=== PATIENT | male | born 1945 | race Caucasian/White ===

== ENCOUNTER 2018-09-04 13:11 | Inpatient (IN) | payer BC, OTHER ==
--- NOTE | 2018-09-04 14:08 | PDOC ---
History of Present Illness - General Chief Complaint: Weakness Stated Complaint: WEAKNESS Time Seen by Provider: 09/04/18 13:17 - History of Present Illness Initial Comments: 09/04/18 14:09 73 year old man with a history of HTN, HLD, possible PAD, who was brought in by family for concern of weakness, soiling his bed and inability to care for self. The patient ate baseline walks with a shuffling gait, requires a cane and has shaking of the hands. The patient complains of shortness of breath with exertion and urinary retention due to his BPH. The family reports that the patient drinks nightly but has not had a drink in the past 1 month. The family has been dropping off food for the patient regularly and the patient has been walking to the door to olive picker the food. The daughter provides a portion of the history and notes that she last saw him 1 month ago when she dropped off food for him. Daughter feels that patient has lost approx 60 lbs over 3months. Today the family had returned from a for the patient's sister and they visited him and found his apartment in disarray, found the patient in bed soiled himself. The patient denies any other complaints at bedside. Past History - Past Medical History Allergies/Adverse Reactions: Allergies Allergy/AdvReac Type Severity Reaction Status Date / Time No Known Allergies Allergy Verified 09/04/18 13:43 Home Medications: Ambulatory Orders Atenolol [Tenormin -] 10 mg PO DAILY 09/04/18 COPD: No HTN: Yes - Suicide/Smoking/Psychosocial Hx Smoking History: Former smoker Have you smoked in the past 12 months: No If you are a former smoker, when did you quit?: 45 YEARS AGO Information on smoking cessation initiated: No Hx Alcohol Use: Yes (OVER 1 MONTH AGO) Drug/Substance Use Hx: No Review of Systems - Review of Systems Able to Perform ROS?: Yes Is the patient limited Wolof proficient: No Constitutional: No: Chills, Diaphoresis HEENTM: No: Blurred Vision, Tinnitus Respiratory: Yes: SOB with Exertion. No: Cough, Orthopnea, Shortness of Breath Cardiac (ROS): No: Chest Pain, Lightheadedness, Palpitations ABD/GI: No: Constipated, Diarrhea, Nausea, Vomiting : No: Burning, Dysuria Musculoskeletal: No: Back Pain, Muscle Pain Neurological: No: Headache, Numbness, Tingling *Physical Exam - Vital Signs Last Vital Signs Temp Pulse Resp BP Pulse Ox 98.3 F 85 20 126/72 95 09/04/18 13:39 09/04/18 13:39 09/04/18 13:39 09/04/18 13:39 09/04/18 13:39 - Physical Exam Comments: 09/04/18 14:42 GENERAL: Awake, alert, and fully oriented, in no acute distress HEAD: No signs of trauma, normocephalic, atraumatic EYES: EOMI, sclera anicteric, conjunctiva clear ENT: poor dentition, hallituosos, bad odor NECK: Normal ROM, supple LUNGS: No distress, speaks full sentences, clear to auscultation bilaterally HEART: Regular rate and rhythm, normal S1 and S2, no murmurs, rubs or gallops, peripheral pulses normal and equal bilaterally. ABDOMEN: Soft, nontender, normoactive bowel sounds. No guarding, no rebound. No masses EXTREMITIES : Normal inspection, Normal range of motion, no edema. No clubbing or cyanosis. no ulcers, some excoriations on the legs bilaterally, cool ankles but palpatble pupils NEUROLOGICAL: Cranial nerves II through XII grossly intact. Normal speech, normal gait, no focal sensorimotor deficits SKIN: no ulcers, some excoriations on the legs bilaterally, cool ankles but palpatble pupils Moderate Sedation - Procedure Monitoring Vital Signs: Procedure Monitoring Vital Signs Temperature 98.3 F 09/04/18 13:39 Pulse Rate 85 09/04/18 13:39 Respiratory Rate 20 09/04/18 13:39 Blood Pressure 126/72 09/04/18 13:39 O2 Sat by Pulse Oximetry (%) 95 09/04/18 13:39 ED Treatment Course - LABORATORY CBC & Chemistry Diagram: 09/05/18 06:35 09/05/18 06:35 Medical Decision Making - Medical Decision Making 73 year old man with a history of HTN, HLD, possible PAD, who was brought in by family for concern of weakness, soiling his bed and inability to care for self. The patient ate baseline walks with a shuffling gait, requires a cane and has shaking of the hands. The patient complains of shortness of breath with exertion and urinary retention due to his BPH. Daughter feels that patient has lost approx 60 lbs over 3months. Today the family had returned from a for the patient's sister and they visited him and found his apartment in disarray, found the patient in bed soiled himself. The patient denies any other complaints at bedside. ED Course: Assess patient for acs vs uti vs pna vs eletrolyte abnormality cbc, cmp, bnp, ekg, cxr, trop, ua, ucx 09/04/18 14:38 Case discussed with social work will assess patient but at this time feels patient will benefit from [facility] referral for home health aid. 09/04/18 15:23 Patient with bilateral pleural effusions and lactic of 2.7 malignancy vs pneumonia vs chf ct chest ordered 09/04/18 16:47 Attending discussed with patient about medical decisions, unclear if patient had capacity. Dr. Vigil contacted will come see patient in the ED, assess whether patient has capacity or whether health proxy is warranted. CT Chest w/ opacities concerning for neoplasm vs mesothelioma Per psychiatry patient does not have mental capacity. Discussed with son who agrees to be health proxy. Will admit patient for further workup and evaluation. Health Proxy paperwork pending. Patient admitted for further workup. *DC/Admit/Observation/Transfer Diagnosis at time of Disposition: Lactic acidosis, Pleural effusion - Discharge Dispostion Condition at time of disposition: Fair Decision to Admit order: Yes - Referrals - Patient Instructions - Post Discharge Activity
[2018-09-04 14:40] LABS: BASO % 0.5 % (0-2.0); EOS % 0.4 % (0-4.5); HEMATOCRIT 38.9 % (35.4-49); HEMOGLOBIN 13.7 GM/dL (11.7-16.9); LYMPH % 9.1 % (8-40); MCH 36.3 pg (25.7-33.7); MCHC 35.3 g/dl (32.0-35.9); MEAN CELL VOLUME 102.6 fl (80-96); MONO % 8.3 % (3.8-10.2); NEUT % 81.7 % (42.8-82.8); PLATELET COUNT 212 K/MM3 (134-434); RBC 3.79 M/mm3 (4.00-5.60); RDW 12.6 % (11.9-15.9); WHITE BLOOD COUNT 7.8 K/mm3 (4.0-10.0)
[2018-09-04] MEDS ORDERED: ALBUTEROL SO4 2.5/IPRATROPIUM 0.5 INH SOL 3 ML VIAL.NEB. NEB ONE (14:47)
[2018-09-04] MEDS ORDERED: SODIUM CHLORIDE 1,000 ML IV SCH (15:00)
[2018-09-04 15:20] LABS: ALBUMIN 2.5 g/dl (3.4-5.0); ALK PHOS 110 U/L (45-117); ANION GAP 7 MMOL/L (8-16); BILIRUBIN,TOTAL 1.1 mg/dL (0.2-1); BLOOD UREA NITROGEN 14 mg/dL (7-18); CALCIUM 8.8 mg/dL (8.5-10.1); CHLORIDE 96 mmol/L (98-107); CO2 33 mmol/L (21-32); CREATININE 0.8 mg/dL (0.55-1.3); GLUCOSE,RANDOM 93 mg/dL (74-106); MAGNESIUM 1.8 mg/dL (1.8-2.4); PHOSPHOROUS 3.1 mg/dL (2.5-4.9); POTASSIUM 3.6 mmol/L (3.5-5.1); SGOT/AST 30 U/L (15-37); SGPT/ALT 30 U/L (13-61); SODIUM 136 mmol/L (136-145); TOT PROT 6.5 g/dl (6.4-8.2)
--- NOTE | 2018-09-04 15:35 | PDOC ---
Attending Attestation - Resident Resident Name: MihaiAna shoemakerie - ED Attending Attestation I have performed the following: I have examined & evaluated the patient, The case was reviewed & discussed with the resident, I agree w/resident's findings & plan, Exceptions are as noted - HPI HPI: 09/04/18 15:30 The patient is a 73 year old male with a significant medical history of HTN, HLD , possible PAD, who was brought in by family for failure to thrive and SOB. The family reports that the patient drinks ETOH nightly, though pt denies drinking for the past month. Per son, pt was found in his home completely disheveled today with urine and stool on himself. They also report a significant weight loss recently. Pt endorses SOB with exertion. Denies CP. Denies SOB at rest. The patient denies headache and dizziness. The patient denies fever, chills, nausea, vomit, diarrhea and constipation. The patient denies dysuria, frequency , urgency and hematuria. Allergies: NKDA - Physicial Exam PE: 09/04/18 15:35 GENERAL: Awake, alert, and fully oriented, in no acute distress. HEAD: No signs of trauma EYES: PERRLA, EOMI, sclera anicteric, conjunctiva clear ENT: Auricles normal inspection, hearing grossly normal, nares patent, oropharynx clear without exudates. Moist mucosa NECK: Nontender, no stepoffs, Normal ROM, supple, no lymphadenopathy, JVD, or masses LUNGS: + diminished breath sounds R base HEART: Regular rate and rhythm, normal S1 and S2, no murmurs, rubs or gallops ABDOMEN: Soft, nontender, normoactive bowel sounds. No guarding, no rebound. No masses EXTREMITIES: Normal range of motion, no edema. No clubbing or cyanosis. No cords, erythema, or tenderness NEUROLOGICAL: Cranial nerves II through XII intact. 5/5 strength and sensation in all extremities, Normal speech, normal gait, normal cerebellar function SKIN: Warm, Dry, normal turgor, no rashes or lesions noted. - Medical Decision Making 09/04/18 15:37 73 M with failure to thrive and SOB. Pt with stable vitals in ED. Exam notable for diminished lung sounds in R base. - Labs, cultures, trop - CXR - EKG 09/04/18 16:20 CXR shows large R pleural effusion Will obtain CT to r/o malignancy vs PNA Pt also has UTI Will cover both with levaquin 09/04/18 16:58 I discussed results with patient and recommended admission for IV abx, at which point pt became agitated. Pt states that he does not want to be admitted. However, I do not believe pt has capacity. I explained to pt that without appropriate treatment, he could from his infections, to which pt replied "well I have to from something." When asked to repeat what my concerns are, pt is unable to recall, stating that we want to "treat the blood or something". I discussed with pt's son, who states he will fill out HCP forms for his father in the event that he is deemed to not have capacity. He expressed concern about pt's home situation, stating that pt has soiled his bed and furniture and has no food. Pt lives alone and will not be able to care for himself. Dr. Vigil consulted to evaluate pt for capacity.
[2018-09-04 16:04] LABS: URINE APPEARANCE CLOUDY; URINE BILIRUBIN NEGATIVE (<2.0 mg/dL); URINE COLOR AMBER; URINE GLUCOSE (UA) NEGATIVE (NEGATIVE); URINE KETONE TRACE (NEGATIVE); URINE LEUK ESTERASE 2+ (NEGATIVE); URINE NITRITE NEGATIVE (NEGATIVE); URINE PROTEIN 2+ (NEGATIVE); URINE UROBILINOGEN 4.0 E.U/dl mg/dL (0.2-1.0)
[2018-09-04 16:11] LABS: EPI CELLS RARE /HPF (FEW); URINE BACTERIA FEW /hpf (NONE SEEN); URINE MUCUS MODERATE
--- NOTE | 2018-09-04 17:48 | CON.PSY ---
Psychiatry Consult Chief Complaint: 73 year old Male brought Er by Son. [patient has Bilateral pleural effusion and nodules that need immediate attention., [patient refusingt tratmrmt and wants to go hpome, Veru angrym irrtable and apprars confused. Claimd he saw me in thec [address], When told about fluid in his Lundsm he saig I will get a tissuec and wipe it out. Poor insight and is in mediacl emergency. Symptoms: reports: Memory Impairment, Irritability, Disorganized/Disruptive Thoughts - Previous Psychiatric Treatment Outpatient: None Inpatient: None - Previous Substance Abuse Treatment Inpatient: None - Current Medications Current Medications: Active Medications Sodium Chloride (Normal Saline -) 1,000 mls @ 0 mls/hr IV ASDIR [facility] Last Admin: 09/04/18 15:03 Dose: 1,000 mls/hr - Allergies Allergies: Allergies Allergy/AdvReac Type Severity Reaction Status Date / Time No Known Allergies Allergy Verified 09/04/18 13:43 - Current Living Status Usual Living Arrangement: Alone - Current Mental Status Evaluation Appearance: Bizarre Attitude: Uncooperative - Affect Affect: Constrictive Appropriateness: Not Appropriate - Mood Mood: Angry - Speech/Language Expressive: Delayed Receptive: Delayed Receptive Comprehension - Thought Process Thought Process: Circumstantial - Thought Content Delusions: Absent - Self Perception Self Perception: No Impairment - Cognition Attention: Diminished Orientation: Time Memory, Short Term: 2/3 Memory, Remote: Impaired Memory, Remote with Promptin/3 - Concentration Serial Sevens Intact: No Simple Calculations Intact: Yes - Abstraction Proverb Interpretation: Robins Judgement: Moderately Impaired - Insight Insight: Impaired - Impulse Control Impulse Control: Minimally Impaired - Suicidal Ideation Suicidal Ideation: No - Homicidal Ideation Homicidal Ideation: No Assessment/Plan 1) Patient lacks functional capacity to make informed decisions at this time.
[2018-09-04] MEDS ORDERED: ALBUTEROL SO4 0.083% IH SOL 2.5 MG/3 ML VIAL.NEB. NEB PRN (18:31)
--- NOTE | 2018-09-04 18:36 | HP ---
CHIEF COMPLAINT:SOB, FTT PCP:Dr. Garrett HISTORY OF PRESENT ILLNESS: The patient is a 73 year old male with a significant medical history of HTN, HLD , possible PAD, who was brought in by family for failure to thrive and SOB. The family reports that the patient drinks ETOH nightly, though pt denies drinking for the past month. Per son, pt was found in his home completely disheveled today with urine and stool on himself. They also report a significant weight loss recently. pt seen at bedside in ED, pt at first was not in agreement to stay, went to see patient and states " I changed my mind, I will stay" pt denies fever, chest pain, abd pain, diarrhea, headache, dizziness, urinary frequency, C/o SOB on exertion. pt able to name PCP, and when he last saw , in January, spoke to Son, today was pt's sister's , son thinks pt has gone into depression since he found out about sister's cancer 4 months ago, who and today, pt seen by Psyche, determined pt has no capacity to make decision, Son to sign HCP papers. ER course was notable for: (1)Lactic 2.7 (2)+UA (3)CT chest Bilateral pleural effusion R>L, small calcified plaques Recent Travel: PAST MEDICAL HISTORY:HTN, HLD, PAD? PAST SURGICAL HISTORY: Social History: Smoking:denies Alcohol: Drugs: Family History: Allergies No Known Allergies Allergy (Verified 09/04/18 13:43) HOME MEDICATIONS: Home Medications Medication Instructions Recorded Atenolol [Tenormin -] 10 mg PO DAILY 09/04/18 REVIEW OF SYSTEMS CONSTITUTIONAL: Absent: fever, chills, diaphoresis, generalized weakness, malaise, loss of appetite, weight change HEENT: Absent: rhinorrhea, nasal congestion, throat pain, throat swelling, difficulty swallowing, mouth swelling, ear pain, eye pain, visual changes CARDIOVASCULAR: Absent: chest pain, syncope, palpitations, irregular heart rate, lightheadedness , peripheral edema RESPIRATORY: +SOB on exertion Absent: cough, orthopnea, wheezing, stridor, hemoptysis GASTROINTESTINAL: Absent: abdominal pain, abdominal distension, nausea, vomiting, diarrhea, constipation, melena, hematochezia GENITOURINARY: Absent: dysuria, frequency, urgency, hesitancy, hematuria, flank pain, genital pain MUSCULOSKELETAL: Absent: myalgia, arthralgia, joint swelling, back pain, neck pain SKIN: Absent: rash, itching, pallor HEMATOLOGIC/IMMUNOLOGIC: Absent: easy bleeding, easy bruising, lymphadenopathy, frequent infections ENDOCRINE: Absent: unexplained weight gain, unexplained weight loss, heat intolerance, cold intolerance NEUROLOGIC: Absent: headache, focal weakness or paresthesias, dizziness, unsteady gait, seizure, mental status changes, bladder or bowel incontinence PSYCHIATRIC: Absent: anxiety, depression, suicidal or homicidal ideation, hallucinations. PHYSICAL EXAMINATION Vital Signs - 24 hr 09/04/18 09/04/18 09/04/18 13:39 13:44 15:02 Temperature 98.3 F Pulse Rate 85 Pulse Rate [ 72 Radial] Respiratory 20 20 Rate Blood Pressure 126/72 Blood Pressure 115/59 L [Left Arm] O2 Sat by Pulse 95 100 100 Oximetry (%) 09/04/18 17:15 Temperature 98.8 F Pulse Rate Pulse Rate [ 62 Radial] Respiratory Rate Blood Pressure Blood Pressure 113/52 L [Left Arm] O2 Sat by Pulse 94 L Oximetry (%) GENERAL: Awake, alert, and fully oriented, in no acute distress. HEAD: Normal with no signs of trauma. EYES: Pupils equal, round and reactive to light, extraocular movements intact, sclera anicteric, conjunctiva clear. No lid lag. EARS, NOSE, THROAT: Ears normal, nares patent, oropharynx clear without exudates. Moist mucous membranes. NECK: Normal range of motion, supple without lymphadenopathy, JVD, or masses. LUNGS: Breath sounds equal, clear to auscultation bilaterally. No wheezes, and no crackles. No accessory muscle use. HEART: Regular rate and rhythm, normal S1 and S2 without murmur, rub or gallop. ABDOMEN: Soft, nontender, not distended, normoactive bowel sounds, no guarding, no rebound, no masses. No hepatomegaly or splenomegaly. MUSCULOSKELETAL: Normal range of motion at all joints. No bony deformities or tenderness. No CVA tenderness. UPPER EXTREMITIES: 2+ pulses, warm, well-perfused. No cyanosis. No clubbing. No peripheral edema. LOWER EXTREMITIES: 2+ pulses, warm, well-perfused. No calf tenderness. No peripheral edema. NEUROLOGICAL: Cranial nerves II-XII intact. Normal speech. Normal gait. PSYCHIATRIC: Cooperative. Good eye contact. Appropriate mood and affect. SKIN: mild excoriation on right leg, dry scab, Warm, dry, normal turgor, no rashes or lesions noted, normal capillary refill. Laboratory Results - last 24 hr 09/04/18 09/04/18 09/04/18 14:15 14:15 14:15 WBC 7.8 RBC 3.79 L Hgb 13.7 Hct 38.9 MCV 102.6 H MCH 36.3 H MCHC 35.3 RDW 12.6 Plt Count 212 MPV 8.0 Absolute Neuts (auto) 6.4 Neutrophils % 81.7 Lymphocytes % 9.1 Monocytes % 8.3 Eosinophils % 0.4 Basophils % 0.5 Nucleated RBC % 0 Sodium 136 Potassium 3.6 Chloride 96 L Carbon Dioxide 33 H Anion Gap 7 L BUN 14 Creatinine 0.8 Creat Clearance w eGFR > 60 Random Glucose 93 Lactic Acid 2.7 H* Calcium 8.8 Phosphorus 3.1 Magnesium 1.8 Total Bilirubin 1.1 H AST 30 ALT 30 Alkaline Phosphatase 110 Troponin I < 0.02 Total Protein 6.5 Albumin 2.5 L Urine Color Urine Appearance Urine pH Ur Specific [place] Urine Protein Urine Glucose (UA) Urine Ketones Urine Blood Urine Nitrite Urine Bilirubin Urine Urobilinogen Ur Leukocyte Esterase Urine WBC (Auto) Urine RBC (Auto) Ur Epithelial Cells Urine Bacteria Urine Mucus 09/04/18 15:02 WBC RBC Hgb Hct MCV MCH MCHC RDW Plt Count MPV Absolute Neuts (auto) Neutrophils % Lymphocytes % Monocytes % Eosinophils % Basophils % Nucleated RBC % Sodium Potassium Chloride Carbon Dioxide Anion Gap BUN Creatinine Creat Clearance w eGFR Random Glucose Lactic Acid Calcium Phosphorus Magnesium Total Bilirubin AST ALT Alkaline Phosphatase Troponin I Total Protein Albumin Urine Color Tomasa Urine Appearance Cloudy Urine pH 5.0 Ur Specific [place] 1.021 Urine Protein 2+ H Urine Glucose (UA) Negative Urine Ketones Trace H Urine Blood 1+ H Urine Nitrite Negative Urine Bilirubin Negative Urine Urobilinogen 4.0 e.u/dl Ur Leukocyte Esterase 2+ H Urine WBC (Auto) 1053 Urine RBC (Auto) 8 Ur Epithelial Cells Rare Urine Bacteria Few Urine Mucus Moderate ASSESSMENT/PLAN: Martell Kline is a 73 yr old M, medical condition HTN, HLD, PAD? admitted for Admitting Diagnosis SOB, B/L pleural Effusion UTI FTT Chronic Problems HTN HLD A/P: #SOB-Bilateral Pleural Effusion -O2 2L NC -Duonebs PRN -Pulm consult -CT chest b/l pleural effusion R>L, small calcified plaques -Lactic 2.7, will repeat, received IV bolus, #UTI -IV Levaquin -urine cx pending -IVF #HTN -on atenolol #FTT -low sodium diet -nutrition consult Full Code DVT prophylaxis Heparin SQ Visit type - Emergency Visit Emergency Visit: Yes ED Registration Date: 09/04/18 Care time: The patient presented to the Emergency Department on the above date and was hospitalized for further evaluation of their emergent condition. - New Patient This patient is new to me today: Yes Date on this admission: 09/04/18 - Critical Care Critical Care patient: No
[2018-09-04] MEDS ORDERED: cefTRIAXone SODIUM 1 GM VIAL ONE (20:16)
[2018-09-04] MEDS ORDERED: DEXTROSE 5%-WATER - 50 ML IVPB ONE (20:17)
--- NOTE | 2018-09-04 20:17 | EKG ---
Test Reason : Blood Pressure : / mmHG Vent. Rate : 074 BPM Atrial Rate : 079 BPM P-R Int : 000 ms QRS Dur : 084 ms QT Int : 414 ms P-R-T Axes : 000 -04 -11 degrees QTc Int : 459 ms POOR DATA QUALITY, INTERPRETATION MAY BE ADVERSELY AFFECTED NORMAL SINUS RHYTHM ABNORMAL ECG NO PREVIOUS ECGS AVAILABLE Confirmed by JOSE LUIS LOUIS, OSCAR ([id number]) on 09/04/2018 8:17:03 PM Referred By: Confirmed By:OSCAR AMAYA MD
[2018-09-04] MEDS: SODIUM CHLORIDE 1,000 ML IV SCH (20:21)
[2018-09-04] MEDS: THIAMINE HCL 100 MG TABLET (FP) PO SCH (20:21)
[2018-09-04] MEDS: CEFTRIAXONE 1 GM in DEXTROSE 5%-WATER - 50 ML IVPB SCH (20:49)
[2018-09-04] MEDS: HEPARIN NA (PORCINE) 5,000 UNITS/ML 1ML VIAL SQ SCH (22:46)
[2018-09-05 07:45] LABS: BASO % 0.8 % (0-2.0); HEMATOCRIT 33.2 % (35.4-49); HEMOGLOBIN 11.6 GM/dL (11.7-16.9); MCH 35.9 pg (25.7-33.7); MEAN CELL VOLUME 102.8 fl (80-96); MEAN PLT VOLUME 7.9 fl (7.5-11.1); MONO % 12.6 % (3.8-10.2); NEUT % 63.6 % (42.8-82.8); PLATELET COUNT 163 K/MM3 (134-434); RBC 3.23 M/mm3 (4.00-5.60); RDW 12.8 % (11.9-15.9); WHITE BLOOD COUNT 4.1 K/mm3 (4.0-10.0)
[2018-09-05 07:56] LABS: ALK PHOS 94 U/L (45-117); ANION GAP 9 MMOL/L (8-16); BLOOD UREA NITROGEN 13 mg/dL (7-18); CALCIUM 7.4 mg/dL (8.5-10.1); CHLORIDE 98 mmol/L (98-107); CO2 30 mmol/L (21-32); CREATININE 0.7 mg/dL (0.55-1.3); GLUCOSE,RANDOM 79 mg/dL (74-106); MAGNESIUM 1.7 mg/dL (1.8-2.4); SGOT/AST 29 U/L (15-37); SGPT/ALT 26 U/L (13-61); SODIUM 136 mmol/L (136-145); TOT PROT 5.5 g/dl (6.4-8.2)
[2018-09-05] MEDS ORDERED: DEXTROSE 5%-WATER - 50 ML IVPB ONE (09:39)
[2018-09-05] MEDS ORDERED: cefTRIAXone SODIUM 1 GM VIAL ONE (09:39)
[2018-09-05] MEDS ORDERED: PNEUMOC 13-VAL CONJ-DIP CRM/PF 0.5 ML DISP.SYRIN IM ONE (10:00)
[2018-09-05] MEDS ORDERED: FLU VACCINE QUAD 60 MCG/0.5 ML (MDV 18-19) IM ONE (10:00)
[2018-09-05] MEDS: CEFTRIAXONE 1 GM in DEXTROSE 5%-WATER - 50 ML IVPB SCH (10:07)
[2018-09-05] MEDS: THIAMINE HCL 100 MG TABLET (FP) PO SCH (10:07)
[2018-09-05] MEDS: ATENOLOL 25 MG TABLET (FP) PO SCH (10:07)
[2018-09-05] MEDS: HEPARIN NA (PORCINE) 5,000 UNITS/ML 1ML VIAL SQ SCH ×2 (10:07→22:24)
[2018-09-05] MEDS: SODIUM CHLORIDE 1,000 ML IV SCH ×2 (10:19→22:15)
--- NOTE | 2018-09-05 11:39 | HOSP ---
Subjective - Review of Symptoms Events since last encounter: patient is comfortable no distress ate well today d/w son in detail General: No: Chills, Night Sweats, Fatigue, Malaise, Appetite, Other HEENT: No: Head Aches, Visual Changes, Eye Pain, Ear Pain, Dysphasia, Sinus Congestion, Post Nasal Drip, Sore Throat, Other Pulmonary: No: Dyspnea, Cough, Pleuritic Chest Pain, Other Cardiovascular: No: Chest Pain, Palpitations, Orthopnea, Paroxysmal Noc. Dyspnea , Edema, Light Headedness, Other Gastrointestinal: No: Nausea, NOSYM, Vomiting, Abdominal Pain, Diarrhea, Constipation, Melena, Hematochezia, Other Genitourinary: No: Dysuria, NOSYM, Frequency, Incontinence, Hematuria, Retention , Other Musculoskeletal: No: No Symptoms, Back Pain, Crepitus, Decreased ROM, Extremity Pain, Joint Pain, Joint Swelling, Muscle Pain, Muscle Cramps, Muscle Weakness, Other Physical Examination Vital Signs: Vital Signs Temperature 98.2 F 09/05/18 06:00 Pulse Rate 85 09/05/18 06:00 Respiratory Rate 20 09/05/18 06:00 Blood Pressure 111/55 L 09/05/18 06:00 O2 Sat by Pulse Oximetry (%) 98 09/04/18 22:00 Constitutional: Yes: No Distress, Calm Eyes: Yes: Conjunctiva Clear HENT: Yes: Atraumatic Neck: Yes: Supple Cardiovascular: Yes: Regular Rate and Rhythm Respiratory: Yes: CTA Bilaterally, Dullness (in both bases) Gastrointestinal: Yes: WNL Edema: No Neurological: Yes: WNL, Alert, Oriented Labs: CBC, BMP 09/05/18 06:35 09/05/18 06:35 Hospitalist Encounter Assessment: Current Medications Albuterol Sulfate (Ventolin 0.083% Nebulizer Soln -) 1 amp NEB Q6H PRN PRN Reason: SHORT OF BREATH/WHEEZING Atenolol (Tenormin -) 25 mg PO DAILY [facility] Last Admin: 09/05/18 10:07 Dose: 25 mg Heparin Sodium (Porcine) (Heparin -) 5,000 unit SQ BID [facility] Last Admin: 09/05/18 10:07 Dose: 5,000 unit Sodium Chloride (Normal Saline -) 1,000 mls @ 0 mls/hr IV ASDIR [facility] Last Admin: 09/04/18 15:03 Dose: 1,000 mls/hr Sodium Chloride (Normal Saline -) 1,000 mls @ 75 mls/hr IV ASDIR [facility] Last Admin: 09/05/18 10:19 Dose: 75 mls/hr Ceftriaxone Sodium 1 gm/ (Dextrose) 50 mls @ 100 mls/hr IVPB DAILY [facility]; Protocol Last Admin: 09/05/18 10:07 Dose: 100 mls/hr Magnesium Oxide (Mag-Ox -) 400 mg PO DAILY [facility] Potassium Chloride (K-Dur -) 10 meq PO DAILY [facility] Thiamine HCl (Vitamin B1 -) 100 mg PO DAILY [facility] Last Admin: 09/05/18 10:07 Dose: 100 mg All Active Problems Lactic acidosis (Acute) Pleural effusion (Acute) uti failure to thrive plan continue abx pulmonary consult his lactic acid is better now thiamine replace k and mg
--- NOTE | 2018-09-05 13:59 | CON.PULM ---
Consult Consult Specialty:: PULMONARY Referred by:: Dr. Rachel Reason for Consultation:: pleural effusions - History of Present Illness Chief Complaint: generalized weakness History of Present Illness: 73yo male with h/o HTN, hyperlipidemia who was brought by his family with failure to thrive and shortness of breath. Pt does report dyspnea with climbing stairs but no cough or wheezing. No fevers, chills or sweats but reports unintentional weight loss per daughter at bedside. Found to have bilateral pleural effusions on imaging. He is a remote smoker. Sister had gastric cancer but denies lung cancer in the family. 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 Per daughter, pt does not follow regularly with doctors. - History Source History Provided By: Patient, Family Member, Medical Record Limitations to Obtaining History: Clinical Condition - Past Medical History Cardio/Vascular: Yes: HTN, Hyperlipdemia - Alcohol/Substance Use Hx Alcohol Use: Yes (OVER 1 MONTH AGO) - Smoking History Smoking history: Former smoker Have you smoked in the past 12 months: No If you are a former smoker, when did you quit?: 45 YEARS AGO - Social History Usual Living Arrangement: Alone Home Medications - Allergies Allergies/Adverse Reactions: Allergies Allergy/AdvReac Type Severity Reaction Status Date / Time No Known Allergies Allergy Verified 09/04/18 13:43 - Home Medications Home Medications: Ambulatory Orders Atenolol [Tenormin -] 10 mg PO DAILY 09/04/18 Review of Systems - Review of Systems Constitutional: reports: Malaise, Unintentional Wgt. Loss, Weakness. denies: Chills, Fever Eyes: denies: Recent Change in Vision HENT: denies: Nasal Congestion, Throat Pain Neck: denies: Stiffness, Tenderness Cardiovascular: reports: Shortness of Breath. denies: Chest Pain, Edema, Palpitations Respiratory: reports: SOB on Exertion. denies: Cough, Hemoptysis, Wheezing Gastrointestinal: denies: Abdominal Pain, Nausea, Vomiting Genitourinary: denies: Dysuria, Hematuria Neurological: denies: Dizziness, Headache Endocrine: denies: Unexplained Weight Loss Physical Exam Vital Sings: Vital Signs Temperature 98.2 F 09/05/18 06:00 Pulse Rate 85 09/05/18 06:00 Respiratory Rate 20 09/05/18 06:00 Blood Pressure 111/55 L 09/05/18 06:00 O2 Sat by Pulse Oximetry (%) 98 09/04/18 22:00 Constitutional: Yes: Calm, Poor Hygeine Eyes: Yes: Conjunctiva Clear, EOM Intact HENT: Yes: Atraumatic, Normocephalic Neck: Yes: Supple, Trachea Midline. No: Lymphadenopathy Cardiovascular: Yes: Regular Rate and Rhythm Respiratory: Yes: Diminished (decreased breath sounds right base 2/3 up) ...Clubbing: No Gastrointestinal: Yes: Normal Bowel Sounds, Soft. No: Tenderness Edema: No Neurological: Yes: Alert, Oriented Labs: CBC, BMP 09/05/18 06:35 09/05/18 06:35 Imaging - Results Chest X-ray: Report Reviewed, Image Reviewed Cat Scan: Report Reviewed, Image Reviewed (bilateral effusions R>L) Problem List - Problems (1) UTI (urinary tract infection) Code(s): N39.0 - URINARY TRACT INFECTION, SITE NOT SPECIFIED (2) Lactic acidosis Code(s): E87.2 - ACIDOSIS (3) Pleural effusion Code(s): J90 - PLEURAL EFFUSION, NOT ELSEWHERE CLASSIFIED (4) Hypertension Code(s): I10 - ESSENTIAL (PRIMARY) HYPERTENSION (5) Failure to thrive in adult Code(s): R62.7 - ADULT FAILURE TO THRIVE Assessment/Plan UTI Bilateral Pleural Effusions r/o Malignancy Failure to Thrive Lactic Acidosis HTN Hyperlipidemia - continue antibiotics - f/u cultures - will order diagnostic thoracentesis on right effusion - echocardiogram - DVT prophylaxis Thank you for this consult Douglas Alexandra MD
[2018-09-05] MEDS: POTASSIUM CHLORIDE TABS 10 MEQ TABLET.ER (FP) PO SCH (17:56)
[2018-09-05] MEDS: MAGNESIUM OXIDE 400 MG TABLET (FP) PO SCH (17:56)
[2018-09-06] MEDS: SODIUM CHLORIDE 1,000 ML IV SCH (00:13)
[2018-09-06] MEDS ORDERED: DEXTROSE 5%-WATER - 50 ML IVPB ONE (09:51)
[2018-09-06] MEDS ORDERED: cefTRIAXone SODIUM 1 GM VIAL ONE (09:51)
--- NOTE | 2018-09-06 10:47 | PN ---
Physical Exam: SUBJECTIVE: Patient seen and examined Much alert and no fever or chills he ate all his food no sob at rest and no nausea of vomiting OBJECTIVE: Vital Signs Period Temp Pulse Resp BP Sys/Lou Pulse Ox Last 24 Hr 98 F-99.5 F 58-66 18-20 98-109/48-53 GENERAL: The patient is awake, alert, and fully oriented, in no acute distress. HEAD: Normal with no signs of trauma. EYES: PERRL, extraocular movements intact, sclera anicteric, conjunctiva clear. No ptosis. ENT: Ears normal, nares patent, oropharynx clear without exudates, moist mucous membranes. NECK: Trachea midline, full range of motion, supple. LUNGS: Breath sounds equal, clear to auscultation bilaterally, he has dullness on his both bases HEART: Regular rate and rhythm, S1, S2 without murmur, rub or gallop. ABDOMEN: Soft, nontender, nondistended, normoactive bowel sounds, no guarding, no rebound, no hepatosplenomegaly, no masses. EXTREMITIES: 2+ pulses, warm, well-perfused, no edema. NEUROLOGICAL: Cranial nerves II through XII grossly intact. Normal speech, gait not observed. PSYCH: Normal mood, normal affect. SKIN: Warm, dry, normal turgor, no rashes or lesions noted Active Medications Generic Name Dose Route Start Last Admin Trade Name Freq PRN Reason Stop Dose Admin Albuterol Sulfate 1 amp 09/04/18 18:31 09/06/18 05:59 Ventolin 0.083% Nebulizer Soln - NEB 1 amp Q6H PRN Administration SHORT OF BREATH/WHEEZING Atenolol 25 mg 09/05/18 10:00 09/05/18 10:07 Tenormin - PO 25 mg DAILY MIR Administration Heparin Sodium (Porcine) 5,000 unit 09/04/18 22:00 09/05/18 22:24 Heparin - SQ 5,000 unit BID MIR Administration Sodium Chloride 1,000 mls @ 75 mls/hr 09/04/18 18:45 09/06/18 00:13 Normal Saline - IV 75 mls/hr ASDIR MIR Administration Ceftriaxone Sodium 1 gm/ 50 mls @ 100 mls/hr 09/04/18 20:00 09/05/18 10:07 Dextrose IVPB 100 mls/hr DAILY MIR Administration Protocol Magnesium Oxide 400 mg 09/05/18 11:33 09/05/18 17:56 Mag-Ox - PO 400 mg DAILY MIR Administration Potassium Chloride 10 meq 09/05/18 11:45 09/05/18 17:56 K-Dur - PO 10 meq DAILY MIR Administration Thiamine HCl 100 mg 09/04/18 20:15 09/05/18 10:07 Vitamin B1 - PO 100 mg DAILY MIR Administration ASSESSMENT/PLAN: Lactic acidosis (Acute) resolved and repeat level is normal Pleural effusion (Acute) seen by pulmonary and will have thoracentesis ordered echo r/o cardiac etiology uti abx failure to thrive He is eating well and change fluids to pt and stop iv fluids and repeat labs in am Alcohol use he is on thiamine and he is improving ordered physical therapy
[2018-09-06] MEDS: CEFTRIAXONE 1 GM in DEXTROSE 5%-WATER - 50 ML IVPB SCH (11:02)
[2018-09-06] MEDS: ATENOLOL 25 MG TABLET (FP) PO SCH (11:02)
[2018-09-06] MEDS: POTASSIUM CHLORIDE TABS 10 MEQ TABLET.ER (FP) PO SCH (11:02)
[2018-09-06] MEDS: THIAMINE HCL 100 MG TABLET (FP) PO SCH (11:02)
[2018-09-06] MEDS: HEPARIN NA (PORCINE) 5,000 UNITS/ML 1ML VIAL SQ SCH ×2 (11:02→22:07)
[2018-09-06] MEDS: MAGNESIUM OXIDE 400 MG TABLET (FP) PO SCH (11:02)
--- NOTE | 2018-09-06 11:31 | PN ---
Progress Note (short form) - Note Progress Note: PULMONARY Denies shortness of breath, cough or chest pain. No fevers recorded. Vital Signs Period Temp Pulse Resp BP Sys/Lou Pulse Ox Last 24 Hr 98 F-99.5 F 58-66 18-20 98-109/48-53 Gen: NAD at rest, disheveled Heart: RRR Lung: decreased breath sounds at the bases Abd: soft, nontender Ext: no edema CBC, BMP 09/05/18 06:35 09/05/18 06:35 Active Medications Albuterol Sulfate (Ventolin 0.083% Nebulizer Soln -) 1 amp NEB Q6H PRN PRN Reason: SHORT OF BREATH/WHEEZING Last Admin: 09/06/18 05:59 Dose: 1 amp Atenolol (Tenormin -) 25 mg PO DAILY [facility] Last Admin: 09/06/18 11:02 Dose: 25 mg Heparin Sodium (Porcine) (Heparin -) 5,000 unit SQ BID [facility] Last Admin: 09/06/18 11:02 Dose: 5,000 unit Ceftriaxone Sodium 1 gm/ (Dextrose) 50 mls @ 100 mls/hr IVPB DAILY [facility]; Protocol Last Admin: 09/06/18 11:02 Dose: 100 mls/hr Magnesium Oxide (Mag-Ox -) 400 mg PO DAILY [facility] Last Admin: 09/06/18 11:02 Dose: 400 mg Potassium Chloride (K-Dur -) 10 meq PO DAILY [facility] Last Admin: 09/06/18 11:02 Dose: 10 meq Thiamine HCl (Vitamin B1 -) 100 mg PO DAILY [facility] Last Admin: 09/06/18 11:02 Dose: 100 mg A/P UTI Bilateral Pleural Effusions r/o Malignancy Failure to Thrive Lactic Acidosis HTN Hyperlipidemia - continue antibiotics - f/u cultures - for diagnostic thoracentesis on right effusion - echocardiogram - DVT prophylaxis, hold AM heparin Problem List - Problems (1) UTI (urinary tract infection) Code(s): N39.0 - URINARY TRACT INFECTION, SITE NOT SPECIFIED (2) Lactic acidosis Code(s): E87.2 - ACIDOSIS (3) Pleural effusion Code(s): J90 - PLEURAL EFFUSION, NOT ELSEWHERE CLASSIFIED (4) Hypertension Code(s): I10 - ESSENTIAL (PRIMARY) HYPERTENSION (5) Failure to thrive in adult Code(s): R62.7 - ADULT FAILURE TO THRIVE
[2018-09-06] MEDS ORDERED: POTASSIUM CHLORIDE TABS 20 MEQ TABLET.ER (FP) PO ONE (11:32)
[2018-09-07 07:57] LABS: ALK PHOS 91 U/L (45-117); ANION GAP 7 MMOL/L (8-16); BILIRUBIN,TOTAL 0.8 mg/dL (0.2-1); BLOOD UREA NITROGEN 6 mg/dL (7-18); CALCIUM 7.8 mg/dL (8.5-10.1); CHLORIDE 100 mmol/L (98-107); CO2 29 mmol/L (21-32); CREATININE 0.6 mg/dL (0.55-1.3); GLUCOSE,RANDOM 85 mg/dL (74-106); POTASSIUM 3.3 mmol/L (3.5-5.1); SGOT/AST 38 U/L (15-37); SGPT/ALT 25 U/L (13-61); SODIUM 136 mmol/L (136-145); TOT PROT 5.3 g/dl (6.4-8.2)
[2018-09-07] MEDS ORDERED: DEXTROSE 5%-WATER - 50 ML IVPB ONE (09:15)
[2018-09-07] MEDS ORDERED: cefTRIAXone SODIUM 1 GM VIAL ONE (09:15)
[2018-09-07] MEDS: CEFTRIAXONE 1 GM in DEXTROSE 5%-WATER - 50 ML IVPB SCH (09:17)
[2018-09-07] MEDS: THIAMINE HCL 100 MG TABLET (FP) PO SCH (09:18)
[2018-09-07] MEDS: POTASSIUM CHLORIDE TABS 10 MEQ TABLET.ER (FP) PO SCH (09:18)
[2018-09-07] MEDS: MAGNESIUM OXIDE 400 MG TABLET (FP) PO SCH (09:18)
[2018-09-07] MEDS ORDERED: POTASSIUM CHLORIDE TABS 20 MEQ TABLET.ER (FP) PO ONE ×2 (10:13→15:14)
[2018-09-07] MEDS: ATENOLOL 25 MG TABLET (FP) PO SCH ×2 (10:30→14:38)
--- NOTE | 2018-09-07 10:57 | PN ---
Progress Note (short form) - Note Progress Note: Denies shortness of breath, cough or chest pain. No fevers recorded. Last Vital Signs Temp Pulse Resp BP Pulse Ox 97.8 F 56 L 20 115/51 L 98 09/07/18 09:26 09/07/18 09:26 09/07/18 09:26 09/07/18 09:26 09/05/18 09:00 Intake & Output 09/04/18 09/05/18 09/06/18 09/07/18 23:59 23:59 23:59 23:59 Weight 190 lb 189 lb 9.561 oz Active Medications Albuterol Sulfate (Ventolin 0.083% Nebulizer Soln -) 1 amp NEB Q6H PRN PRN Reason: SHORT OF BREATH/WHEEZING Last Admin: 09/06/18 05:59 Dose: 1 amp Atenolol (Tenormin -) 25 mg PO DAILY [facility] Last Admin: 09/06/18 11:02 Dose: 25 mg Heparin Sodium (Porcine) (Heparin -) 5,000 unit SQ BID [facility] Last Admin: 09/06/18 22:07 Dose: 5,000 unit Ceftriaxone Sodium 1 gm/ (Dextrose) 50 mls @ 100 mls/hr IVPB DAILY [facility]; Protocol Last Admin: 09/07/18 09:17 Dose: 100 mls/hr Magnesium Oxide (Mag-Ox -) 400 mg PO DAILY [facility] Last Admin: 09/07/18 09:18 Dose: 400 mg Potassium Chloride (K-Dur -) 10 meq PO DAILY [facility] Last Admin: 09/07/18 09:18 Dose: 10 meq Potassium Chloride (K-Dur -) 20 meq PO ONCE ONE Stop: 09/07/18 15:15 Thiamine HCl (Vitamin B1 -) 100 mg PO DAILY [facility] Last Admin: 09/07/18 09:18 Dose: 100 mg Gen: NAD at rest Heart: RRR Lung: decreased breath sounds at the bases Abd: soft, nontender Ext: no edema Laboratory Results - last 24 hr 09/07/18 06:30 Sodium 136 Potassium 3.3 L Chloride 100 Carbon Dioxide 29 Anion Gap 7 L BUN 6 L Creatinine 0.6 Creat Clearance w eGFR > 60 Random Glucose 85 Calcium 7.8 L Magnesium 2.0 Total Bilirubin 0.8 AST 38 H ALT 25 Alkaline Phosphatase 91 Total Protein 5.3 L Albumin 2.0 L Problem List - Problems (1) UTI (urinary tract infection) Code(s): N39.0 - URINARY TRACT INFECTION, SITE NOT SPECIFIED (2) Lactic acidosis Code(s): E87.2 - ACIDOSIS (3) Pleural effusion Code(s): J90 - PLEURAL EFFUSION, NOT ELSEWHERE CLASSIFIED (4) Hypertension Code(s): I10 - ESSENTIAL (PRIMARY) HYPERTENSION (5) Failure to thrive in adult Code(s): R62.7 - ADULT FAILURE TO THRIVE A/P UTI Bilateral Pleural Effusions r/o Malignancy Failure to Thrive Lactic Acidosis HTN Hyperlipidemia - continue antibiotics - f/u cultures - for diagnostic thoracentesis on right effusion - echocardiogram - DVT prophylaxis, hold AM heparin Dr Zamora
[2018-09-07] MEDS ORDERED: INSULIN (NOVOLOG) ASPART 100 UNITS/ML 10ML VIAL ONE (11:12)
[2018-09-07] MEDS ORDERED: ACETAMINOPHEN 325 MG TABLET (FP) PO PRN ×2 (14:39→15:12)
[2018-09-07] MEDS ORDERED: oxyCODONE HCL 5 MG TABLET PO PRN (15:12)
[2018-09-07 16:41] LABS: BF WBC & OTHER NUCLEATED CELLS 1111 /mm3
[2018-09-07 18:15] LABS: BODY FLUID MONOCYTE 2 %; BODYL FLD EOSINOPHIL 2 %
--- NOTE | 2018-09-07 18:48 | PN ---
Progress Note, Physician History of Present Illness: 24hr Events: -pt with right pleural effusion for thoracentesis today. -no major complaints voiced - Current Medication List Current Medications: Active Medications Acetaminophen (Tylenol -) 650 mg PO Q6H PRN PRN Reason: PAIN LEVEL 4 - 6 Acetaminophen (Tylenol -) 325 mg PO Q6H PRN PRN Reason: PAIN LEVEL 7 - 10 Last Admin: 09/07/18 15:35 Dose: 325 mg Albuterol Sulfate (Ventolin 0.083% Nebulizer Soln -) 1 amp NEB Q6H PRN PRN Reason: SHORT OF BREATH/WHEEZING Last Admin: 09/06/18 05:59 Dose: 1 amp Atenolol (Tenormin -) 25 mg PO DAILY [facility] Last Admin: 09/07/18 14:38 Dose: 25 mg Heparin Sodium (Porcine) (Heparin -) 5,000 unit SQ BID [facility] Last Admin: 09/06/18 22:07 Dose: 5,000 unit Ceftriaxone Sodium 1 gm/ (Dextrose) 50 mls @ 100 mls/hr IVPB DAILY [facility]; Protocol Last Admin: 09/07/18 09:17 Dose: 100 mls/hr Magnesium Oxide (Mag-Ox -) 400 mg PO DAILY [facility] Last Admin: 09/07/18 09:18 Dose: 400 mg Oxycodone HCl (Roxicodone -) 5 mg PO Q6H PRN PRN Reason: PAIN LEVEL 7 - 10 Last Admin: 09/07/18 15:34 Dose: 5 mg Potassium Chloride (K-Dur -) 10 meq PO DAILY [facility] Last Admin: 09/07/18 09:18 Dose: 10 meq Thiamine HCl (Vitamin B1 -) 100 mg PO DAILY [facility] Last Admin: 09/07/18 09:18 Dose: 100 mg - Objective Vital Signs: Vital Signs Temperature 97.6 F 09/07/18 15:24 Pulse Rate 96 H 09/07/18 15:24 Respiratory Rate 18 09/07/18 15:24 Blood Pressure 112/65 09/07/18 15:24 O2 Sat by Pulse Oximetry (%) 96 09/07/18 09:00 Constitutional: Yes: Well Nourished, No Distress, Calm Eyes: Yes: Conjunctiva Clear, EOM Intact, PERRL HENT: Yes: Atraumatic, Normocephalic Neck: Yes: Supple, Trachea Midline Cardiovascular: Yes: Regular Rate and Rhythm Respiratory: Yes: Regular, Diminished (at the bases) Gastrointestinal: Yes: Normal Bowel Sounds, Soft ...Rectal Exam: Yes: Deferred Musculoskeletal: Yes: Joint Stiffness Extremities: Yes: Other (dry scaly LEs) Edema: No Peripheral Pulses WNL: Yes Peripheral Pulses: Left Radial: 2+, Right Radial: 2+, Left Doralis Pedis: 2+, Right Dorsalis Pedis: 2+ Integumentary: Yes: Venous Stasis Changes Neurological: Yes: Alert, Oriented, Tremors, Unsteady Gait ...Motor Strength: LLE (4/5 muscle strength), RLE Psychiatric: Yes: Alert, Oriented Labs: CBC, BMP 09/05/18 06:35 09/07/18 06:30 - ....Imaging X-ray: Report Reviewed (CXR 09/07/18 s/p right thoracentesis. Decreased right pleural fluid. no ptx) Problem List - Problems (1) Prophylactic measure Assessment/Plan: Heparin SC BID OOB to chair IC Bowel regimen with senna and colace Code(s): Z29.9 - ENCOUNTER FOR PROPHYLACTIC MEASURES, UNSPECIFIED (2) Hypertension Assessment/Plan: Atenolol 25mg daily cardiac diet Code(s): I10 - ESSENTIAL (PRIMARY) HYPERTENSION (3) Pleural effusion Assessment/Plan: s/p thoracentesis APAP moderate pain Oxycodone PRN severe pain PRN NC Code(s): J90 - PLEURAL EFFUSION, NOT ELSEWHERE CLASSIFIED (4) UTI (urinary tract infection) Assessment/Plan: ceftriaxone 1gm daily encourage PO fluids Code(s): N39.0 - URINARY TRACT INFECTION, SITE NOT SPECIFIED Impression/Plan Impression/Plan: Full code continue thiamine and MagOx trend electrolytes and replete as needed Visit type - Emergency Visit Emergency Visit: Yes ED Registration Date: 09/04/18 Care time: The patient presented to the Emergency Department on the above date and was hospitalized for further evaluation of their emergent condition. - New Patient This patient is new to me today: Yes Date on this admission: 09/07/18 - Critical Care Critical Care patient: No - Discharge Referral Referred to [facility] Med P.C.: No
[2018-09-07] MEDS ORDERED: SENNOSIDES 8.6MG TABLET (FP) PO PRN (18:51)
[2018-09-07] MEDS: HEPARIN NA (PORCINE) 5,000 UNITS/ML 1ML VIAL SQ SCH (21:47)
[2018-09-08] MEDS ORDERED: DEXTROSE 5%-WATER - 50 ML IVPB ONE (09:16)
[2018-09-08] MEDS ORDERED: cefTRIAXone SODIUM 1 GM VIAL ONE (09:16)
[2018-09-08] MEDS: CEFTRIAXONE 1 GM in DEXTROSE 5%-WATER - 50 ML IVPB SCH (09:35)
[2018-09-08] MEDS: THIAMINE HCL 100 MG TABLET (FP) PO SCH (09:36)
[2018-09-08] MEDS: MAGNESIUM OXIDE 400 MG TABLET (FP) PO SCH (09:36)
[2018-09-08] MEDS: ATENOLOL 25 MG TABLET (FP) PO SCH (09:36)
[2018-09-08] MEDS: POTASSIUM CHLORIDE TABS 10 MEQ TABLET.ER (FP) PO SCH (09:36)
--- NOTE | 2018-09-08 10:32 | PN ---
Physical Exam: SUBJECTIVE: Patient seen and examined at the bedside. denies any pain, discomfort or shortness of breath. OBJECTIVE: s/p thoracentesis Vital Signs Period Temp Pulse Resp BP Sys/Lou Pulse Ox Last 24 Hr 97.2 F-97.6 F 58-96 18-20 95-113/50-65 96 GENERAL: The patient is awake, alert, and fully oriented, in no acute distress. HEAD: Normal with no signs of trauma. EYES: PERRL, extraocular movements intact, sclera anicteric, conjunctiva clear. No ptosis. ENT: Ears normal, nares patent, oropharynx clear without exudates, moist mucous membranes. NECK: Trachea midline, full range of motion, supple. LUNGS: Breath sounds equal, diminished bilaterally. HEART: Regular rate and rhythm ABDOMEN: Soft, nontender, nondistended, normoactive bowel sounds EXTREMITIES: no edema. NEUROLOGICAL: Normal speech, gait not observed. PSYCH: Normal mood, normal affect. SKIN: Warm, dry, normal turgor, no rashes or lesions noted Laboratory Results - last 24 hr 09/07/18 12:55 Fluid Source Pleural Fluid WBC 1111 Fluid RBC [id number] Fluid Neutrophils 4 Fluid Lymphocytes 92 Pleural Monocytes 2 Pleural Eosinophils 2 Active Medications Generic Name Dose Route Start Last Admin Trade Name Freq PRN Reason Stop Dose Admin Acetaminophen 650 mg 09/07/18 14:39 Tylenol - PO Q6H PRN PAIN LEVEL 4 - 6 Acetaminophen 325 mg 09/07/18 15:12 09/07/18 15:35 Tylenol - PO 325 mg Q6H PRN Administration PAIN LEVEL 7 - 10 Albuterol Sulfate 1 amp 09/04/18 18:31 09/06/18 05:59 Ventolin 0.083% Nebulizer Soln - NEB 1 amp Q6H PRN Administration SHORT OF BREATH/WHEEZING Atenolol 25 mg 09/05/18 10:00 09/08/18 09:36 Tenormin - PO 25 mg DAILY MIR Administration Docusate Sodium 100 mg 09/07/18 18:51 Colace - PO BID PRN CONSTIPATION Heparin Sodium (Porcine) 5,000 unit 09/04/18 22:00 09/07/18 21:47 Heparin - SQ Not Given BID MIR Ceftriaxone Sodium 1 gm/ 50 mls @ 100 mls/hr 09/04/18 20:00 09/08/18 09:35 Dextrose IVPB 100 mls/hr DAILY MIR Administration Protocol Magnesium Oxide 400 mg 09/05/18 11:33 09/08/18 09:36 Mag-Ox - PO 400 mg DAILY MIR Administration Oxycodone HCl 5 mg 09/07/18 15:12 09/07/18 15:34 Roxicodone - PO 5 mg Q6H PRN Administration PAIN LEVEL 7 - 10 Potassium Chloride 10 meq 09/05/18 11:45 09/08/18 09:36 K-Dur - PO 10 meq DAILY MIR Administration Senna 2 tab 09/07/18 18:51 Senna - PO HS PRN CONSTIPATION Thiamine HCl 100 mg 09/04/18 20:15 09/08/18 09:36 Vitamin B1 - PO 100 mg DAILY MIR Administration ASSESSMENT/PLAN: Patient is a 73 year old male with a significant past medical history of HTN, HLD, possible PAD, who was brought in by family for failure to thrive and SOB. Patient is reported to drink nightly, however he denies having hx of ETOH abuse. Per notes, pt was found in his home completely disheveled with urine and stool on himself. Pulm s/p right thoracententis S/P Right thoracentesis yesterday. ches xray improved effusion, no pneumothorax Denies shortness of breath, tolerating room air stable, denies coughing. echo with moderate aortic stenosis, cardiology consulted Psyche: ETOH abuse no signs of withdrawal. denies etoh use folate, thiamine UTI on ceftriaxone. fen tolerating po monitor electrolytes low salt diet prophy scds Visit type - Emergency Visit Emergency Visit: Yes ED Registration Date: 09/04/18 Care time: The patient presented to the Emergency Department on the above date and was hospitalized for further evaluation of their emergent condition. - New Patient This patient is new to me today: Yes Date on this admission: 09/08/18 - Critical Care Critical Care patient: No - Discharge Referral Referred to [facility] Med P.C.: No
--- NOTE | 2018-09-08 10:40 | PN ---
Progress Note (short form) - Note Progress Note: S/P Right thoracentesis yesterday. CXR: improved effusion / no PTX Denies shortness of breath, cough or chest pain. No fevers recorded. Pleural chemistries are still pending. Intake & Output 09/05/18 09/06/18 09/07/18 09/08/18 23:59 23:59 23:59 23:59 Intake Total 450 Balance 450 Weight 189 lb 9.561 oz Last Vital Signs Temp Pulse Resp BP Pulse Ox 97.4 F L 58 L 20 109/59 L 96 09/08/18 06:00 09/08/18 06:00 09/08/18 06:00 09/08/18 06:00 09/07/18 21:00 Active Medications Acetaminophen (Tylenol -) 650 mg PO Q6H PRN PRN Reason: PAIN LEVEL 4 - 6 Acetaminophen (Tylenol -) 325 mg PO Q6H PRN PRN Reason: PAIN LEVEL 7 - 10 Last Admin: 09/07/18 15:35 Dose: 325 mg Albuterol Sulfate (Ventolin 0.083% Nebulizer Soln -) 1 amp NEB Q6H PRN PRN Reason: SHORT OF BREATH/WHEEZING Last Admin: 09/06/18 05:59 Dose: 1 amp Atenolol (Tenormin -) 25 mg PO DAILY [facility] Last Admin: 09/08/18 09:36 Dose: 25 mg Docusate Sodium (Colace -) 100 mg PO BID PRN PRN Reason: CONSTIPATION Heparin Sodium (Porcine) (Heparin -) 5,000 unit SQ BID [facility] Last Admin: 09/07/18 21:47 Dose: Not Given Ceftriaxone Sodium 1 gm/ (Dextrose) 50 mls @ 100 mls/hr IVPB DAILY [facility]; Protocol Last Admin: 09/08/18 09:35 Dose: 100 mls/hr Magnesium Oxide (Mag-Ox -) 400 mg PO DAILY [facility] Last Admin: 09/08/18 09:36 Dose: 400 mg Oxycodone HCl (Roxicodone -) 5 mg PO Q6H PRN PRN Reason: PAIN LEVEL 7 - 10 Last Admin: 09/07/18 15:34 Dose: 5 mg Potassium Chloride (K-Dur -) 10 meq PO DAILY [facility] Last Admin: 09/08/18 09:36 Dose: 10 meq Senna (Senna -) 2 tab PO HS PRN PRN Reason: CONSTIPATION Thiamine HCl (Vitamin B1 -) 100 mg PO DAILY [facility] Last Admin: 09/08/18 09:36 Dose: 100 mg Gen: NAD at rest Heart: RRR Lung: decreased breath sounds at the bases Abd: soft, nontender Ext: no edema Laboratory Results - last 24 hr 09/07/18 12:55 Fluid Source Pleural Fluid WBC 1111 Fluid RBC [id number] Fluid Neutrophils 4 Fluid Lymphocytes 92 Pleural Monocytes 2 Pleural Eosinophils 2 Problem List - Problems (1) UTI (urinary tract infection) Code(s): N39.0 - URINARY TRACT INFECTION, SITE NOT SPECIFIED (2) Lactic acidosis Code(s): E87.2 - ACIDOSIS (3) Pleural effusion Code(s): J90 - PLEURAL EFFUSION, NOT ELSEWHERE CLASSIFIED (4) Hypertension Code(s): I10 - ESSENTIAL (PRIMARY) HYPERTENSION (5) Failure to thrive in adult Code(s): R62.7 - ADULT FAILURE TO THRIVE A/P UTI Bilateral Pleural Effusions r/o Malignancy Failure to Thrive Lactic Acidosis HTN Hyperlipidemia - Follow pleural chemistries (pending result) / cytology / microbiology - continue antibiotics - DVT prophylaxis Dr Zamora
[2018-09-08 11:12] LABS: BASO % 0.8 % (0-2.0); EOS % 3.4 % (0-4.5); HEMATOCRIT 36.6 % (35.4-49); HEMOGLOBIN 12.8 GM/dL (11.7-16.9); LYMPH % 18.2 % (8-40); MCH 35.7 pg (25.7-33.7); MCHC 34.9 g/dl (32.0-35.9); MEAN CELL VOLUME 102.3 fl (80-96); MONO % 8.8 % (3.8-10.2); NEUT % 68.8 % (42.8-82.8); PLATELET COUNT 192 K/MM3 (134-434); RBC 3.57 M/mm3 (4.00-5.60); WHITE BLOOD COUNT 4.6 K/mm3 (4.0-10.0)
[2018-09-08 11:24] LABS: INR 1.07 (0.83-1.09); PROTHROMBIN TIME (PATIENT) 12.6 SEC (9.7-13.0)
[2018-09-08 11:55] LABS: ALK PHOS 111 U/L (45-117); ANION GAP 8 MMOL/L (8-16); BILIRUBIN,TOTAL 0.9 mg/dL (0.2-1); BLOOD UREA NITROGEN 8 mg/dL (7-18); CALCIUM 8.4 mg/dL (8.5-10.1); CHLORIDE 102 mmol/L (98-107); CO2 26 mmol/L (21-32); CREATININE 0.6 mg/dL (0.55-1.3); GLUCOSE,RANDOM 119 mg/dL (74-106); MAGNESIUM 2.2 mg/dL (1.8-2.4); SGOT/AST 41 U/L (15-37); SGPT/ALT 33 U/L (13-61); SODIUM 136 mmol/L (136-145); TOT PROT 5.8 g/dl (6.4-8.2)
--- NOTE | 2018-09-08 14:18 | ECHO ---
Name: ESTER HOLLIDAY Exam:Adult Echocardiogram Study Date: 09/08/2018 11:40 AM Age: 73 yrs Reason For Study: R/O CHF Height: 71 in Weight: 189 lb BSA: 2.1 m2 MMode/2D Measurements & Calculations IVSd: 0.91 cm Ao root diam: 3.2 cm LVIDd: 4.4 cm LA dimension: 3.1 cm LVIDs: 3.0 cm LVPWd: 0.79 cm EDV(Teich): 87.5 ml LVOT diam: 2.2 cm ESV(Teich): 35.0 ml Doppler Measurements & Calculations MV E max guicho: 32.1 cm/sec Ao V2 max: 304.0 cm/sec MV A max guicho: 67.6 cm/sec Ao max P.0 mmHg MV E/A: 0.47 Ao V2 mean: 219.3 cm/sec Ao mean P.4 mmHg Ao V2 VTI: 61.5 cm REY(I,D): 1.1 cm2 AI P1/2t: 399.8 msec REY(V,D): 1.1 cm2 AI max guicho: 339.5 cm/sec LV V1 max P.1 mmHg AI max P.8 mmHg LV V1 mean P.9 mmHg AI dec slope: 248.7 cm/sec2 LV V1 max: 87.8 cm/sec LV V1 mean: 63.8 cm/sec LV V1 VTI: 18.2 cm SV(LVOT): 68.5 ml TR max guicho: 155.5 cm/sec TR max P.7 mmHg Med Peak E' Guicho: 4.8 cm/sec Med E/e': 6.6 Lat Peak E' Guicho: 4.9 cm/sec Lat E/e': 6.5 Left Ventricle The left ventricular size, thickness and function are normal. Ejection Fraction = 65. The transmitral spectral Doppler flow pattern is suggestive of impaired LV relaxation. Right Ventricle The right ventricle is normal in size and function. Atria Normal left and right atrial size and function. Mitral Valve There is mild mitral annular calcification. There is mild mitral regurgitation. Tricuspid Valve The tricuspid valve is normal. There is mild tricuspid regurgitation. Aortic Valve Moderate valvular aortic stenosis. The calculated aortic valve area using the continuity equation is 1.12 cm2. Aortic mean pressure gradient= 21.0. Aortic max pressure gradient= 37.0. Mild aortic regurgitation. Pulmonic Valve The pulmonic valve is not well seen, but is grossly normal. Great Vessels The aortic root is normal size. Normal aortic arch, descending and ascending aorta. Pericardium/Pleura There is no pericardial effusion. Interpretation Summary The transmitral spectral Doppler flow pattern is suggestive of impaired LV relaxation. Ejection Fraction = 65. The right ventricle is normal in size and function. Normal left and right atrial size and function. There is mild mitral annular calcification. There is mild mitral regurgitation. The tricuspid valve is normal. There is mild tricuspid regurgitation. Moderate valvular aortic stenosis. Mild aortic regurgitation. The calculated aortic valve area using the continuity equation is 1.12 cm2. Aortic mean pressure gradient= 21.0 Aortic max pressure gradient= 37.0 The pulmonic valve is not well seen, but is grossly normal. The aortic root is normal size. Normal aortic arch, descending and ascending aorta There is no pericardial effusion. Frandy Esparza 09/08/2018 02:17 PM
--- NOTE | 2018-09-08 21:14 | CON.CARD ---
Consult Consult Specialty:: Cardiology Reason for Consultation:: - History of Present Illness History of Present Illness: The patient is a 73 year old male with a significant medical history of HTN, HLD , possible PAD, who was brought in by family for failure to thrive and SOB. The family reports that the patient drinks ETOH nightly, though pt denies drinking for the past month. Per son, pt was found in his home completely disheveled today with urine and stool on himself. They also report a significant weight loss recently. Pt endorses SOB with exertion. Denies CP. Denies SOB at rest. The patient denies headache and dizziness. The patient denies fever, chills, nausea, vomit, diarrhea and constipation. The patient denies dysuria, frequency , urgency and hematuria. - Past Medical History Cardio/Vascular: Yes: Aortic Stenosis, HTN, Hyperlipdemia - Alcohol/Substance Use Hx Alcohol Use: Yes (OVER 1 MONTH AGO) - Smoking History Smoking history: Former smoker Have you smoked in the past 12 months: No If you are a former smoker, when did you quit?: 45 YEARS AGO - Social History Usual Living Arrangement: Alone Home Medications - Allergies Allergies/Adverse Reactions: Allergies Allergy/AdvReac Type Severity Reaction Status Date / Time No Known Allergies Allergy Verified 09/04/18 13:43 - Home Medications Home Medications: Ambulatory Orders Atenolol [Tenormin -] 10 mg PO DAILY 09/04/18 Review of Systems - Review of Systems Eyes: reports: No Symptoms HENT: reports: No Symptoms Neck: reports: No Symptoms Cardiovascular: reports: No Symptoms Gastrointestinal: reports: No Symptoms Genitourinary: reports: No Symptoms Breasts: reports: No Symptoms Reported Musculoskeletal: reports: No Symptoms Integumentary: reports: No Symptoms Neurological: reports: No Symptoms Endocrine: reports: No Symptoms Hematology/Lymphatic: reports: No Symptoms Psychiatric: reports: No Symptoms Vital Signs: Vital Signs Temperature 98.6 F 09/08/18 18:30 Pulse Rate 64 09/08/18 18:30 Respiratory Rate 20 09/08/18 18:30 Blood Pressure 109/56 L 09/08/18 18:30 O2 Sat by Pulse Oximetry (%) 94 L 09/08/18 09:00 Constitutional: Yes: Well Nourished, No Distress, Calm Eyes: Yes: WNL, Conjunctiva Clear, EOM Intact HENT: Yes: WNL, Atraumatic, Normocephalic Neck: Yes: WNL, Supple, Trachea Midline Respiratory: Yes: WNL, Regular, CTA Bilaterally Gastrointestinal: Yes: WNL, Normal Bowel Sounds Renal/: Yes: WNL Cardiovascular: Yes: WNL, Regular Rate and Rhythm Heart Sounds: Yes: S1, S2 Murmur: Yes: Systolic Murmur Musculoskeletal: Yes: WNL Extremities: Yes: WNL Integumentary: Yes: WNL Neurological: Yes: WNL, Alert, Oriented ...Motor Strength: WNL Psychiatric: Yes: WNL, Alert, Oriented - Other Data Labs, Other Data: CBC, BMP 09/08/18 10:20 09/08/18 10:20 INR, PTT INR 1.07 (0.83-1.09) 09/08/18 10:20 Imaging - Results Chest X-ray: Image Reviewed (sr rep abn) EKG: Image Reviewed (s tachycardia) Problem List - Problems (1) Failure to thrive in adult Code(s): R62.7 - ADULT FAILURE TO THRIVE (2) Hypertension Code(s): I10 - ESSENTIAL (PRIMARY) HYPERTENSION (3) Lactic acidosis Code(s): E87.2 - ACIDOSIS (4) Pleural effusion Code(s): J90 - PLEURAL EFFUSION, NOT ELSEWHERE CLASSIFIED (5) Prophylactic measure Code(s): Z29.9 - ENCOUNTER FOR PROPHYLACTIC MEASURES, UNSPECIFIED (6) UTI (urinary tract infection) Code(s): N39.0 - URINARY TRACT INFECTION, SITE NOT SPECIFIED Assessment/Plan HTN, HLD, possible PAD, who was brought in by family for failure to thrive and SOB, ETOH Abuse moderate , pleural effusion, lactic acidosis watch for DT DVT plx Plan check BNP doubt CHF awaiting chemistry of pleural fluid r/o malignancy
[2018-09-08] MEDS: HEPARIN NA (PORCINE) 5,000 UNITS/ML 1ML VIAL SQ SCH (21:23)
[2018-09-09 07:40] LABS: BASO % 0.8 % (0-2.0); EOS % 3.3 % (0-4.5); HEMATOCRIT 34.5 % (35.4-49); HEMOGLOBIN 11.9 GM/dL (11.7-16.9); LYMPH % 19.1 % (8-40); MCH 35.6 pg (25.7-33.7); MCHC 34.6 g/dl (32.0-35.9); MEAN CELL VOLUME 102.9 fl (80-96); MEAN PLT VOLUME 7.7 fl (7.5-11.1); NEUT % 66.8 % (42.8-82.8); PLATELET COUNT 168 K/MM3 (134-434); RBC 3.35 M/mm3 (4.00-5.60); RDW 12.8 % (11.9-15.9); WHITE BLOOD COUNT 4.3 K/mm3 (4.0-10.0)
[2018-09-09 08:36] LABS: ALK PHOS 96 U/L (45-117); ANION GAP 7 MMOL/L (8-16); BILIRUBIN,TOTAL 0.6 mg/dL (0.2-1); BLOOD UREA NITROGEN 9 mg/dL (7-18); CHLORIDE 100 mmol/L (98-107); CO2 27 mmol/L (21-32); CREATININE 0.5 mg/dL (0.55-1.3); GLUCOSE,RANDOM 88 mg/dL (74-106); POTASSIUM 4.2 mmol/L (3.5-5.1); SGOT/AST 31 U/L (15-37); SGPT/ALT 27 U/L (13-61); SODIUM 134 mmol/L (136-145); TOT PROT 5.5 g/dl (6.4-8.2)
[2018-09-09] MEDS ORDERED: DEXTROSE 5%-WATER - 50 ML IVPB ONE (10:36)
[2018-09-09] MEDS ORDERED: cefTRIAXone SODIUM 1 GM VIAL ONE (10:36)
[2018-09-09] MEDS: MAGNESIUM OXIDE 400 MG TABLET (FP) PO SCH (10:39)
[2018-09-09] MEDS: ATENOLOL 25 MG TABLET (FP) PO SCH (10:39)
[2018-09-09] MEDS: POTASSIUM CHLORIDE TABS 10 MEQ TABLET.ER (FP) PO SCH (10:39)
[2018-09-09] MEDS: CEFTRIAXONE 1 GM in DEXTROSE 5%-WATER - 50 ML IVPB SCH (10:39)
[2018-09-09] MEDS: THIAMINE HCL 100 MG TABLET (FP) PO SCH (10:40)
[2018-09-09] MEDS: FOLIC ACID 1 MG TABLET (FP) PO SCH (10:40)
[2018-09-09] MEDS: HEPARIN NA (PORCINE) 5,000 UNITS/ML 1ML VIAL SQ SCH ×2 (10:41→21:27)
--- NOTE | 2018-09-09 12:01 | PN ---
Progress Note, Physician History of Present Illness: The patient is a 73 year old male with a significant medical history of HTN, HLD , possible PAD, who was brought in by family for failure to thrive and SOB. The family reports that the patient drinks ETOH nightly, though pt denies drinking for the past month. Per son, pt was found in his home completely disheveled today with urine and stool on himself. They also report a significant weight loss recently. Pt endorses SOB with exertion. Denies CP. Denies SOB at rest. The patient denies headache and dizziness. The patient denies fever, chills, nausea, vomit, diarrhea and constipation. The patient denies dysuria, frequency , urgency and hematuria. - Current Medication List Current Medications: Active Medications Acetaminophen (Tylenol -) 650 mg PO Q6H PRN PRN Reason: PAIN LEVEL 4 - 6 Acetaminophen (Tylenol -) 325 mg PO Q6H PRN PRN Reason: PAIN LEVEL 7 - 10 Last Admin: 09/07/18 15:35 Dose: 325 mg Albuterol Sulfate (Ventolin 0.083% Nebulizer Soln -) 1 amp NEB Q6H PRN PRN Reason: SHORT OF BREATH/WHEEZING Last Admin: 09/06/18 05:59 Dose: 1 amp Atenolol (Tenormin -) 25 mg PO DAILY [facility] Last Admin: 09/09/18 10:39 Dose: 25 mg Docusate Sodium (Colace -) 100 mg PO BID PRN PRN Reason: CONSTIPATION Folic Acid (Folic Acid -) 1 mg PO DAILY [facility] Last Admin: 09/09/18 10:40 Dose: 1 mg Heparin Sodium (Porcine) (Heparin -) 5,000 unit SQ BID [facility] Last Admin: 09/09/18 10:41 Dose: 5,000 unit Ceftriaxone Sodium 1 gm/ (Dextrose) 50 mls @ 100 mls/hr IVPB DAILY [facility]; Protocol Last Admin: 09/09/18 10:39 Dose: 100 mls/hr Magnesium Oxide (Mag-Ox -) 400 mg PO DAILY [facility] Last Admin: 09/09/18 10:39 Dose: 400 mg Oxycodone HCl (Roxicodone -) 5 mg PO Q6H PRN PRN Reason: PAIN LEVEL 7 - 10 Last Admin: 09/07/18 15:34 Dose: 5 mg Potassium Chloride (K-Dur -) 10 meq PO DAILY [facility] Last Admin: 09/09/18 10:39 Dose: 10 meq Senna (Senna -) 2 tab PO HS PRN PRN Reason: CONSTIPATION Thiamine HCl (Vitamin B1 -) 100 mg PO DAILY [facility] Last Admin: 09/09/18 10:40 Dose: 100 mg - Objective Vital Signs: Vital Signs Temperature 98.2 F 09/09/18 10:00 Pulse Rate 82 09/09/18 10:00 Respiratory Rate 18 09/09/18 10:00 Blood Pressure 124/63 09/09/18 10:00 O2 Sat by Pulse Oximetry (%) 95 09/08/18 21:00 Eyes: Yes: WNL, Conjunctiva Clear, EOM Intact HENT: Yes: WNL, Atraumatic, Normocephalic Neck: Yes: WNL, Supple, Trachea Midline Cardiovascular: Yes: WNL, Regular Rate and Rhythm Respiratory: Yes: WNL, Regular, Diminished Gastrointestinal: Yes: WNL, Normal Bowel Sounds Genitourinary: Yes: WNL Musculoskeletal: Yes: WNL Extremities: Yes: WNL Edema: No Integumentary: Yes: WNL Neurological: Yes: WNL, Alert, Oriented ...Motor Strength: WNL Psychiatric: Yes: WNL Labs: CBC, BMP 09/09/18 06:15 09/09/18 06:15 INR, PTT INR 1.07 (0.83-1.09) 09/08/18 10:20 Problem List - Problems (1) Failure to thrive in adult Code(s): R62.7 - ADULT FAILURE TO THRIVE (2) Hypertension Code(s): I10 - ESSENTIAL (PRIMARY) HYPERTENSION (3) Lactic acidosis Code(s): E87.2 - ACIDOSIS (4) Pleural effusion Code(s): J90 - PLEURAL EFFUSION, NOT ELSEWHERE CLASSIFIED (5) Prophylactic measure Code(s): Z29.9 - ENCOUNTER FOR PROPHYLACTIC MEASURES, UNSPECIFIED (6) UTI (urinary tract infection) Code(s): N39.0 - URINARY TRACT INFECTION, SITE NOT SPECIFIED Assessment/Plan HTN, HLD, possible PAD, who was brought in by family for failure to thrive and SOB, ETOH Abuse moderate , pleural effusion, lactic acidosis watch for DT DVT plx Plan check BNP doubt CHF awaiting chemistry of pleural fluid r/o malignancy
[2018-09-09 13:23] LABS: BODY FLUID ALBUMIN 1.7 g/dL (.)
--- NOTE | 2018-09-09 13:30 | PN ---
Progress Note, Physician History of Present Illness: PULMONARY ALERT,-DISTRESS,-SOB,-CP. PLEURAL FLUID C/W EXUDATE - Current Medication List Current Medications: Active Medications Acetaminophen (Tylenol -) 650 mg PO Q6H PRN PRN Reason: PAIN LEVEL 4 - 6 Acetaminophen (Tylenol -) 325 mg PO Q6H PRN PRN Reason: PAIN LEVEL 7 - 10 Last Admin: 09/07/18 15:35 Dose: 325 mg Albuterol Sulfate (Ventolin 0.083% Nebulizer Soln -) 1 amp NEB Q6H PRN PRN Reason: SHORT OF BREATH/WHEEZING Last Admin: 09/06/18 05:59 Dose: 1 amp Atenolol (Tenormin -) 25 mg PO DAILY [facility] Last Admin: 09/09/18 10:39 Dose: 25 mg Docusate Sodium (Colace -) 100 mg PO BID PRN PRN Reason: CONSTIPATION Folic Acid (Folic Acid -) 1 mg PO DAILY [facility] Last Admin: 09/09/18 10:40 Dose: 1 mg Heparin Sodium (Porcine) (Heparin -) 5,000 unit SQ BID [facility] Last Admin: 09/09/18 10:41 Dose: 5,000 unit Ceftriaxone Sodium 1 gm/ (Dextrose) 50 mls @ 100 mls/hr IVPB DAILY [facility]; Protocol Last Admin: 09/09/18 10:39 Dose: 100 mls/hr Magnesium Oxide (Mag-Ox -) 400 mg PO DAILY [facility] Last Admin: 09/09/18 10:39 Dose: 400 mg Oxycodone HCl (Roxicodone -) 5 mg PO Q6H PRN PRN Reason: PAIN LEVEL 7 - 10 Last Admin: 09/07/18 15:34 Dose: 5 mg Potassium Chloride (K-Dur -) 10 meq PO DAILY [facility] Last Admin: 09/09/18 10:39 Dose: 10 meq Senna (Senna -) 2 tab PO HS PRN PRN Reason: CONSTIPATION Thiamine HCl (Vitamin B1 -) 100 mg PO DAILY [facility] Last Admin: 09/09/18 10:40 Dose: 100 mg - Objective Vital Signs: Vital Signs Temperature 98.2 F 09/09/18 10:00 Pulse Rate 82 09/09/18 10:00 Respiratory Rate 18 09/09/18 10:00 Blood Pressure 124/63 09/09/18 10:00 O2 Sat by Pulse Oximetry (%) 95 01/22/19 21:00 Constitutional: Yes: Well Nourished, Calm Eyes: Yes: WNL HENT: Yes: WNL Neck: Yes: WNL Cardiovascular: Yes: Regular Rate and Rhythm, S1, S2 Respiratory: Yes: Diminished Gastrointestinal: Yes: Normal Bowel Sounds, Soft Extremities: Yes: WNL Edema: No Labs: CBC, BMP 09/09/18 06:15 09/09/18 06:15 INR, PTT INR 1.07 (0.83-1.09) 09/08/18 10:20 Laboratory Tests 09/07/18 09/07/18 12:55 12:55 Fluid Source Pleural Fluid WBC 1111 Fluid RBC 509025 Fluid Neutrophils 4 Fluid Lymphocytes 92 Fluid Total Protein 3.2 Fluid Albumin 1.7 Body Fluid LDH Source 300 Fluid Amylase 16 Pleural Monocytes 2 Pleural Eosinophils 2 Assessment/Plan Problem List - Problems (1) UTI (urinary tract infection) Code(s): N39.0 - URINARY TRACT INFECTION, SITE NOT SPECIFIED (2) Lactic acidosis Code(s): E87.2 - ACIDOSIS (3) Pleural effusion Code(s): J90 - PLEURAL EFFUSION, NOT ELSEWHERE CLASSIFIED (4) Hypertension Code(s): I10 - ESSENTIAL (PRIMARY) HYPERTENSION (5) Failure to thrive in adult Code(s): R62.7 - ADULT FAILURE TO THRIVE Assessment/Plan UTI Bilateral Pleural Effusions r/o Malignancy Failure to Thrive Lactic Acidosis HTN Hyperlipidemia - antibiotics - check pleural fluid cytology - DVT prophylaxis DR AMOR
--- NOTE | 2018-09-09 19:01 | PN ---
Physical Exam: SUBJECTIVE: Patient seen and examined. tells me that his upper body tremors have been there for years. denies any hallucinations, headaches or anxiety. OBJECTIVE: Vital Signs Period Temp Pulse Resp BP Sys/Lou Pulse Ox Last 24 Hr 98.0 F-98.2 F 57-82 17-20 98-124/50-63 95-95 GENERAL: The patient is awake, alert, and fully oriented, in no acute distress. HEAD: Normal with no signs of trauma. EYES: PERRL, extraocular movements intact, sclera anicteric, conjunctiva clear. No ptosis. ENT: Ears normal, nares patent, oropharynx clear without exudates, moist mucous membranes. NECK: Trachea midline, full range of motion, supple. LUNGS: Breath sounds equal, diminished bilaterally. HEART: Regular rate and rhythm ABDOMEN: Soft, nontender, nondistended, normoactive bowel sounds EXTREMITIES: no edema. NEUROLOGICAL: Normal speech, gait not observed. PSYCH: Normal mood, normal affect. SKIN: Warm, dry, normal turgor, no rashes or lesions noted Laboratory Results - last 24 hr 09/07/18 09/09/18 09/09/18 12:55 06:15 06:15 WBC 4.3 RBC 3.35 L Hgb 11.9 Hct 34.5 L MCV 102.9 H MCH 35.6 H MCHC 34.6 RDW 12.8 Plt Count 168 MPV 7.7 Absolute Neuts (auto) 2.9 Neutrophils % 66.8 Lymphocytes % 19.1 Monocytes % 10.0 Eosinophils % 3.3 Basophils % 0.8 Nucleated RBC % 0 Sodium 134 L Potassium 4.2 Chloride 100 Carbon Dioxide 27 Anion Gap 7 L BUN 9 Creatinine 0.5 L Creat Clearance w eGFR > 60 Random Glucose 88 Calcium 8.0 L Total Bilirubin 0.6 AST 31 ALT 27 Alkaline Phosphatase 96 Total Protein 5.5 L Albumin 2.0 L POC Fluid pH 8.2 Fluid Total Protein 3.2 Fluid Albumin 1.7 Body Fluid LDH Source 300 Fluid Amylase 16 Active Medications Generic Name Dose Route Start Last Admin Trade Name Freq PRN Reason Stop Dose Admin Acetaminophen 650 mg 09/07/18 14:39 Tylenol - PO Q6H PRN PAIN LEVEL 4 - 6 Acetaminophen 325 mg 09/07/18 15:12 09/07/18 15:35 Tylenol - PO 325 mg Q6H PRN Administration PAIN LEVEL 7 - 10 Atenolol 25 mg 09/05/18 10:00 09/09/18 10:39 Tenormin - PO 25 mg DAILY [facility] Administration Docusate Sodium 100 mg 09/07/18 18:51 Colace - PO BID PRN CONSTIPATION Folic Acid 1 mg 09/09/18 10:00 09/09/18 10:40 Folic Acid - PO 1 mg DAILY [facility] Administration Heparin Sodium (Porcine) 5,000 unit 09/04/18 22:00 09/09/18 10:41 Heparin - SQ 5,000 unit BID [facility] Administration Ceftriaxone Sodium 1 gm/ 50 mls @ 100 mls/hr 09/04/18 20:00 09/09/18 10:39 Dextrose IVPB 100 mls/hr DAILY [facility] Administration Protocol Magnesium Oxide 400 mg 09/05/18 11:33 09/09/18 10:39 Mag-Ox - PO 400 mg DAILY [facility] Administration Oxycodone HCl 5 mg 09/07/18 15:12 09/07/18 15:34 Roxicodone - PO 5 mg Q6H PRN Administration PAIN LEVEL 7 - 10 Potassium Chloride 10 meq 09/05/18 11:45 09/09/18 10:39 K-Dur - PO 10 meq DAILY [facility] Administration Senna 2 tab 09/07/18 18:51 Senna - PO HS PRN CONSTIPATION Thiamine HCl 100 mg 09/04/18 20:15 09/09/18 10:40 Vitamin B1 - PO 100 mg DAILY [facility] Administration ASSESSMENT/PLAN: Patient is a 73 year old male with a significant past medical history of HTN, HLD, possible PAD, who was brought in by family for failure to thrive and SOB. Patient is reported to drink nightly, however he denies having hx of ETOH abuse. Per notes, pt was found in his home completely disheveled with urine and stool on himself. Pulm s/p right thoracententis S/P Right thoracentesis 09/07/2018 chest xray improved effusion, no pneumothorax Denies shortness of breath, tolerating room air stable, denies coughing check pleural fluid cytology echo with moderate aortic stenosis, cardiology consulted Psyche: ETOH abuse no signs of withdrawal. denies etoh use folate, thiamine on librium taper UTI on ceftriaxone. fen tolerating po monitor electrolytes low salt diet prophy scds Visit type - Emergency Visit Emergency Visit: Yes ED Registration Date: 09/04/18 Care time: The patient presented to the Emergency Department on the above date and was hospitalized for further evaluation of their emergent condition. - New Patient This patient is new to me today: No - Critical Care Critical Care patient: No - Discharge Referral Referred to [facility] No
[2018-09-10 07:31] LABS: BASO % 0.8 % (0-2.0); EOS % 4.9 % (0-4.5); HEMATOCRIT 34.8 % (35.4-49); HEMOGLOBIN 12.2 GM/dL (11.7-16.9); LYMPH % 22.9 % (8-40); MCH 35.6 pg (25.7-33.7); MEAN CELL VOLUME 101.8 fl (80-96); MEAN PLT VOLUME 7.7 fl (7.5-11.1); MONO % 10.4 % (3.8-10.2); PLATELET COUNT 198 K/MM3 (134-434); RBC 3.42 M/mm3 (4.00-5.60); RDW 12.8 % (11.9-15.9); WHITE BLOOD COUNT 4.2 K/mm3 (4.0-10.0)
[2018-09-10 08:01] LABS: ALK PHOS 92 U/L (45-117); ANION GAP 6 MMOL/L (8-16); BILIRUBIN,TOTAL 0.7 mg/dL (0.2-1); BLOOD UREA NITROGEN 10 mg/dL (7-18); CALCIUM 8.5 mg/dL (8.5-10.1); CHLORIDE 101 mmol/L (98-107); CO2 29 mmol/L (21-32); CREATININE 0.6 mg/dL (0.55-1.3); GLUCOSE,RANDOM 99 mg/dL (74-106); N-TERMINAL BNP 323.2 pg/ml (5-125); POTASSIUM 4.2 mmol/L (3.5-5.1); SGOT/AST 29 U/L (15-37); SGPT/ALT 25 U/L (13-61); SODIUM 136 mmol/L (136-145); TOT PROT 5.4 g/dl (6.4-8.2)
--- NOTE | 2018-09-10 09:51 | PN ---
Progress Note (short form) - Note Progress Note: Breathing feels OK. NAD on RA. Still with some mild discomfort at the thoracentesis site. Intake & Output 09/07/18 09/08/18 09/09/18 09/10/18 23:59 23:59 23:59 23:59 Intake Total 450 1530 150 Output Total 700 450 Balance 450 830 -300 Last Vital Signs Temp Pulse Resp BP Pulse Ox 98.4 F 64 18 107/55 L 95 09/10/18 06:00 09/10/18 06:00 09/10/18 06:00 09/10/18 06:00 09/09/18 21:00 Active Medications Acetaminophen (Tylenol -) 650 mg PO Q6H PRN PRN Reason: PAIN LEVEL 4 - 6 Acetaminophen (Tylenol -) 325 mg PO Q6H PRN PRN Reason: PAIN LEVEL 7 - 10 Last Admin: 09/07/18 15:35 Dose: 325 mg Atenolol (Tenormin -) 25 mg PO DAILY [facility] Last Admin: 09/09/18 10:39 Dose: 25 mg Docusate Sodium (Colace -) 100 mg PO BID PRN PRN Reason: CONSTIPATION Folic Acid (Folic Acid -) 1 mg PO DAILY [facility] Last Admin: 09/09/18 10:40 Dose: 1 mg Heparin Sodium (Porcine) (Heparin -) 5,000 unit SQ BID [facility] Last Admin: 09/09/18 21:27 Dose: 5,000 unit Ceftriaxone Sodium 1 gm/ (Dextrose) 50 mls @ 100 mls/hr IVPB DAILY [facility]; Protocol Last Admin: 09/09/18 10:39 Dose: 100 mls/hr Magnesium Oxide (Mag-Ox -) 400 mg PO DAILY [facility] Last Admin: 09/09/18 10:39 Dose: 400 mg Oxycodone HCl (Roxicodone -) 5 mg PO Q6H PRN PRN Reason: PAIN LEVEL 7 - 10 Last Admin: 09/07/18 15:34 Dose: 5 mg Potassium Chloride (K-Dur -) 10 meq PO DAILY [facility] Last Admin: 09/09/18 10:39 Dose: 10 meq Senna (Senna -) 2 tab PO HS PRN PRN Reason: CONSTIPATION Thiamine HCl (Vitamin B1 -) 100 mg PO DAILY [facility] Last Admin: 09/09/18 10:40 Dose: 100 mg Gen: NAD at rest Heart: RRR Lung: decreased breath sounds at the bases Abd: soft, nontender Ext: no edema Laboratory Results - last 24 hr 09/07/18 09/10/18 09/10/18 12:55 06:00 06:00 WBC 4.2 RBC 3.42 L Hgb 12.2 Hct 34.8 L MCV 101.8 H MCH 35.6 H MCHC 35.0 RDW 12.8 Plt Count 198 MPV 7.7 Absolute Neuts (auto) 2.5 Neutrophils % 61.0 Lymphocytes % 22.9 Monocytes % 10.4 H Eosinophils % 4.9 H Basophils % 0.8 Nucleated RBC % 0 Sodium 136 Potassium 4.2 Chloride 101 Carbon Dioxide 29 Anion Gap 6 L BUN 10 Creatinine 0.6 Creat Clearance w eGFR > 60 Random Glucose 99 Calcium 8.5 Total Bilirubin 0.7 AST 29 ALT 25 Alkaline Phosphatase 92 B-Natriuretic Peptide 323.2 H Total Protein 5.4 L Albumin 2.0 L POC Fluid pH 8.2 Fluid Total Protein 3.2 Fluid Albumin 1.7 Body Fluid LDH Source 300 Fluid Amylase 16 Problem List - Problems (1) UTI (urinary tract infection) Code(s): N39.0 - URINARY TRACT INFECTION, SITE NOT SPECIFIED (2) Lactic acidosis Code(s): E87.2 - ACIDOSIS (3) Pleural effusion Code(s): J90 - PLEURAL EFFUSION, NOT ELSEWHERE CLASSIFIED (4) Hypertension Code(s): I10 - ESSENTIAL (PRIMARY) HYPERTENSION (5) Failure to thrive in adult Code(s): R62.7 - ADULT FAILURE TO THRIVE A/P Exudative Pleural Effusion: Etiology to be determined UTI Bilateral Pleural Effusions r/o Malignancy Failure to Thrive Lactic Acidosis HTN Hyperlipidemia - Follow pleural cytology / microbiology - continue antibiotics - DVT prophylaxis Dr Zamora
--- NOTE | 2018-09-10 10:16 | PN ---
Physical Exam: SUBJECTIVE: Patient seen and examined at the bedside. OBJECTIVE: discussed with patients daughter in law, patient unable to care for himself at home. apartment unkempt. family wishing placement to rehab as per previous psych notes, patient does not have capacity to make his own medical decisions. psyche follow up needed prior to dc Vital Signs Period Temp Pulse Resp BP Sys/Lou Pulse Ox Last 24 Hr 98.1 F-98.4 F 64-68 17-18 99-107/51-59 95 GENERAL: The patient is awake, alert, and fully oriented, in no acute distress. HEAD: Normal with no signs of trauma. EYES: PERRL, extraocular movements intact, sclera anicteric, conjunctiva clear. No ptosis. ENT: Ears normal, nares patent, oropharynx clear without exudates, moist mucous membranes. NECK: Trachea midline, full range of motion, supple. LUNGS: Breath sounds equal, diminished bilaterally. HEART: Regular rate and rhythm ABDOMEN: Soft, nontender, nondistended, normoactive bowel sounds EXTREMITIES: no edema. NEUROLOGICAL: Normal speech, gait not observed. PSYCH: Normal mood, normal affect. SKIN: Warm, dry, normal turgor, no rashes or lesions noted Laboratory Results - last 24 hr 09/07/18 09/10/18 09/10/18 12:55 06:00 06:00 WBC 4.2 RBC 3.42 L Hgb 12.2 Hct 34.8 L MCV 101.8 H MCH 35.6 H MCHC 35.0 RDW 12.8 Plt Count 198 MPV 7.7 Absolute Neuts (auto) 2.5 Neutrophils % 61.0 Lymphocytes % 22.9 Monocytes % 10.4 H Eosinophils % 4.9 H Basophils % 0.8 Nucleated RBC % 0 Sodium 136 Potassium 4.2 Chloride 101 Carbon Dioxide 29 Anion Gap 6 L BUN 10 Creatinine 0.6 Creat Clearance w eGFR > 60 Random Glucose 99 Calcium 8.5 Total Bilirubin 0.7 AST 29 ALT 25 Alkaline Phosphatase 92 B-Natriuretic Peptide 323.2 H Total Protein 5.4 L Albumin 2.0 L POC Fluid pH 8.2 Fluid Total Protein 3.2 Fluid Albumin 1.7 Body Fluid LDH Source 300 Fluid Amylase 16 Active Medications Generic Name Dose Route Start Last Admin Trade Name Freq PRN Reason Stop Dose Admin Acetaminophen 650 mg 09/07/18 14:39 Tylenol - PO Q6H PRN PAIN LEVEL 4 - 6 Acetaminophen 325 mg 09/07/18 15:12 09/07/18 15:35 Tylenol - PO 325 mg Q6H PRN Administration PAIN LEVEL 7 - 10 Atenolol 25 mg 09/05/18 10:00 09/09/18 10:39 Tenormin - PO 25 mg DAILY [facility] Administration Docusate Sodium 100 mg 09/07/18 18:51 Colace - PO BID PRN CONSTIPATION Folic Acid 1 mg 09/09/18 10:00 09/09/18 10:40 Folic Acid - PO 1 mg DAILY [facility] Administration Heparin Sodium (Porcine) 5,000 unit 09/04/18 22:00 09/09/18 21:27 Heparin - SQ 5,000 unit BID [facility] Administration Ceftriaxone Sodium 1 gm/ 50 mls @ 100 mls/hr 09/04/18 20:00 09/09/18 10:39 Dextrose IVPB 100 mls/hr DAILY [facility] Administration Protocol Magnesium Oxide 400 mg 09/05/18 11:33 09/09/18 10:39 Mag-Ox - PO 400 mg DAILY [facility] Administration Oxycodone HCl 5 mg 09/07/18 15:12 09/07/18 15:34 Roxicodone - PO 5 mg Q6H PRN Administration PAIN LEVEL 7 - 10 Potassium Chloride 10 meq 09/05/18 11:45 09/09/18 10:39 K-Dur - PO 10 meq DAILY [facility] Administration Senna 2 tab 09/07/18 18:51 Senna - PO HS PRN CONSTIPATION Thiamine HCl 100 mg 09/04/18 20:15 09/09/18 10:40 Vitamin B1 - PO 100 mg DAILY [facility] Administration ASSESSMENT/PLAN: Patient is a 73 year old male with a significant past medical history of HTN, HLD, possible PAD, who was brought in by family for failure to thrive and SOB. Patient is reported to drink nightly, however he denies having hx of ETOH abuse. Per notes, pt was found in his home completely disheveled with urine and stool on himself. Pulm s/p right thoracententis S/P Right thoracentesis 09/07/2018 chest xray improved effusion, no pneumothorax Denies shortness of breath, tolerating room air stable, denies coughing check pleural fluid cytology echo with moderate aortic stenosis, cardiology consulted and following Psyche: ETOH abuse no signs of withdrawal. denies etoh use folate, thiamine on librium taper upper extremity tremors are chronic per patient and family. UTI on ceftriaxone. fen tolerating po monitor electrolytes low salt diet prophy scds Visit type - Emergency Visit Emergency Visit: Yes ED Registration Date: 09/04/18 Care time: The patient presented to the Emergency Department on the above date and was hospitalized for further evaluation of their emergent condition. - New Patient This patient is new to me today: No - Critical Care Critical Care patient: No - Discharge Referral Referred to [facility] No
[2018-09-10] MEDS ORDERED: PT OWN MED DRAWER 7, Y5N ONE (10:18)
[2018-09-10] MEDS ORDERED: cefTRIAXone SODIUM 1 GM VIAL ONE (10:19)
[2018-09-10] MEDS ORDERED: DEXTROSE 5%-WATER - 50 ML IVPB ONE (10:19)
[2018-09-10] MEDS: THIAMINE HCL 100 MG TABLET (FP) PO SCH (10:23)
[2018-09-10] MEDS: CEFTRIAXONE 1 GM in DEXTROSE 5%-WATER - 50 ML IVPB SCH (10:23)
[2018-09-10] MEDS: MAGNESIUM OXIDE 400 MG TABLET (FP) PO SCH (10:23)
[2018-09-10] MEDS: POTASSIUM CHLORIDE TABS 10 MEQ TABLET.ER (FP) PO SCH (10:23)
[2018-09-10] MEDS: FOLIC ACID 1 MG TABLET (FP) PO SCH (10:23)
[2018-09-10] MEDS: HEPARIN NA (PORCINE) 5,000 UNITS/ML 1ML VIAL SQ SCH ×2 (10:23→22:09)
[2018-09-10] MEDS: ATENOLOL 25 MG TABLET (FP) PO SCH (10:23)
--- NOTE | 2018-09-10 11:07 | PATH ---
Cytology Non-Gynecological Report Patient Name: ESTER HOLLIDAY Med. Rec. #: [id number] /Age/Gender: 1945 (Age: 73) / M Account: [id number] Location: [address] [place] [address]/[facility] Taken: 09/07/2018 Received: 09/07/2018 Reported: 09/10/2018 Physicians: Pascale Neumann M.D. Specimen(s) Received CHEST THORACENTESIS FLUID RIGHT Clinical History Pleural effusion Final Diagnosis A & B. CHEST FLUID, RIGHT, THORACENTESIS: SATISFACTORY FOR EVALUATION. NO MALIGNANT CELLS IDENTIFIED. MANY MACROPHAGES AND RARE MESOTHELIAL CELLS IN A BACKGROUND OF NUMEROUS LYMPHOCYTES AND FEW NEUTROPHILS PRESENT. Comment: Immunohistochemical stains performed at [place], [place] ([id number]) and interpreted at [facility] show many CD68+ macrophages and rare D2-40+ mesothelial cells. MOC31-, Shoaib-Ep4, Calretinin, and ELEONORA are negative. Proliferative marker, ki-67 was utilized to evaluate this case. Recommend correlation with clinical findings and follow up as clinically indicated. Electronically Signed Valeria Clark M.D. Gross Description A. Approximately 25 cc of bloody fluid received fixed in 50% alcohol. One cytofunnel prepared and Pap stained. One cellblock prepared. B. Approximately 1700cc of bloody fluid received fresh. One cytofunnel prepared and Pap stained. One cellblock prepared.
--- NOTE | 2018-09-10 15:49 | PN ---
Progress Note, Physician Chief Complaint: Pt A&Ox3; no chest pain or dyspnea. History of Present Illness: he patient is a 73 year old white male with a significant medical history of HTN , HLD, possible PAD, who was brought in by family for failure to thrive and SOB. The family reports that the patient drinks ETOH nightly, though pt denies drinking for the past month. Per son, pt was found in his home completely disheveled today with urine and stool on himself. They also report a significant weight loss recently. Pt endorses SOB with exertion. Denies CP. Denies SOB at rest. The patient denies headache and dizziness. The patient denies fever, chills, nausea, vomit, diarrhea and constipation. The patient denies dysuria, frequency , urgency and hematuria. Allergies: NKDA - Current Medication List Current Medications: Active Medications Acetaminophen (Tylenol -) 650 mg PO Q6H PRN PRN Reason: PAIN LEVEL 4 - 6 Acetaminophen (Tylenol -) 325 mg PO Q6H PRN PRN Reason: PAIN LEVEL 7 - 10 Last Admin: 09/07/18 15:35 Dose: 325 mg Atenolol (Tenormin -) 25 mg PO DAILY [facility] Last Admin: 09/10/18 10:23 Dose: 25 mg Docusate Sodium (Colace -) 100 mg PO BID PRN PRN Reason: CONSTIPATION Folic Acid (Folic Acid -) 1 mg PO DAILY [facility] Last Admin: 09/10/18 10:23 Dose: 1 mg Heparin Sodium (Porcine) (Heparin -) 5,000 unit SQ BID [facility] Last Admin: 09/10/18 10:23 Dose: 5,000 unit Ceftriaxone Sodium 1 gm/ (Dextrose) 50 mls @ 100 mls/hr IVPB DAILY [facility]; Protocol Last Admin: 09/10/18 10:23 Dose: 100 mls/hr Magnesium Oxide (Mag-Ox -) 400 mg PO DAILY [facility] Last Admin: 09/10/18 10:23 Dose: 400 mg Oxycodone HCl (Roxicodone -) 5 mg PO Q6H PRN PRN Reason: PAIN LEVEL 7 - 10 Last Admin: 09/07/18 15:34 Dose: 5 mg Potassium Chloride (K-Dur -) 10 meq PO DAILY [facility] Last Admin: 09/10/18 10:23 Dose: 10 meq Senna (Senna -) 2 tab PO HS PRN PRN Reason: CONSTIPATION Thiamine HCl (Vitamin B1 -) 100 mg PO DAILY [facility] Last Admin: 09/10/18 10:23 Dose: 100 mg - Objective Vital Signs: Vital Signs Temperature 98.5 F 09/10/18 14:28 Pulse Rate 65 09/10/18 14:28 Respiratory Rate 18 09/10/18 14:28 Blood Pressure 108/57 L 09/10/18 14:28 O2 Sat by Pulse Oximetry (%) 93 L 09/10/18 09:00 Constitutional: Yes: Calm, Thin Eyes: Yes: WNL HENT: Yes: WNL Neck: Yes: WNL Cardiovascular: Yes: WNL, Murmur (2/6 TAYLER, RSB-->axilla), S1, S2 Respiratory: Yes: Regular Gastrointestinal: Yes: Soft ...Rectal Exam: Yes: Deferred Genitourinary: No: Anuria Breast(s): Yes: WNL Musculoskeletal: Yes: Muscle Weakness Extremities: Yes: Cool Edema: No Peripheral Pulses WNL: Yes Integumentary: Yes: WNL Neurological: Yes: Alert, Oriented, Weakness Psychiatric: Yes: Alert, Oriented Labs: CBC, BMP 09/10/18 06:00 09/10/18 06:00 INR, PTT INR 1.07 (0.83-1.09) 09/08/18 10:20 Abnormal Lab Results 09/15/18 09/15/18 09:48 09:48 RBC 3.19 L Hgb 11.3 L Hct 32.6 L MCV 102.1 H MCH 35.5 H Sodium 134 L Calcium 8.0 L Total Protein 5.6 L Albumin 2.1 L Problem List - Problems (1) Moderate aortic stenosis Assessment/Plan: ECHO: normal LVEF; abnormal diastolic compliance; normal wall thickness; mild MR , TR, AR.; moderate . Code(s): I35.0 - NONRHEUMATIC AORTIC (VALVE) STENOSIS (2) Failure to thrive in adult Code(s): R62.7 - ADULT FAILURE TO THRIVE (3) Hypertension Assessment/Plan: On atenolol; BP relatively well-controlled. Code(s): I10 - ESSENTIAL (PRIMARY) HYPERTENSION (4) EtOH dependence Code(s): F10.20 - ALCOHOL DEPENDENCE, UNCOMPLICATED (5) S/P thoracentesis Assessment/Plan: 1,700 ml removed F/u studies of fluid. Code(s): Z98.890 - OTHER SPECIFIED POSTPROCEDURAL STATES
[2018-09-10 23:34] LABS: CHOLESTEROL 135 mg/dL (50-200); HDL CHOLESTEROL 29 mg/dL (40-60); TRIGLYCERIDES 105 mg/dL (0-150)
--- NOTE | 2018-09-11 09:50 | PN ---
Progress Note (short form) - Note Progress Note: Psych follow up. Patient seen for Psych follow up, there is a slight improvement in Patients Mental Status but hecvstill lacks the understanging and need for ongoingvtratment and the need for Rehab. Plan: Patient still lacks functional capacity to make informed decisions at this time.
[2018-09-11] MEDS ORDERED: DEXTROSE 5%-WATER - 50 ML IVPB ONE (10:14)
[2018-09-11] MEDS ORDERED: cefTRIAXone SODIUM 1 GM VIAL ONE (10:14)
[2018-09-11] MEDS: POTASSIUM CHLORIDE TABS 10 MEQ TABLET.ER (FP) PO SCH (10:37)
[2018-09-11] MEDS: CEFTRIAXONE 1 GM in DEXTROSE 5%-WATER - 50 ML IVPB SCH (10:37)
[2018-09-11] MEDS: FOLIC ACID 1 MG TABLET (FP) PO SCH (10:37)
[2018-09-11] MEDS: THIAMINE HCL 100 MG TABLET (FP) PO SCH (10:37)
[2018-09-11] MEDS: MAGNESIUM OXIDE 400 MG TABLET (FP) PO SCH (10:37)
[2018-09-11] MEDS: ATENOLOL 25 MG TABLET (FP) PO SCH (10:37)
[2018-09-11] MEDS: HEPARIN NA (PORCINE) 5,000 UNITS/ML 1ML VIAL SQ SCH ×2 (10:38→21:39)
[2018-09-11 10:53] LABS: BASO % 0.9 % (0-2.0); EOS % 3.2 % (0-4.5); HEMATOCRIT 38.3 % (35.4-49); HEMOGLOBIN 13.6 GM/dL (11.7-16.9); LYMPH % 24.3 % (8-40); MCH 36.9 pg (25.7-33.7); MCHC 35.5 g/dl (32.0-35.9); MEAN PLT VOLUME 7.7 fl (7.5-11.1); MONO % 9.7 % (3.8-10.2); NEUT % 61.9 % (42.8-82.8); PLATELET COUNT 271 K/MM3 (134-434); RBC 3.68 M/mm3 (4.00-5.60); RDW 12.9 % (11.9-15.9); WHITE BLOOD COUNT 7.9 K/mm3 (4.0-10.0)
[2018-09-11 11:21] LABS: ALBUMIN 2.3 g/dl (3.4-5.0); ALK PHOS 111 U/L (45-117); ANION GAP 6 MMOL/L (8-16); BILIRUBIN,TOTAL 0.8 mg/dL (0.2-1); BLOOD UREA NITROGEN 10 mg/dL (7-18); CALCIUM 8.4 mg/dL (8.5-10.1); CHLORIDE 97 mmol/L (98-107); CO2 32 mmol/L (21-32); CREATININE 0.8 mg/dL (0.55-1.3); GLUCOSE,RANDOM 98 mg/dL (74-106); SGOT/AST 36 U/L (15-37); SGPT/ALT 29 U/L (13-61); SODIUM 135 mmol/L (136-145); TOT PROT 6.2 g/dl (6.4-8.2)
--- NOTE | 2018-09-11 13:12 | PN ---
Progress Note (short form) - Note Progress Note: PULMONARY VSS Gen: NAD at rest Heart: RRR Lung: decreased breath sounds at the bases right> left Abd: soft, nontender Ext: no edema cytology negative on fluid gram stain unrevealing (1) UTI (urinary tract infection) Code(s): N39.0 - URINARY TRACT INFECTION, SITE NOT SPECIFIED (2) Lactic acidosis Code(s): E87.2 - ACIDOSIS (3) Pleural effusion Code(s): J90 - PLEURAL EFFUSION, NOT ELSEWHERE CLASSIFIED (4) Hypertension Code(s): I10 - ESSENTIAL (PRIMARY) HYPERTENSION (5) Failure to thrive in adult Code(s): R62.7 - ADULT FAILURE TO THRIVE A/P Exudative Pleural Effusion: Etiology to be determined ?traumatic/parapneumonic/ neoplastic UTI on antibiotics Bilateral Pleural Effusions r/o Malignancy Failure to Thrive Lactic Acidosis HTN Hyperlipidemia - Will ask T- surg to render opinion - continue antibiotics - DVT prophylaxis Chrissie PRITCHARD MD
--- NOTE | 2018-09-11 16:32 | PN ---
Physical Exam: SUBJECTIVE: Patient seen and examined at the bedside. calm, cooperative OBJECTIVE: per psyche, patient unable to make his own medical decisions at this time. discussed with family. Vital Signs Period Temp Pulse Resp BP Sys/Lou Pulse Ox Last 24 Hr 97.9 F-98.1 F 63-91 18-18 98-107/55-72 GENERAL: The patient is awake, alert, and fully oriented, in no acute distress. HEAD: Normal with no signs of trauma. EYES: PERRL, extraocular movements intact, sclera anicteric, conjunctiva clear. No ptosis. ENT: Ears normal, nares patent, oropharynx clear without exudates, moist mucous membranes. NECK: Trachea midline, full range of motion, supple. LUNGS: Breath sounds equal, diminished bilaterally. HEART: Regular rate and rhythm ABDOMEN: Soft, nontender, nondistended, normoactive bowel sounds EXTREMITIES: no edema. NEUROLOGICAL: Normal speech, gait not observed. PSYCH: Normal mood, normal affect. SKIN: Warm, dry, normal turgor, no rashes or lesions noted Laboratory Results - last 24 hr 09/10/18 09/10/18 09/11/18 21:00 21:00 10:25 WBC 7.9 RBC 3.68 L Hgb 13.6 Hct 38.3 MCV 104.0 H MCH 36.9 H MCHC 35.5 RDW 12.9 Plt Count 271 D MPV 7.7 Absolute Neuts (auto) 4.9 Neutrophils % 61.9 Lymphocytes % 24.3 Monocytes % 9.7 Eosinophils % 3.2 Basophils % 0.9 Nucleated RBC % 0 Sodium Potassium Chloride Carbon Dioxide Anion Gap BUN Creatinine Creat Clearance w eGFR Random Glucose Calcium Total Bilirubin AST ALT Alkaline Phosphatase Total Protein Albumin Triglycerides 105 Cholesterol 135 Total LDL Cholesterol 84 HDL Cholesterol 29 L TSH 5.60 H 09/11/18 10:25 WBC RBC Hgb Hct MCV MCH MCHC RDW Plt Count MPV Absolute Neuts (auto) Neutrophils % Lymphocytes % Monocytes % Eosinophils % Basophils % Nucleated RBC % Sodium 135 L Potassium 4.0 Chloride 97 L Carbon Dioxide 32 Anion Gap 6 L BUN 10 Creatinine 0.8 Creat Clearance w eGFR > 60 Random Glucose 98 Calcium 8.4 L Total Bilirubin 0.8 AST 36 ALT 29 Alkaline Phosphatase 111 Total Protein 6.2 L Albumin 2.3 L Triglycerides Cholesterol Total LDL Cholesterol HDL Cholesterol TSH Active Medications Generic Name Dose Route Start Last Admin Trade Name Freq PRN Reason Stop Dose Admin Acetaminophen 650 mg 09/07/18 14:39 Tylenol - PO Q6H PRN PAIN LEVEL 4 - 6 Acetaminophen 325 mg 09/07/18 15:12 09/07/18 15:35 Tylenol - PO 325 mg Q6H PRN Administration PAIN LEVEL 7 - 10 Atenolol 25 mg 09/05/18 10:00 09/11/18 10:37 Tenormin - PO 25 mg DAILY [facility] Administration Docusate Sodium 100 mg 09/07/18 18:51 Colace - PO BID PRN CONSTIPATION Folic Acid 1 mg 09/09/18 10:00 09/11/18 10:37 Folic Acid - PO 1 mg DAILY [facility] Administration Heparin Sodium (Porcine) 5,000 unit 09/04/18 22:00 09/11/18 10:38 Heparin - SQ 5,000 unit BID [facility] Administration Ceftriaxone Sodium 1 gm/ 50 mls @ 100 mls/hr 09/04/18 20:00 09/11/18 10:37 Dextrose IVPB 100 mls/hr DAILY [facility] Administration Protocol Magnesium Oxide 400 mg 09/05/18 11:33 09/11/18 10:37 Mag-Ox - PO 400 mg DAILY [facility] Administration Oxycodone HCl 5 mg 09/07/18 15:12 09/07/18 15:34 Roxicodone - PO 5 mg Q6H PRN Administration PAIN LEVEL 7 - 10 Potassium Chloride 10 meq 09/05/18 11:45 09/11/18 10:37 K-Dur - PO 10 meq DAILY [facility] Administration Senna 2 tab 09/07/18 18:51 Senna - PO HS PRN CONSTIPATION Thiamine HCl 100 mg 09/04/18 20:15 09/11/18 10:37 Vitamin B1 - PO 100 mg DAILY [facility] Administration ASSESSMENT/PLAN: Patient is a 73 year old male with a significant past medical history of HTN, HLD, possible PAD, who was brought in by family for failure to thrive and SOB. Patient is reported to drink nightly, however he denies having hx of ETOH abuse. Per notes, pt was found in his home completely disheveled with urine and stool on himself. Pulm s/p right thoracententis with 1700 cc removal S/P Right thoracentesis 09/07/2018 chest xray improved effusion, no pneumothorax Denies shortness of breath, tolerating room air stable, denies coughing check pleural fluid cytology, no malignant cells echo with moderate aortic stenosis, cardiology consulted and following Psyche: ETOH abuse no signs of withdrawal. denies etoh use folate, thiamine upper extremity tremors are chronic per patient and family. UTI completed 7 days of ceftriaxone. fen tolerating po monitor electrolytes low salt diet prophy scds will need placement to rehab Visit type - Emergency Visit Emergency Visit: Yes ED Registration Date: 09/04/18 Care time: The patient presented to the Emergency Department on the above date and was hospitalized for further evaluation of their emergent condition. - New Patient This patient is new to me today: No - Critical Care Critical Care patient: No - Discharge Referral Referred to [facility] Med P.C.: No
--- NOTE | 2018-09-12 09:30 | PN ---
Physical Exam: SUBJECTIVE: Patient seen and examined at the bedside. tells me he feels some shortness of breath with physical exertion noted that his right lung is more diminished. will chest xray OBJECTIVE: per psyche, patient unable to make his own medical decisions at this time. discussed with family. Vital Signs Period Temp Pulse Resp BP Sys/Lou Pulse Ox Last 24 Hr 97.1 F-97.9 F 61-67 18-20 99-109/52-56 94 GENERAL: The patient is awake, alert, in no acute distress. episodes of confusion, per psyche, patient lacks capacity to make his own medical decisions HEAD: Normal with no signs of trauma. EYES: PERRL, extraocular movements intact, sclera anicteric, conjunctiva clear. No ptosis. ENT: Ears normal, nares patent, oropharynx clear without exudates, moist mucous membranes. NECK: Trachea midline, full range of motion, supple. LUNGS: Breath sounds equal, diminished bilaterally. HEART: Regular rate and rhythm ABDOMEN: Soft, nontender, nondistended, normoactive bowel sounds EXTREMITIES: no edema. NEUROLOGICAL: Normal speech, gait not observed. PSYCH: Normal mood, normal affect. SKIN: Warm, dry, normal turgor, no rashes or lesions noted Laboratory Results - last 24 hr 09/11/18 09/11/18 10:25 10:25 WBC 7.9 RBC 3.68 L Hgb 13.6 Hct 38.3 MCV 104.0 H MCH 36.9 H MCHC 35.5 RDW 12.9 Plt Count 271 D MPV 7.7 Absolute Neuts (auto) 4.9 Neutrophils % 61.9 Lymphocytes % 24.3 Monocytes % 9.7 Eosinophils % 3.2 Basophils % 0.9 Nucleated RBC % 0 Sodium 135 L Potassium 4.0 Chloride 97 L Carbon Dioxide 32 Anion Gap 6 L BUN 10 Creatinine 0.8 Creat Clearance w eGFR > 60 Random Glucose 98 Calcium 8.4 L Total Bilirubin 0.8 AST 36 ALT 29 Alkaline Phosphatase 111 Total Protein 6.2 L Albumin 2.3 L Active Medications Generic Name Dose Route Start Last Admin Trade Name Freq PRN Reason Stop Dose Admin Acetaminophen 650 mg 09/07/18 14:39 Tylenol - PO Q6H PRN PAIN LEVEL 4 - 6 Acetaminophen 325 mg 09/07/18 15:12 09/07/18 15:35 Tylenol - PO 325 mg Q6H PRN Administration PAIN LEVEL 7 - 10 Atenolol 25 mg 09/05/18 10:00 09/11/18 10:37 Tenormin - PO 25 mg DAILY [facility] Administration Docusate Sodium 100 mg 09/07/18 18:51 Colace - PO BID PRN CONSTIPATION Folic Acid 1 mg 09/09/18 10:00 09/11/18 10:37 Folic Acid - PO 1 mg DAILY [facility] Administration Heparin Sodium (Porcine) 5,000 unit 09/04/18 22:00 09/11/18 21:39 Heparin - SQ 5,000 unit BID [facility] Administration Magnesium Oxide 400 mg 09/05/18 11:33 09/11/18 10:37 Mag-Ox - PO 400 mg DAILY [facility] Administration Oxycodone HCl 5 mg 09/07/18 15:12 09/07/18 15:34 Roxicodone - PO 5 mg Q6H PRN Administration PAIN LEVEL 7 - 10 Potassium Chloride 10 meq 09/05/18 11:45 09/11/18 10:37 K-Dur - PO 10 meq DAILY [facility] Administration Senna 2 tab 09/07/18 18:51 Senna - PO HS PRN CONSTIPATION Thiamine HCl 100 mg 09/04/18 20:15 09/11/18 10:37 Vitamin B1 - PO 100 mg DAILY [facility] Administration ASSESSMENT/PLAN: Patient is a 73 year old male with a significant past medical history of HTN, HLD, possible PAD, who was brought in by family for failure to thrive and SOB. Patient is reported to drink nightly, however he denies having hx of ETOH abuse. Per notes, pt was found in his home completely disheveled with urine and stool on himself. Pulm s/p right thoracententis with 1700 cc removal S/P Right thoracentesis 09/07/2018 chest xray improved effusion, no pneumothorax more diminished breaths sounds on the right lung, will xray. check pleural fluid cytology, no malignant cells echo with moderate aortic stenosis, cardiology consulted and following Psyche: ETOH abuse no signs of withdrawal. denies etoh use folate, thiamine upper extremity tremors are chronic per patient and family. UTI completed 7 days of ceftriaxone. fen tolerating po monitor electrolytes low salt diet prophy scds will need placement to rehab. patient is unable to make his own medical decisions. Visit type - Emergency Visit Emergency Visit: Yes ED Registration Date: 09/04/18 Care time: The patient presented to the Emergency Department on the above date and was hospitalized for further evaluation of their emergent condition. - New Patient This patient is new to me today: No - Critical Care Critical Care patient: No - Discharge Referral Referred to [facility] Med P.C.: No
[2018-09-12] MEDS: FOLIC ACID 1 MG TABLET (FP) PO SCH (09:35)
[2018-09-12] MEDS: MAGNESIUM OXIDE 400 MG TABLET (FP) PO SCH (09:35)
[2018-09-12] MEDS: THIAMINE HCL 100 MG TABLET (FP) PO SCH (09:35)
[2018-09-12] MEDS: ATENOLOL 25 MG TABLET (FP) PO SCH (09:35)
[2018-09-12] MEDS: HEPARIN NA (PORCINE) 5,000 UNITS/ML 1ML VIAL SQ SCH ×2 (09:36→21:55)
[2018-09-12] MEDS: POTASSIUM CHLORIDE TABS 10 MEQ TABLET.ER (FP) PO SCH (09:36)
[2018-09-12 09:47] LABS: BASO % 0.9 % (0-2.0); EOS % 3.2 % (0-4.5); HEMATOCRIT 33.6 % (35.4-49); HEMOGLOBIN 11.9 GM/dL (11.7-16.9); LYMPH % 20.3 % (8-40); MCH 36.3 pg (25.7-33.7); MCHC 35.6 g/dl (32.0-35.9); MEAN PLT VOLUME 7.6 fl (7.5-11.1); MONO % 7.4 % (3.8-10.2); NEUT % 68.2 % (42.8-82.8); PLATELET COUNT 211 K/MM3 (134-434); RBC 3.29 M/mm3 (4.00-5.60); WHITE BLOOD COUNT 4.2 K/mm3 (4.0-10.0)
[2018-09-12 10:20] LABS: ALBUMIN 2.1 g/dl (3.4-5.0); ALK PHOS 91 U/L (45-117); ANION GAP 6 MMOL/L (8-16); BILIRUBIN,TOTAL 0.6 mg/dL (0.2-1); BLOOD UREA NITROGEN 11 mg/dL (7-18); CALCIUM 8.7 mg/dL (8.5-10.1); CHLORIDE 101 mmol/L (98-107); CO2 30 mmol/L (21-32); CREATININE 0.7 mg/dL (0.55-1.3); GLUCOSE,RANDOM 120 mg/dL (74-106); SGOT/AST 24 U/L (15-37); SGPT/ALT 23 U/L (13-61); SODIUM 137 mmol/L (136-145); TOT PROT 5.6 g/dl (6.4-8.2)
--- NOTE | 2018-09-12 11:19 | CONSULT ---
Consult Consult Specialty:: Thoracic Surgery Referred by:: Dr. Sheikh Reason for Consultation:: Pleural effusion - History of Present Illness Chief Complaint: Shortness of breath History of Present Illness: The patient is a 73 year old male with a significant medical history of HTN, HLD , possible PAD, who was brought in by family for failure to thrive and SOB. The family reports that the patient drinks ETOH nightly, though pt denies drinking for the past month. Pt was found in his home completely disheveled. Pt does report dyspnea with climbing stairs but no cough or wheezing. No fevers, chills or sweats but reports unintentional weight loss from 300 to 190 pounds. Found to have bilateral pleural effusions on imaging. He is a remote smoker. Sister had gastric cancer but denies lung cancer in the family. 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 - History Source History Provided By: Patient - Past Medical History Cardio/Vascular: Yes: Aortic Stenosis, HTN, Hyperlipdemia - Alcohol/Substance Use Hx Alcohol Use: Yes (OVER 1 MONTH AGO) - Smoking History Smoking history: Former smoker Have you smoked in the past 12 months: No If you are a former smoker, when did you quit?: 45 YEARS AGO - Social History Usual Living Arrangement: Alone Home Medications - Allergies Allergies/Adverse Reactions: Allergies Allergy/AdvReac Type Severity Reaction Status Date / Time No Known Allergies Allergy Verified 09/04/18 13:43 - Home Medications Home Medications: Ambulatory Orders Atenolol [Tenormin -] 10 mg PO DAILY 09/04/18 Family Disease History - Family Disease History Family History: Denies Family Disease History: Diabetes: Sister (gastric cancer) Review of Systems - Review of Systems Constitutional: reports: Unintentional Wgt. Loss HENT: reports: No Symptoms Neck: reports: No Symptoms Respiratory: reports: SOB, SOB on Exertion Physical Exam Vital Signs: Vital Signs Temperature 97.1 F L 09/12/18 06:00 Pulse Rate 62 09/12/18 06:00 Respiratory Rate 20 09/12/18 06:00 Blood Pressure 109/56 L 09/12/18 06:00 O2 Sat by Pulse Oximetry (%) 94 L 09/11/18 21:00 Constitutional: Yes: Well Nourished, No Distress, Poor Hygeine Eyes: Yes: WNL, Occular Prosthesis HENT: Yes: WNL Neck: Yes: WNL Cardiovascular: Yes: Regular Rate and Rhythm Respiratory: Yes: Diminished (decreased right sided breath sounds) Labs: CBC, BMP 09/12/18 09:05 09/12/18 09:05 Imaging - Results Chest X-ray: Report Reviewed, Image Reviewed Cat Scan: Report Reviewed, Image Reviewed (large right pleural effusion small left pleural effusion) Problem List - Problems (1) EtOH dependence Code(s): F10.20 - ALCOHOL DEPENDENCE, UNCOMPLICATED (2) Failure to thrive in adult Code(s): R62.7 - ADULT FAILURE TO THRIVE (3) Hypertension Code(s): I10 - ESSENTIAL (PRIMARY) HYPERTENSION (4) Lactic acidosis Code(s): E87.2 - ACIDOSIS (5) Moderate aortic stenosis Code(s): I35.0 - NONRHEUMATIC AORTIC (VALVE) STENOSIS (6) Pleural effusion Code(s): J90 - PLEURAL EFFUSION, NOT ELSEWHERE CLASSIFIED (7) Prophylactic measure Code(s): Z29.9 - ENCOUNTER FOR PROPHYLACTIC MEASURES, UNSPECIFIED (8) S/P thoracentesis Code(s): Z98.890 - OTHER SPECIFIED POSTPROCEDURAL STATES Assessment/Plan 73 y/o Mwas admitted to hospital for shortness of breath and failure to thrive. Thoracocentesis was performed and chemistry revealed exudative fluid. Imaging in form of CT showed bilateral loculated pleural fluid and pleural calcification and LLL consolidation all raising flag for possible malignancy. Plan: Recommendation: CT chest with IV contrast Right VATS with pleural biopsy if cleared by cardiology for aortic stenosis. Thank you for courtesy of this referral.
--- NOTE | 2018-09-12 12:36 | PN ---
Progress Note (short form) - Note Progress Note: NEUROLOGY-JAZMIN OLUIS for Chart/hx. reviewed. Pt. informs me he has had bilat. UE tremors since 1964, was "given a pill" that worked years ago.Does not recall name, states his father had similar tremors, they improve somewhat with alcohol intake. O/E: Awake, alert, orientedx 2. Restricted affect, follows 2 step commands. CN-intact Motor-increased tone in all 4 ext(in LEs spasticity, 5/5 strength Sensory-intact touch/pin Coord- nl F-N Tremors- bilat UEs only, no titubation_ slight tremulousness of voice, tremors are coarse, both at rest and worse upon kinesis, disappear with distraction. He is able to feed himself. A+P:Likely essential tremors given family hx/improvement with ETOH. Would rx. with Primidone 50mg hs, dose can be escalated as outpt. if needed. Thank you, Tania Garcia MD
--- NOTE | 2018-09-12 15:30 | PN ---
Progress Note (short form) - Note Progress Note: PULMONARY VSS Gen: NAD at rest Heart: RRR Lung: decreased breath sounds at the bases right> left Abd: soft, nontender Ext: no edema cytology negative on fluid gram stain unrevealing T- surg opinion appreciated (1) UTI (urinary tract infection) Code(s): N39.0 - URINARY TRACT INFECTION, SITE NOT SPECIFIED (2) Lactic acidosis Code(s): E87.2 - ACIDOSIS (3) Pleural effusion Code(s): J90 - PLEURAL EFFUSION, NOT ELSEWHERE CLASSIFIED (4) Hypertension Code(s): I10 - ESSENTIAL (PRIMARY) HYPERTENSION (5) Failure to thrive in adult Code(s): R62.7 - ADULT FAILURE TO THRIVE A/P Exudative Pleural Effusion: Etiology to be determined ?traumatic/parapneumonic/ neoplastic UTI on antibiotics Bilateral Pleural Effusions r/o Malignancy Failure to Thrive Lactic Acidosis HTN Hyperlipidemia - To consider VAT evaluation if cleared by cardio - continue antibiotics - DVT prophylaxis Chrissie PRITCHARD MD
[2018-09-12] MEDS: PRIMIDONE 50 MG TABLET PO SCH (21:55)
[2018-09-13] MEDS: ATENOLOL 25 MG TABLET (FP) PO SCH (09:15)
[2018-09-13] MEDS: HEPARIN NA (PORCINE) 5,000 UNITS/ML 1ML VIAL SQ SCH ×2 (09:15→21:42)
[2018-09-13] MEDS: POTASSIUM CHLORIDE TABS 10 MEQ TABLET.ER (FP) PO SCH (09:15)
[2018-09-13] MEDS: FOLIC ACID 1 MG TABLET (FP) PO SCH (09:15)
[2018-09-13] MEDS: MAGNESIUM OXIDE 400 MG TABLET (FP) PO SCH (09:15)
[2018-09-13] MEDS: THIAMINE HCL 100 MG TABLET (FP) PO SCH (09:15)
--- NOTE | 2018-09-13 10:42 | PN ---
Physical Exam: SUBJECTIVE: Patient seen and examined at the bedside. OBJECTIVE: ct chest w/iv contrast: left pleural effusion signif.decresed from prior study. large right pleural eff mild decrease compared to prior study. 4 x 2 cm consolidtion or mass posterior lower lobe unchanged. Period Temp Pulse Resp BP Sys/Lou Pulse Ox Last 24 Hr 97.4 F-98.6 F 60-68 20-20 96-127/49-61 95 GENERAL: The patient is awake, alert, in no acute distress. episodes of confusion, per psyche, patient lacks capacity to make his own medical decisions HEAD: Normal with no signs of trauma. EYES: PERRL, extraocular movements intact, sclera anicteric, conjunctiva clear. No ptosis. ENT: Ears normal, nares patent, oropharynx clear without exudates, moist mucous membranes. NECK: Trachea midline, full range of motion, supple. LUNGS: Breath sounds equal, diminished bilaterally. HEART: Regular rate and rhythm ABDOMEN: Soft, nontender, nondistended, normoactive bowel sounds EXTREMITIES: no edema. NEUROLOGICAL: Normal speech, gait not observed. PSYCH: Normal mood, normal affect. SKIN: Warm, dry, normal turgor, no rashes or lesions noted Laboratory Results - last 24 hr 09/13/18 05:45 Free T4 1.02 Active Medications Generic Name Dose Route Start Last Admin Trade Name Freq PRN Reason Stop Dose Admin Acetaminophen 650 mg 09/07/18 14:39 Tylenol - PO Q6H PRN PAIN LEVEL 4 - 6 Acetaminophen 325 mg 09/07/18 15:12 09/07/18 15:35 Tylenol - PO 325 mg Q6H PRN Administration PAIN LEVEL 7 - 10 Atenolol 25 mg 09/05/18 10:00 09/13/18 09:15 Tenormin - PO 25 mg DAILY [facility] Administration Docusate Sodium 100 mg 09/07/18 18:51 Colace - PO BID PRN CONSTIPATION Folic Acid 1 mg 09/09/18 10:00 09/13/18 09:15 Folic Acid - PO 1 mg DAILY [facility]IR Administration Heparin Sodium (Porcine) 5,000 unit 09/04/18 22:00 09/13/18 09:15 Heparin - SQ 5,000 unit BID MIR Administration Magnesium Oxide 400 mg 09/05/18 11:33 09/13/18 09:15 Mag-Ox - PO 400 mg DAILY [facility]IR Administration Oxycodone HCl 5 mg 09/07/18 15:12 09/07/18 15:34 Roxicodone - PO 5 mg Q6H PRN Administration PAIN LEVEL 7 - 10 Potassium Chloride 10 meq 09/05/18 11:45 09/13/18 09:15 K-Dur - PO 10 meq DAILY MIR Administration Primidone 50 mg 09/12/18 22:00 09/12/18 21:55 Mysoline - PO 50 mg HS MIR Administration Senna 2 tab 09/07/18 18:51 Senna - PO HS PRN CONSTIPATION Thiamine HCl 100 mg 09/04/18 20:15 09/13/18 09:15 Vitamin B1 - PO 100 mg DAILY [facility]IR Administration ASSESSMENT/PLAN: Patient is a 73 year old male with a significant past medical history of HTN, HLD, possible PAD, who was brought in by family for failure to thrive and SOB. Patient is reported to drink nightly, however he denies having hx of ETOH abuse. Per notes, pt was found in his home completely disheveled with urine and stool on himself. chest ct w/iv contrast: left pleural effusion signif.decreased from prior study. large right pleural eff mild decrease compared to prior study. 4 x 2 cm consolidations or mass posterior lower lobe unchanged. Pulm s/p right thoracententis with 1700 cc removal S/P Right thoracentesis 09/07/2018 check pleural fluid cytology, no malignant cells echo with moderate aortic stenosis, cardiology consulted and following Seen by thoracic surgery: possible VATS procedure to rule out malignancy (has loculated pleural fluid, pleural calcificaion and LLL consolidation) Card: Rule out cardiac cause of right thoracentesis Echo with moderte aortic stenosis Further workup per cardiology recommendations Psyche: ETOH abuse no signs of withdrawal. denies etoh use folate, thiamine upper extremity tremors are chronic per patient and family. Seen by neuro. started on priomodone 50mg @ hs. UTI completed 7 days of ceftriaxone. fen tolerating po monitor electrolytes low salt diet prophy scds will need placement to rehab. patient is unable to make his own medical decisions per psyche.
[2018-09-13] MEDS: PRIMIDONE 50 MG TABLET PO SCH (21:42)
[2018-09-14 08:19] LABS: BASO % 0.8 % (0-2.0); EOS % 3.6 % (0-4.5); HEMATOCRIT 31.5 % (35.4-49); HEMOGLOBIN 11.3 GM/dL (11.7-16.9); LYMPH % 20.5 % (8-40); MCH 36.6 pg (25.7-33.7); MCHC 35.9 g/dl (32.0-35.9); MEAN CELL VOLUME 101.8 fl (80-96); MEAN PLT VOLUME 7.6 fl (7.5-11.1); MONO % 8.8 % (3.8-10.2); NEUT % 66.3 % (42.8-82.8); PLATELET COUNT 207 K/MM3 (134-434); RDW 12.9 % (11.9-15.9); WHITE BLOOD COUNT 4.6 K/mm3 (4.0-10.0)
[2018-09-14 08:59] LABS: ALBUMIN 2.1 g/dl (3.4-5.0); ALK PHOS 87 U/L (45-117); ANION GAP 6 MMOL/L (8-16); BILIRUBIN,TOTAL 0.6 mg/dL (0.2-1); BLOOD UREA NITROGEN 11 mg/dL (7-18); CALCIUM 8.1 mg/dL (8.5-10.1); CHLORIDE 100 mmol/L (98-107); CO2 29 mmol/L (21-32); CREATININE 0.6 mg/dL (0.55-1.3); GLUCOSE,RANDOM 85 mg/dL (74-106); MAGNESIUM 2.2 mg/dL (1.8-2.4); POTASSIUM 4.1 mmol/L (3.5-5.1); SGOT/AST 25 U/L (15-37); SGPT/ALT 21 U/L (13-61); SODIUM 135 mmol/L (136-145); TOT PROT 5.6 g/dl (6.4-8.2)
--- NOTE | 2018-09-14 09:08 | PN ---
Progress Note, Physician History of Present Illness: The patient is a 73 year old male with a significant medical history of HTN, HLD , possible PAD, who was brought in by family for failure to thrive and SOB. The family reports that the patient drinks ETOH nightly, though pt denies drinking for the past month. Per son, pt was found in his home completely disheveled today with urine and stool on himself. They also report a significant weight loss recently. Pt endorses SOB with exertion. Denies CP. Denies SOB at rest. The patient denies headache and dizziness. The patient denies fever, chills, nausea, vomit, diarrhea and constipation. The patient denies dysuria, frequency , urgency and hematuria. - Current Medication List Current Medications: Active Medications Acetaminophen (Tylenol -) 650 mg PO Q6H PRN PRN Reason: PAIN LEVEL 4 - 6 Acetaminophen (Tylenol -) 325 mg PO Q6H PRN PRN Reason: PAIN LEVEL 7 - 10 Last Admin: 09/07/18 15:35 Dose: 325 mg Atenolol (Tenormin -) 25 mg PO DAILY [facility] Last Admin: 09/13/18 09:15 Dose: 25 mg Docusate Sodium (Colace -) 100 mg PO BID PRN PRN Reason: CONSTIPATION Folic Acid (Folic Acid -) 1 mg PO DAILY [facility] Last Admin: 09/13/18 09:15 Dose: 1 mg Heparin Sodium (Porcine) (Heparin -) 5,000 unit SQ BID [facility] Last Admin: 09/13/18 21:42 Dose: 5,000 unit Magnesium Oxide (Mag-Ox -) 400 mg PO DAILY [facility] Last Admin: 09/13/18 09:15 Dose: 400 mg Oxycodone HCl (Roxicodone -) 5 mg PO Q6H PRN PRN Reason: PAIN LEVEL 7 - 10 Last Admin: 09/07/18 15:34 Dose: 5 mg Potassium Chloride (K-Dur -) 10 meq PO DAILY [facility] Last Admin: 09/13/18 09:15 Dose: 10 meq Primidone (Mysoline -) 50 mg PO HS [facility] Last Admin: 09/13/18 21:42 Dose: 50 mg Senna (Senna -) 2 tab PO HS PRN PRN Reason: CONSTIPATION Thiamine HCl (Vitamin B1 -) 100 mg PO DAILY [facility] Last Admin: 09/13/18 09:15 Dose: 100 mg - Objective Vital Signs: Vital Signs Temperature 98.1 F 09/14/18 06:00 Pulse Rate 60 09/14/18 06:00 Respiratory Rate 20 09/14/18 06:00 Blood Pressure 107/60 09/14/18 06:00 O2 Sat by Pulse Oximetry (%) 95 09/13/18 21:00 Eyes: Yes: WNL, Conjunctiva Clear, EOM Intact HENT: Yes: WNL, Atraumatic, Normocephalic Neck: Yes: WNL, Supple, Trachea Midline Cardiovascular: Yes: Regular Rate and Rhythm, Murmur, S1, S2 Respiratory: Yes: WNL, Regular, CTA Bilaterally Gastrointestinal: Yes: WNL, Normal Bowel Sounds Genitourinary: Yes: WNL Musculoskeletal: Yes: WNL Extremities: Yes: WNL Edema: No Integumentary: Yes: WNL Neurological: Yes: WNL, Alert, Oriented ...Motor Strength: WNL Psychiatric: Yes: WNL Labs: CBC, BMP 09/14/18 06:15 INR, PTT INR 1.07 (0.83-1.09) 09/08/18 10:20 Problem List - Problems (1) Failure to thrive in adult Code(s): R62.7 - ADULT FAILURE TO THRIVE (2) Hypertension Code(s): I10 - ESSENTIAL (PRIMARY) HYPERTENSION (3) Lactic acidosis Code(s): E87.2 - ACIDOSIS (4) Pleural effusion Code(s): J90 - PLEURAL EFFUSION, NOT ELSEWHERE CLASSIFIED (5) Prophylactic measure Code(s): Z29.9 - ENCOUNTER FOR PROPHYLACTIC MEASURES, UNSPECIFIED (6) UTI (urinary tract infection) Code(s): N39.0 - URINARY TRACT INFECTION, SITE NOT SPECIFIED Assessment/Plan - Problems (1) Moderate aortic stenosis Assessment/Plan: ECHO: normal LVEF; abnormal diastolic compliance; normal wall thickness; mild MR , TR, AR. Code(s): I35.0 - NONRHEUMATIC AORTIC (VALVE) STENOSIS (2) Failure to thrive in adult Code(s): R62.7 - ADULT FAILURE TO THRIVE (3) Hypertension Code(s): I10 - ESSENTIAL (PRIMARY) HYPERTENSION (4) EtOH dependence Code(s): F10.20 - ALCOHOL DEPENDENCE, UNCOMPLICATED (5) S/P thoracentesis Assessment/Plan: 1,700 ml removed Code(s): Z98.890 - OTHER SPECIFIED POSTPROCEDURAL STATES
[2018-09-14] MEDS ORDERED: PT OWN MED DRAWER 7, Y5N ONE ×2 (09:26→21:25)
[2018-09-14] MEDS: THIAMINE HCL 100 MG TABLET (FP) PO SCH (09:29)
[2018-09-14] MEDS: HEPARIN NA (PORCINE) 5,000 UNITS/ML 1ML VIAL SQ SCH (09:30)
[2018-09-14] MEDS: ATENOLOL 25 MG TABLET (FP) PO SCH (09:30)
[2018-09-14] MEDS: MAGNESIUM OXIDE 400 MG TABLET (FP) PO SCH (09:30)
[2018-09-14] MEDS: POTASSIUM CHLORIDE TABS 10 MEQ TABLET.ER (FP) PO SCH (09:30)
[2018-09-14] MEDS: FOLIC ACID 1 MG TABLET (FP) PO SCH (09:30)
--- NOTE | 2018-09-14 12:46 | PN ---
Progress Note (short form) - Note Progress Note: PULMONARY Denies shortness of breath, cough or chest pain. No fevers recorded. Vital Signs Period Temp Pulse Resp BP Sys/Lou Pulse Ox Last 24 Hr 98.0 F-98.7 F 58-88 20-20 98-120/51-65 95 Gen: NAD at rest, disheveled Heart: RRR Lung: decreased breath sounds at the bases Abd: soft, nontender Ext: no edema CBC, BMP 09/14/18 06:15 09/14/18 06:15 Active Medications Acetaminophen (Tylenol -) 650 mg PO Q6H PRN PRN Reason: PAIN LEVEL 4 - 6 Acetaminophen (Tylenol -) 325 mg PO Q6H PRN PRN Reason: PAIN LEVEL 7 - 10 Last Admin: 09/07/18 15:35 Dose: 325 mg Atenolol (Tenormin -) 25 mg PO DAILY [facility] Last Admin: 09/14/18 09:30 Dose: 25 mg Docusate Sodium (Colace -) 100 mg PO BID PRN PRN Reason: CONSTIPATION Folic Acid (Folic Acid -) 1 mg PO DAILY [facility] Last Admin: 09/14/18 09:30 Dose: 1 mg Heparin Sodium (Porcine) (Heparin -) 5,000 unit SQ BID [facility] Last Admin: 09/14/18 09:30 Dose: 5,000 unit Magnesium Oxide (Mag-Ox -) 400 mg PO DAILY [facility] Last Admin: 09/14/18 09:30 Dose: 400 mg Oxycodone HCl (Roxicodone -) 5 mg PO Q6H PRN PRN Reason: PAIN LEVEL 7 - 10 Last Admin: 09/07/18 15:34 Dose: 5 mg Potassium Chloride (K-Dur -) 10 meq PO DAILY [facility] Last Admin: 09/14/18 09:30 Dose: 10 meq Primidone (Mysoline -) 50 mg PO HS [facility] Last Admin: 09/13/18 21:42 Dose: 50 mg Senna (Senna -) 2 tab PO HS PRN PRN Reason: CONSTIPATION Thiamine HCl (Vitamin B1 -) 100 mg PO DAILY [facility] Last Admin: 09/14/18 09:29 Dose: 100 mg A/P UTI Bilateral Pleural Effusions s/p R Thoracentesis - Exudate r/o Malignancy Failure to Thrive Lactic Acidosis HTN Hyperlipidemia - completed antibiotics - would drain residual right effusion with pigtail catheter - outpt PET/CT scan in 4-6 weeks to assess left lung lesion and underlying right sided disease - DVT prophylaxis Problem List - Problems (1) UTI (urinary tract infection) Code(s): N39.0 - URINARY TRACT INFECTION, SITE NOT SPECIFIED (2) Lactic acidosis Code(s): E87.2 - ACIDOSIS (3) Pleural effusion Code(s): J90 - PLEURAL EFFUSION, NOT ELSEWHERE CLASSIFIED (4) Hypertension Code(s): I10 - ESSENTIAL (PRIMARY) HYPERTENSION (5) Failure to thrive in adult Code(s): R62.7 - ADULT FAILURE TO THRIVE
--- NOTE | 2018-09-14 15:08 | PN ---
Physical Exam: SUBJECTIVE: Patient seen and examined at the bedside. denies shortness of breath or chest pain. OBJECTIVE: right lung diminished, left clear. further workup/procedures per thoracic surgery/pulmonary. Vital Signs Period Temp Pulse Resp BP Sys/Lou Pulse Ox Last 24 Hr 98.0 F-98.7 F 58-88 20-20 98-120/51-65 95 GENERAL: The patient is awake, alert, in no acute distress. patient lacks capacity to make his own medical decisions per psyche HEAD: Normal with no signs of trauma. EYES: PERRL, extraocular movements intact, sclera anicteric, conjunctiva clear. No ptosis. ENT: Ears normal, nares patent, oropharynx clear without exudates, moist mucous membranes. NECK: Trachea midline, full range of motion, supple. LUNGS: Breath sounds equal, diminished bilaterally. HEART: Regular rate and rhythm ABDOMEN: Soft, nontender, nondistended, normoactive bowel sounds EXTREMITIES: no edema. NEUROLOGICAL: Normal speech, gait not observed. PSYCH: Normal mood, normal affect. SKIN: Warm, dry, normal turgor, no rashes or lesions noted Laboratory Results - last 24 hr 09/14/18 09/14/18 06:15 06:15 WBC 4.6 RBC 3.10 L Hgb 11.3 L Hct 31.5 L MCV 101.8 H MCH 36.6 H MCHC 35.9 RDW 12.9 Plt Count 207 MPV 7.6 Absolute Neuts (auto) 3.1 Neutrophils % 66.3 Lymphocytes % 20.5 Monocytes % 8.8 Eosinophils % 3.6 Basophils % 0.8 Nucleated RBC % 0 Sodium 135 L Potassium 4.1 Chloride 100 Carbon Dioxide 29 Anion Gap 6 L BUN 11 Creatinine 0.6 Creat Clearance w eGFR > 60 Random Glucose 85 Calcium 8.1 L Magnesium 2.2 Total Bilirubin 0.6 AST 25 ALT 21 Alkaline Phosphatase 87 Total Protein 5.6 L Albumin 2.1 L Active Medications Generic Name Dose Route Start Last Admin Trade Name Freq PRN Reason Stop Dose Admin Acetaminophen 650 mg 09/07/18 14:39 Tylenol - PO Q6H PRN PAIN LEVEL 4 - 6 Acetaminophen 325 mg 09/07/18 15:12 09/07/18 15:35 Tylenol - PO 325 mg Q6H PRN Administration PAIN LEVEL 7 - 10 Atenolol 25 mg 09/05/18 10:00 09/14/18 09:30 Tenormin - PO 25 mg DAILY MIR Administration Docusate Sodium 100 mg 09/07/18 18:51 Colace - PO BID PRN CONSTIPATION Folic Acid 1 mg 09/09/18 10:00 09/14/18 09:30 Folic Acid - PO 1 mg DAILY MIR Administration Heparin Sodium (Porcine) 5,000 unit 09/04/18 22:00 09/14/18 09:30 Heparin - SQ 5,000 unit BID MIR Administration Magnesium Oxide 400 mg 09/05/18 11:33 09/14/18 09:30 Mag-Ox - PO 400 mg DAILY MIR Administration Oxycodone HCl 5 mg 09/07/18 15:12 09/07/18 15:34 Roxicodone - PO 5 mg Q6H PRN Administration PAIN LEVEL 7 - 10 Potassium Chloride 10 meq 09/05/18 11:45 09/14/18 09:30 K-Dur - PO 10 meq DAILY MIR Administration Primidone 50 mg 09/12/18 22:00 09/13/18 21:42 Mysoline - PO 50 mg HS MIR Administration Senna 2 tab 09/07/18 18:51 Senna - PO HS PRN CONSTIPATION Thiamine HCl 100 mg 09/04/18 20:15 09/14/18 09:29 Vitamin B1 - PO 100 mg DAILY [facility] Administration ASSESSMENT/PLAN: Patient is a 73 year old male with a significant past medical history of HTN, HLD, possible PAD, who was brought in by family for failure to thrive and SOB. Patient is reported to drink nightly, however he denies having hx of ETOH abuse. Per notes, pt was found in his home completely disheveled with urine and stool on himself. chest ct w/iv contrast 09/12/18: left pleural effusion signif.decreased from prior study. large right pleural eff mild decrease compared to prior study. 4 x 2 cm consolidations or mass posterior lower lobe unchanged. Pulm s/p right thoracententis with 1700 cc removal S/P Right thoracentesis 09/07/2018 check pleural fluid cytology, no malignant cells Seen by thoracic surgery: possible VATS procedure to rule out malignancy (has loculated pleural fluid, pleural calcificaion and LLL consolidation) will need cardiology clearance prior to procedure. Card: Rule out cardiac cause of right thoracentesis Further workup per cardiology recommendations echo with moderate aortic stenosis, cardiology consulted and following Psyche: ETOH abuse no signs of withdrawal. denies etoh use, although family reports pt uses etoh chronically. folate, thiamine ordered upper extremity tremors are chronic per patient and family. Seen by neuro. started on priomodone 50mg @ hs. UTI completed 7 days of ceftriaxone. fen tolerating po monitor electrolytes low salt diet prophy scds will need placement to rehab. patient is unable to make his own medical decisions per psyche. family seeking rehab as patient is unable to return to his apartment due to poor living conditions. Visit type - Emergency Visit Emergency Visit: Yes ED Registration Date: 09/04/18 Care time: The patient presented to the Emergency Department on the above date and was hospitalized for further evaluation of their emergent condition. - New Patient This patient is new to me today: No - Critical Care Critical Care patient: No - Discharge Referral Referred to [facility] No
[2018-09-14] MEDS: PRIMIDONE 50 MG TABLET PO SCH (21:38)
[2018-09-15] MEDS: HEPARIN NA (PORCINE) 5,000 UNITS/ML 1ML VIAL SQ SCH (00:24)
[2018-09-15] MEDS: ATENOLOL 25 MG TABLET (FP) PO SCH (10:53)
[2018-09-15] MEDS: THIAMINE HCL 100 MG TABLET (FP) PO SCH (10:54)
[2018-09-15] MEDS: POTASSIUM CHLORIDE TABS 10 MEQ TABLET.ER (FP) PO SCH (10:54)
[2018-09-15] MEDS: MAGNESIUM OXIDE 400 MG TABLET (FP) PO SCH (10:54)
[2018-09-15] MEDS: FOLIC ACID 1 MG TABLET (FP) PO SCH (10:54)
[2018-09-15 11:05] LABS: EOS % 3.4 % (0-4.5); HEMATOCRIT 32.6 % (35.4-49); HEMOGLOBIN 11.3 GM/dL (11.7-16.9); LYMPH % 17.6 % (8-40); MCH 35.5 pg (25.7-33.7); MCHC 34.8 g/dl (32.0-35.9); MEAN CELL VOLUME 102.1 fl (80-96); MEAN PLT VOLUME 7.5 fl (7.5-11.1); MONO % 9.2 % (3.8-10.2); NEUT % 68.8 % (42.8-82.8); PLATELET COUNT 229 K/MM3 (134-434); RBC 3.19 M/mm3 (4.00-5.60); RDW 13.2 % (11.9-15.9); WHITE BLOOD COUNT 4.3 K/mm3 (4.0-10.0)
--- NOTE | 2018-09-15 11:29 | PN ---
Progress Note (short form) - Note Progress Note: PULMONARY Denies shortness of breath, cough or chest pain. No fevers recorded. For oigtail catheter drainage today. Vital Signs Period Temp Pulse Resp BP Sys/Lou Pulse Ox Last 24 Hr 97.3 F-98.4 F 57-62 20-22 102-109/50-58 95 Gen: NAD at rest Heart: RRR Lung: decreased breath sounds at the bases Abd: soft, nontender Ext: no edema CBC, BMP 09/15/18 09:48 Active Medications Acetaminophen (Tylenol -) 650 mg PO Q6H PRN PRN Reason: PAIN LEVEL 4 - 6 Acetaminophen (Tylenol -) 325 mg PO Q6H PRN PRN Reason: PAIN LEVEL 7 - 10 Last Admin: 09/07/18 15:35 Dose: 325 mg Atenolol (Tenormin -) 25 mg PO DAILY [facility] Last Admin: 09/15/18 10:53 Dose: 25 mg Docusate Sodium (Colace -) 100 mg PO BID PRN PRN Reason: CONSTIPATION Folic Acid (Folic Acid -) 1 mg PO DAILY [facility] Last Admin: 09/15/18 10:54 Dose: 1 mg Magnesium Oxide (Mag-Ox -) 400 mg PO DAILY [facility] Last Admin: 09/15/18 10:54 Dose: 400 mg Potassium Chloride (K-Dur -) 10 meq PO DAILY [facility] Last Admin: 09/15/18 10:54 Dose: 10 meq Primidone (Mysoline -) 50 mg PO HS [facility] Last Admin: 09/14/18 21:38 Dose: 50 mg Senna (Senna -) 2 tab PO HS PRN PRN Reason: CONSTIPATION Thiamine HCl (Vitamin B1 -) 100 mg PO DAILY [facility] Last Admin: 09/15/18 10:54 Dose: 100 mg A/P UTI Bilateral Pleural Effusions s/p R Thoracentesis - Exudate r/o Malignancy Failure to Thrive Lactic Acidosis HTN Hyperlipidemia - completed antibiotics - for pigtail catheter placement - outpt PET/CT scan in 4-6 weeks to assess left lung lesion and underlying right sided disease - discussed with thoracic surgery, agree with plan - DVT prophylaxis Problem List - Problems (1) UTI (urinary tract infection) Code(s): N39.0 - URINARY TRACT INFECTION, SITE NOT SPECIFIED (2) Lactic acidosis Code(s): E87.2 - ACIDOSIS (3) Pleural effusion Code(s): J90 - PLEURAL EFFUSION, NOT ELSEWHERE CLASSIFIED (4) Hypertension Code(s): I10 - ESSENTIAL (PRIMARY) HYPERTENSION (5) Failure to thrive in adult Code(s): R62.7 - ADULT FAILURE TO THRIVE
[2018-09-15 11:39] LABS: ALBUMIN 2.1 g/dl (3.4-5.0); ALK PHOS 93 U/L (45-117); ANION GAP 8 MMOL/L (8-16); BILIRUBIN,TOTAL 0.8 mg/dL (0.2-1); BLOOD UREA NITROGEN 10 mg/dL (7-18); CHLORIDE 98 mmol/L (98-107); CO2 27 mmol/L (21-32); CREATININE 0.6 mg/dL (0.55-1.3); GLUCOSE,RANDOM 101 mg/dL (74-106); MAGNESIUM 1.8 mg/dL (1.8-2.4); POTASSIUM 4.1 mmol/L (3.5-5.1); SGOT/AST 25 U/L (15-37); SGPT/ALT 23 U/L (13-61); SODIUM 134 mmol/L (136-145); TOT PROT 5.6 g/dl (6.4-8.2)
--- NOTE | 2018-09-15 14:33 | PATH ---
Cytology Non-Gynecological Report Patient Name: ESTER HOLLIDAY Med. Rec. #: [id number] /Age/Gender: 1945 (Age: 73) / M Account: [id number] Location: [address] [place] [address]/[facility] Taken: 09/07/2018 Received: 09/08/2018 Reported: 09/15/2018 Physicians: Pascale Neumann M.D. Specimen(s) Received THORA/ CHEST Clinical History Thora/chest fluid Final Diagnosis THORAX/CHEST, FLUID, FOR CYTOLOGY: SATISFACTORY FOR EVALUATION. NEGATIVE FOR MALIGNANT CELLS. INFLAMMATORY CELLS (LYMPHOCYTES, MACROPHAGES, AND SOME NEUTROPHILS) ADMIXED WITH BLOOD. Electronically Signed Amelia Saavedra M.D. Gross Description Approximately 45cc of bloody fluid received fixed in 50% alcohol. Three cytospins and one cellblock prepared.
[2018-09-15 15:20] LABS: BF WBC & OTHER NUCLEATED CELLS 895 /mm3
--- NOTE | 2018-09-15 16:33 | PN ---
Progress Note, Physician Chief Complaint: Pt A&Ox3; no chest pain or dyspnea. History of Present Illness: he patient is a 73 year old male with a significant medical history of HTN, HLD , possible PAD, who was brought in by family for failure to thrive and SOB. The family reports that the patient drinks ETOH nightly, though pt denies drinking for the past month. Per son, pt was found in his home completely disheveled today with urine and stool on himself. They also report a significant weight loss recently. Pt endorses SOB with exertion. Denies CP. Denies SOB at rest. The patient denies headache and dizziness. The patient denies fever, chills, nausea, vomit, diarrhea and constipation. The patient denies dysuria, frequency , urgency and hematuria. Allergies: NKDA - Current Medication List Current Medications: Active Medications Acetaminophen (Tylenol -) 650 mg PO Q6H PRN PRN Reason: PAIN LEVEL 4 - 6 Acetaminophen (Tylenol -) 325 mg PO Q6H PRN PRN Reason: PAIN LEVEL 7 - 10 Last Admin: 09/07/18 15:35 Dose: 325 mg Atenolol (Tenormin -) 25 mg PO DAILY [facility] Last Admin: 09/15/18 10:53 Dose: 25 mg Docusate Sodium (Colace -) 100 mg PO BID PRN PRN Reason: CONSTIPATION Folic Acid (Folic Acid -) 1 mg PO DAILY [facility] Last Admin: 09/15/18 10:54 Dose: 1 mg Magnesium Oxide (Mag-Ox -) 400 mg PO DAILY [facility] Last Admin: 09/15/18 10:54 Dose: 400 mg Potassium Chloride (K-Dur -) 10 meq PO DAILY [facility] Last Admin: 09/15/18 10:54 Dose: 10 meq Primidone (Mysoline -) 50 mg PO HS [facility] Last Admin: 09/14/18 21:38 Dose: 50 mg Senna (Senna -) 2 tab PO HS PRN PRN Reason: CONSTIPATION Thiamine HCl (Vitamin B1 -) 100 mg PO DAILY [facility] Last Admin: 09/15/18 10:54 Dose: 100 mg - Objective Vital Signs: Vital Signs Temperature 97.9 F 09/15/18 14:00 Pulse Rate 75 09/15/18 14:00 Respiratory Rate 18 09/15/18 14:00 Blood Pressure 119/56 L 09/15/18 14:00 O2 Sat by Pulse Oximetry (%) 95 09/15/18 09:00 Constitutional: Yes: Calm Eyes: Yes: WNL HENT: Yes: WNL Neck: Yes: WNL Cardiovascular: Yes: S1, S2 Respiratory: Yes: WNL Gastrointestinal: Yes: Soft ...Rectal Exam: Yes: Deferred Genitourinary: No: Anuria Breast(s): Yes: WNL Musculoskeletal: Yes: Muscle Weakness Extremities: Yes: Cool Edema: No Peripheral Pulses WNL: Yes Integumentary: Yes: Other (ankels with large reddened and scaling lesions that pt says are chronic "and used to be blisters") Neurological: Yes: Alert, Oriented, Tremors (hands), Weakness Psychiatric: Yes: Alert, Oriented Labs: CBC, BMP 09/15/18 09:48 09/15/18 09:48 INR, PTT INR 1.07 (0.83-1.09) 09/08/18 10:20 Abnormal Lab Results 09/15/18 09/15/18 09:48 09:48 RBC 3.19 L Hgb 11.3 L Hct 32.6 L MCV 102.1 H MCH 35.5 H Sodium 134 L Calcium 8.0 L Total Protein 5.6 L Albumin 2.1 L - ....Imaging Chest X-ray: Image Reviewed Cat Scan: Image Reviewed EKG: Image Reviewed Problem List - Problems (1) Moderate aortic stenosis Assessment/Plan: ECHO: normal LVEF; abnormal diastolic compliance; normal wall thickness; mild MR , TR, AR.; moderate . Denies chest pain, syncope, PND/orthopnea, leg swelling. On atenolol. Code(s): I35.0 - NONRHEUMATIC AORTIC (VALVE) STENOSIS (2) Failure to thrive in adult Code(s): R62.7 - ADULT FAILURE TO THRIVE (3) Hypertension Assessment/Plan: On atenolol; BP relatively well-controlled. Code(s): I10 - ESSENTIAL (PRIMARY) HYPERTENSION (4) EtOH dependence Code(s): F10.20 - ALCOHOL DEPENDENCE, UNCOMPLICATED (5) S/P thoracentesis Assessment/Plan: 1,700 ml removed: exudate. Pigtail catheter place today; 30 ml fluid removed R/o malignancy: plans for PET scan in 4-6 weeks noted. Code(s): Z98.890 - OTHER SPECIFIED POSTPROCEDURAL STATES (6) [place] cardiac risk >20% in next 10 years Assessment/Plan: Pt denies hx of cardiac disease; denies chest pain. As discussed with pt and family, workup to r/o malignancy and aid respiratory status is presently of prime concern. Code(s): Z91.89 - OTH PERSONAL RISK FACTORS, NOT ELSEWHERE CLASSIFIED (7) Hypokalemia Assessment/Plan: presently WNL; on K and Mg supplementation. Code(s): E87.6 - HYPOKALEMIA
[2018-09-15 17:05] LABS: BODYL FLD EOSINOPHIL 2 %
--- NOTE | 2018-09-15 17:27 | PN ---
Physical Exam: SUBJECTIVE: Patient seen and examined. No complaints, no o2, denies sob, only w / longer distances OBJECTIVE: Vital Signs Period Temp Pulse Resp BP Sys/Lou Pulse Ox Last 24 Hr 97.3 F-98.4 F 57-75 18-20 102-119/50-58 95-95 Pe Neuro: alert, awake, cn 2-12intact Pulm: diminished right lobe CV: s1 s2 rrr Abd: s nt nd + bs ExT: warm, benign UE tremor Laboratory Results - last 24 hr 09/15/18 09/15/18 09/15/18 09:48 09:48 12:20 WBC 4.3 RBC 3.19 L Hgb 11.3 L Hct 32.6 L MCV 102.1 H MCH 35.5 H MCHC 34.8 RDW 13.2 Plt Count 229 MPV 7.5 Absolute Neuts (auto) 3.0 Neutrophils % 68.8 Lymphocytes % 17.6 Monocytes % 9.2 Eosinophils % 3.4 Basophils % 1.0 Nucleated RBC % 0 Sodium 134 L Potassium 4.1 Chloride 98 Carbon Dioxide 27 Anion Gap 8 BUN 10 Creatinine 0.6 Creat Clearance w eGFR > 60 Random Glucose 101 Calcium 8.0 L Magnesium 1.8 Total Bilirubin 0.8 AST 25 ALT 23 Alkaline Phosphatase 93 Total Protein 5.6 L Albumin 2.1 L Fluid Source Pleural Fluid WBC 895 Fluid RBC 210,659 Fluid Neutrophils 2 Fluid Lymphocytes 96 Pleural Eosinophils 2 Active Medications Generic Name Dose Route Start Last Admin Trade Name Freq PRN Reason Stop Dose Admin Acetaminophen 650 mg 09/07/18 14:39 Tylenol - PO Q6H PRN PAIN LEVEL 4 - 6 Acetaminophen 325 mg 09/07/18 15:12 09/07/18 15:35 Tylenol - PO 325 mg Q6H PRN Administration PAIN LEVEL 7 - 10 Atenolol 25 mg 09/05/18 10:00 09/15/18 10:53 Tenormin - PO 25 mg DAILY MIR Administration Docusate Sodium 100 mg 09/07/18 18:51 Colace - PO BID PRN CONSTIPATION Folic Acid 1 mg 09/09/18 10:00 09/15/18 10:54 Folic Acid - PO 1 mg DAILY MIR Administration Magnesium Oxide 400 mg 09/05/18 11:33 09/15/18 10:54 Mag-Ox - PO 400 mg DAILY MIR Administration Potassium Chloride 10 meq 09/05/18 11:45 09/15/18 10:54 K-Dur - PO 10 meq DAILY MIR Administration Primidone 50 mg 09/12/18 22:00 09/14/18 21:38 Mysoline - PO 50 mg HS MIR Administration Senna 2 tab 09/07/18 18:51 Senna - PO HS PRN CONSTIPATION Thiamine HCl 100 mg 09/04/18 20:15 09/15/18 10:54 Vitamin B1 - PO 100 mg DAILY MIR Administration Imaging: CT chest 09/12/18: left pleural effusion signif. decreased from prior study. large right pleural eff mild decrease compared to prior study. 4 x 2 cm consolidations or mass posterior lower lobe unchanged. Assessment: 73 year old male with a significant past medical history of HTN, HLD , possible PAD, who was brought in by family for failure to thrive and SOB. Patient is reported to drink nightly, however he denies having hx of ETOH abuse. Per notes, pt was found in his home completely disheveled with urine and stool on himself. Plan: 1. SOB, pleural effusion - Pigtail placed today - s/p right thoracententis with 1700 cc removal - s/P Right thoracentesis 09/07/2018 - No VATS at this time due to - Follow cultures, cytology - Pulm following 2. - Cards seeing 3. ETOH abuse - Folate, thiamine daily 4. UE tremors - Chronic - Started on priomodone 50mg @ hs per neuro 5. UTI - Completed 7 days of ceftriaxone Visit type - Emergency Visit Emergency Visit: Yes ED Registration Date: 09/04/18 Care time: The patient presented to the Emergency Department on the above date and was hospitalized for further evaluation of their emergent condition. - New Patient This patient is new to me today: Yes Date on this admission: 09/15/18 - Critical Care Critical Care patient: No
[2018-09-15] MEDS: PRIMIDONE 50 MG TABLET PO SCH (21:52)
[2018-09-16] MEDS: MAGNESIUM OXIDE 400 MG TABLET (FP) PO SCH (09:46)
[2018-09-16] MEDS: FOLIC ACID 1 MG TABLET (FP) PO SCH (09:46)
[2018-09-16] MEDS: POTASSIUM CHLORIDE TABS 10 MEQ TABLET.ER (FP) PO SCH (09:46)
[2018-09-16] MEDS: THIAMINE HCL 100 MG TABLET (FP) PO SCH (09:46)
[2018-09-16] MEDS: ATENOLOL 25 MG TABLET (FP) PO SCH (09:46)
--- NOTE | 2018-09-16 10:02 | PN ---
Progress Note (short form) - Note Progress Note: SUBJECTIVE: The patient was seen and examined at the bedside, he has no complaints at this time. He reports feeling well. Denies any chest pain, shortness of breath, difficulty breathing. Current Medications Generic Name Dose Route Start Last Admin Trade Name Freq PRN Reason Stop Dose Admin Acetaminophen 650 mg 09/07/18 14:39 Tylenol - PO Q6H PRN PAIN LEVEL 4 - 6 Acetaminophen 325 mg 09/07/18 15:12 09/07/18 15:35 Tylenol - PO 325 mg Q6H PRN Administration PAIN LEVEL 7 - 10 Atenolol 25 mg 09/05/18 10:00 09/16/18 09:46 Tenormin - PO 25 mg DAILY MIR Administration Docusate Sodium 100 mg 09/07/18 18:51 Colace - PO BID PRN CONSTIPATION Folic Acid 1 mg 09/09/18 10:00 09/16/18 09:46 Folic Acid - PO 1 mg DAILY MIR Administration Magnesium Oxide 400 mg 09/05/18 11:33 09/16/18 09:46 Mag-Ox - PO 400 mg DAILY MIR Administration Potassium Chloride 10 meq 09/05/18 11:45 09/16/18 09:46 K-Dur - PO 10 meq DAILY MIR Administration Primidone 50 mg 09/12/18 22:00 09/15/18 21:52 Mysoline - PO 50 mg HS MIR Administration Senna 2 tab 09/07/18 18:51 Senna - PO HS PRN CONSTIPATION Thiamine HCl 100 mg 09/04/18 20:15 09/16/18 09:46 Vitamin B1 - PO 100 mg DAILY MIR Administration OBJECTIVE: Vital Signs Period Temp Pulse Resp BP Sys/Lou Pulse Ox Last 24 Hr 97.5 F-98.0 F 69-75 18-20 108-119/56-62 95 Physical Exam: General: NAD Lungs: Diminished breath sounds on the right. Right pigtail in place, draining serosanguenous fluid Heart: RRR, S1S2 Abd: Soft, non-tender, non-distended. Normoactive bowel sounds Ext: Warm, well-perfused. Benign upper extremity tremor CBCD WBC 4.3 K/mm3 (4.0-10.0) 09/15/18 09:48 RBC 3.19 M/mm3 (4.00-5.60) L 09/15/18 09:48 Hgb 11.3 GM/dL (11.7-16.9) L 09/15/18 09:48 Hct 32.6 % (35.4-49) L 09/15/18 09:48 MCV 102.1 fl (80-96) H 09/15/18 09:48 MCHC 34.8 g/dl (32.0-35.9) 09/15/18 09:48 RDW 13.2 % (11.9-15.9) 09/15/18 09:48 Plt Count 229 K/MM3 (134-434) 09/15/18 09:48 MPV 7.5 fl (7.5-11.1) 09/15/18 09:48 CMP Sodium 134 mmol/L (136-145) L 09/15/18 09:48 Potassium 4.1 mmol/L (3.5-5.1) 09/15/18 09:48 Chloride 98 mmol/L (98-107) 09/15/18 09:48 Carbon Dioxide 27 mmol/L (21-32) 09/15/18 09:48 Anion Gap 8 MMOL/L (8-16) 09/15/18 09:48 BUN 10 mg/dL (7-18) 09/15/18 09:48 Creatinine 0.6 mg/dL (0.55-1.3) 09/15/18 09:48 Creat Clearance w eGFR > 60 (>60) 09/15/18 09:48 Random Glucose 101 mg/dL (74-106) 09/15/18 09:48 Calcium 8.0 mg/dL (8.5-10.1) L 09/15/18 09:48 Total Bilirubin 0.8 mg/dL (0.2-1) 09/15/18 09:48 AST 25 U/L (15-37) 09/15/18 09:48 ALT 23 U/L (13-61) 09/15/18 09:48 Alkaline Phosphatase 93 U/L (45-117) 09/15/18 09:48 Total Protein 5.6 g/dl (6.4-8.2) L 09/15/18 09:48 Albumin 2.1 g/dl (3.4-5.0) L 09/15/18 09:48 CARDIAC ENZYMES Troponin I < 0.02 ng/ml (0.00-0.05) 09/04/18 14:15 Microbiology 09/15/18 12:20 Pleural Fluid Gram Stain - Final 09/15/18 12:20 Pleural Fluid Body Fluid Culture - Preliminary NO AEROBIC GROWTH, 24 HRS 09/15/18 12:20 Pleural Fluid AFB Smear Concentration - Preliminary 09/15/18 12:20 Pleural Fluid Mycobacterial Culture - Preliminary 09/15/18 12:20 Pleural Fluid ROBERT Preparation - Preliminary 09/15/18 12:20 Pleural Fluid Fungal Culture - Preliminary 09/07/18 12:55 Thoracic Fluid Gram Stain - Final 09/07/18 12:55 Thoracic Fluid Body Fluid Culture - Final NO GROWTH OF AEROBIC ORGANISMS AFTER 48 HOURS INCUBATION 09/07/18 12:55 Thoracic Fluid Anaerobic Culture - Final NO ANAEROBES WERE ISOLATED 09/07/18 12:55 Thoracic Fluid AFB Smear Concentration - Final 09/07/18 12:55 Thoracic Fluid Mycobacterial Culture - Preliminary 09/07/18 12:55 Thoracic Fluid ROBERT Preparation - Preliminary 09/07/18 12:55 Thoracic Fluid Fungal Culture - Preliminary 09/04/18 15:02 Urine - Urine Clean Catch Urine Culture - Final Escherichia Coli Imaging: CT chest 09/12/18: left pleural effusion signif. decreased from prior study. large right pleural eff mild decrease compared to prior study. 4 x 2 cm consolidations or mass posterior lower lobe unchanged. Assessment: Thi sis a 73 year old male with PMHx of HTN, HLD, possible PAD, who was brought in by family for failure to thrive and SOB. Patient is reported to drink nightly, however he denies having hx of ETOH abuse. Per notes, pt was found in his home completely disheveled with urine and stool on himself. Plan: 1. SOB, pleural effusion - S/p pigtail placement yesterday - S/p right thoracentesis- exudate - Outpatient PET/CT scan in 4-6 weeks to assess underlying disease - No VATS at this time due to - Follow cultures, cytology - Pulm following 2. - Followed by cardiology 3. ETOH abuse - Folate, thiamine daily 4. UE tremors - Chronic - Started on priomodone 50mg @ hs per neuro 5. UTI - Completed 7 days of ceftriaxone Visit type - Emergency Visit Emergency Visit: Yes ED Registration Date: 09/04/18 Care time: The patient presented to the Emergency Department on the above date and was hospitalized for further evaluation of their emergent condition. - New Patient This patient is new to me today: Yes Date on this admission: 09/16/18 - Critical Care Critical Care patient: No
--- NOTE | 2018-09-16 12:42 | PN ---
Progress Note, Physician History of Present Illness: pulmonary alert,no distress.pt s.p r chest tube placement yesterday - Current Medication List Current Medications: Active Medications Acetaminophen (Tylenol -) 650 mg PO Q6H PRN PRN Reason: PAIN LEVEL 4 - 6 Acetaminophen (Tylenol -) 325 mg PO Q6H PRN PRN Reason: PAIN LEVEL 7 - 10 Last Admin: 09/07/18 15:35 Dose: 325 mg Atenolol (Tenormin -) 25 mg PO DAILY [facility] Last Admin: 09/16/18 09:46 Dose: 25 mg Docusate Sodium (Colace -) 100 mg PO BID PRN PRN Reason: CONSTIPATION Folic Acid (Folic Acid -) 1 mg PO DAILY [facility] Last Admin: 09/16/18 09:46 Dose: 1 mg Magnesium Oxide (Mag-Ox -) 400 mg PO DAILY [facility] Last Admin: 09/16/18 09:46 Dose: 400 mg Potassium Chloride (K-Dur -) 10 meq PO DAILY [facility] Last Admin: 09/16/18 09:46 Dose: 10 meq Primidone (Mysoline -) 50 mg PO HS [facility] Last Admin: 09/15/18 21:52 Dose: 50 mg Senna (Senna -) 2 tab PO HS PRN PRN Reason: CONSTIPATION Thiamine HCl (Vitamin B1 -) 100 mg PO DAILY [facility] Last Admin: 09/16/18 09:46 Dose: 100 mg - Objective Vital Signs: Vital Signs Temperature 98.2 F 09/16/18 10:00 Pulse Rate 80 09/16/18 10:00 Respiratory Rate 20 09/16/18 10:00 Blood Pressure 115/60 09/16/18 10:00 O2 Sat by Pulse Oximetry (%) 95 09/15/18 21:00 Constitutional: Yes: Well Nourished, Calm Eyes: Yes: WNL HENT: Yes: WNL Neck: Yes: WNL Cardiovascular: Yes: Regular Rate and Rhythm, S1, S2 Respiratory: Yes: Diminished Gastrointestinal: Yes: Normal Bowel Sounds, Soft Extremities: Yes: WNL Edema: No Labs: CBC, BMP 09/15/18 09:48 09/15/18 09:48 INR, PTT INR 1.07 (0.83-1.09) 09/08/18 10:20 Assessment/Plan Problem List - Problems (1) UTI (urinary tract infection) Code(s): N39.0 - URINARY TRACT INFECTION, SITE NOT SPECIFIED (2) Lactic acidosis Code(s): E87.2 - ACIDOSIS (3) Pleural effusion Code(s): J90 - PLEURAL EFFUSION, NOT ELSEWHERE CLASSIFIED (4) Hypertension Code(s): I10 - ESSENTIAL (PRIMARY) HYPERTENSION (5) Failure to thrive in adult Code(s): R62.7 - ADULT FAILURE TO THRIVE Assessment/Plan A/P UTI Bilateral Pleural Effusions s/p R Thoracentesis - Exudate r/o Malignancy Failure to Thrive Lactic Acidosis HTN Hyperlipidemia LLL mass - for pigtail catheter placement - outpt PET/CT scan in 4-6 weeks to assess left lung lesion and underlying right sided disease - discussed with thoracic surgery - DVT prophylaxis - monitor chest tube drainage DR AMOR
[2018-09-16 13:19] LABS: BODY FLUID ALBUMIN 1.4 g/dL (.)
--- NOTE | 2018-09-16 18:05 | PN ---
Progress Note, Physician History of Present Illness: The patient is a 73 year old male with a significant medical history of HTN, HLD , possible PAD, who was brought in by family for failure to thrive and SOB. The family reports that the patient drinks ETOH nightly, though pt denies drinking for the past month. Per son, pt was found in his home completely disheveled today with urine and stool on himself. They also report a significant weight loss recently. Pt endorses SOB with exertion. Denies CP. Denies SOB at rest. The patient denies headache and dizziness. The patient denies fever, chills, nausea, vomit, diarrhea and constipation. The patient denies dysuria, frequency , urgency and hematuria. - Current Medication List Current Medications: Active Medications Acetaminophen (Tylenol -) 650 mg PO Q6H PRN PRN Reason: PAIN LEVEL 4 - 6 Acetaminophen (Tylenol -) 325 mg PO Q6H PRN PRN Reason: PAIN LEVEL 7 - 10 Last Admin: 09/07/18 15:35 Dose: 325 mg Atenolol (Tenormin -) 25 mg PO DAILY [facility] Last Admin: 09/16/18 09:46 Dose: 25 mg Docusate Sodium (Colace -) 100 mg PO BID PRN PRN Reason: CONSTIPATION Folic Acid (Folic Acid -) 1 mg PO DAILY [facility] Last Admin: 09/16/18 09:46 Dose: 1 mg Magnesium Oxide (Mag-Ox -) 400 mg PO DAILY [facility] Last Admin: 09/16/18 09:46 Dose: 400 mg Potassium Chloride (K-Dur -) 10 meq PO DAILY [facility] Last Admin: 09/16/18 09:46 Dose: 10 meq Primidone (Mysoline -) 50 mg PO HS [facility] Last Admin: 09/15/18 21:52 Dose: 50 mg Senna (Senna -) 2 tab PO HS PRN PRN Reason: CONSTIPATION Thiamine HCl (Vitamin B1 -) 100 mg PO DAILY [facility] Last Admin: 09/16/18 09:46 Dose: 100 mg - Objective Vital Signs: Vital Signs Temperature 97.5 F L 09/16/18 14:56 Pulse Rate 64 09/16/18 14:56 Respiratory Rate 20 09/16/18 14:56 Blood Pressure 101/56 L 09/16/18 14:56 O2 Sat by Pulse Oximetry (%) 95 09/16/18 09:00 Eyes: Yes: WNL, Conjunctiva Clear, EOM Intact HENT: Yes: WNL, Atraumatic, Normocephalic Neck: Yes: WNL, Supple, Trachea Midline Cardiovascular: Yes: Murmur, S1, S2 Respiratory: Yes: WNL, Regular, CTA Bilaterally Gastrointestinal: Yes: WNL, Normal Bowel Sounds Genitourinary: Yes: WNL Musculoskeletal: Yes: WNL Extremities: Yes: WNL Edema: No Integumentary: Yes: WNL Neurological: Yes: WNL, Alert, Oriented ...Motor Strength: WNL Psychiatric: Yes: WNL Labs: CBC, BMP 09/15/18 09:48 09/15/18 09:48 INR, PTT INR 1.07 (0.83-1.09) 09/08/18 10:20 Problem List - Problems (1) Failure to thrive in adult Code(s): R62.7 - ADULT FAILURE TO THRIVE (2) Hypertension Code(s): I10 - ESSENTIAL (PRIMARY) HYPERTENSION (3) Lactic acidosis Code(s): E87.2 - ACIDOSIS (4) Pleural effusion Code(s): J90 - PLEURAL EFFUSION, NOT ELSEWHERE CLASSIFIED (5) Prophylactic measure Code(s): Z29.9 - ENCOUNTER FOR PROPHYLACTIC MEASURES, UNSPECIFIED (6) UTI (urinary tract infection) Code(s): N39.0 - URINARY TRACT INFECTION, SITE NOT SPECIFIED Assessment/Plan - Problems (1) Moderate aortic stenosis Assessment/Plan: ECHO: normal LVEF; abnormal diastolic compliance; normal wall thickness; mild MR , TR, AR.; moderate . Code(s): I35.0 - NONRHEUMATIC AORTIC (VALVE) STENOSIS (2) Failure to thrive in adult Code(s): R62.7 - ADULT FAILURE TO THRIVE (3) Hypertension Assessment/Plan: On atenolol; BP relatively well-controlled. Code(s): I10 - ESSENTIAL (PRIMARY) HYPERTENSION (4) EtOH dependence Code(s): F10.20 - ALCOHOL DEPENDENCE, UNCOMPLICATED (5) S/P thoracentesis Assessment/Plan: 1,700 ml removed: exudate. Pigtail catheter place today; 30 ml fluid removed Ro malignancy: plans for PET scan in 4-6 weeks noted. Code(s): Z98.890 - OTHER SPECIFIED POSTPROCEDURAL STATES (6) [place] cardiac risk >20% in next 10 years Assessment/Plan: Pt denies hx of cardiac disease; denies chest pain. As discussed with pt and family, workup to r/o malignancy and aid respiratory status is presently of prime concern. Code(s): Z91.89 - [facility] PERSONAL RISK FACTORS, NOT ELSEWHERE CLASSIFIED (7) Hypokalemia Assessment/Plan: presently WNL; on K and Mg supplementation. Code(s): E87.6 - HYPOKALEMIA
[2018-09-16] MEDS ORDERED: PT OWN MED DRAWER 7, Y5N ONE (21:13)
[2018-09-16] MEDS: PRIMIDONE 50 MG TABLET PO SCH (21:19)
[2018-09-17 07:43] LABS: BASO % 0.8 % (0-2.0); EOS % 3.8 % (0-4.5); HEMATOCRIT 33.1 % (35.4-49); HEMOGLOBIN 11.5 GM/dL (11.7-16.9); LYMPH % 20.6 % (8-40); MCH 35.4 pg (25.7-33.7); MCHC 34.7 g/dl (32.0-35.9); MEAN CELL VOLUME 102.1 fl (80-96); MEAN PLT VOLUME 7.6 fl (7.5-11.1); MONO % 9.1 % (3.8-10.2); NEUT % 65.7 % (42.8-82.8); PLATELET COUNT 250 K/MM3 (134-434); RBC 3.24 M/mm3 (4.00-5.60); RDW 13.1 % (11.9-15.9); WHITE BLOOD COUNT 4.6 K/mm3 (4.0-10.0)
[2018-09-17 08:09] LABS: ALBUMIN 2.1 g/dl (3.4-5.0); ALK PHOS 88 U/L (45-117); ANION GAP 8 MMOL/L (8-16); BILIRUBIN,TOTAL 0.6 mg/dL (0.2-1); BLOOD UREA NITROGEN 11 mg/dL (7-18); CALCIUM 7.8 mg/dL (8.5-10.1); CHLORIDE 101 mmol/L (98-107); CO2 26 mmol/L (21-32); CREATININE 0.5 mg/dL (0.55-1.3); GLUCOSE,RANDOM 89 mg/dL (74-106); POTASSIUM 4.2 mmol/L (3.5-5.1); SGOT/AST 26 U/L (15-37); SGPT/ALT 21 U/L (13-61); SODIUM 135 mmol/L (136-145); TOT PROT 5.6 g/dl (6.4-8.2)
[2018-09-17] MEDS: FOLIC ACID 1 MG TABLET (FP) PO SCH (10:22)
[2018-09-17] MEDS: POTASSIUM CHLORIDE TABS 10 MEQ TABLET.ER (FP) PO SCH (10:22)
[2018-09-17] MEDS: THIAMINE HCL 100 MG TABLET (FP) PO SCH (10:23)
[2018-09-17] MEDS: ATENOLOL 25 MG TABLET (FP) PO SCH (10:23)
[2018-09-17] MEDS: MAGNESIUM OXIDE 400 MG TABLET (FP) PO SCH (10:23)
--- NOTE | 2018-09-17 11:36 | PN ---
Progress Note (short form) - Note Progress Note: PULMONARY Denies shortness of breath, cough or chest pain. No fevers recorded. Chest tube drained 2L so far. Vital Signs Period Temp Pulse Resp BP Sys/Lou Pulse Ox Last 24 Hr 97.5 F-98.7 F 64-83 17-20 101-119/53-59 94-95 Gen: NAD at rest Heart: RRR Lung: decreased breath sounds at the bases Abd: soft, nontender Ext: no edema Chest tube: serosanguinous fluid, + air leak CBC, BMP 09/17/18 06:40 09/17/18 06:40 Active Medications Acetaminophen (Tylenol -) 650 mg PO Q6H PRN PRN Reason: PAIN LEVEL 4 - 6 Acetaminophen (Tylenol -) 325 mg PO Q6H PRN PRN Reason: PAIN LEVEL 7 - 10 Last Admin: 09/07/18 15:35 Dose: 325 mg Atenolol (Tenormin -) 25 mg PO DAILY [facility] Last Admin: 09/17/18 10:23 Dose: 25 mg Docusate Sodium (Colace -) 100 mg PO BID PRN PRN Reason: CONSTIPATION Folic Acid (Folic Acid -) 1 mg PO DAILY [facility] Last Admin: 09/17/18 10:22 Dose: 1 mg Magnesium Oxide (Mag-Ox -) 400 mg PO DAILY [facility] Last Admin: 09/17/18 10:23 Dose: 400 mg Potassium Chloride (K-Dur -) 10 meq PO DAILY [facility] Last Admin: 09/17/18 10:22 Dose: 10 meq Primidone (Mysoline -) 50 mg PO HS [facility] Last Admin: 09/16/18 21:19 Dose: 50 mg Senna (Senna -) 2 tab PO HS PRN PRN Reason: CONSTIPATION Thiamine HCl (Vitamin B1 -) 100 mg PO DAILY [facility] Last Admin: 09/17/18 10:23 Dose: 100 mg A/P UTI Bilateral Pleural Effusions s/p R Thoracentesis - Exudate r/o Malignancy Failure to Thrive Lactic Acidosis resolved HTN Hyperlipidemia - completed antibiotics - monitor chest tube output, air leak - check CXR today and tomorrow - if air leak persists, will need thoracic f/u - outpt PET/CT scan in 4-6 weeks to assess left lung lesion and underlying right sided disease - DVT prophylaxis Problem List - Problems (1) UTI (urinary tract infection) Code(s): N39.0 - URINARY TRACT INFECTION, SITE NOT SPECIFIED (2) Lactic acidosis Code(s): E87.2 - ACIDOSIS (3) Pleural effusion Code(s): J90 - PLEURAL EFFUSION, NOT ELSEWHERE CLASSIFIED (4) Hypertension Code(s): I10 - ESSENTIAL (PRIMARY) HYPERTENSION (5) Failure to thrive in adult Code(s): R62.7 - ADULT FAILURE TO THRIVE
--- NOTE | 2018-09-17 14:43 | PN ---
Physical Exam: SUBJECTIVE: Patient seen and examined. States he is feeling better. No acute issues. OBJECTIVE: Vital Signs Period Temp Pulse Resp BP Sys/Lou Pulse Ox Last 24 Hr 97.5 F-98.7 F 64-83 17-20 92-119/53-59 94-95 PE Neuro: alert, awake, NAD Pulm: R pigtail with serosanguinous drainage + Leak CV: s1 s2 rrr no mrg Abd: s nt nd + bs Ext: no le edema Laboratory Results - last 24 hr 09/15/18 09/17/18 09/17/18 12:20 06:40 06:40 WBC 4.6 RBC 3.24 L Hgb 11.5 L Hct 33.1 L MCV 102.1 H MCH 35.4 H MCHC 34.7 RDW 13.1 Plt Count 250 MPV 7.6 Absolute Neuts (auto) 3.0 Neutrophils % 65.7 Lymphocytes % 20.6 Monocytes % 9.1 Eosinophils % 3.8 Basophils % 0.8 Nucleated RBC % 0 Sodium 135 L Potassium 4.2 Chloride 101 Carbon Dioxide 26 Anion Gap 8 BUN 11 Creatinine 0.5 L Creat Clearance w eGFR > 60 Random Glucose 89 Calcium 7.8 L Total Bilirubin 0.6 AST 26 ALT 21 Alkaline Phosphatase 88 Total Protein 5.6 L Albumin 2.1 L POC Fluid pH 7.6 Active Medications Generic Name Dose Route Start Last Admin Trade Name Freq PRN Reason Stop Dose Admin Acetaminophen 650 mg 09/07/18 14:39 Tylenol - PO Q6H PRN PAIN LEVEL 4 - 6 Acetaminophen 325 mg 09/07/18 15:12 09/07/18 15:35 Tylenol - PO 325 mg Q6H PRN Administration PAIN LEVEL 7 - 10 Atenolol 25 mg 09/05/18 10:00 09/17/18 10:23 Tenormin - PO 25 mg DAILY MIR Administration Docusate Sodium 100 mg 09/07/18 18:51 Colace - PO BID PRN CONSTIPATION Folic Acid 1 mg 09/09/18 10:00 09/17/18 10:22 Folic Acid - PO 1 mg DAILY MIR Administration Magnesium Oxide 400 mg 09/05/18 11:33 09/17/18 10:23 Mag-Ox - PO 400 mg DAILY MIR Administration Potassium Chloride 10 meq 09/05/18 11:45 09/17/18 10:22 K-Dur - PO 10 meq DAILY MIR Administration Primidone 50 mg 09/12/18 22:00 09/16/18 21:19 Mysoline - PO 50 mg HS MIR Administration Senna 2 tab 09/07/18 18:51 Senna - PO HS PRN CONSTIPATION Thiamine HCl 100 mg 09/04/18 20:15 09/17/18 10:23 Vitamin B1 - PO 100 mg DAILY MIR Administration Imaging: CT chest 09/12/18: left pleural effusion signif. decreased from prior study. large right pleural eff mild decrease compared to prior study. 4 x 2 cm consolidations or mass posterior lower lobe unchanged. Assessment: 73 year old male with a significant past medical history of HTN, HLD , possible PAD, who was brought in by family for failure to thrive and SOB. Patient is reported to drink nightly, however he denies having hx of ETOH abuse. Per notes, pt was found in his home completely disheveled with urine and stool on himself. Plan: 1. SOB, pleural effusion - Pigtail placed 09/15, to gravity now - Air leak, monitor outpt - CXR tomorrow - s/p right thoracententis with 1700 cc removal - s/P Right thoracentesis 09/07/2018 - No VATS at this time due to - Follow cultures, cytology - Per pulm if air leak does not improve will need thoracic surgery 2. - Cards seeing 3. ETOH abuse - Folate, thiamine daily 4. UE tremors - Chronic - Started on priomodone 50mg @ hs per neuro 5. UTI - Completed 7 days of ceftriaxone 6. Electrolytes - Ca corrected 9.32 Visit type - Emergency Visit Emergency Visit: Yes ED Registration Date: 09/04/18 Care time: The patient presented to the Emergency Department on the above date and was hospitalized for further evaluation of their emergent condition. - New Patient This patient is new to me today: No - Critical Care Critical Care patient: No
--- NOTE | 2018-09-17 15:52 | PATH ---
Cytology Non-Gynecological Report Patient Name: ESTER HOLLIDAY Med. Rec. #: [id number] /Age/Gender: 1945 (Age: 73) / M Account: [id number] Location: [address] [place] [address]/[facility] Taken: 09/15/2018 Received: 09/15/2018 Reported: 09/17/2018 Physicians: Abe Zafar M.D. PHYSICIAN EMERGENCY DEPT Specimen(s) Received PLEURAL FLUID RIGHT SIDE Clinical History Pleural effusion Final Diagnosis PLEURAL FLUID, RIGHT, THORACENTESIS: SATISFACTORY FOR EVALUATION NO MALIGNANT CELLS IDENTIFIED. MESOTHELIAL CELLS, MACROPHAEGS, AND SOME LYMPHOCYTES PRESENT. Electronically Signed Amelia Saavedra M.D. Gross Description Approximately 40cc of brown fluid received fixed in 50% alcohol. One slide and one cellblock prepared.
[2018-09-17] MEDS: PRIMIDONE 50 MG TABLET PO SCH (21:29)
--- NOTE | 2018-09-18 07:51 | PN ---
Progress Note, Physician Chief Complaint: No new complaints denies nay SOB History of Present Illness: 73 year old male with a significant past medical history of HTN, HLD, possible PAD, who was brought in by family for failure to thrive and SOB. Patient is reported to drink nightly, however he denies having hx of ETOH abuse. Per notes , pt was found in his home completely disheveled with urine and stool on himself. - Current Medication List Current Medications: Active Medications Acetaminophen (Tylenol -) 650 mg PO Q6H PRN PRN Reason: PAIN LEVEL 4 - 6 Acetaminophen (Tylenol -) 325 mg PO Q6H PRN PRN Reason: PAIN LEVEL 7 - 10 Last Admin: 09/07/18 15:35 Dose: 325 mg Atenolol (Tenormin -) 25 mg PO DAILY [facility] Last Admin: 09/17/18 10:23 Dose: 25 mg Docusate Sodium (Colace -) 100 mg PO BID PRN PRN Reason: CONSTIPATION Folic Acid (Folic Acid -) 1 mg PO DAILY [facility] Last Admin: 09/17/18 10:22 Dose: 1 mg Magnesium Oxide (Mag-Ox -) 400 mg PO DAILY [facility] Last Admin: 09/17/18 10:23 Dose: 400 mg Potassium Chloride (K-Dur -) 10 meq PO DAILY [facility] Last Admin: 09/17/18 10:22 Dose: 10 meq Primidone (Mysoline -) 50 mg PO HS [facility] Last Admin: 09/17/18 21:29 Dose: 50 mg Senna (Senna -) 2 tab PO HS PRN PRN Reason: CONSTIPATION Thiamine HCl (Vitamin B1 -) 100 mg PO DAILY [facility] Last Admin: 09/17/18 10:23 Dose: 100 mg - Objective Vital Signs: Vital Signs Temperature 97.2 F L 09/18/18 06:00 Pulse Rate 69 09/18/18 06:00 Respiratory Rate 20 09/18/18 06:00 Blood Pressure 123/60 09/18/18 06:00 O2 Sat by Pulse Oximetry (%) 95 09/17/18 21:00 Elderly man not in distreess denies any chest pain or SOB HEENT: mm moist no anemia, PERRLA EOMI NECK: No JVD No Bruit CHEST: CTA B/L Rt sided Pigtail catheter ABD: Obese non tender BS + EXT: + edema feet, no calf tenderness, Pulses + LOSS PREVENTION AND SAFETY MANAGER: AOX3 non focal Labs: CBC, BMP 09/17/18 06:40 09/17/18 06:40 INR, PTT INR 1.07 (0.83-1.09) 09/08/18 10:20 Problem List - Problems (1) Pleural effusion Assessment/Plan: S/P Rt sided PIG tail catheters still draigning F/U Pulmonary recommondation. Code(s): J90 - PLEURAL EFFUSION, NOT ELSEWHERE CLASSIFIED (2) Moderate aortic stenosis Assessment/Plan: Stable no acute decopmensation. Code(s): I35.0 - NONRHEUMATIC AORTIC (VALVE) STENOSIS (3) EtOH dependence Assessment/Plan: No withdrawal symptoms Code(s): F10.20 - ALCOHOL DEPENDENCE, UNCOMPLICATED (4) Failure to thrive in adult Assessment/Plan: Due to ETOH abuse Code(s): R62.7 - ADULT FAILURE TO THRIVE (5) S/P thoracentesis Assessment/Plan: Rt sided Pleural effusion Code(s): Z98.890 - OTHER SPECIFIED POSTPROCEDURAL STATES (6) UTI (urinary tract infection) Assessment/Plan: Treated completed abx Code(s): N39.0 - URINARY TRACT INFECTION, SITE NOT SPECIFIED (7) Hypertension Assessment/Plan: well controlled cont current meds Code(s): I10 - ESSENTIAL (PRIMARY) HYPERTENSION (8) Tremor Assessment/Plan: Cont Primidne Code(s): R25.1 - TREMOR, UNSPECIFIED
[2018-09-18] MEDS: THIAMINE HCL 100 MG TABLET (FP) PO SCH (09:52)
[2018-09-18] MEDS: ATENOLOL 25 MG TABLET (FP) PO SCH (09:52)
[2018-09-18] MEDS: POTASSIUM CHLORIDE TABS 10 MEQ TABLET.ER (FP) PO SCH (09:52)
[2018-09-18] MEDS: MAGNESIUM OXIDE 400 MG TABLET (FP) PO SCH (09:52)
[2018-09-18] MEDS: FOLIC ACID 1 MG TABLET (FP) PO SCH (09:53)
--- NOTE | 2018-09-18 14:26 | PN ---
Progress Note, Physician History of Present Illness: PULMONARY ALERT,NO DISTRESS,CHEST TUBE PLACED TO SUCTION - Current Medication List Current Medications: Active Medications Acetaminophen (Tylenol -) 650 mg PO Q6H PRN PRN Reason: PAIN LEVEL 4 - 6 Acetaminophen (Tylenol -) 325 mg PO Q6H PRN PRN Reason: PAIN LEVEL 7 - 10 Last Admin: 09/07/18 15:35 Dose: 325 mg Atenolol (Tenormin -) 25 mg PO DAILY [facility] Last Admin: 09/18/18 09:52 Dose: 25 mg Docusate Sodium (Colace -) 100 mg PO BID PRN PRN Reason: CONSTIPATION Folic Acid (Folic Acid -) 1 mg PO DAILY [facility] Last Admin: 09/18/18 09:53 Dose: 1 mg Magnesium Oxide (Mag-Ox -) 400 mg PO DAILY [facility] Last Admin: 09/18/18 09:52 Dose: 400 mg Potassium Chloride (K-Dur -) 10 meq PO DAILY [facility] Last Admin: 09/18/18 09:52 Dose: 10 meq Primidone (Mysoline -) 50 mg PO HS [facility] Last Admin: 09/17/18 21:29 Dose: 50 mg Senna (Senna -) 2 tab PO HS PRN PRN Reason: CONSTIPATION Thiamine HCl (Vitamin B1 -) 100 mg PO DAILY [facility] Last Admin: 09/18/18 09:52 Dose: 100 mg - Objective Vital Signs: Vital Signs Temperature 97.2 F L 09/18/18 09:08 Pulse Rate 69 09/18/18 09:08 Respiratory Rate 20 09/18/18 09:08 Blood Pressure 119/62 09/18/18 09:08 O2 Sat by Pulse Oximetry (%) 95 09/18/18 09:08 Constitutional: Yes: Well Nourished, Calm Eyes: Yes: WNL HENT: Yes: WNL Neck: Yes: WNL Cardiovascular: Yes: Regular Rate and Rhythm, S1, S2 Respiratory: Yes: Diminished Gastrointestinal: Yes: Normal Bowel Sounds, Soft Extremities: Yes: WNL Edema: No Labs: - ....Imaging Chest X-ray: Image Reviewed Assessment/Plan Problem List - Problems (1) UTI (urinary tract infection) Code(s): N39.0 - URINARY TRACT INFECTION, SITE NOT SPECIFIED (2) Lactic acidosis Code(s): E87.2 - ACIDOSIS (3) Pleural effusion Code(s): J90 - PLEURAL EFFUSION, NOT ELSEWHERE CLASSIFIED (4) Hypertension Code(s): I10 - ESSENTIAL (PRIMARY) HYPERTENSION (5) Failure to thrive in adult Code(s): R62.7 - ADULT FAILURE TO THRIVE Assessment/Plan A/P UTI Bilateral Pleural Effusions s/p R Thoracentesis - Exudate r/o Malignancy Failure to Thrive Lactic Acidosis HTN Hyperlipidemia LLL mass ? trapped lung - chest tube to suction if no change consider thoracic surgery eval - outpt PET/CT scan in 4-6 weeks to assess left lung lesion and underlying right sided disease - discussed with thoracic surgery - DVT prophylaxis - monitor chest tube drainage - f/u chest x-rays DR AMOR
[2018-09-18] MEDS: PRIMIDONE 50 MG TABLET PO SCH (21:27)
[2018-09-19] MEDS: DOCUSATE SODIUM 100 MG CAPSULE (FP) PO PRN ×2 (03:12→17:18)
--- NOTE | 2018-09-19 08:05 | PN ---
Progress Note, Physician Chief Complaint: No new complaints denies nay SOB History of Present Illness: 73 year old male with a significant past medical history of HTN, HLD, possible PAD, who was brought in by family for failure to thrive and SOB. Patient is reported to drink nightly, however he denies having hx of ETOH abuse. Per notes , pt was found in his home completely disheveled with urine and stool on himself. - Current Medication List Current Medications: Active Medications Acetaminophen (Tylenol -) 650 mg PO Q6H PRN PRN Reason: PAIN LEVEL 4 - 6 Acetaminophen (Tylenol -) 325 mg PO Q6H PRN PRN Reason: PAIN LEVEL 7 - 10 Last Admin: 09/07/18 15:35 Dose: 325 mg Atenolol (Tenormin -) 25 mg PO DAILY [facility] Last Admin: 09/18/18 09:52 Dose: 25 mg Docusate Sodium (Colace -) 100 mg PO BID PRN PRN Reason: CONSTIPATION Last Admin: 09/19/18 03:12 Dose: 100 mg Folic Acid (Folic Acid -) 1 mg PO DAILY [facility] Last Admin: 09/18/18 09:53 Dose: 1 mg Magnesium Oxide (Mag-Ox -) 400 mg PO DAILY [facility] Last Admin: 09/18/18 09:52 Dose: 400 mg Potassium Chloride (K-Dur -) 10 meq PO DAILY [facility] Last Admin: 09/18/18 09:52 Dose: 10 meq Primidone (Mysoline -) 50 mg PO HS [facility] Last Admin: 09/18/18 21:27 Dose: 50 mg Senna (Senna -) 2 tab PO HS PRN PRN Reason: CONSTIPATION Thiamine HCl (Vitamin B1 -) 100 mg PO DAILY [facility] Last Admin: 09/18/18 09:52 Dose: 100 mg - Objective Vital Signs: Vital Signs Temperature 98.0 F 09/19/18 06:00 Pulse Rate 68 09/19/18 06:00 Respiratory Rate 18 09/19/18 06:00 Blood Pressure 117/59 L 09/19/18 06:00 O2 Sat by Pulse Oximetry (%) 96 09/18/18 21:00 Elderly man not in distreess denies any chest pain or SOB HEENT: mm moist no anemia, PERRLA EOMI NECK: No JVD No Bruit CHEST: CTA B/L Rt sided chest tube ABD: Obese non tender BS + EXT: + edema feet, no calf tenderness, Pulses + ACTIVITY THERAPY SPECIALIST: AOX3 non focal Labs: CBC, BMP 09/17/18 06:40 09/17/18 06:40 INR, PTT INR 1.07 (0.83-1.09) 09/08/18 10:20 Problem List - Problems (1) Pleural effusion Assessment/Plan: S/P Rt sided PIG tail catheters still draigning F/U Pulmonary recommondation. Code(s): J90 - PLEURAL EFFUSION, NOT ELSEWHERE CLASSIFIED (2) Moderate aortic stenosis Assessment/Plan: Stable no acute decopmensation. Code(s): I35.0 - NONRHEUMATIC AORTIC (VALVE) STENOSIS (3) EtOH dependence Assessment/Plan: No withdrawal symptoms Code(s): F10.20 - ALCOHOL DEPENDENCE, UNCOMPLICATED (4) Failure to thrive in adult Assessment/Plan: Due to ETOH abuse Code(s): R62.7 - ADULT FAILURE TO THRIVE (5) S/P thoracentesis Assessment/Plan: Rt sided Pleural effusion Code(s): Z98.890 - OTHER SPECIFIED POSTPROCEDURAL STATES (6) UTI (urinary tract infection) Assessment/Plan: Treated completed abx Code(s): N39.0 - URINARY TRACT INFECTION, SITE NOT SPECIFIED (7) Hypertension Assessment/Plan: well controlled cont current meds Code(s): I10 - ESSENTIAL (PRIMARY) HYPERTENSION (8) Tremor Assessment/Plan: Cont Primidne Code(s): R25.1 - TREMOR, UNSPECIFIED
[2018-09-19 08:54] LABS: BASO % 0.9 % (0-2.0); EOS % 3.8 % (0-4.5); HEMATOCRIT 32.3 % (35.4-49); HEMOGLOBIN 11.2 GM/dL (11.7-16.9); LYMPH % 22.5 % (8-40); MCH 35.5 pg (25.7-33.7); MCHC 34.7 g/dl (32.0-35.9); MEAN CELL VOLUME 102.5 fl (80-96); MEAN PLT VOLUME 7.4 fl (7.5-11.1); MONO % 9.3 % (3.8-10.2); NEUT % 63.5 % (42.8-82.8); PLATELET COUNT 251 K/MM3 (134-434); RBC 3.15 M/mm3 (4.00-5.60); RDW 13.4 % (11.9-15.9); WHITE BLOOD COUNT 4.4 K/mm3 (4.0-10.0)
[2018-09-19] MEDS ORDERED: PT OWN MED DRAWER 7, Y5N ONE ×2 (08:55→21:06)
[2018-09-19] MEDS: THIAMINE HCL 100 MG TABLET (FP) PO SCH (09:00)
[2018-09-19] MEDS: ATENOLOL 25 MG TABLET (FP) PO SCH (09:01)
[2018-09-19] MEDS: MAGNESIUM OXIDE 400 MG TABLET (FP) PO SCH (09:01)
[2018-09-19] MEDS: POTASSIUM CHLORIDE TABS 10 MEQ TABLET.ER (FP) PO SCH (09:01)
[2018-09-19] MEDS: FOLIC ACID 1 MG TABLET (FP) PO SCH (09:01)
[2018-09-19 09:19] LABS: ANION GAP 5 MMOL/L (8-16); BLOOD UREA NITROGEN 11 mg/dL (7-18); CALCIUM 8.1 mg/dL (8.5-10.1); CHLORIDE 102 mmol/L (98-107); CO2 29 mmol/L (21-32); CREATININE 0.6 mg/dL (0.55-1.3); GLUCOSE,RANDOM 87 mg/dL (74-106); POTASSIUM 4.2 mmol/L (3.5-5.1); SODIUM 136 mmol/L (136-145)
--- NOTE | 2018-09-19 12:04 | PN ---
Progress Note (short form) - Note Progress Note: Feels well. No CP or SOB. Suction was not working on PleuraVac. Intake & Output 09/16/18 09/17/18 09/18/18 09/19/18 23:59 23:59 23:59 23:59 Intake Total 1470 395 Output Total 6975 765 540 20 Balance -1005 -765 -145 -20 Last Vital Signs Temp Pulse Resp BP Pulse Ox 97.3 F L 76 20 124/67 96 09/19/18 08:55 09/19/18 08:55 09/19/18 08:55 09/19/18 08:55 09/18/18 21:00 Active Medications Acetaminophen (Tylenol -) 650 mg PO Q6H PRN PRN Reason: PAIN LEVEL 4 - 6 Acetaminophen (Tylenol -) 325 mg PO Q6H PRN PRN Reason: PAIN LEVEL 7 - 10 Last Admin: 09/07/18 15:35 Dose: 325 mg Atenolol (Tenormin -) 25 mg PO DAILY [facility] Last Admin: 09/19/18 09:01 Dose: 25 mg Docusate Sodium (Colace -) 100 mg PO BID PRN PRN Reason: CONSTIPATION Last Admin: 09/19/18 03:12 Dose: 100 mg Folic Acid (Folic Acid -) 1 mg PO DAILY [facility] Last Admin: 09/19/18 09:01 Dose: 1 mg Magnesium Oxide (Mag-Ox -) 400 mg PO DAILY [facility] Last Admin: 09/19/18 09:01 Dose: 400 mg Potassium Chloride (K-Dur -) 10 meq PO DAILY [facility] Last Admin: 09/19/18 09:01 Dose: 10 meq Primidone (Mysoline -) 50 mg PO HS [facility] Last Admin: 09/18/18 21:27 Dose: 50 mg Senna (Senna -) 2 tab PO HS PRN PRN Reason: CONSTIPATION Thiamine HCl (Vitamin B1 -) 100 mg PO DAILY [facility] Last Admin: 09/19/18 09:00 Dose: 100 mg - Objective Vital Signs: Constitutional: Yes: Well Nourished, Calm Eyes: Yes: WNL HENT: Yes: WNL Neck: Yes: WNL Cardiovascular: Yes: Regular Rate and Rhythm, S1, S2 Respiratory: Yes: Diminished, right pigtail catheter intact Gastrointestinal: Yes: Normal Bowel Sounds, Soft Extremities: Yes: WNL Edema: No Labs: Laboratory Results - last 24 hr 09/19/18 09/19/18 07:50 07:50 WBC 4.4 RBC 3.15 L Hgb 11.2 L Hct 32.3 L MCV 102.5 H MCH 35.5 H MCHC 34.7 RDW 13.4 Plt Count 251 MPV 7.4 L Absolute Neuts (auto) 2.8 Neutrophils % 63.5 Lymphocytes % 22.5 Monocytes % 9.3 Eosinophils % 3.8 Basophils % 0.9 Nucleated RBC % 0 Sodium 136 Potassium 4.2 Chloride 102 Carbon Dioxide 29 Anion Gap 5 L BUN 11 Creatinine 0.6 Creat Clearance w eGFR > 60 Random Glucose 87 Calcium 8.1 L Assessment/Plan Problem List - Problems (1) UTI (urinary tract infection) Code(s): N39.0 - URINARY TRACT INFECTION, SITE NOT SPECIFIED (2) Lactic acidosis Code(s): E87.2 - ACIDOSIS (3) Pleural effusion Code(s): J90 - PLEURAL EFFUSION, NOT ELSEWHERE CLASSIFIED (4) Hypertension Code(s): I10 - ESSENTIAL (PRIMARY) HYPERTENSION (5) Failure to thrive in adult Code(s): R62.7 - ADULT FAILURE TO THRIVE Assessment/Plan UTI Bilateral Pleural Effusions s/p R Thoracentesis - Exudate r/o Malignancy Failure to Thrive Lactic Acidosis HTN Hyperlipidemia LLL mass ? trapped lung - chest tube to suction @ (-) 30 - Will need outpatient PET/CT scan in 4-6 weeks to assess left lung lesion and underlying right sided disease - DVT prophylaxis - monitor chest tube drainage - f/u chest x-rays Dr Zamora
[2018-09-19] MEDS: PRIMIDONE 50 MG TABLET PO SCH (21:24)
[2018-09-20 07:10] LABS: BASO % 0.7 % (0-2.0); EOS % 4.2 % (0-4.5); HEMATOCRIT 34.5 % (35.4-49); HEMOGLOBIN 12.2 GM/dL (11.7-16.9); LYMPH % 25.6 % (8-40); MCH 36.7 pg (25.7-33.7); MCHC 35.5 g/dl (32.0-35.9); MEAN CELL VOLUME 103.3 fl (80-96); MEAN PLT VOLUME 7.4 fl (7.5-11.1); MONO % 8.5 % (3.8-10.2); PLATELET COUNT 253 K/MM3 (134-434); RBC 3.34 M/mm3 (4.00-5.60); RDW 13.1 % (11.9-15.9); WHITE BLOOD COUNT 4.3 K/mm3 (4.0-10.0)
[2018-09-20 07:29] LABS: ANION GAP 5 MMOL/L (8-16); BLOOD UREA NITROGEN 10 mg/dL (7-18); CALCIUM 7.9 mg/dL (8.5-10.1); CHLORIDE 102 mmol/L (98-107); CO2 30 mmol/L (21-32); CREATININE 0.6 mg/dL (0.55-1.3); GLUCOSE,RANDOM 86 mg/dL (74-106); POTASSIUM 4.4 mmol/L (3.5-5.1); SODIUM 136 mmol/L (136-145)
[2018-09-20] MEDS: MAGNESIUM OXIDE 400 MG TABLET (FP) PO SCH (09:29)
[2018-09-20] MEDS: FOLIC ACID 1 MG TABLET (FP) PO SCH (09:29)
[2018-09-20] MEDS: ATENOLOL 25 MG TABLET (FP) PO SCH (09:29)
[2018-09-20] MEDS: THIAMINE HCL 100 MG TABLET (FP) PO SCH (09:29)
[2018-09-20] MEDS: POTASSIUM CHLORIDE TABS 10 MEQ TABLET.ER (FP) PO SCH (09:29)
--- NOTE | 2018-09-20 10:20 | PN ---
Progress Note, Physician Chief Complaint: No new complaints denies nay SOB History of Present Illness: 73 year old male with a significant past medical history of HTN, HLD, possible PAD, who was brought in by family for failure to thrive and SOB. Patient is reported to drink nightly, however he denies having hx of ETOH abuse. Per notes , pt was found in his home completely disheveled with urine and stool on himself. - Current Medication List Current Medications: Active Medications Acetaminophen (Tylenol -) 650 mg PO Q6H PRN PRN Reason: PAIN LEVEL 4 - 6 Acetaminophen (Tylenol -) 325 mg PO Q6H PRN PRN Reason: PAIN LEVEL 7 - 10 Last Admin: 09/07/18 15:35 Dose: 325 mg Atenolol (Tenormin -) 25 mg PO DAILY [facility] [place] Last Admin: 09/20/18 09:29 Dose: 25 mg Docusate Sodium (Colace -) 100 mg PO BID PRN PRN Reason: CONSTIPATION Last Admin: 09/19/18 17:18 Dose: 100 mg Folic Acid (Folic Acid -) 1 mg PO DAILY [facility] [place] Last Admin: 09/20/18 09:29 Dose: 1 mg Magnesium Oxide (Mag-Ox -) 400 mg PO DAILY [facility] [place] Last Admin: 09/20/18 09:29 Dose: 400 mg Potassium Chloride (K-Dur -) 10 meq PO DAILY [facility] [place] Last Admin: 09/20/18 09:29 Dose: 10 meq Primidone (Mysoline -) 50 mg PO HS [facility] [place] Last Admin: 09/19/18 21:24 Dose: 50 mg Senna (Senna -) 2 tab PO HS PRN PRN Reason: CONSTIPATION Thiamine HCl (Vitamin B1 -) 100 mg PO DAILY [facility] [place] Last Admin: 09/20/18 09:29 Dose: 100 mg - Objective Vital Signs: Vital Signs Temperature 97.4 F L 09/20/18 09:25 Pulse Rate 73 09/20/18 09:25 Respiratory Rate 18 09/20/18 09:25 Blood Pressure 112/54 L 09/20/18 09:25 O2 Sat by Pulse Oximetry (%) 94 L 09/19/18 22:00 Elderly man not in distreess denies any chest pain or SOB HEENT: mm moist no anemia, PERRLA EOMI NECK: No JVD No Bruit CHEST: CTA B/L Rt sided chest tube ABD: Obese non tender BS + EXT: + edema feet, no calf tenderness, Pulses + Labs: CBC, BMP 09/20/18 06:00 09/20/18 06:00 INR, PTT INR 1.07 (0.83-1.09) 09/08/18 10:20 Problem List - Problems (1) Pleural effusion Assessment/Plan: S/P Rt sided PIG tail catheters still draigning F/U Pulmonary recommondation. Code(s): J90 - PLEURAL EFFUSION, NOT ELSEWHERE CLASSIFIED (2) Moderate aortic stenosis Assessment/Plan: Stable no acute decopmensation. Code(s): I35.0 - NONRHEUMATIC AORTIC (VALVE) STENOSIS (3) EtOH dependence Assessment/Plan: No withdrawal symptoms Code(s): F10.20 - ALCOHOL DEPENDENCE, UNCOMPLICATED (4) Failure to thrive in adult Assessment/Plan: Due to ETOH abuse Code(s): R62.7 - ADULT FAILURE TO THRIVE (5) S/P thoracentesis Assessment/Plan: Rt sided Pleural effusion Code(s): Z98.890 - OTHER SPECIFIED POSTPROCEDURAL STATES (6) UTI (urinary tract infection) Assessment/Plan: Treated completed abx Code(s): N39.0 - URINARY TRACT INFECTION, SITE NOT SPECIFIED (7) Hypertension Assessment/Plan: well controlled cont current meds Code(s): I10 - ESSENTIAL (PRIMARY) HYPERTENSION (8) Tremor Assessment/Plan: Cont Primidne Code(s): R25.1 - TREMOR, UNSPECIFIED
--- NOTE | 2018-09-20 11:19 | PN ---
Progress Note (short form) - Note Progress Note: Feels well. No CP or SOB. Pigtail to suction (-) 30. CXR: No gross change in right PTX Intake & Output 09/17/18 09/18/18 09/19/18 09/20/18 23:59 23:59 23:59 23:59 Intake Total 395 890 Output Total 765 540 70 250 Balance -765 -145 820 -250 Last Vital Signs Temp Pulse Resp BP Pulse Ox 97.4 F L 73 18 112/54 L 94 L 09/20/18 09:25 09/20/18 09:25 09/20/18 09:25 09/20/18 09:25 09/19/18 22:00 Active Medications Acetaminophen (Tylenol -) 650 mg PO Q6H PRN PRN Reason: PAIN LEVEL 4 - 6 Acetaminophen (Tylenol -) 325 mg PO Q6H PRN PRN Reason: PAIN LEVEL 7 - 10 Last Admin: 09/07/18 15:35 Dose: 325 mg Atenolol (Tenormin -) 25 mg PO DAILY [facility] Last Admin: 09/20/18 09:29 Dose: 25 mg Docusate Sodium (Colace -) 100 mg PO BID PRN PRN Reason: CONSTIPATION Last Admin: 09/19/18 17:18 Dose: 100 mg Folic Acid (Folic Acid -) 1 mg PO DAILY [facility] Last Admin: 09/20/18 09:29 Dose: 1 mg Magnesium Oxide (Mag-Ox -) 400 mg PO DAILY [facility] Last Admin: 09/20/18 09:29 Dose: 400 mg Potassium Chloride (K-Dur -) 10 meq PO DAILY [facility] Last Admin: 09/20/18 09:29 Dose: 10 meq Primidone (Mysoline -) 50 mg PO HS [facility] Last Admin: 09/19/18 21:24 Dose: 50 mg Senna (Senna -) 2 tab PO HS PRN PRN Reason: CONSTIPATION Thiamine HCl (Vitamin B1 -) 100 mg PO DAILY [facility] Last Admin: 09/20/18 09:29 Dose: 100 mg Constitutional: Yes: Well Nourished, Calm Eyes: Yes: WNL HENT: Yes: WNL Neck: Yes: WNL Cardiovascular: Yes: Regular Rate and Rhythm, S1, S2 Respiratory: Yes: Diminished, right pigtail catheter intact Gastrointestinal: Yes: Normal Bowel Sounds, Soft Extremities: Yes: WNL Edema: No Labs: Laboratory Results - last 24 hr 09/20/18 09/20/18 06:00 06:00 WBC 4.3 RBC 3.34 L Hgb 12.2 Hct 34.5 L MCV 103.3 H MCH 36.7 H MCHC 35.5 RDW 13.1 Plt Count 253 MPV 7.4 L Absolute Neuts (auto) 2.6 Neutrophils % 61.0 Lymphocytes % 25.6 Monocytes % 8.5 Eosinophils % 4.2 Basophils % 0.7 Nucleated RBC % 0 Sodium 136 Potassium 4.4 Chloride 102 Carbon Dioxide 30 Anion Gap 5 L BUN 10 Creatinine 0.6 Creat Clearance w eGFR > 60 Random Glucose 86 Calcium 7.9 L Assessment/Plan Problem List - Problems (1) UTI (urinary tract infection) Code(s): N39.0 - URINARY TRACT INFECTION, SITE NOT SPECIFIED (2) Lactic acidosis Code(s): E87.2 - ACIDOSIS (3) Pleural effusion Code(s): J90 - PLEURAL EFFUSION, NOT ELSEWHERE CLASSIFIED (4) Hypertension Code(s): I10 - ESSENTIAL (PRIMARY) HYPERTENSION (5) Failure to thrive in adult Code(s): R62.7 - ADULT FAILURE TO THRIVE Assessment/Plan UTI Bilateral Pleural Effusions s/p R Thoracentesis - Exudate r/o Malignancy Failure to Thrive Lactic Acidosis HTN Hyperlipidemia LLL mass (?) trapped lung - chest tube to suction @ (-) 30 - Will need outpatient PET/CT scan in 4-6 weeks to assess left lung lesion and underlying right sided disease - DVT prophylaxis - monitor chest tube drainage - f/u chest x-rays - If PTX not improved by tomorrow: will discuss further management with CTS Dr Zamora
[2018-09-20] MEDS ORDERED: PT OWN MED DRAWER 7, Y5N ONE (20:43)
[2018-09-20] MEDS: PRIMIDONE 50 MG TABLET PO SCH (21:32)
[2018-09-21 07:40] LABS: BASO % 0.7 % (0-2.0); EOS % 4.1 % (0-4.5); HEMATOCRIT 31.5 % (35.4-49); HEMOGLOBIN 11.2 GM/dL (11.7-16.9); LYMPH % 22.4 % (8-40); MCHC 35.4 g/dl (32.0-35.9); MEAN CELL VOLUME 101.7 fl (80-96); MEAN PLT VOLUME 6.9 fl (7.5-11.1); NEUT % 63.8 % (42.8-82.8); PLATELET COUNT 241 K/MM3 (134-434); RDW 12.9 % (11.9-15.9); WHITE BLOOD COUNT 4.4 K/mm3 (4.0-10.0)
[2018-09-21 08:02] LABS: ANION GAP 6 MMOL/L (8-16); BLOOD UREA NITROGEN 9 mg/dL (7-18); CALCIUM 8.7 mg/dL (8.5-10.1); CHLORIDE 102 mmol/L (98-107); CO2 28 mmol/L (21-32); CREATININE 0.6 mg/dL (0.55-1.3); GLUCOSE,RANDOM 90 mg/dL (74-106); POTASSIUM 4.1 mmol/L (3.5-5.1); SODIUM 136 mmol/L (136-145)
[2018-09-21] MEDS ORDERED: PT OWN MED DRAWER 7, Y5N ONE ×3 (09:50→22:18)
[2018-09-21] MEDS: POTASSIUM CHLORIDE TABS 10 MEQ TABLET.ER (FP) PO SCH (09:53)
[2018-09-21] MEDS: MAGNESIUM OXIDE 400 MG TABLET (FP) PO SCH (09:53)
[2018-09-21] MEDS: ATENOLOL 25 MG TABLET (FP) PO SCH (09:53)
[2018-09-21] MEDS: FOLIC ACID 1 MG TABLET (FP) PO SCH (09:53)
[2018-09-21] MEDS: THIAMINE HCL 100 MG TABLET (FP) PO SCH (09:53)
--- NOTE | 2018-09-21 11:49 | PN ---
Progress Note (short form) - Note Progress Note: Feels well. No CP or SOB. Pigtail to suction (-) 30. CXR: No gross change in right PTX Intake & Output 09/18/18 09/19/18 09/20/18 09/21/18 23:59 23:59 23:59 23:59 Intake Total 395 890 795 480 Output Total 540 70 290 400 Balance -145 820 505 80 Last Vital Signs Temp Pulse Resp BP Pulse Ox 97.9 F 85 18 128/62 95 09/21/18 10:00 09/21/18 10:00 09/21/18 10:00 09/21/18 10:00 09/20/18 22:00 Active Medications Acetaminophen (Tylenol -) 650 mg PO Q6H PRN PRN Reason: PAIN LEVEL 4 - 6 Acetaminophen (Tylenol -) 325 mg PO Q6H PRN PRN Reason: PAIN LEVEL 7 - 10 Last Admin: 09/07/18 15:35 Dose: 325 mg Atenolol (Tenormin -) 25 mg PO DAILY [facility] Last Admin: 09/21/18 09:53 Dose: 25 mg Docusate Sodium (Colace -) 100 mg PO BID PRN PRN Reason: CONSTIPATION Last Admin: 09/19/18 17:18 Dose: 100 mg Folic Acid (Folic Acid -) 1 mg PO DAILY [facility] Last Admin: 09/21/18 09:53 Dose: 1 mg Magnesium Oxide (Mag-Ox -) 400 mg PO DAILY [facility] Last Admin: 09/21/18 09:53 Dose: 400 mg Potassium Chloride (K-Dur -) 10 meq PO DAILY [facility] Last Admin: 09/21/18 09:53 Dose: 10 meq Primidone (Mysoline -) 50 mg PO HS [facility] Last Admin: 09/20/18 21:32 Dose: 50 mg Senna (Senna -) 2 tab PO HS PRN PRN Reason: CONSTIPATION Thiamine HCl (Vitamin B1 -) 100 mg PO DAILY [facility] Last Admin: 09/21/18 09:53 Dose: 100 mg Constitutional: Yes: Well Nourished, Calm Eyes: Yes: WNL HENT: Yes: WNL Neck: Yes: WNL Cardiovascular: Yes: Regular Rate and Rhythm, S1, S2 Respiratory: Yes: Diminished, right pigtail catheter intact Gastrointestinal: Yes: Normal Bowel Sounds, Soft Extremities: Yes: WNL Edema: No Labs: Laboratory Results - last 24 hr 09/21/18 09/21/18 07:00 07:00 WBC 4.4 RBC 3.10 L Hgb 11.2 L Hct 31.5 L MCV 101.7 H MCH 36.0 H MCHC 35.4 RDW 12.9 Plt Count 241 MPV 6.9 L Absolute Neuts (auto) 2.8 Neutrophils % 63.8 Lymphocytes % 22.4 Monocytes % 9.0 Eosinophils % 4.1 Basophils % 0.7 Nucleated RBC % 0 Sodium 136 Potassium 4.1 Chloride 102 Carbon Dioxide 28 Anion Gap 6 L BUN 9 Creatinine 0.6 Creat Clearance w eGFR > 60 Random Glucose 90 Calcium 8.7 Assessment/Plan Problem List - Problems (1) UTI (urinary tract infection) Code(s): N39.0 - URINARY TRACT INFECTION, SITE NOT SPECIFIED (2) Lactic acidosis Code(s): E87.2 - ACIDOSIS (3) Pleural effusion Code(s): J90 - PLEURAL EFFUSION, NOT ELSEWHERE CLASSIFIED (4) Hypertension Code(s): I10 - ESSENTIAL (PRIMARY) HYPERTENSION (5) Failure to thrive in adult Code(s): R62.7 - ADULT FAILURE TO THRIVE Assessment/Plan UTI Bilateral Pleural Effusions s/p R Thoracentesis - Exudate r/o Malignancy Failure to Thrive Lactic Acidosis HTN Hyperlipidemia LLL mass (?) trapped lung - chest tube to suction @ (-) 30 - DVT prophylaxis - Encourage Incentive Spirometry - f/u chest x-rays - D/W CTS: will likely plan on VATs Dr Zamora
--- NOTE | 2018-09-21 12:50 | PN ---
Physical Exam: SUBJECTIVE: Patient seen and examined. He denies SOB, pain at chest tube site. OBJECTIVE: Vital Signs Period Temp Pulse Resp BP Sys/Lou Pulse Ox Last 24 Hr 97.5 F-98.1 F 66-85 18-22 108-131/57-68 95-95 GENERAL: The patient is awake, alert, and fully oriented, in no acute distress. LUNGS: Breath sounds equal, clear to auscultation bilaterally, no wheezes, no crackles, no accessory muscle use. HEART: Regular rate and rhythm, S1, S2 without murmur, rub or gallop. ABDOMEN: Soft, nontender, nondistended, normoactive bowel sounds, no guarding, no rebound, no hepatosplenomegaly, no masses. EXTREMITIES: 2+ pulses, warm, well-perfused, no edema. Laboratory Results - last 24 hr 09/21/18 09/21/18 07:00 07:00 WBC 4.4 RBC 3.10 L Hgb 11.2 L Hct 31.5 L MCV 101.7 H MCH 36.0 H MCHC 35.4 RDW 12.9 Plt Count 241 MPV 6.9 L Absolute Neuts (auto) 2.8 Neutrophils % 63.8 Lymphocytes % 22.4 Monocytes % 9.0 Eosinophils % 4.1 Basophils % 0.7 Nucleated RBC % 0 Sodium 136 Potassium 4.1 Chloride 102 Carbon Dioxide 28 Anion Gap 6 L BUN 9 Creatinine 0.6 Creat Clearance w eGFR > 60 Random Glucose 90 Calcium 8.7 Active Medications Generic Name Dose Route Start Last Admin Trade Name Freq PRN Reason Stop Dose Admin Acetaminophen 650 mg 09/07/18 14:39 Tylenol - PO Q6H PRN PAIN LEVEL 4 - 6 Acetaminophen 325 mg 09/07/18 15:12 09/07/18 15:35 Tylenol - PO 325 mg Q6H PRN Administration PAIN LEVEL 7 - 10 Atenolol 25 mg 09/05/18 10:00 09/21/18 09:53 Tenormin - PO 25 mg DAILY [facility] Administration Docusate Sodium 100 mg 09/07/18 18:51 09/19/18 17:18 Colace - PO 100 mg BID PRN Administration CONSTIPATION Folic Acid 1 mg 09/09/18 10:00 09/21/18 09:53 Folic Acid - PO 1 mg DAILY [facility] Administration Magnesium Oxide 400 mg 09/05/18 11:33 02/04/19 09:53 Mag-Ox - PO 400 mg DAILY [facility] Administration Potassium Chloride 10 meq 09/05/18 11:45 09/21/18 09:53 K-Dur - PO 10 meq DAILY [facility] Administration Primidone 50 mg 09/12/18 22:00 09/20/18 21:32 Mysoline - PO 50 mg HS [facility] Administration Senna 2 tab 09/07/18 18:51 Senna - PO HS PRN CONSTIPATION Thiamine HCl 100 mg 09/04/18 20:15 09/21/18 09:53 Vitamin B1 - PO 100 mg DAILY [facility] Administration ASSESSMENT/PLAN: This is a 73 year old man with a history of HTN, hyperlipidemia who presented to the ED with SOB. 1. Bilateral pleural effusions - s/p right thoracentesis 09/07 - Pleural fluid exudative - no malignant celles on cytology - Pigtail catheter placed 09/16 with pneumothorax - CXR shows no change - Maintain chest tube - CT surgery follow up 2. Moderate aortic stenosis 3. Alcohol dependence with failure to thrive - Continue thiamine, folic acid 4. UTI - Completed course of antibiotics 5. Hypertension - Continue atenolol 6. Hyperlipidemia 7. Essential tremor - Continue Primidone 8. Hypokalemia - Improved Visit type - Emergency Visit Emergency Visit: Yes ED Registration Date: 09/04/18 Care time: The patient presented to the Emergency Department on the above date and was hospitalized for further evaluation of their emergent condition. - New Patient This patient is new to me today: Yes Date on this admission: 09/21/18 - Critical Care Critical Care patient: No - Discharge Referral Referred to [facility] Med [facility].C.: No
--- NOTE | 2018-09-21 13:50 | PN ---
Progress Note, Physician History of Present Illness: The patient is a 73 year old male with a significant medical history of HTN, HLD , possible PAD, who was brought in by family for failure to thrive and SOB. The family reports that the patient drinks ETOH nightly, though pt denies drinking for the past month. Per son, pt was found in his home completely disheveled today with urine and stool on himself. They also report a significant weight loss recently. Pt endorses SOB with exertion. Denies CP. Denies SOB at rest. The patient denies headache and dizziness. The patient denies fever, chills, nausea, vomit, diarrhea and constipation. The patient denies dysuria, frequency , urgency and hematuria. - Current Medication List Current Medications: Active Medications Acetaminophen (Tylenol -) 650 mg PO Q6H PRN PRN Reason: PAIN LEVEL 4 - 6 Acetaminophen (Tylenol -) 325 mg PO Q6H PRN PRN Reason: PAIN LEVEL 7 - 10 Last Admin: 09/07/18 15:35 Dose: 325 mg Atenolol (Tenormin -) 25 mg PO DAILY [facility] Last Admin: 09/21/18 09:53 Dose: 25 mg Docusate Sodium (Colace -) 100 mg PO BID PRN PRN Reason: CONSTIPATION Last Admin: 09/19/18 17:18 Dose: 100 mg Folic Acid (Folic Acid -) 1 mg PO DAILY [facility] Last Admin: 09/21/18 09:53 Dose: 1 mg Magnesium Oxide (Mag-Ox -) 400 mg PO DAILY [facility] Last Admin: 09/21/18 09:53 Dose: 400 mg Potassium Chloride (K-Dur -) 10 meq PO DAILY [facility] Last Admin: 09/21/18 09:53 Dose: 10 meq Primidone (Mysoline -) 50 mg PO HS [facility] Last Admin: 09/20/18 21:32 Dose: 50 mg Senna (Senna -) 2 tab PO HS PRN PRN Reason: CONSTIPATION Thiamine HCl (Vitamin B1 -) 100 mg PO DAILY [facility] Last Admin: 09/21/18 09:53 Dose: 100 mg - Objective Vital Signs: Vital Signs Temperature 97.9 F 09/21/18 10:00 Pulse Rate 85 09/21/18 10:00 Respiratory Rate 18 09/21/18 10:00 Blood Pressure 128/62 09/21/18 10:00 O2 Sat by Pulse Oximetry (%) 95 09/20/18 22:00 Eyes: Yes: WNL, Conjunctiva Clear, EOM Intact HENT: Yes: WNL, Atraumatic, Normocephalic Neck: Yes: WNL, Supple, Trachea Midline Cardiovascular: Yes: WNL, Regular Rate and Rhythm, Murmur Respiratory: Yes: WNL, Regular, CTA Bilaterally Gastrointestinal: Yes: WNL, Normal Bowel Sounds Genitourinary: Yes: WNL Musculoskeletal: Yes: WNL Extremities: Yes: WNL Edema: No Integumentary: Yes: WNL Neurological: Yes: WNL, Alert, Oriented ...Motor Strength: WNL Psychiatric: Yes: WNL Labs: CBC, BMP 09/21/18 07:00 09/21/18 07:00 INR, PTT INR 1.07 (0.83-1.09) 09/08/18 10:20 Problem List - Problems (1) Failure to thrive in adult Code(s): R62.7 - ADULT FAILURE TO THRIVE (2) Hypertension Code(s): I10 - ESSENTIAL (PRIMARY) HYPERTENSION (3) Lactic acidosis Code(s): E87.2 - ACIDOSIS (4) Pleural effusion Code(s): J90 - PLEURAL EFFUSION, NOT ELSEWHERE CLASSIFIED (5) Prophylactic measure Code(s): Z29.9 - ENCOUNTER FOR PROPHYLACTIC MEASURES, UNSPECIFIED (6) UTI (urinary tract infection) Code(s): N39.0 - URINARY TRACT INFECTION, SITE NOT SPECIFIED Assessment/Plan - Problems (1) Moderate aortic stenosis Assessment/Plan: ECHO: normal LVEF; abnormal diastolic compliance; normal wall thickness; mild MR , TR, AR.; moderate . Code(s): I35.0 - NONRHEUMATIC AORTIC (VALVE) STENOSIS (2) Failure to thrive in adult Code(s): R62.7 - ADULT FAILURE TO THRIVE (3) Hypertension Assessment/Plan: On atenolol; BP relatively well-controlled. Code(s): I10 - ESSENTIAL (PRIMARY) HYPERTENSION (4) EtOH dependence Code(s): F10.20 - ALCOHOL DEPENDENCE, UNCOMPLICATED (5) S/P thoracentesis Assessment/Plan: 1,700 ml removed: exudate. Pigtail catheter place today; 30 ml fluid removed Ro malignancy: plans for PET scan in 4-6 weeks noted. Code(s): Z98.890 - OTHER SPECIFIED POSTPROCEDURAL STATES (6) Guin cardiac risk >20% in next 10 years Assessment/Plan: Pt denies hx of cardiac disease; denies chest pain. As discussed with pt and family, workup to r/o malignancy and aid respiratory status is presently of prime concern. Code(s): Z91.89 - OT PERSONAL RISK FACTORS, NOT ELSEWHERE CLASSIFIED (7) Hypokalemia Assessment/Plan: presently WNL; on K and Mg supplementation. Code(s): E87.6 - HYPOKALEMIA
[2018-09-21] MEDS ORDERED: MAG HYDROX/AL HYDROX/SIMETH -MYLANTA- ORAL SUSPENSION PO ONE (21:18)
[2018-09-21] MEDS ORDERED: MAG HYDROX/AL HYDROX/SIMETH 30 ML UNIT-DOSE CUP PO ONE (21:30)
[2018-09-21] MEDS: PRIMIDONE 50 MG TABLET PO SCH (22:16)
[2018-09-22] MEDS: ATENOLOL 25 MG TABLET (FP) PO SCH (10:17)
[2018-09-22] MEDS: POTASSIUM CHLORIDE TABS 10 MEQ TABLET.ER (FP) PO SCH (10:17)
[2018-09-22] MEDS: MAGNESIUM OXIDE 400 MG TABLET (FP) PO SCH (10:17)
[2018-09-22] MEDS: FOLIC ACID 1 MG TABLET (FP) PO SCH (10:17)
[2018-09-22] MEDS: THIAMINE HCL 100 MG TABLET (FP) PO SCH (10:17)
--- NOTE | 2018-09-22 12:30 | PN ---
Progress Note (short form) - Note Progress Note: Feels well. Denies CP or SOB. Pigtail to suction (-) 30. CXR: No gross change in right PTX Intake & Output 09/19/18 09/20/18 09/21/18 09/22/18 23:59 23:59 23:59 23:59 Intake Total 890 795 930 450 Output Total 70 290 700 210 Balance 820 505 230 240 Last Vital Signs Temp Pulse Resp BP Pulse Ox 97.7 F 63 19 119/60 95 09/21/18 19:04 09/21/18 19:04 09/21/18 19:04 09/21/18 19:04 09/21/18 22:00 Active Medications Acetaminophen (Tylenol -) 650 mg PO Q6H PRN PRN Reason: PAIN LEVEL 4 - 6 Acetaminophen (Tylenol -) 325 mg PO Q6H PRN PRN Reason: PAIN LEVEL 7 - 10 Last Admin: 09/07/18 15:35 Dose: 325 mg Atenolol (Tenormin -) 25 mg PO DAILY [facility] Last Admin: 09/22/18 10:17 Dose: 25 mg Docusate Sodium (Colace -) 100 mg PO BID PRN PRN Reason: CONSTIPATION Last Admin: 09/19/18 17:18 Dose: 100 mg Folic Acid (Folic Acid -) 1 mg PO DAILY [facility] Last Admin: 09/22/18 10:17 Dose: 1 mg Magnesium Oxide (Mag-Ox -) 400 mg PO DAILY [facility] Last Admin: 09/22/18 10:17 Dose: 400 mg Potassium Chloride (K-Dur -) 10 meq PO DAILY [facility] Last Admin: 09/22/18 10:17 Dose: 10 meq Primidone (Mysoline -) 50 mg PO HS [facility] Last Admin: 09/21/18 22:16 Dose: 50 mg Senna (Senna -) 2 tab PO HS PRN PRN Reason: CONSTIPATION Thiamine HCl (Vitamin B1 -) 100 mg PO DAILY [facility] Last Admin: 09/22/18 10:17 Dose: 100 mg Constitutional: Yes: Well Nourished, Calm Eyes: Yes: WNL HENT: Yes: WNL Neck: Yes: WNL Cardiovascular: Yes: Regular Rate and Rhythm, S1, S2 Respiratory: Yes: Diminished, right pigtail catheter intact Gastrointestinal: Yes: Normal Bowel Sounds, Soft Extremities: Yes: WNL Edema: No Labs: Assessment/Plan Problem List - Problems (1) UTI (urinary tract infection) Code(s): N39.0 - URINARY TRACT INFECTION, SITE NOT SPECIFIED (2) Lactic acidosis Code(s): E87.2 - ACIDOSIS (3) Pleural effusion Code(s): J90 - PLEURAL EFFUSION, NOT ELSEWHERE CLASSIFIED (4) Hypertension Code(s): I10 - ESSENTIAL (PRIMARY) HYPERTENSION (5) Failure to thrive in adult Code(s): R62.7 - ADULT FAILURE TO THRIVE Assessment/Plan UTI Bilateral Pleural Effusions s/p R Thoracentesis - Exudate r/o Malignancy Failure to Thrive Lactic Acidosis HTN Hyperlipidemia LLL mass (?) trapped lung - chest tube to suction @ (-) 30 - DVT prophylaxis - Encourage Incentive Spirometry - f/u chest x-rays - D/W CTS: will likely plan on VATs on Dr Zamora
--- NOTE | 2018-09-22 16:51 | PN ---
Physical Exam: SUBJECTIVE: Patient seen and examined at the bedside. OBJECTIVE: Vital Signs Period Temp Pulse Resp BP Sys/Lou Pulse Ox Last 24 Hr 97.7 F-97.9 F 63-90 19-20 119-128/60-73 95-95 GENERAL: The patient is awake, alert, in no acute distress. HEAD: Normal with no signs of trauma. EYES: PERRL, extraocular movements intact, sclera anicteric, conjunctiva clear. No ptosis. ENT: Ears normal, nares patent, oropharynx clear without exudates, moist mucous membranes. NECK: Trachea midline, full range of motion, supple. LUNGS: Breath sounds equal, diminished bilaterally. HEART: Regular rate and rhythm ABDOMEN: Soft, nontender, nondistended, normoactive bowel sounds EXTREMITIES: no edema. NEUROLOGICAL: Normal speech, gait not observed. PSYCH: Normal mood, normal affect. SKIN: Warm, dry, normal turgor, no rashes or lesions noted Active Medications Generic Name Dose Route Start Last Admin Trade Name Freq PRN Reason Stop Dose Admin Acetaminophen 650 mg 09/07/18 14:39 Tylenol - PO Q6H PRN PAIN LEVEL 4 - 6 Acetaminophen 325 mg 09/07/18 15:12 09/07/18 15:35 Tylenol - PO 325 mg Q6H PRN Administration PAIN LEVEL 7 - 10 Atenolol 25 mg 09/05/18 10:00 09/22/18 10:17 Tenormin - PO 25 mg DAILY [facility] Administration Docusate Sodium 100 mg 09/07/18 18:51 09/19/18 17:18 Colace - PO 100 mg BID PRN Administration CONSTIPATION Folic Acid 1 mg 09/09/18 10:00 09/22/18 10:17 Folic Acid - PO 1 mg DAILY [facility]IR Administration Magnesium Oxide 400 mg 09/05/18 11:33 09/22/18 10:17 Mag-Ox - PO 400 mg DAILY [facility] Administration Potassium Chloride 10 meq 09/05/18 11:45 09/22/18 10:17 K-Dur - PO 10 meq DAILY [facility] Administration Primidone 50 mg 09/12/18 22:00 09/21/18 22:16 Mysoline - PO 50 mg HS [facility]IR Administration Senna 2 tab 09/07/18 18:51 Senna - PO HS PRN CONSTIPATION Thiamine HCl 100 mg 09/04/18 20:15 09/22/18 10:17 Vitamin B1 - PO 100 mg DAILY [facility] Administration ASSESSMENT/PLAN: Patient is a 73 year old male with a significant past medical history of HTN, HLD, possible PAD, who was brought in by family for failure to thrive and SOB. Patient is reported to drink nightly, however he denies having hx of ETOH abuse. Per notes, pt was found in his home completely disheveled with urine and stool on himself. He was also found to have a bilateral pleural effusions, right > left. chest ct w/iv contrast 09/12/18: left pleural effusion signif.decreased from prior study. large right pleural eff mild decrease compared to prior study. 4 x 2 cm consolidations or mass posterior lower lobe unchanged. Pulm Thoracentesis s/p right thoracententis with 1700 cc removal on 09/07/2018. pleural fluid cytology, no malignant cells Seen by thoracic surgery: possible VATS procedure to rule out malignancy (has loculated pleural fluid, pleural calcificaion and LLL consolidation) will need cardiology clearance prior to procedure. Had Pigtail catheter placed 09/16 with pneumothorax CXR shows no change, chest tube with sero sang apx 450-cc output Thoracic surgery following. Card: Rule out cardiac cause of right thoracentesis Further workup per cardiology recommendations echo with moderate aortic stenosis, cardiology consulted and following Psyche: ETOH abuse no signs of withdrawal. denies etoh use, although family reports pt uses etoh chronically. folate, thiamine ordered upper extremity tremors are chronic per patient and family. Seen by neuro. started on priomodone 50mg @ hs. UTI completed 7 days of ceftriaxone. fen tolerating po monitor electrolytes low salt diet prophy scds Visit type - Emergency Visit Emergency Visit: Yes ED Registration Date: 09/04/18 Care time: The patient presented to the Emergency Department on the above date and was hospitalized for further evaluation of their emergent condition. - New Patient This patient is new to me today: No - Critical Care Critical Care patient: No - Discharge Referral Referred to [facility] No
--- NOTE | 2018-09-22 18:04 | PN ---
Progress Note, Physician Chief Complaint: Pt A&Ox3; denies chest pain, SOB, leg swelling. History of Present Illness: he patient is a 73 year old white male (natan Sal) with a significant medical history of HTN, HLD, diastolic CHF, possible PAD, who was brought in by family for failure to thrive and SOB. The family reports that the patient drinks ETOH nightly, though pt denies drinking for the past month. Per son, pt was found in his home completely disheveled today with urine and stool on himself. They also report a significant weight loss recently. Pt endorses SOB with exertion. Denies CP. Denies SOB at rest. The patient denies headache and dizziness. The patient denies fever, chills, nausea, vomit, diarrhea and constipation. The patient denies dysuria, frequency , urgency and hematuria. Allergies: NKDA - Current Medication List Current Medications: Active Medications Acetaminophen (Tylenol -) 650 mg PO Q6H PRN PRN Reason: PAIN LEVEL 4 - 6 Acetaminophen (Tylenol -) 325 mg PO Q6H PRN PRN Reason: PAIN LEVEL 7 - 10 Last Admin: 09/07/18 15:35 Dose: 325 mg Atenolol (Tenormin -) 25 mg PO DAILY [facility] Last Admin: 09/22/18 10:17 Dose: 25 mg Docusate Sodium (Colace -) 100 mg PO BID PRN PRN Reason: CONSTIPATION Last Admin: 09/19/18 17:18 Dose: 100 mg Folic Acid (Folic Acid -) 1 mg PO DAILY [facility] Last Admin: 09/22/18 10:17 Dose: 1 mg Magnesium Oxide (Mag-Ox -) 400 mg PO DAILY [facility] Last Admin: 09/22/18 10:17 Dose: 400 mg Potassium Chloride (K-Dur -) 10 meq PO DAILY [facility] Last Admin: 09/22/18 10:17 Dose: 10 meq Primidone (Mysoline -) 50 mg PO HS [facility] Last Admin: 09/21/18 22:16 Dose: 50 mg Senna (Senna -) 2 tab PO HS PRN PRN Reason: CONSTIPATION Thiamine HCl (Vitamin B1 -) 100 mg PO DAILY [facility] Last Admin: 09/22/18 10:17 Dose: 100 mg - Objective Vital Signs: Vital Signs Temperature 97.9 F 09/22/18 15:31 Pulse Rate 69 09/22/18 15:31 Respiratory Rate 20 09/22/18 15:31 Blood Pressure 120/63 09/22/18 15:31 O2 Sat by Pulse Oximetry (%) 95 09/22/18 10:00 Constitutional: Yes: No Distress Eyes: Yes: WNL HENT: Yes: WNL Neck: Yes: WNL Cardiovascular: Yes: Regular Rate and Rhythm Respiratory: Yes: WNL, Regular, Diminished Gastrointestinal: Yes: Soft ...Rectal Exam: Yes: Deferred Genitourinary: Yes: Anuria Breast(s): Yes: WNL Musculoskeletal: Yes: Muscle Weakness Extremities: Yes: Cool Edema: No Peripheral Pulses WNL: Yes Integumentary: Yes: Other (bilateral LE red macular patches approximately 3x5 cm ovals) Neurological: Yes: Alert, Oriented, Weakness Psychiatric: Yes: Alert, Oriented Labs: CBC, BMP 09/21/18 07:00 09/21/18 07:00 INR, PTT INR 1.07 (0.83-1.09) 09/08/18 10:20 Problem List - Problems (1) Moderate aortic stenosis Assessment/Plan: ECHO: normal LVEF; abnormal diastolic compliance; normal wall thickness; mild MR , TR, AR.; moderate . Denies chest pain, syncope, PND/orthopnea, leg swelling. On atenolol. Code(s): I35.0 - NONRHEUMATIC AORTIC (VALVE) STENOSIS (2) Failure to thrive in adult Assessment/Plan: F/u with ice cream chef. R/o malignancy. Code(s): R62.7 - ADULT FAILURE TO THRIVE (3) Hypertension Assessment/Plan: On atenolol; BP relatively well-controlled. Code(s): I10 - ESSENTIAL (PRIMARY) HYPERTENSION (4) EtOH dependence Code(s): F10.20 - ALCOHOL DEPENDENCE, UNCOMPLICATED (5) S/P thoracentesis Assessment/Plan: 1,700 ml removed: exudate. Pigtail catheter placed; 30 ml fluid removed R/o malignancy: plans for PET scan in 4-6 weeks noted. Code(s): Z98.890 - OTHER SPECIFIED POSTPROCEDURAL STATES (6) [place] cardiac risk >20% in next 10 years Assessment/Plan: Pt denies hx of cardiac disease; denies chest pain. As discussed with pt and family, workup to r/o malignancy and aid respiratory status is presently of prime concern. Code(s): Z91.89 - OT PERSONAL RISK FACTORS, NOT ELSEWHERE CLASSIFIED (7) Hypokalemia Assessment/Plan: presently WNL; on K and Mg supplementation. Code(s): E87.6 - HYPOKALEMIA (8) Hypoalbuminemia Code(s): E88.09 - OT DISORDERS OF PLASMA-PROTEIN METABOLISM, NEC
--- NOTE | 2018-09-22 18:13 | PN ---
Progress Note, Physician Chief Complaint: Pt A&Ox3; denies chest pain, dyspnea; right-sided chest tube. History of Present Illness: he patient is a 73 year old white male (natan Sal) with a significant medical history of HTN, HLD, ETHO abuse, diastolic CHF, possible PAD, who was brought in by family for failure to thrive and SOB. The family reports that the patient drinks ETOH to excess nightly, though pt denies drinking for the past month. Per son, pt was found in his home completely disheveled today with urine and stool on himself. They also report a significant weight loss recently. Pt endorses SOB with exertion. Denies CP. Denies SOB at rest. The patient denies headache and dizziness. The patient denies fever, chills, nausea, vomit, diarrhea and constipation. The patient denies dysuria, frequency , urgency and hematuria. Allergies: NKDA - Current Medication List Current Medications: Active Medications Acetaminophen (Tylenol -) 650 mg PO Q6H PRN PRN Reason: PAIN LEVEL 4 - 6 Acetaminophen (Tylenol -) 325 mg PO Q6H PRN PRN Reason: PAIN LEVEL 7 - 10 Last Admin: 09/07/18 15:35 Dose: 325 mg Atenolol (Tenormin -) 25 mg PO DAILY [facility] Last Admin: 09/22/18 10:17 Dose: 25 mg Docusate Sodium (Colace -) 100 mg PO BID PRN PRN Reason: CONSTIPATION Last Admin: 09/19/18 17:18 Dose: 100 mg Folic Acid (Folic Acid -) 1 mg PO DAILY [facility] Last Admin: 09/22/18 10:17 Dose: 1 mg Magnesium Oxide (Mag-Ox -) 400 mg PO DAILY [facility] Last Admin: 09/22/18 10:17 Dose: 400 mg Potassium Chloride (K-Dur -) 10 meq PO DAILY [facility] Last Admin: 09/22/18 10:17 Dose: 10 meq Primidone (Mysoline -) 50 mg PO HS [facility] Last Admin: 09/21/18 22:16 Dose: 50 mg Senna (Senna -) 2 tab PO HS PRN PRN Reason: CONSTIPATION Thiamine HCl (Vitamin B1 -) 100 mg PO DAILY [facility] Last Admin: 09/22/18 10:17 Dose: 100 mg - Objective Vital Signs: Vital Signs Temperature 97.9 F 09/22/18 15:31 Pulse Rate 69 09/22/18 15:31 Respiratory Rate 20 09/22/18 15:31 Blood Pressure 120/63 09/22/18 15:31 O2 Sat by Pulse Oximetry (%) 95 09/22/18 10:00 Constitutional: Yes: Calm Eyes: Yes: WNL HENT: Yes: WNL Neck: Yes: WNL Cardiovascular: Yes: Murmur (2/6 TAYLER, RSB-->apex), S1, S2 Respiratory: Yes: Regular, Diminished (right base (chest tube)) Gastrointestinal: Yes: Soft ...Rectal Exam: Yes: Deferred Genitourinary: No: Anuria Musculoskeletal: Yes: Muscle Weakness Extremities: Yes: Cool Edema: No Peripheral Pulses WNL: No Peripheral Pulses: Left Doralis Pedis: 1+, Right Dorsalis Pedis: 1+ Integumentary: Yes: Other Wound/Incision: Yes: Other (right chest tube site moist) Neurological: Yes: Alert, Oriented, Weakness Psychiatric: Yes: Alert, Oriented Labs: CBC, BMP 09/21/18 07:00 09/21/18 07:00 INR, PTT INR 1.07 (0.83-1.09) 09/08/18 10:20 - ....Imaging Chest X-ray: Image Reviewed (right chest tube; still with right pnemothorax and left base changes) Problem List - Problems (1) Moderate aortic stenosis Assessment/Plan: ECHO: normal LVEF; abnormal diastolic compliance; normal wall thickness; mild MR , TR, AR.; moderate . Denies chest pain, syncope, PND/orthopnea, leg swelling. On atenolol. Code(s): I35.0 - NONRHEUMATIC AORTIC (VALVE) STENOSIS (2) Failure to thrive in adult Assessment/Plan: F/u with business technology analyst. R/o malignancy. Code(s): R62.7 - ADULT FAILURE TO THRIVE (3) Hypertension Assessment/Plan: On atenolol; BP relatively well-controlled. Code(s): I10 - ESSENTIAL (PRIMARY) HYPERTENSION (4) EtOH dependence Code(s): F10.20 - ALCOHOL DEPENDENCE, UNCOMPLICATED (5) S/P thoracentesis Assessment/Plan: 1,700 ml removed: exudate. Pigtail catheter placed; 30 ml fluid removed R/o malignancy: plans for PET scan in 4-6 weeks noted. Now with right chest tube. Code(s): Z98.890 - OTHER SPECIFIED POSTPROCEDURAL STATES (6) [place] cardiac risk >20% in next 10 years Assessment/Plan: Pt denies hx of cardiac disease; denies chest pain. As discussed with pt and family, workup to r/o malignancy and aid respiratory status is presently of prime concern. Stress test can be planned as outpatient. Code(s): Z91.89 - OTH PERSONAL RISK FACTORS, NOT ELSEWHERE CLASSIFIED (7) Hypoalbuminemia Code(s): E88.09 - OTH DISORDERS OF PLASMA-PROTEIN METABOLISM, NEC
--- NOTE | 2018-09-22 18:21 | PN ---
Progress Note, Physician Chief Complaint: Pt A&Ox3; denies chest pain, dyspnea; right-sided chest tube. Pt says he may undergo VATS tomorrow. History of Present Illness: he patient is a 73 year old white male (natan Sal) with a significant medical history of HTN, HLD, ETHO abuse, diastolic CHF, possible PAD, who was brought in by family for failure to thrive and SOB. The family reports that the patient drinks ETOH to excess nightly, though pt denies drinking for the past month. Per son, pt was found in his home completely disheveled today with urine and stool on himself. They also report a significant weight loss recently. Pt endorses SOB with exertion. Denies CP. Denies SOB at rest. The patient denies headache and dizziness. The patient denies fever, chills, nausea, vomit, diarrhea and constipation. The patient denies dysuria, frequency , urgency and hematuria. Allergies: NKDA - Current Medication List Current Medications: Active Medications Acetaminophen (Tylenol -) 650 mg PO Q6H PRN PRN Reason: PAIN LEVEL 4 - 6 Acetaminophen (Tylenol -) 325 mg PO Q6H PRN PRN Reason: PAIN LEVEL 7 - 10 Last Admin: 09/07/18 15:35 Dose: 325 mg Atenolol (Tenormin -) 25 mg PO DAILY [facility] Last Admin: 09/22/18 10:17 Dose: 25 mg Docusate Sodium (Colace -) 100 mg PO BID PRN PRN Reason: CONSTIPATION Last Admin: 09/19/18 17:18 Dose: 100 mg Folic Acid (Folic Acid -) 1 mg PO DAILY [facility] Last Admin: 09/22/18 10:17 Dose: 1 mg Magnesium Oxide (Mag-Ox -) 400 mg PO DAILY [facility] Last Admin: 09/22/18 10:17 Dose: 400 mg Potassium Chloride (K-Dur -) 10 meq PO DAILY [facility] Last Admin: 09/22/18 10:17 Dose: 10 meq Primidone (Mysoline -) 50 mg PO HS [facility] Last Admin: 09/21/18 22:16 Dose: 50 mg Senna (Senna -) 2 tab PO HS PRN PRN Reason: CONSTIPATION Thiamine HCl (Vitamin B1 -) 100 mg PO DAILY [facility] Last Admin: 09/22/18 10:17 Dose: 100 mg - Objective Vital Signs: Vital Signs Temperature 97.9 F 09/22/18 15:31 Pulse Rate 69 09/22/18 15:31 Respiratory Rate 20 09/22/18 15:31 Blood Pressure 120/63 09/22/18 15:31 O2 Sat by Pulse Oximetry (%) 95 09/22/18 10:00 Labs: CBC, BMP 09/21/18 07:00 09/21/18 07:00 INR, PTT INR 1.07 (0.83-1.09) 09/08/18 10:20 Problem List - Problems (1) Moderate aortic stenosis Assessment/Plan: ECHO: normal LVEF; abnormal diastolic compliance; normal wall thickness; mild MR , TR, AR.; moderate . Denies chest pain, syncope, PND/orthopnea, leg swelling. On atenolol. Repeat EKG (initiall EKG had baseline artifact). 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 Hypoalbuminemia. R/o malignancy. Code(s): R62.7 - ADULT FAILURE TO THRIVE (3) Hypertension Assessment/Plan: On atenolol; BP remains well-controlled. Code(s): I10 - ESSENTIAL (PRIMARY) HYPERTENSION (4) EtOH dependence Code(s): F10.20 - ALCOHOL DEPENDENCE, UNCOMPLICATED (5) S/P thoracentesis Assessment/Plan: 1,700 ml removed: exudate. Pigtail catheter placed; 30 ml fluid removed R/o malignancy: plans for PET scan in 4-6 weeks noted. Now with right chest tube. May require VATS. Code(s): Z98.890 - OTHER SPECIFIED POSTPROCEDURAL STATES (6) [place] cardiac risk >20% in next 10 years Assessment/Plan: Pt denies hx of cardiac disease; denies chest pain. As discussed with pt and family, workup to r/o malignancy and aid respiratory status is presently of prime concern. Stress test can be planned as outpatient. Code(s): Z91.89 - OT PERSONAL RISK FACTORS, NOT ELSEWHERE CLASSIFIED (7) Hypoalbuminemia Code(s): E88.09 - OT DISORDERS OF PLASMA-PROTEIN METABOLISM, NEC
[2018-09-22] MEDS ORDERED: PT OWN MED DRAWER 7, Y5N ONE (23:41)
[2018-09-22] MEDS: PRIMIDONE 50 MG TABLET PO SCH (23:44)
--- NOTE | 2018-09-23 10:00 | PN ---
Physical Exam: SUBJECTIVE: Patient seen and examined. offers no complaints. no shortness of breath or discomfort. OBJECTIVE: for possible vats tomorrow, npo at midnight Vital Signs Period Temp Pulse Resp BP Sys/Lou Pulse Ox Last 24 Hr 97.9 F-98.7 F 67-90 20-20 120-128/60-73 95-95 GENERAL: The patient is awake, alert, in no acute distress. HEAD: Normal with no signs of trauma. EYES: PERRL, extraocular movements intact, sclera anicteric, conjunctiva clear. No ptosis. ENT: Ears normal, nares patent, oropharynx clear without exudates, moist mucous membranes. NECK: Trachea midline, full range of motion, supple. LUNGS: Breath sounds equal, diminished bilaterally. HEART: Regular rate and rhythm ABDOMEN: Soft, nontender, nondistended, normoactive bowel sounds EXTREMITIES: no edema. NEUROLOGICAL: Normal speech, gait not observed. PSYCH: Normal mood, normal affect. SKIN: Warm, dry, normal turgor, no rashes or lesions noted Active Medications Generic Name Dose Route Start Last Admin Trade Name Freq PRN Reason Stop Dose Admin Acetaminophen 650 mg 09/07/18 14:39 Tylenol - PO Q6H PRN PAIN LEVEL 4 - 6 Acetaminophen 325 mg 09/07/18 15:12 09/07/18 15:35 Tylenol - PO 325 mg Q6H PRN Administration PAIN LEVEL 7 - 10 Atenolol 25 mg 09/05/18 10:00 09/22/18 10:17 Tenormin - PO 25 mg DAILY [facility] Administration Docusate Sodium 100 mg 09/07/18 18:51 09/19/18 17:18 Colace - PO 100 mg BID PRN Administration CONSTIPATION Folic Acid 1 mg 09/09/18 10:00 09/22/18 10:17 Folic Acid - PO 1 mg DAILY [facility] Administration Magnesium Oxide 400 mg 09/05/18 11:33 09/22/18 10:17 Mag-Ox - PO 400 mg DAILY [facility] Administration Potassium Chloride 10 meq 09/05/18 11:45 09/22/18 10:17 K-Dur - PO 10 meq DAILY [facility] Administration Primidone 50 mg 09/12/18 22:00 09/22/18 23:44 Mysoline - PO 50 mg HS [facility] Administration Senna 2 tab 09/07/18 18:51 Senna - PO HS PRN CONSTIPATION Thiamine HCl 100 mg 09/04/18 20:15 09/22/18 10:17 Vitamin B1 - PO 100 mg DAILY [facility] Administration ASSESSMENT/PLAN: Patient is a 73 year old male with a significant past medical history of HTN, HLD, possible PAD, who was brought in by family for failure to thrive and SOB. Patient is reported to drink nightly, however he denies having hx of ETOH abuse. Per notes, pt was found in his home completely disheveled with urine and stool on himself. He was also found to have a bilateral pleural effusions, right > left. Imaging: chest ct w/iv contrast 09/12/18: left pleural effusion signif.decreased from prior study. large right pleural eff mild decrease compared to prior study. 4 x 2 cm consolidations or mass posterior lower lobe unchanged. Pulm Thoracentesis s/p right thoracententis with 1700 cc removal on 09/07/2018. pleural fluid cytology, no malignant cells Seen by thoracic surgery: possible VATS procedure scheduled for 09/24/2018 to rule out malignancy (has loculated pleural fluid, pleural calcificaion and LLL consolidation) Right Pneumothorax Had Pigtail catheter placed 09/16 with pneumothorax Repeat CXR shows no change of pneumothorax, chest tube with sero sang apx 450- cc output Thoracic surgery following. NPO at midnight for VATS procedure on 09/24/2018. Card: Rule out cardiac cause of right thoracentesis Further workup per cardiology recommendations echo with moderate aortic stenosis, cardiology consulted and following Psyche: ETOH abuse no signs of withdrawal. denies etoh use, although family reports pt uses etoh chronically. folate, thiamine ordered upper extremity tremors are chronic per patient and family. Seen by neuro. started on priomodone 50mg @ hs. UTI completed 7 days of ceftriaxone. fen tolerating po monitor electrolytes low salt diet prophy scds Visit type - Emergency Visit Emergency Visit: Yes ED Registration Date: 09/04/18 Care time: The patient presented to the Emergency Department on the above date and was hospitalized for further evaluation of their emergent condition. - New Patient This patient is new to me today: No - Critical Care Critical Care patient: No - Discharge Referral Referred to [facility] No
[2018-09-23] MEDS: FOLIC ACID 1 MG TABLET (FP) PO SCH (10:55)
[2018-09-23] MEDS: MAGNESIUM OXIDE 400 MG TABLET (FP) PO SCH (10:55)
[2018-09-23] MEDS: THIAMINE HCL 100 MG TABLET (FP) PO SCH (10:55)
[2018-09-23] MEDS: ATENOLOL 25 MG TABLET (FP) PO SCH (10:55)
[2018-09-23 10:56] LABS: BASO % 0.8 % (0-2.0); EOS % 3.8 % (0-4.5); HEMATOCRIT 33.8 % (35.4-49); HEMOGLOBIN 11.9 GM/dL (11.7-16.9); LYMPH % 16.2 % (8-40); MCHC 35.2 g/dl (32.0-35.9); MEAN CELL VOLUME 102.2 fl (80-96); MEAN PLT VOLUME 6.9 fl (7.5-11.1); MONO % 9.6 % (3.8-10.2); NEUT % 69.6 % (42.8-82.8); PLATELET COUNT 274 K/MM3 (134-434); RBC 3.31 M/mm3 (4.00-5.60); WHITE BLOOD COUNT 5.8 K/mm3 (4.0-10.0)
[2018-09-23] MEDS: POTASSIUM CHLORIDE TABS 10 MEQ TABLET.ER (FP) PO SCH (10:56)
--- NOTE | 2018-09-23 11:40 | EKG ---
Test Reason : Blood Pressure : / mmHG Vent. Rate : 083 BPM Atrial Rate : 083 BPM P-R Int : 168 ms QRS Dur : 090 ms QT Int : 384 ms P-R-T Axes : 030 -07 032 degrees QTc Int : 451 ms NORMAL SINUS RHYTHM NORMAL ECG WHEN COMPARED WITH ECG OF 04-SEP-2018 15:03, NONSPECIFIC T WAVE ABNORMALITY HAS REPLACED INVERTED T WAVES IN INFERIOR LEADS Confirmed by JOSE LUIS LOUIS, OSCAR ([id number]) on 09/23/2018 11:39:49 AM Referred By: Allan JAVIER Confirmed By:OSCAR AMAYA MD
[2018-09-23 11:44] LABS: ALBUMIN 2.2 g/dl (3.4-5.0); ALK PHOS 93 U/L (45-117); ANION GAP 6 MMOL/L (8-16); BILIRUBIN,TOTAL 0.5 mg/dL (0.2-1); BLOOD UREA NITROGEN 10 mg/dL (7-18); CALCIUM 8.2 mg/dL (8.5-10.1); CHLORIDE 101 mmol/L (98-107); CO2 28 mmol/L (21-32); CREATININE 0.6 mg/dL (0.55-1.3); GLUCOSE,RANDOM 101 mg/dL (74-106); POTASSIUM 4.1 mmol/L (3.5-5.1); SGOT/AST 26 U/L (15-37); SGPT/ALT 25 U/L (13-61); SODIUM 135 mmol/L (136-145); TOT PROT 5.8 g/dl (6.4-8.2)
--- NOTE | 2018-09-23 12:29 | PN ---
Progress Note, Physician History of Present Illness: PULMONARY ALERT,NO DISTRESS,-SOB,FOR VAT TOMORROW - Current Medication List Current Medications: Active Medications Acetaminophen (Tylenol -) 650 mg PO Q6H PRN PRN Reason: PAIN LEVEL 4 - 6 Acetaminophen (Tylenol -) 325 mg PO Q6H PRN PRN Reason: PAIN LEVEL 7 - 10 Last Admin: 09/07/18 15:35 Dose: 325 mg Atenolol (Tenormin -) 25 mg PO DAILY [facility] Last Admin: 09/23/18 10:55 Dose: 25 mg Docusate Sodium (Colace -) 100 mg PO BID PRN PRN Reason: CONSTIPATION Last Admin: 09/19/18 17:18 Dose: 100 mg Folic Acid (Folic Acid -) 1 mg PO DAILY [facility] Last Admin: 09/23/18 10:55 Dose: 1 mg Magnesium Oxide (Mag-Ox -) 400 mg PO DAILY [facility] Last Admin: 09/23/18 10:55 Dose: 400 mg Potassium Chloride (K-Dur -) 10 meq PO DAILY [facility] Last Admin: 09/23/18 10:56 Dose: 10 meq Primidone (Mysoline -) 50 mg PO HS [facility] Last Admin: 09/22/18 23:44 Dose: 50 mg Senna (Senna -) 2 tab PO HS PRN PRN Reason: CONSTIPATION Thiamine HCl (Vitamin B1 -) 100 mg PO DAILY [facility] Last Admin: 09/23/18 10:55 Dose: 100 mg - Objective Vital Signs: Vital Signs Temperature 97.9 F 09/23/18 10:50 Pulse Rate 70 09/23/18 10:50 Respiratory Rate 18 09/23/18 10:50 Blood Pressure 109/53 L 09/23/18 10:50 O2 Sat by Pulse Oximetry (%) 95 09/22/18 22:00 Constitutional: Yes: Well Nourished, Calm Eyes: Yes: WNL HENT: Yes: WNL Neck: Yes: WNL Cardiovascular: Yes: Regular Rate and Rhythm, S1, S2 Respiratory: Yes: Diminished Gastrointestinal: Yes: Normal Bowel Sounds, Soft Extremities: Yes: WNL Edema: No Labs: CBC, BMP 09/23/18 10:38 09/23/18 10:38 INR, PTT INR 1.07 (0.83-1.09) 09/08/18 10:20 Assessment/Plan Problem List - Problems (1) UTI (urinary tract infection) Code(s): N39.0 - URINARY TRACT INFECTION, SITE NOT SPECIFIED (2) Lactic acidosis Code(s): E87.2 - ACIDOSIS (3) Pleural effusion Code(s): J90 - PLEURAL EFFUSION, NOT ELSEWHERE CLASSIFIED (4) Hypertension Code(s): I10 - ESSENTIAL (PRIMARY) HYPERTENSION (5) Failure to thrive in adult Code(s): R62.7 - ADULT FAILURE TO THRIVE Assessment/Plan A/P UTI Bilateral Pleural Effusions s/p R Thoracentesis - Exudate r/o Malignancy Failure to Thrive Lactic Acidosis HTN Hyperlipidemia LLL mass ? trapped lung - outpt PET/CT scan in 4-6 weeks to assess left lung lesion and underlying right sided disease - R VAT IN AM - DVT prophylaxis - monitor chest tube drainage - f/u chest x-rays DR AMOR
--- NOTE | 2018-09-23 13:00 | PN ---
Progress Note, Physician History of Present Illness: The patient is a 73 year old male with a significant medical history of HTN, HLD , possible PAD, who was brought in by family for failure to thrive and SOB. The family reports that the patient drinks ETOH nightly, though pt denies drinking for the past month. Per son, pt was found in his home completely disheveled today with urine and stool on himself. They also report a significant weight loss recently. Pt endorses SOB with exertion. Denies CP. Denies SOB at rest. The patient denies headache and dizziness. The patient denies fever, chills, nausea, vomit, diarrhea and constipation. The patient denies dysuria, frequency , urgency and hematuria. - Current Medication List Current Medications: Active Medications Acetaminophen (Tylenol -) 650 mg PO Q6H PRN PRN Reason: PAIN LEVEL 4 - 6 Acetaminophen (Tylenol -) 325 mg PO Q6H PRN PRN Reason: PAIN LEVEL 7 - 10 Last Admin: 09/07/18 15:35 Dose: 325 mg Atenolol (Tenormin -) 25 mg PO DAILY [facility] Last Admin: 09/23/18 10:55 Dose: 25 mg Docusate Sodium (Colace -) 100 mg PO BID PRN PRN Reason: CONSTIPATION Last Admin: 09/19/18 17:18 Dose: 100 mg Folic Acid (Folic Acid -) 1 mg PO DAILY [facility] Last Admin: 09/23/18 10:55 Dose: 1 mg Magnesium Oxide (Mag-Ox -) 400 mg PO DAILY [facility] Last Admin: 09/23/18 10:55 Dose: 400 mg Potassium Chloride (K-Dur -) 10 meq PO DAILY [facility] Last Admin: 09/23/18 10:56 Dose: 10 meq Primidone (Mysoline -) 50 mg PO HS [facility] Last Admin: 09/22/18 23:44 Dose: 50 mg Senna (Senna -) 2 tab PO HS PRN PRN Reason: CONSTIPATION Thiamine HCl (Vitamin B1 -) 100 mg PO DAILY [facility] Last Admin: 09/23/18 10:55 Dose: 100 mg - Objective Vital Signs: Vital Signs Temperature 97.9 F 09/23/18 10:50 Pulse Rate 70 09/23/18 10:50 Respiratory Rate 18 09/23/18 10:50 Blood Pressure 109/53 L 09/23/18 10:50 O2 Sat by Pulse Oximetry (%) 95 09/22/18 22:00 Eyes: Yes: WNL, Conjunctiva Clear, EOM Intact HENT: Yes: WNL, Atraumatic, Normocephalic Neck: Yes: WNL, Supple, Trachea Midline Cardiovascular: Yes: Regular Rate and Rhythm, Murmur Respiratory: Yes: WNL, Regular, CTA Bilaterally Gastrointestinal: Yes: WNL, Normal Bowel Sounds Genitourinary: Yes: WNL Musculoskeletal: Yes: WNL Extremities: Yes: WNL Edema: No Integumentary: Yes: WNL Neurological: Yes: WNL, Alert, Oriented ...Motor Strength: WNL Psychiatric: Yes: WNL Labs: CBC, BMP 09/23/18 10:38 09/23/18 10:38 INR, PTT INR 1.07 (0.83-1.09) 09/08/18 10:20 Problem List - Problems (1) Failure to thrive in adult Code(s): R62.7 - ADULT FAILURE TO THRIVE (2) Hypertension Code(s): I10 - ESSENTIAL (PRIMARY) HYPERTENSION (3) Lactic acidosis Code(s): E87.2 - ACIDOSIS (4) Pleural effusion Code(s): J90 - PLEURAL EFFUSION, NOT ELSEWHERE CLASSIFIED (5) Prophylactic measure Code(s): Z29.9 - ENCOUNTER FOR PROPHYLACTIC MEASURES, UNSPECIFIED (6) UTI (urinary tract infection) Code(s): N39.0 - URINARY TRACT INFECTION, SITE NOT SPECIFIED Assessment/Plan - Problems (1) Moderate aortic stenosis Assessment/Plan: ECHO: normal LVEF; abnormal diastolic compliance; normal wall thickness; mild MR , TR, AR.; moderate . Denies chest pain, syncope, PND/orthopnea, leg swelling. On atenolol. Repeat EKG (initiall EKG had baseline artifact). Code(s): I35.0 - NONRHEUMATIC AORTIC (VALVE) STENOSIS (2) Failure to thrive in adult Assessment/Plan: F/u with analytical data scientist. Hypoalbuminemia. R/o malignancy. Code(s): R62.7 - ADULT FAILURE TO THRIVE (3) Hypertension Assessment/Plan: On atenolol; BP remains well-controlled. Code(s): I10 - ESSENTIAL (PRIMARY) HYPERTENSION (4) EtOH dependence Code(s): F10.20 - ALCOHOL DEPENDENCE, UNCOMPLICATED (5) S/P thoracentesis Assessment/Plan: 1,700 ml removed: exudate. Pigtail catheter placed; 30 ml fluid removed R/o malignancy: plans for PET scan in 4-6 weeks noted. Now with right chest tube. May require VATS. Code(s): Z98.890 - OTHER SPECIFIED POSTPROCEDURAL STATES (6) [place] cardiac risk >20% in next 10 years Assessment/Plan: Pt denies hx of cardiac disease; denies chest pain. As discussed with pt and family, workup to r/o malignancy and aid respiratory status is presently of prime concern. Stress test can be planned as outpatient. Code(s): Z91.89 - OTH PERSONAL RISK FACTORS, NOT ELSEWHERE CLASSIFIED (7) Hypoalbuminemia Code(s): E88.09 - OTH DISORDERS OF PLASMA-PROTEIN METABOLISM, NEC
--- NOTE | 2018-09-23 16:19 | SPA.PREOP ---
- PRE-OP NOTE Dx: Thoracocentesis:exudative fluid. CT: bilat loculated pleural fluid & pleural calcification, LLL consolidation suspicious for malignancy Planned Procedure: Right VATs w/ pleural Bx Surgeon: Darek Last Vital Signs Temp Pulse Resp BP Pulse Ox 97.8 F 68 18 112/60 98 09/23/18 14:17 09/23/18 14:17 09/23/18 14:17 09/23/18 14:17 09/23/18 10:50 Lab Results WBC 5.8 K/mm3 (4.0-10.0) 09/23/18 10:38 RBC 3.31 M/mm3 (4.00-5.60) L 09/23/18 10:38 Hgb 11.9 GM/dL (11.7-16.9) 09/23/18 10:38 Hct 33.8 % (35.4-49) L 09/23/18 10:38 MCV 102.2 fl (80-96) H 09/23/18 10:38 MCHC 35.2 g/dl (32.0-35.9) 09/23/18 10:38 RDW 13.0 % (11.9-15.9) 09/23/18 10:38 Plt Count 274 K/MM3 (134-434) 09/23/18 10:38 Sodium 135 mmol/L (136-145) L 09/23/18 10:38 Potassium 4.1 mmol/L (3.5-5.1) 09/23/18 10:38 Chloride 101 mmol/L (98-107) 09/23/18 10:38 Carbon Dioxide 28 mmol/L (21-32) 09/23/18 10:38 Anion Gap 6 MMOL/L (8-16) L 09/23/18 10:38 BUN 10 mg/dL (7-18) 09/23/18 10:38 Creatinine 0.6 mg/dL (0.55-1.3) 09/23/18 10:38 Random Glucose 101 mg/dL (74-106) 09/23/18 10:38 Calcium 8.2 mg/dL (8.5-10.1) L 09/23/18 10:38 INR 1.07 (0.83-1.09) 09/08/18 10:20 - ASSESSMENT/PLAN Problem List - Problems (1) Pleural effusion Assessment/Plan: 1. Make NPO after midnight except po meds 2. GI/DVT PPX 3. Medical optimization / clearance 4. Consent to be obtained by surgeon after risks, benefits and alternatives discussed with patient and or Health Care Proxy. 5. Hibiclens 6. Type and Screen Code(s): J90 - PLEURAL EFFUSION, NOT ELSEWHERE CLASSIFIED (2) Failure to thrive in adult Code(s): R62.7 - ADULT FAILURE TO THRIVE Visit type - Case Type Case Type: ED Admission
[2018-09-23] MEDS ORDERED: PT OWN MED DRAWER 7, Y5N ONE ×2 (21:02→23:22)
[2018-09-23] MEDS ORDERED: CHLORHEXIDINE GLUCONATE 4% CLEANSER FOR DECOLONIZATION TP SCH (22:00)
[2018-09-23] MEDS: PRIMIDONE 50 MG TABLET PO SCH (22:17)
[2018-09-24 08:31] LABS: BASO % 0.9 % (0-2.0); EOS % 4.3 % (0-4.5); HEMOGLOBIN 11.5 GM/dL (11.7-16.9); LYMPH % 19.8 % (8-40); MCH 35.6 pg (25.7-33.7); MCHC 34.9 g/dl (32.0-35.9); MEAN CELL VOLUME 102.2 fl (80-96); MEAN PLT VOLUME 7.1 fl (7.5-11.1); MONO % 9.2 % (3.8-10.2); NEUT % 65.8 % (42.8-82.8); PLATELET COUNT 265 K/MM3 (134-434); RBC 3.22 M/mm3 (4.00-5.60); RDW 13.1 % (11.9-15.9)
[2018-09-24 08:51] LABS: INR 1.13 (0.83-1.09); PROTHROMBIN TIME (PATIENT) 13.4 SEC (9.7-13.0)
[2018-09-24] MEDS ORDERED: LIDOCAINE 1%-EPI 1:100,000 30 ML MDV IJ ONE (09:57)
[2018-09-24] MEDS ORDERED: BUPIVACAINE HCL/PF 0.5% (5MG/ML) 10 ML VIAL ONE (09:58)
[2018-09-24] MEDS: FOLIC ACID 1 MG TABLET (FP) PO SCH (10:13)
[2018-09-24] MEDS: MAGNESIUM OXIDE 400 MG TABLET (FP) PO SCH (10:13)
[2018-09-24] MEDS: POTASSIUM CHLORIDE TABS 10 MEQ TABLET.ER (FP) PO SCH (10:13)
[2018-09-24] MEDS: ATENOLOL 25 MG TABLET (FP) PO SCH (10:13)
[2018-09-24] MEDS: THIAMINE HCL 100 MG TABLET (FP) PO SCH (10:14)
[2018-09-24] MEDS ORDERED: LIDOCAINE HCL 2% (20ML MULTI-DOSE VIAL) NR ONE (10:17)
[2018-09-24] MEDS ORDERED: DESFLURANE GAS 240 ML BOTTLE IH ONE (10:17)
[2018-09-24] MEDS ORDERED: fentaNYL CITRATE 250 MCG/5 ML VIAL ONE (10:24)
[2018-09-24] MEDS ORDERED: PROPOFOL 20 ML ONE (10:24)
[2018-09-24] MEDS ORDERED: ETOMIDATE 20 MG/10 ML AMPUL IVPUSH ONE (10:24)
[2018-09-24] MEDS ORDERED: MIDAZOLAM HCL 2 MG/2 ML SINGLE DOSE VIAL ONE (10:25)
[2018-09-24] MEDS ORDERED: ROCURONIUM BROMIDE 50 MG/5 ML VIAL ONE ×2 (10:25→11:38)
[2018-09-24] MEDS ORDERED: EPINEPHrine/PF 1 MG/1 ML (1:1,000) AMPULE ONE (10:34)
[2018-09-24] MEDS ORDERED: ceFAZolin SODIUM 1 GM VIAL IVPB ONE (11:01)
[2018-09-24] MEDS ORDERED: ceFAZolin SODIUM 1 GM VIAL ONE (11:03)
[2018-09-24 11:12] LABS: ALBUMIN 2.3 g/dl (3.4-5.0); ALK PHOS 89 U/L (45-117); ANION GAP 7 MMOL/L (8-16); BILIRUBIN,TOTAL 0.6 mg/dL (0.2-1); BLOOD UREA NITROGEN 10 mg/dL (7-18); CALCIUM 8.3 mg/dL (8.5-10.1); CHLORIDE 101 mmol/L (98-107); CO2 28 mmol/L (21-32); CREATININE 0.6 mg/dL (0.55-1.3); GLUCOSE,RANDOM 91 mg/dL (74-106); POTASSIUM 4.1 mmol/L (3.5-5.1); SGOT/AST 24 U/L (15-37); SGPT/ALT 24 U/L (13-61); SODIUM 135 mmol/L (136-145); TOT PROT 5.7 g/dl (6.4-8.2)
[2018-09-24] MEDS ORDERED: LIDOCAINE 1%/EPI 1:100000 (50 ML MULTI DOSE VIAL) INF ONE ×2 (11:45)
[2018-09-24] MEDS ORDERED: BUPIVACAINE HCL/PF (5 MG/ML) 30 ML VIAL IJ ONE ×2 (11:45)
[2018-09-24] MEDS ORDERED: BUPIVACAINE HCL/PF 0.25% (2.5MG/ML) 10 ML VIAL ONE ×2 (11:46→13:20)
[2018-09-24] MEDS ORDERED: GLYCOPYRROLATE 0.2 MG/1 ML VIAL ONE (11:58)
[2018-09-24] MEDS ORDERED: NEOSTIGMINE METHYLSULFATE 0.5 MG/ML - 10 ML MDV ONE (11:58)
[2018-09-24] MEDS ORDERED: BUPIVACAINE HCL/PF 0.25% (2.5MG/ML) 10 ML VIAL IJ ONE (13:44)
[2018-09-24] MEDS ORDERED: HYDROmorphone *PCA* 10MG/50ML DISP.SYRIN PCA SCH (14:45)
--- NOTE | 2018-09-24 15:04 | PN ---
Teaching Attending Note Name of Resident: Irene Miramontes ATTENDING PHYSICIAN STATEMENT I saw and evaluated the patient. I reviewed the resident's note and discussed the case with the resident. I agree with the resident's findings and plan as documented. SUBJECTIVE: Patient seen and examined in the ICU. S/P Right VATs with decortication. No tumor noted. 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 CXR: CT in place / PTX right base Intake & Output 09/21/18 09/22/18 09/23/18 09/24/18 23:59 23:59 23:59 23:59 Intake Total 930 9259 275 5135 Output Total 700 810 800 150 Balance 230 870 80 950 Last Vital Signs Temp Pulse Resp BP Pulse Ox 97.5 F L 63 20 111/61 98 09/24/18 09:06 09/24/18 09:06 09/24/18 09:06 09/24/18 09:06 09/24/18 09:00 Active Medications Acetaminophen (Tylenol -) 650 mg PO Q6H PRN PRN Reason: PAIN LEVEL 4 - 6 Acetaminophen (Tylenol -) 325 mg PO Q6H PRN PRN Reason: PAIN LEVEL 7 - 10 Last Admin: 09/07/18 15:35 Dose: 325 mg Atenolol (Tenormin -) 25 mg PO DAILY [facility] Last Admin: 09/24/18 10:13 Dose: Not Given Docusate Sodium (Colace -) 100 mg PO BID PRN PRN Reason: CONSTIPATION Last Admin: 09/19/18 17:18 Dose: 100 mg Folic Acid (Folic Acid -) 1 mg PO DAILY [facility] Last Admin: 09/24/18 10:13 Dose: Not Given Heparin Sodium (Porcine) (Heparin -) 5,000 unit SQ BID [facility] Hydromorphone HCl (Dilaudid Caption Writer -) 0.2 mg BRUSHER BRUSHER [facility]; Protocol Stop: 10/01/18 14:38 Magnesium Oxide (Mag-Ox -) 400 mg PO DAILY [facility] Last Admin: 09/24/18 10:13 Dose: Not Given Mupirocin (Bactroban Ointment (For Decolonization) -) 1 applic NS BID [facility] Stop: 09/29/18 21:59 Potassium Chloride (K-Dur -) 10 meq PO DAILY [facility] Last Admin: 09/24/18 10:13 Dose: Not Given Primidone (Mysoline -) 50 mg PO HS [facility] Last Admin: 09/23/18 22:17 Dose: 50 mg Senna (Senna -) 2 tab PO HS PRN PRN Reason: CONSTIPATION Thiamine HCl (Vitamin B1 -) 100 mg PO DAILY [facility] Last Admin: 09/24/18 10:14 Dose: Not Given Constitutional: Yes: Sleepy but easily arousable, NAD Eyes: Yes: WNL HENT: Yes: WNL Neck: Yes: WNL Cardiovascular: Yes: Regular Rate and Rhythm, S1, S2 Respiratory: Yes: Diminished, Right chest tube Gastrointestinal: Yes: Normal Bowel Sounds, Soft Extremities: Yes: WNL Edema: No Labs: Laboratory Results - last 24 hr 09/23/18 09/24/18 09/24/18 10:38 07:40 07:40 WBC 6.0 RBC 3.22 L Hgb 11.5 L Hct 33.0 L MCV 102.2 H MCH 35.6 H MCHC 34.9 RDW 13.1 Plt Count 265 MPV 7.1 L Absolute Neuts (auto) 3.9 Neutrophils % 65.8 Lymphocytes % 19.8 D Monocytes % 9.2 Eosinophils % 4.3 Basophils % 0.9 Nucleated RBC % 0 PT with INR 13.40 H INR 1.13 H Sodium Potassium Chloride Carbon Dioxide Anion Gap BUN Creatinine Creat Clearance w eGFR Random Glucose Calcium Magnesium Total Bilirubin AST ALT Alkaline Phosphatase Total Protein Albumin Blood Type A POSITIVE Antibody Screen 09/24/18 09/24/18 07:40 07:40 WBC RBC Hgb Hct MCV MCH MCHC RDW Plt Count MPV Absolute Neuts (auto) Neutrophils % Lymphocytes % Monocytes % Eosinophils % Basophils % Nucleated RBC % PT with INR INR Sodium 135 L Potassium 4.1 Chloride 101 Carbon Dioxide 28 Anion Gap 7 L BUN 10 Creatinine 0.6 Creat Clearance w eGFR > 60 Random Glucose 91 Calcium 8.3 L Magnesium 2.0 Total Bilirubin 0.6 AST 24 ALT 24 Alkaline Phosphatase 89 Total Protein 5.7 L Albumin 2.3 L Blood Type A POSITIVE Antibody Screen Negative Assessment/Plan Problem List - Problems (1) UTI (urinary tract infection) Code(s): N39.0 - URINARY TRACT INFECTION, SITE NOT SPECIFIED (2) Lactic acidosis Code(s): E87.2 - ACIDOSIS (3) Pleural effusion Code(s): J90 - PLEURAL EFFUSION, NOT ELSEWHERE CLASSIFIED (4) Hypertension Code(s): I10 - ESSENTIAL (PRIMARY) HYPERTENSION (5) Failure to thrive in adult Code(s): R62.7 - ADULT FAILURE TO THRIVE Assessment/Plan UTI Bilateral Pleural Effusions s/p R Thoracentesis - Exudate r/o Malignancy Failure to Thrive Lactic Acidosis HTN Hyperlipidemia LLL mass (?) trapped lung - chest tube to suction - DVT prophylaxis - Encourage Incentive Spirometry - f/u chest x-rays Dr Zamora Critical care time spent in reviewing chart, evaluating patient and formulating plan - 36 minutes.
--- NOTE | 2018-09-24 15:16 | OP ---
Operative Note - Note: Operative Date: 09/24/18 Pre-Operative Diagnosis: Pleural effusion Operation: Right video assisted thoracoscopy with pleural biopsy, decortication , pleurx insertion Findings: as dictated Post-Operative Diagnosis: Same as Pre-op Surgeon: Jarod Oswald Jammer Hooker: John Ruffin Anesthesiologist/CARDIOTHORACIC ANESTHESIA TECHNICIAN: Christianne Castorena Anesthesia: General, Local Specimens Removed: Pleural biopsy sent F.S., Pleural Biopsy, Visceral Pleural Biopsy Drains & Tubes with Location: R Pleurx catheter and chest tube R chest Drains, Volume Out (mls): 100 (ml urine hematuria/berhane urine) Fluid Volume Replaced (mls): 1,100 (ml LR) Operative Report Dictated: Yes
--- NOTE | 2018-09-24 15:38 | CONSULT ---
Consultation: REQUESTING PROVIDER: CONSULT REQUEST: We have been asked to medically evaluate this patient for admission to ICU. HISTORY OF PRESENT ILLNESS: 73 y/o M with PMHx of HTN, HLD, possible PAD, EtOH Abuse (Last drink 1 month ago ) was admitted to [facility] for SOB on exertion, unintentional weight loss found to have b/l Pleural Effusion on imaging. Diagnostic Thoracentesis found exudative fluid with Unrevealing gram stain and negative cytology raising concern for malignancy. CT Surgery was consulted and Right VAT procedure with Pleural biopsy was preformed. Patient denies any fevers, chills, chest pain, SOB, nausea , vomiting, diarrhea, constipation, headache, blurry vision. REVIEW OF SYSTEMS: CONSTITUTIONAL: Absent: fever, chills, diaphoresis, generalized weakness, malaise, loss of appetite, weight change HEENT: Absent: rhinorrhea, nasal congestion, throat pain, throat swelling, difficulty swallowing, mouth swelling, ear pain, eye pain, visual changes CARDIOVASCULAR: Absent: chest pain, syncope, palpitations, irregular heart rate, lightheadedness , peripheral edema RESPIRATORY: Absent: cough, shortness of breath, dyspnea with exertion, orthopnea, wheezing, stridor, hemoptysis GASTROINTESTINAL: Absent: abdominal pain, abdominal distension, nausea, vomiting, diarrhea, constipation, melena, hematochezia GENITOURINARY: Absent: dysuria, frequency, urgency, hesitancy, hematuria, flank pain, genital pain MUSCULOSKELETAL: Absent: myalgia, arthralgia, joint swelling, back pain, neck pain SKIN: Absent: rash, itching, pallor HEMATOLOGIC/IMMUNOLOGIC: Absent: easy bleeding, easy bruising, lymphadenopathy, frequent infections ENDOCRINE: Absent: unexplained weight gain, unexplained weight loss, heat intolerance, cold intolerance NEUROLOGIC: Absent: headache, focal weakness or paresthesias, dizziness, unsteady gait, seizure, mental status changes, bladder or bowel incontinence PSYCHIATRIC: Absent: anxiety, depression, suicidal or homicidal ideation, hallucinations. PHYSICAL EXAMINATION Vital Signs - 24 hr 09/23/18 09/23/18 09/24/18 21:00 22:00 09:00 Temperature 97.8 F Pulse Rate 67 Respiratory 20 20 Rate Blood Pressure 108/59 L O2 Sat by Pulse 96 98 98 Oximetry (%) 09/24/18 09:06 Temperature 97.5 F L Pulse Rate 63 Respiratory 20 Rate Blood Pressure 111/61 O2 Sat by Pulse Oximetry (%) GENERAL: A&Ox3, NAD HEAD: NCAT EYES: PERRL, EOMI EARS, NOSE, THROAT: Dried blood over the lower lip. Moist mucous membranes. NECK: Supple CHEST: Right sided Chest tube placed with overlying dressing clean, dry and intact LUNGS: Diminished breath sounds at the bases, No wheezes, No crackles HEART: RRR, normal S1 and S2, 2/6 systolic murmur at the RUSB ABDOMEN: Soft, nontender, not distended, + bowel sounds, no guarding : Oscar Catheter inplace with few drops of pink tinged blood at the meatus EXTREMITIES: No peripheral edema. NEUROLOGICAL: Cranial nerves II-XII intact. Normal Speech. SKIN: Warm, dry. Excoriations over the b/l anterior lower extremities with Dried scab over Right lower extremity Laboratory Results - last 24 hr 09/23/18 09/24/18 09/24/18 10:38 07:40 07:40 WBC 6.0 RBC 3.22 L Hgb 11.5 L Hct 33.0 L MCV 102.2 H MCH 35.6 H MCHC 34.9 RDW 13.1 Plt Count 265 MPV 7.1 L Absolute Neuts (auto) 3.9 Neutrophils % 65.8 Lymphocytes % 19.8 D Monocytes % 9.2 Eosinophils % 4.3 Basophils % 0.9 Nucleated RBC % 0 PT with INR 13.40 H INR 1.13 H Sodium Potassium Chloride Carbon Dioxide Anion Gap BUN Creatinine Creat Clearance w eGFR Random Glucose Calcium Magnesium Total Bilirubin AST ALT Alkaline Phosphatase Total Protein Albumin Blood Type A POSITIVE Antibody Screen 09/24/18 09/24/18 07:40 07:40 WBC RBC Hgb Hct MCV MCH MCHC RDW Plt Count MPV Absolute Neuts (auto) Neutrophils % Lymphocytes % Monocytes % Eosinophils % Basophils % Nucleated RBC % PT with INR INR Sodium 135 L Potassium 4.1 Chloride 101 Carbon Dioxide 28 Anion Gap 7 L BUN 10 Creatinine 0.6 Creat Clearance w eGFR > 60 Random Glucose 91 Calcium 8.3 L Magnesium 2.0 Total Bilirubin 0.6 AST 24 ALT 24 Alkaline Phosphatase 89 Total Protein 5.7 L Albumin 2.3 L Blood Type A POSITIVE Antibody Screen Negative Microbiology 09/15/18 12:20 Pleural Fluid AFB Smear Concentration - Final 09/15/18 12:20 Pleural Fluid Mycobacterial Culture - Preliminary 09/15/18 12:20 Pleural Fluid Gram Stain - Final 09/15/18 12:20 Pleural Fluid Body Fluid Culture - Final NO GROWTH OF AEROBIC ORGANISMS AFTER 48 HOURS INCUBATION 09/15/18 12:20 Pleural Fluid Anaerobic Culture - Final NO ANAEROBES WERE ISOLATED 09/15/18 12:20 Pleural Fluid ROBERT Preparation - Preliminary 09/15/18 12:20 Pleural Fluid Fungal Culture - Preliminary 09/07/18 12:55 Thoracic Fluid Gram Stain - Final 09/07/18 12:55 Thoracic Fluid Body Fluid Culture - Final NO GROWTH OF AEROBIC ORGANISMS AFTER 48 HOURS INCUBATION 09/07/18 12:55 Thoracic Fluid Anaerobic Culture - Final NO ANAEROBES WERE ISOLATED 09/07/18 12:55 Thoracic Fluid AFB Smear Concentration - Final 09/07/18 12:55 Thoracic Fluid Mycobacterial Culture - Preliminary 09/07/18 12:55 Thoracic Fluid ROBERT Preparation - Preliminary 09/07/18 12:55 Thoracic Fluid Fungal Culture - Preliminary 09/04/18 15:02 Urine - Urine Clean Catch Urine Culture - Final Escherichia Coli Active Medications Acetaminophen (Tylenol -) 650 mg PO Q6H PRN PRN Reason: PAIN LEVEL 4 - 6 Acetaminophen (Tylenol -) 325 mg PO Q6H PRN PRN Reason: PAIN LEVEL 7 - 10 Last Admin: 09/07/18 15:35 Dose: 325 mg Atenolol (Tenormin -) 25 mg PO DAILY [facility] Last Admin: 09/24/18 10:13 Dose: Not Given Docusate Sodium (Colace -) 100 mg PO BID PRN PRN Reason: CONSTIPATION Last Admin: 09/19/18 17:18 Dose: 100 mg Folic Acid (Folic Acid -) 1 mg PO DAILY [facility] Last Admin: 09/24/18 10:13 Dose: Not Given Heparin Sodium (Porcine) (Heparin -) 5,000 unit SQ BID [facility] Hydromorphone HCl (Dilaudid Athletic Coordinator -) 0.2 mg BOX BRANDER BOX BRANDER [facility]; Protocol Stop: 10/01/18 14:38 Magnesium Oxide (Mag-Ox -) 400 mg PO DAILY [facility] Last Admin: 09/24/18 10:13 Dose: Not Given Mupirocin (Bactroban Ointment (For Decolonization) -) 1 applic NS BID [facility] Stop: 09/29/18 21:59 Potassium Chloride (K-Dur -) 10 meq PO DAILY [facility] Last Admin: 09/24/18 10:13 Dose: Not Given Primidone (Mysoline -) 50 mg PO HS [facility] Last Admin: 09/23/18 22:17 Dose: 50 mg Senna (Senna -) 2 tab PO HS PRN PRN Reason: CONSTIPATION Thiamine HCl (Vitamin B1 -) 100 mg PO DAILY [facility] Last Admin: 09/24/18 10:14 Dose: Not Given ASSESSMENT/PLAN: 73 y/o M with PMHx of HTN, HLD, possible PAD, EtOH Abuse (Last drink 1 month ago ), admitted for SOB and unintentional weight loss, found to have b/l Pleural Effusion and will be monitored in ICU s/p Right VAT procedure with Pleural biopsy. #Neuro Hx of EtOH Abuse, Essential Tremor -A&Ox3, NAD -Psych (Dr. Vigil) Consulted, Appreciate Rec's; Patient lacks functional capacity to make informed decisions at this time -Dr. Maria consulted, Appreciate rec's -Continue Thiamine, Folic Acid, Multivitamin, Primidone -Monitor CIWA for withdrawal #Cardio Hx of HTN, HLD, PAD -Continue home dose Atenolol -Dr. Flores consulted, Appreciate Rec's #Pulmonary S/P Right VAT procedure with Pleural biopsy POD #0 B/L Pleural Effusions s/p R Thoracentesis -Follow Microbiology, Bx -Pain control via Dilaudid Athletic Coordinator -F/u CXR -Chest tube to suction, Monitor output -Incentive Spirometry -Cefazolin PeriOperatively #GI -Bowel Regimen via Senna, Docusate -NPO #Renal -Oscar Catheter placed in the OR -Dr. Leo consulted -Continue KDur 10mEq, Mag-Ox 400mg Daily -Monitor Urine Output #Heme Macrocytic Anemia -Likely due to EtOH Abuse -Continue Thiamine, Folic Acid -No active bleeding, Monitor CBC #Endo -No active issues, continue to monitor #ID Recent UTI Lactic Acidosis, Resolved -Completed course of Ceftriaxone -Remains AFebrile, Without Elevated WBC Count -Continue to monitor for signs of infection #FEN -No Standing Fluids -Lytes WNL -NPO #PPx -DVT: SCDs, Heparin Code Status: Full Code Dispo: We will continue to follow the patient. Thank you for this consultative opportunity. Visit type - Emergency Visit Emergency Visit: Yes ED Registration Date: 09/04/18 Care time: The patient presented to the Emergency Department on the above date and was hospitalized for further evaluation of their emergent condition. - New Patient This patient is new to me today: Yes Date on this admission: 09/24/18 - Critical Care Critical Care patient: Yes Total Critical Care Time (in minutes): 40 Critical Care Statement: The care of this patient involved high complexity decision making to prevent further life threatening deterioration of the patient 's condition and/or to evaluate & treat vital organ system(s) failure or risk of failure.
[2018-09-24] MEDS ORDERED: SENNOSIDES 8.6MG TABLET (FP) PO PRN (16:46)
[2018-09-24] MEDS ORDERED: ACETAMINOPHEN 325 MG TABLET (FP) PO PRN (16:46)
[2018-09-24 17:19] LABS: BASO % 0.4 % (0-2.0); EOS % 0.9 % (0-4.5); HEMATOCRIT 39.4 % (35.4-49); HEMOGLOBIN 13.7 GM/dL (11.7-16.9); LYMPH % 10.3 % (8-40); MCHC 34.8 g/dl (32.0-35.9); MEAN CELL VOLUME 103.4 fl (80-96); MEAN PLT VOLUME 7.2 fl (7.5-11.1); MONO % 7.1 % (3.8-10.2); NEUT % 81.3 % (42.8-82.8); PLATELET COUNT 291 K/MM3 (134-434); RBC 3.81 M/mm3 (4.00-5.60); RDW 13.3 % (11.9-15.9); WHITE BLOOD COUNT 10.3 K/mm3 (4.0-10.0)
--- NOTE | 2018-09-24 17:37 | PN ---
Physical Exam: SUBJECTIVE: Patient seen and examined at the bedside. in the icu post op, awake and alert, denies pain. OBJECTIVE: s/p Right video assisted thoracoscopy with pleural biopsy, decortication, pleurx insertion Vital Signs Period Temp Pulse Resp BP Sys/Lou Pulse Ox Last 24 Hr 97.5 F-97.8 F 61-77 10-20 108-135/56-64 96-98 GENERAL: The patient is awake, alert, in no acute distress. denies pain. in icu post op HEAD: Normal with no signs of trauma. EYES: PERRL, extraocular movements intact, sclera anicteric, conjunctiva clear. No ptosis. ENT: Ears normal, nares patent, oropharynx clear without exudates, moist mucous membranes. NECK: Trachea midline, full range of motion, supple. LUNGS: anteriorly sounds clear to auscultation, s/p VATS procedures. on 2 liters of nasal cannula. HEART: Regular rate and rhythm ABDOMEN: Soft, nontender, nondistended, normoactive bowel sounds EXTREMITIES: no edema. NEUROLOGICAL: Normal speech, gait not observed. PSYCH: Normal mood, normal affect. SKIN: Warm, dry, normal turgor, no rashes or lesions noted Laboratory Results - last 24 hr 09/23/18 09/24/18 09/24/18 10:38 07:40 07:40 WBC 6.0 RBC 3.22 L Hgb 11.5 L Hct 33.0 L MCV 102.2 H MCH 35.6 H MCHC 34.9 RDW 13.1 Plt Count 265 MPV 7.1 L Absolute Neuts (auto) 3.9 Neutrophils % 65.8 Lymphocytes % 19.8 D Monocytes % 9.2 Eosinophils % 4.3 Basophils % 0.9 Nucleated RBC % 0 PT with INR 13.40 H INR 1.13 H Sodium Potassium Chloride Carbon Dioxide Anion Gap BUN Creatinine Creat Clearance w eGFR Random Glucose Calcium Magnesium Total Bilirubin AST ALT Alkaline Phosphatase Total Protein Albumin Blood Type A POSITIVE Antibody Screen 09/24/18 09/24/18 09/24/18 07:40 07:40 15:45 WBC 10.3 H RBC 3.81 L Hgb 13.7 Hct 39.4 D MCV 103.4 H MCH 36.0 H MCHC 34.8 RDW 13.3 Plt Count 291 MPV 7.2 L Absolute Neuts (auto) 8.3 H Neutrophils % 81.3 D Lymphocytes % 10.3 D Monocytes % 7.1 Eosinophils % 0.9 Basophils % 0.4 Nucleated RBC % 0 PT with INR INR Sodium 135 L Potassium 4.1 Chloride 101 Carbon Dioxide 28 Anion Gap 7 L BUN 10 Creatinine 0.6 Creat Clearance w eGFR > 60 Random Glucose 91 Calcium 8.3 L Magnesium 2.0 Total Bilirubin 0.6 AST 24 ALT 24 Alkaline Phosphatase 89 Total Protein 5.7 L Albumin 2.3 L Blood Type A POSITIVE Antibody Screen Negative Active Medications Generic Name Dose Route Start Last Admin Trade Name Freq PRN Reason Stop Dose Admin Acetaminophen 650 mg 09/24/18 16:46 Tylenol - PO Q6H PRN PAIN LEVEL 4 - 6 Acetaminophen 325 mg 09/24/18 16:46 Tylenol - PO Q6H PRN PAIN LEVEL 7 - 10 Atenolol 25 mg 09/25/18 10:00 Tenormin - PO DAILY [facility] Docusate Sodium 100 mg 09/24/18 16:46 Colace - PO BID PRN CONSTIPATION Folic Acid 1 mg 09/25/18 10:00 Folic Acid - PO DAILY [facility] Heparin Sodium (Porcine) 5,000 unit 09/25/18 08:00 Heparin - SQ BID [facility] Hydromorphone HCl 0.2 mg 09/24/18 14:45 Dilaudid Instructor Flying - [employer]AND MARKETING SPECIALIST 10/01/18 14:38 BRAND MARKETING SPECIALIST [facility] Protocol Cefazolin Sodium 1 gm in 50 mls @ 100 mls/hr 09/24/18 19:00 Ancef 1 Gm Premixed Ivpb - IVPB 09/25/18 18:59 Q8H [facility] Magnesium Oxide 400 mg 09/25/18 10:00 Mag-Ox - PO DAILY [facility] Mupirocin 1 applic 09/24/18 22:00 Bactroban Ointment (For Decolonization) - NS 09/29/18 21:59 BID [facility] Potassium Chloride 10 meq 09/25/18 10:00 K-Dur - PO DAILY [facility] Primidone 50 mg 09/24/18 22:00 Mysoline - PO HS [facility] Senna 2 tab 09/24/18 16:46 Senna - PO HS PRN CONSTIPATION Thiamine HCl 100 mg 09/25/18 10:00 Vitamin B1 - PO DAILY [facility] ASSESSMENT/PLAN: Patient is a 73 year old male with a significant past medical history of HTN, HLD, possible PAD, who was brought in by family for failure to thrive and SOB. Patient is reported to drink nightly, however he denies having hx of ETOH abuse. Per notes, pt was found in his home completely disheveled with urine and stool on himself. He was also found to have a bilateral pleural effusions, right > left. Imaging: chest ct w/iv contrast 09/12/18: left pleural effusion signif.decreased from prior study. large right pleural eff mild decrease compared to prior study. 4 x 2 cm consolidations or mass posterior lower lobe unchanged. Pulm: S/P Right video assisted thoracoscopy with pleural biopsy, decortication, pleurx insertion, pod #0 Monitor chest tube output. Pleural biopsy and visceral pleural biopsy sent Surgery following Thoracentesis s/p right thoracententis with 1700 cc removal on 09/07/2018. Right Pneumothorax Had Pigtail catheter placed 09/16 with pneumothorax Card: Rule out cardiac cause of right thoracentesis Further workup per cardiology recommendations, stress test as an outpatient echo with moderate aortic stenosis Psyche: ETOH abuse, no acute issues upper extremity tremors are chronic per patient and family. Seen by neuro. started on priomodone 50mg @ hs. UTI completed 7 days of ceftriaxone. fen tolerating po monitor electrolytes low salt diet prophy scds Visit type - Emergency Visit Emergency Visit: Yes ED Registration Date: 09/04/18 Care time: The patient presented to the Emergency Department on the above date and was hospitalized for further evaluation of their emergent condition. - New Patient This patient is new to me today: No - Critical Care Critical Care patient: Yes Total Critical Care Time (in minutes): 45 Critical Care Statement: The care of this patient involved high complexity decision making to prevent further life threatening deterioration of the patient 's condition and/or to evaluate & treat vital organ system(s) failure or risk of failure. - Discharge Referral Referred to [facility] No Physician Referral: Sulaiman Loco MD ([facility])
[2018-09-24 18:06] LABS: ALBUMIN 2.3 g/dl (3.4-5.0); ALK PHOS 93 U/L (45-117); ANION GAP 6 MMOL/L (8-16); BILIRUBIN,TOTAL 0.6 mg/dL (0.2-1); BLOOD UREA NITROGEN 12 mg/dL (7-18); CALCIUM 8.4 mg/dL (8.5-10.1); CHLORIDE 99 mmol/L (98-107); CO2 31 mmol/L (21-32); CREATININE 0.7 mg/dL (0.55-1.3); GLUCOSE,RANDOM 100 mg/dL (74-106); POTASSIUM 4.3 mmol/L (3.5-5.1); SGOT/AST 29 U/L (15-37); SGPT/ALT 23 U/L (13-61); SODIUM 136 mmol/L (136-145); TOT PROT 5.7 g/dl (6.4-8.2)
[2018-09-24] MEDS: CEFAZOLIN 1 GM/D5W 1 GM/50 ML BAG IVPB SCH (18:16)
[2018-09-24] MEDS ORDERED: ONDANSETRON 4 MG/2 ML VIAL IVPUSH PRN (18:57)
[2018-09-24 19:26] LABS: ARTERIAL BLD GAS O2 SATURATION 96.1 % (90-98.9); ARTERIAL BLOOD GAS BASE EXCESS 0.4 meq/l (-2-2); ARTERIAL BLOOD GAS PCO2 41.4 mmHg (35-45); ARTERIAL BLOOD GAS PO2 89.9 mmHg (70-100)
[2018-09-24] MEDS ORDERED: CHLORHEXIDINE GLUCONATE 4% CLEANSER FOR DECOLONIZATION TP SCH (22:00)
[2018-09-24] MEDS: LACTATED RINGERS SOLUTION 1,000 ML IV SCH (22:01)
[2018-09-24] MEDS: MUPIROCIN 2% TOPICAL OINTMENT FOR DECOLONIZATION NS SCH (22:02)
[2018-09-24] MEDS: PRIMIDONE 50 MG TABLET PO SCH (22:02)
[2018-09-24] MEDS ORDERED: diphenhydrAMINE HCL 25 MG CAPSULE (FP) PO ONE (22:52)
[2018-09-25] MEDS ORDERED: ACETAMINOPHEN 1000 MG/100 ML VIAL (NON FORMULARY) IVPB ONE (00:19)
[2018-09-25] MEDS: CEFAZOLIN 1 GM/D5W 1 GM/50 ML BAG IVPB SCH ×2 (02:56→11:45)
[2018-09-25] MEDS ORDERED: RANITIDINE HCL 150 MG TABLET (FP) PO ONE (05:07)
[2018-09-25 06:34] LABS: BASO % 0.6 % (0-2.0); EOS % 1.7 % (0-4.5); HEMATOCRIT 35.4 % (35.4-49); HEMOGLOBIN 12.6 GM/dL (11.7-16.9); LYMPH % 12.7 % (8-40); MCHC 35.5 g/dl (32.0-35.9); MEAN CELL VOLUME 101.3 fl (80-96); MEAN PLT VOLUME 7.5 fl (7.5-11.1); MONO % 11.1 % (3.8-10.2); NEUT % 73.9 % (42.8-82.8); PLATELET COUNT 281 K/MM3 (134-434); RBC 3.49 M/mm3 (4.00-5.60); RDW 13.3 % (11.9-15.9); WHITE BLOOD COUNT 8.2 K/mm3 (4.0-10.0)
[2018-09-25 06:51] LABS: ALK PHOS 83 U/L (45-117); ANION GAP 6 MMOL/L (8-16); BILIRUBIN,TOTAL 0.8 mg/dL (0.2-1); BLOOD UREA NITROGEN 16 mg/dL (7-18); CALCIUM 7.9 mg/dL (8.5-10.1); CHLORIDE 100 mmol/L (98-107); CO2 27 mmol/L (21-32); CREATININE 0.6 mg/dL (0.55-1.3); GLUCOSE,RANDOM 102 mg/dL (74-106); PHOSPHOROUS 4.6 mg/dL (2.5-4.9); POTASSIUM 4.9 mmol/L (3.5-5.1); SGOT/AST 25 U/L (15-37); SGPT/ALT 18 U/L (13-61); SODIUM 133 mmol/L (136-145); TOT PROT 5.6 g/dl (6.4-8.2)
--- NOTE | 2018-09-25 07:22 | OP ---
DATE OF OPERATION: 09/24/2018 SURGEON: Narda Reza MD AUTOMATIC PINSETTER ADJUSTER: John Ruffin MD PREOPERATIVE DIAGNOSES: Hypertension, hyperlipidemia, possible peripheral arterial disease, pleural effusion, failure to thrive, and shortness of breath, alcohol abuse. POSTOPERATIVE DIAGNOSES: Hypertension, hyperlipidemia, possible peripheral arterial disease, pleural effusion, failure to thrive, and shortness of breath, alcohol abuse. PROCEDURE PERFORMED: Bronchoscopy with bronchoalveolar lavage, right video-assisted thoracoscopic surgery, pleural biopsy, and decortication. INDICATION: A 73-year-old male with significant medical history of hypertension, HLD, and possibly PAD, was brought in by family for failure to thrive and shortness of breath. Imaging showed right-sided pleural fluid. Thoracentesis was performed, showed exudative fluid. Hereafter, a pigtail was placed in. It was draining. Following imaging showed a trapped lung. Decision was made to explore this for possible malignancy in form of bronchoscopy and VATS pleural biopsy. Patient and patient's son were informed about the procedure and consented for surgery. PROCEDURE IN DETAIL: Patient was brought into the OR, was placed in supine position. IV access was done by anesthesiologist. Intra-arterial line was done by anesthesiologist, was sedated with IV sedation, intubated with a single-lumen tube. Bronchoscopy was performed. Bronchial washing from right bronchus intermedius was performed, sent for culture. Hereafter, the single-lumen tube was changed over to a double-lumen tube, and position was checked using bronchoscope. Patient was placed in the left lateral decubitus position, flexed position, right side up; prepped and draped in sterile fashion. Maximum pressure points were padded. At the level of IC7, incision was made. Pleura were entered. Scope was entered. A trapped middle lobe and lower lobe identified. Upper lobe was adherent to the chest wall. Hereafter, some fluid was suctioned, and then, random pleural biopsy was performed. The frozen section showed inflammation. Hereafter, decortication of the lung was started using Diagonal and peanut. Thick layers of fibrous tissue were removed from the visceral pleura in the lower lobe and the middle lobe and some part of the upper lobe. Fissure was opened. Due to long-term entrapment, the lung did not expand totally. It will take time for complete expansion if possible at all. Therefore, I decided to put a PleurX catheter and a chest tube. The chest tube will be for management after the postoperative period. Hemostasis was secured. It should be also mentioned, 2 other incisions, one in IC7 in angular line and IC4 in anterior axillary line were made using these 2 ports for decortication. The incision lines were closed. The PleurX was tunneled and Pleurovac was connected to the PleurX, and chest tube was connected to Pleurovac separately. EBL was estimated about 50 mL. Patient tolerated the procedure well. I performed the procedure as dictated above and remained available thereafter. NARDA REZA M.D. [id number]
--- NOTE | 2018-09-25 08:15 | PN ---
Progress Note (short form) - Note Progress Note: Anesthesia POD#1 S/P Right lung VATS,Decortication and Pleurex catheter placement under GA and A- line VSS,awake and alert,using iv FIRER MARINE,started oral diet. A/P Patient is progressing well. A-Line can be removed. Oral pain meds instead of IV FIRER MARINE. Christianne Castorena MD.
--- NOTE | 2018-09-25 08:28 | OP ---
DATE OF OPERATION: DATE OF DICTATION: 09/24/2018 PREOPERATIVE DIAGNOSIS: Urinary retention. POSTOPERATIVE DIAGNOSIS: Urinary retention. PROCEDURE: Insertion of Oscar catheter. INDICATION: Patient is a 73-year-old male who was undergoing a VATS procedure. Prior to procedure, a Oscar catheter could not be placed, and so I was called in for intraop consultation. DESCRIPTION OF PROCEDURE: At the end of the VATS procedure, the patient was placed back in the supine position, and an 16-Upper Sorbian coude Oscar catheter was placed into the bladder under sterile condition without difficulty. Dark red urine was retrieved. IMPRESSION: Urinary retention. PLAN: Keep the catheter in until patient is ambulatory and urine is clear, and at that point give a voiding trial. KAREN FIGUEREDO M.D. [id number] MTDD
[2018-09-25] MEDS: HEPARIN NA (PORCINE) 5,000 UNITS/ML 1ML VIAL SQ SCH ×3 (08:43→21:20)
[2018-09-25] MEDS ORDERED: FAMOTIDINE 20 MG/50 ML IVPB 20 MG/50 ML MG IVPB SCH (10:00)
[2018-09-25] MEDS: POTASSIUM CHLORIDE TABS 10 MEQ TABLET.ER (FP) PO SCH (10:23)
[2018-09-25] MEDS: MUPIROCIN 2% TOPICAL OINTMENT FOR DECOLONIZATION NS SCH ×2 (10:23→21:23)
[2018-09-25] MEDS: THIAMINE HCL 100 MG TABLET (FP) PO SCH (10:23)
[2018-09-25] MEDS: MAGNESIUM OXIDE 400 MG TABLET (FP) PO SCH (10:23)
[2018-09-25] MEDS: FOLIC ACID 1 MG TABLET (FP) PO SCH (10:24)
[2018-09-25] MEDS ORDERED: PT OWN MED DRAWER 7, Y5N ONE ×2 (10:30→21:13)
[2018-09-25] MEDS: ATENOLOL 25 MG TABLET (FP) PO SCH (10:31)
[2018-09-25] MEDS: oxyCODONE HCL 5 MG TABLET PO PRN ×2 (11:11→18:17)
--- NOTE | 2018-09-25 12:05 | PN ---
Teaching Attending Note Name of Resident: Irene Miramontes ATTENDING PHYSICIAN STATEMENT I saw and evaluated the patient. I reviewed the resident's note and discussed the case with the resident. I agree with the resident's findings and plan as documented. SUBJECTIVE: Patient seen and examined in the ICU. Awake and alert. (+) pain/discomfort at the surgical site. (+) air leak noted CXR: CT in place / PTX right base Intake & Output 09/22/18 09/23/18 09/24/18 09/25/18 23:59 23:59 23:59 23:59 Intake Total 1260 947 1754 775 Output Total 810 800 450 710 Balance 286 65 9835 65 Weight 190 lb 8 oz Last Vital Signs Temp Pulse Resp BP Pulse Ox 98.0 F 84 18 116/69 97 09/25/18 10:00 09/25/18 10:00 09/25/18 10:00 09/25/18 10:00 09/24/18 22:00 Active Medications Acetaminophen (Tylenol -) 650 mg PO Q6H PRN PRN Reason: PAIN LEVEL 4 - 6 Atenolol (Tenormin -) 25 mg PO DAILY [facility] Last Admin: 09/25/18 10:31 Dose: 25 mg Docusate Sodium (Colace -) 100 mg PO BID PRN PRN Reason: CONSTIPATION Fentanyl (Sublimaze Injection -) 50 mcg IVPUSH Q5M PRN PRN Reason: PAIN-PACU ORDER X 4 DOSES ONLY Folic Acid (Folic Acid -) 1 mg PO DAILY [facility] Last Admin: 09/25/18 10:24 Dose: 1 mg Heparin Sodium (Porcine) (Heparin -) 5,000 unit SQ BID [facility] Last Admin: 09/25/18 10:24 Dose: Not Given Cefazolin Sodium (Ancef 1 Gm Premixed Ivpb -) 1 gm in 50 mls @ 100 mls/hr IVPB Q8H [facility] Stop: 09/25/18 18:59 Last Admin: 09/25/18 02:56 Dose: 100 mls/hr Lactated Ringer's (Lactated Ringers Solution) 1,000 mls @ 75 mls/hr IV ASDIR [facility] Last Admin: 09/24/18 22:01 Dose: 75 mls/hr Magnesium Oxide (Mag-Ox -) 400 mg PO DAILY [facility] Last Admin: 09/25/18 10:23 Dose: 400 mg Mupirocin (Bactroban Ointment (For Decolonization) -) 1 applic NS BID [facility] Stop: 09/29/18 21:59 Last Admin: 09/25/18 10:23 Dose: 1 applic Ondansetron HCl (Zofran Injection) 4 mg IVPUSH Q6H PRN PRN Reason: NAUSEA AND/OR VOMITING Oxycodone HCl (Roxicodone -) 10 mg PO Q6H PRN PRN Reason: PAIN LEVEL 4 - 6 Stop: 09/26/18 08:15 Potassium Chloride (K-Dur -) 10 meq PO DAILY [facility] Last Admin: 09/25/18 10:23 Dose: 10 meq Primidone (Mysoline -) 50 mg PO HS [facility] Last Admin: 09/24/18 22:02 Dose: 50 mg Senna (Senna -) 2 tab PO HS PRN PRN Reason: CONSTIPATION Thiamine HCl (Vitamin B1 -) 100 mg PO DAILY [facility] Last Admin: 09/25/18 10:23 Dose: 100 mg Constitutional: Yes: Awake and alert, NAD Eyes: Yes: WNL HENT: Yes: WNL Neck: Yes: WNL Cardiovascular: Yes: Regular Rate and Rhythm, S1, S2 Respiratory: Yes: Diminished, Right chest tube x 2, (+) air leak Gastrointestinal: Yes: Normal Bowel Sounds, Soft Extremities: Yes: WNL Edema: No Labs: Laboratory Results - last 24 hr 09/24/18 09/24/18 09/24/18 15:45 15:45 19:20 WBC 10.3 H RBC 3.81 L Hgb 13.7 Hct 39.4 D MCV 103.4 H MCH 36.0 H MCHC 34.8 RDW 13.3 Plt Count 291 MPV 7.2 L Absolute Neuts (auto) 8.3 H Neutrophils % 81.3 D Lymphocytes % 10.3 D Monocytes % 7.1 Eosinophils % 0.9 Basophils % 0.4 Nucleated RBC % 0 Anticoagulation Therapy No Result Required. Puncture Site Arterial line ABG pH 7.40 ABG pCO2 at Pt Temp 41.4 ABG pO2 at Pt Temp 89.9 ABG HCO3 24.8 ABG O2 Sat (Measured) 96.1 ABG O2 Content 18.4 ABG Base Excess 0.4 Yfn Test No Result Required. O2 Delivery Device No Result Required. Oxygen Flow Rate Yes Vent Mode No Result Required. Vent Rate No Result Required. Mechanical Rate No Result Required. Pressure Support Vent No Result Required. Sodium 136 Potassium 4.3 Chloride 99 Carbon Dioxide 31 Anion Gap 6 L BUN 12 Creatinine 0.7 Creat Clearance w eGFR > 60 Random Glucose 100 Calcium 8.4 L Phosphorus Magnesium Total Bilirubin 0.6 AST 29 ALT 23 Alkaline Phosphatase 93 Total Protein 5.7 L Albumin 2.3 L 09/25/18 09/25/18 05:30 05:30 WBC 8.2 RBC 3.49 L Hgb 12.6 Hct 35.4 MCV 101.3 H MCH 36.0 H MCHC 35.5 RDW 13.3 Plt Count 281 MPV 7.5 Absolute Neuts (auto) 6.1 Neutrophils % 73.9 Lymphocytes % 12.7 D Monocytes % 11.1 H Eosinophils % 1.7 D Basophils % 0.6 Nucleated RBC % 0 Anticoagulation Therapy Puncture Site ABG pH ABG pCO2 at Pt Temp ABG pO2 at Pt Temp ABG HCO3 ABG O2 Sat (Measured) ABG O2 Content ABG Base Excess Yfn Test O2 Delivery Device Oxygen Flow Rate Vent Mode Vent Rate Mechanical Rate Pressure Support Vent Sodium 133 L Potassium 4.9 Chloride 100 Carbon Dioxide 27 Anion Gap 6 L BUN 16 Creatinine 0.6 Creat Clearance w eGFR > 60 Random Glucose 102 Calcium 7.9 L Phosphorus 4.6 Magnesium 2.0 Total Bilirubin 0.8 AST 25 ALT 18 Alkaline Phosphatase 83 Total Protein 5.6 L Albumin 2.0 L Assessment/Plan Problem List - Problems (1) UTI (urinary tract infection) Code(s): N39.0 - URINARY TRACT INFECTION, SITE NOT SPECIFIED (2) Lactic acidosis Code(s): E87.2 - ACIDOSIS (3) Pleural effusion Code(s): J90 - PLEURAL EFFUSION, NOT ELSEWHERE CLASSIFIED (4) Hypertension Code(s): I10 - ESSENTIAL (PRIMARY) HYPERTENSION (5) Failure to thrive in adult Code(s): R62.7 - ADULT FAILURE TO THRIVE Assessment/Plan UTI Bilateral Pleural Effusions s/p R Thoracentesis - Exudate r/o Malignancy Failure to Thrive Lactic Acidosis HTN Hyperlipidemia Trapped lung Floor - chest tube to suction - DVT prophylaxis - Encourage Incentive Spirometry - f/u chest x-rays - Floor Dr Zamora
--- NOTE | 2018-09-25 12:32 | PATH ---
Surgical Pathology Report Patient Name: ESTER HOLLIDAY [facility]. Rec. #: [id number] /Age/Gender: 1945 (Age: 73) / M Account: [id number] Location: ICU INSTRUCTOR DANCING Taken: 09/24/2018 Received: 09/24/2018 Reported: 09/25/2018 Physicians: Jarod Randhawa M.D. Specimen(s) Received PLEURAL BIOPSY Clinical History Pleural effusion Intraoperative Consult Diagnosis Pleural biopsy, frozen section: Mixed acute and chronic inflammatory infiltrate. No malignancy identified. Delio Christina M.D., 09/24/2018 Final Diagnosis PLEURAL, BIOPSY: BENIGN FIBROMEMBRANOUS TISSUE WITH DENSE FIBROSIS, ACUTE AND CHRONIC INFLAMMATORY INFILTRATE , AND FOCAL HEMOSIDERIN-LADEN MACROPHAGES. CRUSH ARTIFACT PRESENT. NO MALIGNANCY IDENTIFIED. Electronically Signed Valeria Clark M.D. Gross Description Received fresh labeled "pleural biopsy," are 2 hernandez red soft tissue fragments measuring 0.4 and 0.8 cm in greatest dimension. The specimen is submitted in toto for frozen section. The frozen section residue is entirely submitted in one cassette. /09/24/201809/24/2018
--- NOTE | 2018-09-25 14:29 | PN ---
Progress Note (short form) - Note Progress Note: 73yo M s/p Right VATS and chest tube/pleurex placement. Pt seen and examined at bedside. Pt denies SOB, fever, chills, n/v. Pt complains of some Rt chest wall tenderness. Last Vital Signs Temp Pulse Resp BP Pulse Ox 97.6 F 86 16 115/69 98 09/25/18 12:00 09/25/18 12:00 09/25/18 12:00 09/25/18 12:00 09/25/18 09:00 CBC, BMP 09/25/18 05:30 09/25/18 05:30 PE Gen: A&O X3 Resp: breathing comfortably Chest: Rt chest tube in place with no erythema or discharge, Rt pleurex in place , serou-sanguinous drainage noted. Output: 310ml CXR: unchanged from previous Problem List - Problems (1) Pleural effusion Assessment/Plan: Plan -continue chest tube to suction -serial chest x-ray -OOB -DVT ppx -will follow Code(s): J90 - PLEURAL EFFUSION, NOT ELSEWHERE CLASSIFIED
--- NOTE | 2018-09-25 14:56 | PN ---
Progress Note (short form) - Note Progress Note: Thoracic POD1 for Darek Doing well. Airleak on one tube. Suction for few days. DC planning next week with pleurx.
--- NOTE | 2018-09-25 15:51 | PN ---
Physical Exam: SUBJECTIVE: Patient seen and examined this AM in ICU. Continues to have pain at surgical site. No new complaints. No acute overnight events. OBJECTIVE: Vital Signs Period Temp Pulse Resp BP Sys/Lou Pulse Ox Last 24 Hr 97.3 F-99.0 F 58-98 12-20 104-134/56-71 97-98 GENERAL: A&Ox3, NAD HEAD: NCAT EYES: PERRL, EOMI ENT: Moist mucous membranes NECK: Supple CHEST: Right sided Chest tube placed with overlying dressing clean, dry and intact LUNGS: Diminished breath sounds at the bases, No wheezes, No crackles HEART: RRR, normal S1 and S2, 2/6 systolic murmur at the RUSB ABDOMEN: Soft, nontender, not distended, + bowel sounds, no guarding : Oscar Catheter inplace EXTREMITIES: No peripheral edema NEUROLOGICAL: Cranial nerves II-XII intact. Normal Speech. SKIN: Warm, dry. Excoriations over the b/l anterior lower extremities with Dried scab over Right lower extremity Laboratory Results - last 24 hr 09/24/18 09/24/18 09/24/18 15:45 15:45 19:20 WBC 10.3 H RBC 3.81 L Hgb 13.7 Hct 39.4 D MCV 103.4 H MCH 36.0 H MCHC 34.8 RDW 13.3 Plt Count 291 MPV 7.2 L Absolute Neuts (auto) 8.3 H Neutrophils % 81.3 D Lymphocytes % 10.3 D Monocytes % 7.1 Eosinophils % 0.9 Basophils % 0.4 Nucleated RBC % 0 Anticoagulation Therapy No Result Required. Puncture Site Arterial line ABG pH 7.40 ABG pCO2 at Pt Temp 41.4 ABG pO2 at Pt Temp 89.9 ABG HCO3 24.8 ABG O2 Sat (Measured) 96.1 ABG O2 Content 18.4 ABG Base Excess 0.4 Yfn Test No Result Required. O2 Delivery Device No Result Required. Oxygen Flow Rate Yes Vent Mode No Result Required. Vent Rate No Result Required. Mechanical Rate No Result Required. Pressure Support Vent No Result Required. Sodium 136 Potassium 4.3 Chloride 99 Carbon Dioxide 31 Anion Gap 6 L BUN 12 Creatinine 0.7 Creat Clearance w eGFR > 60 Random Glucose 100 Calcium 8.4 L Phosphorus Magnesium Total Bilirubin 0.6 AST 29 ALT 23 Alkaline Phosphatase 93 Total Protein 5.7 L Albumin 2.3 L 09/25/18 09/25/18 05:30 05:30 WBC 8.2 RBC 3.49 L Hgb 12.6 Hct 35.4 MCV 101.3 H MCH 36.0 H MCHC 35.5 RDW 13.3 Plt Count 281 MPV 7.5 Absolute Neuts (auto) 6.1 Neutrophils % 73.9 Lymphocytes % 12.7 D Monocytes % 11.1 H Eosinophils % 1.7 D Basophils % 0.6 Nucleated RBC % 0 Anticoagulation Therapy Puncture Site ABG pH ABG pCO2 at Pt Temp ABG pO2 at Pt Temp ABG HCO3 ABG O2 Sat (Measured) ABG O2 Content ABG Base Excess Yfn Test O2 Delivery Device Oxygen Flow Rate Vent Mode Vent Rate Mechanical Rate Pressure Support Vent Sodium 133 L Potassium 4.9 Chloride 100 Carbon Dioxide 27 Anion Gap 6 L BUN 16 Creatinine 0.6 Creat Clearance w eGFR > 60 Random Glucose 102 Calcium 7.9 L Phosphorus 4.6 Magnesium 2.0 Total Bilirubin 0.8 AST 25 ALT 18 Alkaline Phosphatase 83 Total Protein 5.6 L Albumin 2.0 L Microbiology 09/24/18 14:15 Bronchial Washings - Bilateral Lung Fluid Gram Stain - Final 09/24/18 14:15 Tissue-Other Gram Stain - Final 09/24/18 14:15 Bronchial Washings - Bilateral Lung Fluid ROBERT Preparation - Preliminary 09/24/18 14:15 Bronchial Washings - Bilateral Lung Fluid Fungal Culture - Preliminary 09/24/18 14:15 Tissue-Other ROBERT Preparation - Preliminary 09/24/18 14:15 Tissue-Other Fungal Culture - Preliminary 09/15/18 12:20 Pleural Fluid AFB Smear Concentration - Final 09/15/18 12:20 Pleural Fluid Mycobacterial Culture - Preliminary 09/15/18 12:20 Pleural Fluid Gram Stain - Final 09/15/18 12:20 Pleural Fluid Body Fluid Culture - Final NO GROWTH OF AEROBIC ORGANISMS AFTER 48 HOURS INCUBATION 09/15/18 12:20 Pleural Fluid Anaerobic Culture - Final NO ANAEROBES WERE ISOLATED 09/15/18 12:20 Pleural Fluid ROBERT Preparation - Preliminary 09/15/18 12:20 Pleural Fluid Fungal Culture - Preliminary 09/07/18 12:55 Thoracic Fluid Gram Stain - Final 09/07/18 12:55 Thoracic Fluid Body Fluid Culture - Final NO GROWTH OF AEROBIC ORGANISMS AFTER 48 HOURS INCUBATION 09/07/18 12:55 Thoracic Fluid Anaerobic Culture - Final NO ANAEROBES WERE ISOLATED 09/07/18 12:55 Thoracic Fluid AFB Smear Concentration - Final 09/07/18 12:55 Thoracic Fluid Mycobacterial Culture - Preliminary 09/07/18 12:55 Thoracic Fluid ROBERT Preparation - Preliminary 09/07/18 12:55 Thoracic Fluid Fungal Culture - Preliminary 09/04/18 15:02 Urine - Urine Clean Catch Urine Culture - Final Escherichia Coli Active Medications Acetaminophen (Tylenol -) 650 mg PO Q6H PRN PRN Reason: PAIN LEVEL 4 - 6 Atenolol (Tenormin -) 25 mg PO DAILY [facility] Last Admin: 09/25/18 10:31 Dose: 25 mg Docusate Sodium (Colace -) 100 mg PO BID PRN PRN Reason: CONSTIPATION Fentanyl (Sublimaze Injection -) 50 mcg IVPUSH Q5M PRN PRN Reason: PAIN-PACU ORDER X 4 DOSES ONLY Folic Acid (Folic Acid -) 1 mg PO DAILY [facility] Last Admin: 09/25/18 10:24 Dose: 1 mg Heparin Sodium (Porcine) (Heparin -) 5,000 unit SQ BID [facility] Last Admin: 09/25/18 10:24 Dose: Not Given Cefazolin Sodium (Ancef 1 Gm Premixed Ivpb -) 1 gm in 50 mls @ 100 mls/hr IVPB Q8H [facility] Stop: 09/25/18 18:59 Last Admin: 09/25/18 11:45 Dose: 100 mls/hr Lactated Ringer's (Lactated Ringers Solution) 1,000 mls @ 75 mls/hr IV ASDIR [facility] Last Admin: 09/24/18 22:01 Dose: 75 mls/hr Magnesium Oxide (Mag-Ox -) 400 mg PO DAILY [facility] Last Admin: 09/25/18 10:23 Dose: 400 mg Mupirocin (Bactroban Ointment (For Decolonization) -) 1 applic NS BID [facility] Stop: 09/29/18 21:59 Last Admin: 09/25/18 10:23 Dose: 1 applic Ondansetron HCl (Zofran Injection) 4 mg IVPUSH Q6H PRN PRN Reason: NAUSEA AND/OR VOMITING Oxycodone HCl (Roxicodone -) 10 mg PO Q6H PRN PRN Reason: PAIN LEVEL 4 - 6 Stop: 09/26/18 08:15 Last Admin: 09/25/18 11:11 Dose: 10 mg Potassium Chloride (K-Dur -) 10 meq PO DAILY [facility] Last Admin: 09/25/18 10:23 Dose: 10 meq Primidone (Mysoline -) 50 mg PO HS [facility] Last Admin: 09/24/18 22:02 Dose: 50 mg Senna (Senna -) 2 tab PO HS PRN PRN Reason: CONSTIPATION Thiamine HCl (Vitamin B1 -) 100 mg PO DAILY [facility] Last Admin: 09/25/18 10:23 Dose: 100 mg ASSESSMENT/PLAN: 73 y/o M with PMHx of HTN, HLD, possible PAD, EtOH Abuse (Last drink 1 month ago ), admitted for SOB and unintentional weight loss, found to have b/l Pleural Effusion and will be monitored in ICU s/p Right VAT procedure with Pleural biopsy. #Neuro Hx of EtOH Abuse, Essential Tremor -A&Ox3, NAD -Psych (Dr. Vigil) Consulted, Appreciate Rec's; Patient lacks functional capacity to make informed decisions at this time -Dr. Maria consulted, Appreciate rec's -Continue Thiamine, Folic Acid, Multivitamin, Primidone -Monitor CIWA for withdrawal #Cardio Hx of HTN, HLD, PAD -Continue home dose Atenolol -Dr. Flores consulted, Appreciate Rec's #Pulmonary S/P Right VAT procedure with Pleural biopsy POD #1 B/L Pleural Effusions s/p R Thoracentesis -Follow Microbiology, Bx -Dilaudid Immigration Inspector D/C'ed; Pain control via PO Oxycodone -F/u CXR -Chest tube to suction, Monitor output -Incentive Spirometry -Cefazolin PeriOperatively #GI -Bowel Regimen via Senna, Docusate #Renal -Oscar Catheter placed in the OR -Dr. Leo consulted -Continue KDur 10mEq, Mag-Ox 400mg Daily -Monitor Urine Output #Heme Macrocytic Anemia -Likely due to EtOH Abuse -Continue Thiamine, Folic Acid -No active bleeding, Monitor CBC #Endo -No active issues, continue to monitor #ID Recent UTI Lactic Acidosis, Resolved -Completed course of Ceftriaxone -Remains AFebrile, Without Elevated WBC Count -Continue to monitor for signs of infection #FEN -No Standing Fluids -Lytes WNL -Clear Liquid diet #PPx -DVT: SCDs, Heparin Code Status: Full Code Dispo: Transfer to Med-Surg Visit type - Emergency Visit Emergency Visit: Yes ED Registration Date: 09/04/18 Care time: The patient presented to the Emergency Department on the above date and was hospitalized for further evaluation of their emergent condition. - New Patient This patient is new to me today: No - Critical Care Critical Care patient: Yes Total Critical Care Time (in minutes): 36 Critical Care Statement: The care of this patient involved high complexity decision making to prevent further life threatening deterioration of the patient 's condition and/or to evaluate & treat vital organ system(s) failure or risk of failure.
[2018-09-25] MEDS: LACTATED RINGERS SOLUTION 1,000 ML IV SCH ×2 (16:18→19:25)
--- NOTE | 2018-09-25 16:57 | PN ---
Physical Exam: SUBJECTIVE: Patient seen and examined, denies pain or shortness of breath OBJECTIVE: Rt chest tube in place and right pleurex in place, with sero sang chest xray with unchanged pneumothx Vital Signs Period Temp Pulse Resp BP Sys/Lou Pulse Ox Last 24 Hr 97.3 F-99.0 F 58-98 12-20 104-134/56-71 97-98 GENERAL: The patient is awake, alert, in no acute distress. denies pain. in icu post op day #1 HEAD: Normal with no signs of trauma. EYES: PERRL, extraocular movements intact, sclera anicteric, conjunctiva clear. No ptosis. ENT: Ears normal, nares patent, oropharynx clear without exudates, moist mucous membranes. NECK: Trachea midline, full range of motion, supple. LUNGS: anteriorly sounds clear to auscultation, s/p VATS procedures. on 2 liters of nasal cannula. - 2 chest tubes HEART: Regular rate and rhythm ABDOMEN: Soft, nontender, nondistended, normoactive bowel sounds EXTREMITIES: no edema. NEUROLOGICAL: Normal speech, gait not observed. PSYCH: Normal mood, normal affect. SKIN: pain on surgical site, Laboratory Results - last 24 hr 09/24/18 09/24/18 09/24/18 15:45 15:45 19:20 WBC 10.3 H RBC 3.81 L Hgb 13.7 Hct 39.4 D MCV 103.4 H MCH 36.0 H MCHC 34.8 RDW 13.3 Plt Count 291 MPV 7.2 L Absolute Neuts (auto) 8.3 H Neutrophils % 81.3 D Lymphocytes % 10.3 D Monocytes % 7.1 Eosinophils % 0.9 Basophils % 0.4 Nucleated RBC % 0 Anticoagulation Therapy No Result Required. Puncture Site Arterial line ABG pH 7.40 ABG pCO2 at Pt Temp 41.4 ABG pO2 at Pt Temp 89.9 ABG HCO3 24.8 ABG O2 Sat (Measured) 96.1 ABG O2 Content 18.4 ABG Base Excess 0.4 Yfn Test No Result Required. O2 Delivery Device No Result Required. Oxygen Flow Rate Yes Vent Mode No Result Required. Vent Rate No Result Required. Mechanical Rate No Result Required. Pressure Support Vent No Result Required. Sodium 136 Potassium 4.3 Chloride 99 Carbon Dioxide 31 Anion Gap 6 L BUN 12 Creatinine 0.7 Creat Clearance w eGFR > 60 Random Glucose 100 Calcium 8.4 L Phosphorus Magnesium Total Bilirubin 0.6 AST 29 ALT 23 Alkaline Phosphatase 93 Total Protein 5.7 L Albumin 2.3 L 09/25/18 09/25/18 05:30 05:30 WBC 8.2 RBC 3.49 L Hgb 12.6 Hct 35.4 MCV 101.3 H MCH 36.0 H MCHC 35.5 RDW 13.3 Plt Count 281 MPV 7.5 Absolute Neuts (auto) 6.1 Neutrophils % 73.9 Lymphocytes % 12.7 D Monocytes % 11.1 H Eosinophils % 1.7 D Basophils % 0.6 Nucleated RBC % 0 Anticoagulation Therapy Puncture Site ABG pH ABG pCO2 at Pt Temp ABG pO2 at Pt Temp ABG HCO3 ABG O2 Sat (Measured) ABG O2 Content ABG Base Excess Yfn Test O2 Delivery Device Oxygen Flow Rate Vent Mode Vent Rate Mechanical Rate Pressure Support Vent Sodium 133 L Potassium 4.9 Chloride 100 Carbon Dioxide 27 Anion Gap 6 L BUN 16 Creatinine 0.6 Creat Clearance w eGFR > 60 Random Glucose 102 Calcium 7.9 L Phosphorus 4.6 Magnesium 2.0 Total Bilirubin 0.8 AST 25 ALT 18 Alkaline Phosphatase 83 Total Protein 5.6 L Albumin 2.0 L Active Medications Generic Name Dose Route Start Last Admin Trade Name Rogerq PRN Reason Stop Dose Admin Acetaminophen 650 mg 09/24/18 16:46 Tylenol - PO Q6H PRN PAIN LEVEL 4 - 6 Atenolol 25 mg 09/25/18 10:00 09/25/18 10:31 Tenormin - PO 25 mg DAILY [facility] Administration Docusate Sodium 100 mg 09/24/18 16:46 Colace - PO BID PRN CONSTIPATION Fentanyl 50 mcg 09/24/18 18:57 Sublimaze Injection - IVPUSH Q5M PRN PAIN-PACU ORDER X 4 DOSES ONLY Folic Acid 1 mg 09/25/18 10:00 09/25/18 10:24 Folic Acid - PO 1 mg DAILY [facility] Administration Heparin Sodium (Porcine) 5,000 unit 09/25/18 08:00 09/25/18 10:24 Heparin - SQ Not Given BID [facility] Cefazolin Sodium 1 gm in 50 mls @ 100 mls/hr 09/24/18 19:00 09/25/18 11:45 Ancef 1 Gm Premixed Ivpb - IVPB 09/25/18 18:59 100 mls/hr Q8H [facility] Administration Lactated Ringer's 1,000 mls @ 75 mls/hr 09/24/18 19:00 09/24/18 22:01 Lactated Ringers Solution IV 75 mls/hr ASDIR [facility] Administration Magnesium Oxide 400 mg 09/25/18 10:00 09/25/18 10:23 Mag-Ox - PO 400 mg DAILY [facility] Administration Mupirocin 1 applic 09/24/18 22:00 09/25/18 10:23 Bactroban Ointment (For Decolonization) - NS 09/29/18 21:59 1 applic BID [facility] Administration Ondansetron HCl 4 mg 09/24/18 18:57 Zofran Injection IVPUSH Q6H PRN NAUSEA AND/OR VOMITING Oxycodone HCl 10 mg 09/25/18 08:16 09/25/18 11:11 Roxicodone - PO 09/26/18 08:15 10 mg Q6H PRN Administration PAIN LEVEL 4 - 6 Potassium Chloride 10 meq 09/25/18 10:00 09/25/18 10:23 K-Dur - PO 10 meq DAILY [facility] Administration Primidone 50 mg 09/24/18 22:00 09/24/18 22:02 Mysoline - PO 50 mg HS [facility] Administration Senna 2 tab 09/24/18 16:46 Senna - PO HS PRN CONSTIPATION Thiamine HCl 100 mg 09/25/18 10:00 09/25/18 10:23 Vitamin B1 - PO 100 mg DAILY [facility] Administration ASSESSMENT/PLAN: Patient is a 73 year old male with a significant past medical history of HTN, HLD, possible PAD, who was brought in by family for failure to thrive and SOB. Patient is reported to drink nightly, however he denies having hx of ETOH abuse. He was also found to have a bilateral pleural effusions, right > left. Imaging: chest ct w/iv contrast 09/12/18: left pleural effusion signif.decreased from prior study. large right pleural eff mild decrease compared to prior study. 4 x 2 cm consolidations or mass posterior lower lobe unchanged. chest xray 09/25: chest xray with unchanged pneumothx Pulm: VATS procedure Right video assisted thoracoscopy with pleural biopsy, decortication, pleurx insertion, pod #1 Monitor chest tube output. Pleural biopsy and visceral pleural biopsy sent Pain management, incentive spirometer, chest xrays Card: Rule out cardiac cause of right thoracentesis Being followed by cardiology, stress test as an outpatient. Psyche: ETOH abuse, no acute issues UTI completed 7 days of ceftriaxone. fen tolerating po electrolytes daily regular diet prophy scds monitor Visit type - Emergency Visit Emergency Visit: Yes ED Registration Date: 09/04/18 Care time: The patient presented to the Emergency Department on the above date and was hospitalized for further evaluation of their emergent condition. - New Patient This patient is new to me today: No - Critical Care Critical Care patient: No - Discharge Referral Referred to [facility] Med P.C.: No
[2018-09-25] MEDS ORDERED: SODIUM CHLORIDE 250 ML IV STA (18:25)
[2018-09-25] MEDS: PRIMIDONE 50 MG TABLET PO SCH (21:20)
--- NOTE | 2018-09-26 01:45 | PN ---
Progress Note, Physician Chief Complaint: Pt A&Ox3; denies chest pain, dyspnea; awaits VATS. History of Present Illness: he patient is a 73 year old white male (natan Sal) with a significant medical history of HTN, HLD, ETHO abuse, diastolic CHF, possible PAD, who was brought in by family for failure to thrive and SOB. The family reports that the patient drinks ETOH to excess nightly, though pt denies drinking for the past month. Per son, pt was found in his home completely disheveled today with urine and stool on himself. They also report a significant weight loss recently. Pt endorses SOB with exertion. Denies CP. Denies SOB at rest. The patient denies headache and dizziness. The patient denies fever, chills, nausea, vomit, diarrhea and constipation. The patient denies dysuria, frequency , urgency and hematuria. Allergies: NKDA - Current Medication List Current Medications: Active Medications Acetaminophen (Tylenol -) 650 mg PO Q6H PRN PRN Reason: PAIN LEVEL 4 - 6 Atenolol (Tenormin -) 25 mg PO DAILY [facility] Last Admin: 09/25/18 10:31 Dose: 25 mg Docusate Sodium (Colace -) 100 mg PO BID PRN PRN Reason: CONSTIPATION Fentanyl (Sublimaze Injection -) 50 mcg IVPUSH Q5M PRN PRN Reason: PAIN-PACU ORDER X 4 DOSES ONLY Folic Acid (Folic Acid -) 1 mg PO DAILY [facility] Last Admin: 09/25/18 10:24 Dose: 1 mg Heparin Sodium (Porcine) (Heparin -) 5,000 unit SQ BID [facility] Last Admin: 09/25/18 21:20 Dose: 5,000 unit Lactated Ringer's (Lactated Ringers Solution) 1,000 mls @ 75 mls/hr IV ASDIR [facility] Last Admin: 09/25/18 19:25 Dose: Not Given Magnesium Oxide (Mag-Ox -) 400 mg PO DAILY [facility] Last Admin: 09/25/18 10:23 Dose: 400 mg Mupirocin (Bactroban Ointment (For Decolonization) -) 1 applic NS BID [facility] Stop: 09/29/18 21:59 Last Admin: 09/25/18 21:23 Dose: 1 applic Ondansetron HCl (Zofran Injection) 4 mg IVPUSH Q6H PRN PRN Reason: NAUSEA AND/OR VOMITING Oxycodone HCl (Roxicodone -) 10 mg PO Q6H PRN PRN Reason: PAIN LEVEL 4 - 6 Stop: 09/26/18 08:15 Last Admin: 09/25/18 18:17 Dose: 10 mg Potassium Chloride (K-Dur -) 10 meq PO DAILY [facility] Last Admin: 09/25/18 10:23 Dose: 10 meq Primidone (Mysoline -) 50 mg PO HS [facility] Last Admin: 09/25/18 21:20 Dose: 50 mg Senna (Senna -) 2 tab PO HS PRN PRN Reason: CONSTIPATION Thiamine HCl (Vitamin B1 -) 100 mg PO DAILY [facility] Last Admin: 09/25/18 10:23 Dose: 100 mg - Objective Vital Signs: Vital Signs Temperature 98.9 F 09/26/18 00:00 Pulse Rate 70 09/26/18 00:00 Respiratory Rate 18 09/26/18 00:00 Blood Pressure 100/57 L 09/26/18 00:51 O2 Sat by Pulse Oximetry (%) 98 09/25/18 22:00 Constitutional: Yes: Calm Eyes: Yes: WNL HENT: Yes: WNL Neck: Yes: WNL Cardiovascular: Yes: S1, S2 Respiratory: Yes: Diminished, SOB on Exertion, Other (right chest tube) Gastrointestinal: Yes: Soft ...Rectal Exam: Yes: Deferred Genitourinary: No: Anuria Musculoskeletal: Yes: Muscle Weakness Extremities: Yes: Cool Edema: No Peripheral Pulses WNL: No Peripheral Pulses: Left Doralis Pedis: 1+, Right Dorsalis Pedis: 1+ Integumentary: Yes: Other Neurological: Yes: Alert, Oriented, Weakness Psychiatric: Yes: Alert, Oriented Labs: CBC, BMP 09/25/18 05:30 09/25/18 05:30 INR, PTT INR 1.13 (0.83-1.09) H 09/24/18 07:40 - ....Imaging EKG: Image Reviewed (09/23/18: NSR; nonspecific T wave changes) Problem List - Problems (1) Moderate aortic stenosis Assessment/Plan: ECHO: normal LVEF; abnormal diastolic compliance; normal wall thickness; mild MR , TR, AR.; moderate . Denies chest pain, syncope, PND/orthopnea, leg swelling. On atenolol. Repeat EKG (initial EKG had baseline artifact). Code(s): I35.0 - NONRHEUMATIC AORTIC (VALVE) STENOSIS (2) Failure to thrive in adult Assessment/Plan: F/u with market risk analyst. Hypoalbuminemia. R/o malignancy. Code(s): R62.7 - ADULT FAILURE TO THRIVE (3) Hypertension Assessment/Plan: On atenolol; BP remains well-controlled. Code(s): I10 - ESSENTIAL (PRIMARY) HYPERTENSION (4) EtOH dependence Code(s): F10.20 - ALCOHOL DEPENDENCE, UNCOMPLICATED (5) S/P thoracentesis Assessment/Plan: 1,700 ml removed: exudate. Pigtail catheter placed; 30 ml fluid removed R/o malignancy: plans for PET scan in 4-6 weeks noted. Now with right chest tube. For VATS today. Code(s): Z98.890 - OTHER SPECIFIED POSTPROCEDURAL STATES (6) [place] cardiac risk >20% in next 10 years Assessment/Plan: Pt denies hx of cardiac disease; denies chest pain. As discussed with pt and family, workup to r/o malignancy and aid respiratory status is presently of prime concern. Stress test can be planned as outpatient. Code(s): Z91.89 - OTH PERSONAL RISK FACTORS, NOT ELSEWHERE CLASSIFIED (7) Hypoalbuminemia Code(s): E88.09 - OTH DISORDERS OF PLASMA-PROTEIN METABOLISM, NEC
--- NOTE | 2018-09-26 01:53 | PN ---
Progress Note, Physician Chief Complaint: Pt A&Ox3; c/o pain at chest tube entrance; s/p VATS. History of Present Illness: he patient is a 73 year old white male (natan Sal) with a significant medical history of HTN, HLD, ETHO abuse, diastolic CHF, possible PAD, who was brought in by family for failure to thrive and SOB. The family reports that the patient drinks ETOH to excess nightly, though pt denies drinking for the past month. Per son, pt was found in his home completely disheveled today with urine and stool on himself. They also report a significant weight loss recently. Pt endorses SOB with exertion. Denies CP. Denies SOB at rest. The patient denies headache and dizziness. The patient denies fever, chills, nausea, vomit, diarrhea and constipation. The patient denies dysuria, frequency , urgency and hematuria. Allergies: NKDA - Current Medication List Current Medications: Active Medications Acetaminophen (Tylenol -) 650 mg PO Q6H PRN PRN Reason: PAIN LEVEL 4 - 6 Atenolol (Tenormin -) 25 mg PO DAILY [facility] Last Admin: 09/25/18 10:31 Dose: 25 mg Docusate Sodium (Colace -) 100 mg PO BID PRN PRN Reason: CONSTIPATION Fentanyl (Sublimaze Injection -) 50 mcg IVPUSH Q5M PRN PRN Reason: PAIN-PACU ORDER X 4 DOSES ONLY Folic Acid (Folic Acid -) 1 mg PO DAILY [facility] Last Admin: 09/25/18 10:24 Dose: 1 mg Heparin Sodium (Porcine) (Heparin -) 5,000 unit SQ BID [facility] Last Admin: 09/25/18 21:20 Dose: 5,000 unit Lactated Ringer's (Lactated Ringers Solution) 1,000 mls @ 75 mls/hr IV ASDIR [facility] Last Admin: 09/25/18 19:25 Dose: Not Given Magnesium Oxide (Mag-Ox -) 400 mg PO DAILY [facility] Last Admin: 09/25/18 10:23 Dose: 400 mg Mupirocin (Bactroban Ointment (For Decolonization) -) 1 applic NS BID [facility] Stop: 09/29/18 21:59 Last Admin: 09/25/18 21:23 Dose: 1 applic Ondansetron HCl (Zofran Injection) 4 mg IVPUSH Q6H PRN PRN Reason: NAUSEA AND/OR VOMITING Oxycodone HCl (Roxicodone -) 10 mg PO Q6H PRN PRN Reason: PAIN LEVEL 4 - 6 Stop: 09/26/18 08:15 Last Admin: 09/25/18 18:17 Dose: 10 mg Potassium Chloride (K-Dur -) 10 meq PO DAILY [facility] Last Admin: 09/25/18 10:23 Dose: 10 meq Primidone (Mysoline -) 50 mg PO HS [facility] Last Admin: 09/25/18 21:20 Dose: 50 mg Senna (Senna -) 2 tab PO HS PRN PRN Reason: CONSTIPATION Thiamine HCl (Vitamin B1 -) 100 mg PO DAILY [facility] Last Admin: 09/25/18 10:23 Dose: 100 mg - Objective Vital Signs: Vital Signs Temperature 98.9 F 09/26/18 00:00 Pulse Rate 70 09/26/18 00:00 Respiratory Rate 18 09/26/18 00:00 Blood Pressure 100/57 L 09/26/18 00:51 O2 Sat by Pulse Oximetry (%) 98 09/25/18 22:00 Constitutional: Yes: No Distress, Thin Eyes: Yes: WNL HENT: Yes: WNL Neck: Yes: WNL Cardiovascular: Yes: S1, S2 Respiratory: Yes: Diminished, SOB on Exertion, Other Gastrointestinal: Yes: Soft ...Rectal Exam: Yes: Deferred Genitourinary: No: Anuria Breast(s): Yes: WNL Musculoskeletal: Yes: Muscle Weakness Extremities: Yes: Cool Edema: No Peripheral Pulses WNL: No Peripheral Pulses: Left Doralis Pedis: 1+, Right Dorsalis Pedis: 1+ Integumentary: Yes: Other Neurological: Yes: Alert, Oriented, Weakness Psychiatric: Yes: Alert, Oriented Labs: CBC, BMP 09/25/18 05:30 09/25/18 05:30 INR, PTT INR 1.13 (0.83-1.09) H 09/24/18 07:40 Abnormal Lab Results 09/25/18 09/25/18 05:30 05:30 RBC 3.49 L MCV 101.3 H MCH 36.0 H Monocytes % 11.1 H Sodium 133 L Anion Gap 6 L Calcium 7.9 L Total Protein 5.6 L Albumin 2.0 L - ....Imaging Chest X-ray: Image Reviewed Other: Image Reviewed (telemetry: NSR) Problem List - Problems (1) Moderate aortic stenosis Assessment/Plan: ECHO: normal LVEF; abnormal diastolic compliance; normal wall thickness; mild MR , TR, AR.; moderate . Denies chest pain, syncope, PND/orthopnea, leg swelling. On atenolol. Repeat EKG (initial EKG had baseline artifact). Code(s): I35.0 - NONRHEUMATIC AORTIC (VALVE) STENOSIS (2) Failure to thrive in adult Assessment/Plan: F/u with pig machine supervisor. Hypoalbuminemia. R/o malignancy. Code(s): R62.7 - ADULT FAILURE TO THRIVE (3) Hypertension Assessment/Plan: On atenolol; BP remains well-controlled. Code(s): I10 - ESSENTIAL (PRIMARY) HYPERTENSION (4) EtOH dependence Code(s): F10.20 - ALCOHOL DEPENDENCE, UNCOMPLICATED (5) S/P thoracentesis Assessment/Plan: 1,700 ml removed: exudate. Pigtail catheter placed; 30 ml fluid removed R/o malignancy: plans for PET scan in 4-6 weeks noted. Right chest tube; s/p VATS. Code(s): Z98.890 - OTHER SPECIFIED POSTPROCEDURAL STATES (6) [place] cardiac risk >20% in next 10 years Assessment/Plan: Pt denies hx of cardiac disease; denies chest pain. As discussed with pt and family, workup to r/o malignancy and aid respiratory status is presently of prime concern. Stress test can be planned as outpatient. Code(s): Z91.89 - [facility] PERSONAL RISK FACTORS, NOT ELSEWHERE CLASSIFIED (7) Hypoalbuminemia Code(s): E88.09 - OT DISORDERS OF PLASMA-PROTEIN METABOLISM, NEC Assessment/Plan CCU time spent: 35 minutes.
[2018-09-26] MEDS: oxyCODONE HCL 5 MG TABLET PO PRN ×2 (06:04→21:21)
[2018-09-26 06:59] LABS: BASO % 0.3 % (0-2.0); EOS % 2.3 % (0-4.5); HEMATOCRIT 28.8 % (35.4-49); HEMOGLOBIN 10.1 GM/dL (11.7-16.9); LYMPH % 15.4 % (8-40); MCH 35.8 pg (25.7-33.7); MEAN CELL VOLUME 102.4 fl (80-96); MEAN PLT VOLUME 7.1 fl (7.5-11.1); MONO % 11.3 % (3.8-10.2); NEUT % 70.7 % (42.8-82.8); PLATELET COUNT 198 K/MM3 (134-434); RBC 2.81 M/mm3 (4.00-5.60); RDW 12.8 % (11.9-15.9); WHITE BLOOD COUNT 5.3 K/mm3 (4.0-10.0)
[2018-09-26 07:18] LABS: ALBUMIN 1.8 g/dl (3.4-5.0); ALK PHOS 61 U/L (45-117); ANION GAP 5 MMOL/L (8-16); BILIRUBIN,TOTAL 0.9 mg/dL (0.2-1); BLOOD UREA NITROGEN 12 mg/dL (7-18); CALCIUM 8.1 mg/dL (8.5-10.1); CHLORIDE 95 mmol/L (98-107); CO2 30 mmol/L (21-32); CREATININE 0.4 mg/dL (0.55-1.3); GLUCOSE,RANDOM 88 mg/dL (74-106); MAGNESIUM 1.7 mg/dL (1.8-2.4); PHOSPHOROUS 2.6 mg/dL (2.5-4.9); SGOT/AST 13 U/L (15-37); SGPT/ALT 11 U/L (13-61); SODIUM 130 mmol/L (136-145); TOT PROT 4.7 g/dl (6.4-8.2)
--- NOTE | 2018-09-26 08:11 | PN ---
Progress Note (short form) - Note Progress Note: PULM/CCM POD #2 s/p R VATS w/ bx, decort, & Pleurx insert Pt Seen & Examined in the ICU. C & A, NAD, c/o mild discomfort @ surgical site, R CT & R Pleurx draining sero-sanguineous fluid, no leak, CXR shows complete resolution of PTX. Active Medications Acetaminophen (Tylenol -) 650 mg PO Q6H PRN PRN Reason: PAIN LEVEL 4 - 6 Atenolol (Tenormin -) 25 mg PO DAILY [facility] Last Admin: 09/26/18 09:26 Dose: 25 mg Docusate Sodium (Colace -) 100 mg PO BID PRN PRN Reason: CONSTIPATION Folic Acid (Folic Acid -) 1 mg PO DAILY [facility] Last Admin: 09/26/18 09:23 Dose: 1 mg Heparin Sodium (Porcine) (Heparin -) 5,000 unit SQ BID [facility] Last Admin: 09/26/18 21:21 Dose: 5,000 unit Lactated Ringer's (Lactated Ringers Solution) 1,000 mls @ 75 mls/hr IV ASDIR [facility] Last Admin: 09/26/18 20:25 Dose: Not Given Magnesium Oxide (Mag-Ox -) 400 mg PO DAILY [facility] Last Admin: 09/26/18 09:23 Dose: 400 mg Mupirocin (Bactroban Ointment (For Decolonization) -) 1 applic NS BID [facility] Stop: 09/29/18 21:59 Last Admin: 09/26/18 21:22 Dose: 1 applic Ondansetron HCl (Zofran Injection) 4 mg IVPUSH Q6H PRN PRN Reason: NAUSEA AND/OR VOMITING Oxycodone HCl (Roxicodone -) 5 mg PO Q6H PRN PRN Reason: PAIN LEVEL 7 - 10 Last Admin: 09/26/18 21:21 Dose: 5 mg Potassium Chloride (K-Dur -) 10 meq PO DAILY [facility] Last Admin: 09/26/18 09:23 Dose: 10 meq Primidone (Mysoline -) 50 mg PO HS [facility] Last Admin: 09/26/18 21:22 Dose: 50 mg Senna (Senna -) 2 tab PO HS PRN PRN Reason: CONSTIPATION Thiamine HCl (Vitamin B1 -) 100 mg PO DAILY [facility] Last Admin: 09/26/18 09:23 Dose: 100 mg Vital Signs Period Temp Pulse Resp BP Sys/Lou Pulse Ox Last 24 Hr 97.7 F-99.1 F 64-75 15-20 80-114/39-63 96-98 Intake & Output 09/23/18 09/24/18 09/25/18 09/26/18 23:59 23:59 23:59 23:59 Intake Total 880 1950 2477.5 2980 Output Total 709 413 3836 1825 Balance 80 1500 1082.5 1155 Weight 86.409 kg 91.172 kg GEN: Unkempt elderly man, cheerful, friendly, NAD HEENT: NCAT, PERRL, an-icteric, Dry MMM, poor dentition, halitoses PULM: CTAB, R CT & R Pleurx draining sero-sanguineous fluid, no leak CV: nml S1, S2, RR, unable to appreciate any G/M/R ABD: +BS, S/S N/T N/D X4Q EXT: + Pulses, chronic venous stasis changes & horrific pedal hygiene CBC, BMP 09/26/18 05:30 09/26/18 05:30 CXR 09/26: A single view of the chest has been submitted. Since 09/25/2018, the 2 right chest tubes persist. A right pneumothorax is not seen at this time. The bibasilar pulmonary pleural changes have increased. There is a bone island or nodular density seen by the anterior aspect of the left fourth rib. Correlation recommended. ASSESS & PLAN: UTI Bilateral Pleural Effusions s/p R VATS w/ bx, decort, & Pleurx insert r/o Malignancy FTT Lactic Acidosis HTN Hyperlipidemia Trapped lung - chest tube --> LWS - Pleurx --> LWS - IS - f/u CXRs - Advance Diet - F/u w/ Onc - Removed CT once drainage ceases (Leave Pleurx in place) - BR - DVT ppx - OOB - Floor DGL, ACNP-BC [facility] ICU PULM/CCM 4489 Critical Care Total Critical Care Time (in minutes): 38 Critical Care Statement: The care of this patient involved high complexity decision making to prevent further life threatening deterioration of the patient 's condition and/or to evaluate & treat vital organ system(s) failure or risk of failure.
--- NOTE | 2018-09-26 08:28 | PN ---
Physical Exam: SUBJECTIVE: Patient seen and examined in the icu. feels well, in no acute distress. having some surgical site pain/discomfort. OBJECTIVE: for chest xray start oxycodone Vital Signs Period Temp Pulse Resp BP Sys/Lou Pulse Ox Last 24 Hr 97.6 F-99.4 F 68-86 14-18 80-125/44-71 98-98 GENERAL: The patient is awake, alert, in no acute distress. denies pain. in icu post op day #1 HEAD: Normal with no signs of trauma. EYES: PERRL, extraocular movements intact, sclera anicteric, conjunctiva clear. No ptosis. ENT: Ears normal, nares patent, oropharynx clear without exudates, moist mucous membranes. NECK: Trachea midline, full range of motion, supple. LUNGS: anteriorly sounds clear to auscultation, s/p VATS procedures. on 2 liters of nasal cannula. - 2 chest tubes HEART: Regular rate and rhythm ABDOMEN: Soft, nontender, nondistended, normoactive bowel sounds EXTREMITIES: no edema. NEUROLOGICAL: Normal speech, gait not observed. PSYCH: Normal mood, normal affect. SKIN: pain on surgical site, Laboratory Results - last 24 hr 09/26/18 09/26/18 05:30 05:30 WBC 5.3 RBC 2.81 L Hgb 10.1 L Hct 28.8 L D MCV 102.4 H MCH 35.8 H MCHC 35.0 RDW 12.8 Plt Count 198 D MPV 7.1 L Absolute Neuts (auto) 3.7 Neutrophils % 70.7 Lymphocytes % 15.4 D Monocytes % 11.3 H Eosinophils % 2.3 Basophils % 0.3 Nucleated RBC % 0 Sodium 130 L Potassium 4.0 Chloride 95 L Carbon Dioxide 30 Anion Gap 5 L BUN 12 Creatinine 0.4 L Creat Clearance w eGFR > 60 Random Glucose 88 Calcium 8.1 L Phosphorus 2.6 Magnesium 1.7 L Total Bilirubin 0.9 AST 13 L ALT 11 L Alkaline Phosphatase 61 Total Protein 4.7 L Albumin 1.8 L Active Medications Generic Name Dose Route Start Last Admin Trade Name Freq PRN Reason Stop Dose Admin Acetaminophen 650 mg 09/24/18 16:46 Tylenol - PO Q6H PRN PAIN LEVEL 4 - 6 Atenolol 25 mg 09/25/18 10:00 09/25/18 10:31 Tenormin - PO 25 mg DAILY [facility]IR Administration Docusate Sodium 100 mg 09/24/18 16:46 Colace - PO BID PRN CONSTIPATION Fentanyl 50 mcg 09/24/18 18:57 Sublimaze Injection - IVPUSH Q5M PRN PAIN-PACU ORDER X 4 DOSES ONLY Folic Acid 1 mg 09/25/18 10:00 09/25/18 10:24 Folic Acid - PO 1 mg DAILY [facility] Administration Heparin Sodium (Porcine) 5,000 unit 09/25/18 08:00 09/25/18 21:20 Heparin - SQ 5,000 unit BID [facility]IR Administration Lactated Ringer's 1,000 mls @ 75 mls/hr 09/24/18 19:00 09/25/18 19:25 Lactated Ringers Solution IV Not Given ASDIR [facility]IR Magnesium Oxide 400 mg 09/25/18 10:00 09/25/18 10:23 Mag-Ox - PO 400 mg DAILY [facility] Administration Mupirocin 1 applic 09/24/18 22:00 09/25/18 21:23 Bactroban Ointment (For Decolonization) - NS 09/29/18 21:59 1 applic BID [facility] Administration Ondansetron HCl 4 mg 09/24/18 18:57 Zofran Injection IVPUSH Q6H PRN NAUSEA AND/OR VOMITING Potassium Chloride 10 meq 09/25/18 10:00 09/25/18 10:23 K-Dur - PO 10 meq DAILY [facility] Administration Primidone 50 mg 09/24/18 22:00 09/25/18 21:20 Mysoline - PO 50 mg HS [facility] Administration Senna 2 tab 09/24/18 16:46 Senna - PO HS PRN CONSTIPATION Thiamine HCl 100 mg 09/25/18 10:00 09/25/18 10:23 Vitamin B1 - PO 100 mg DAILY [facility] Administration ASSESSMENT/PLAN: Patient is a 73 year old male with a significant past medical history of HTN, HLD, possible PAD, who was brought in by family for failure to thrive and SOB. Patient is reported to drink nightly, however he denies having hx of ETOH abuse. He was also found to have a bilateral pleural effusions, right > left. Imaging: chest ct w/iv contrast 09/12/18: left pleural effusion signif.decreased from prior study. large right pleural eff mild decrease compared to prior study. 4 x 2 cm consolidations or mass posterior lower lobe unchanged. chest xray 09/25: chest xray with unchanged pneumothx Pulm: VATS procedure POD 2 Right video assisted thoracoscopy with pleural biopsy, decortication, pleurx insertion, pod #2 Monitor chest tube output. Pleural biopsy and visceral pleural biopsy sent Pain management, incentive spirometer, chest xray daily start on oxycodone Card: Rule out cardiac cause of right thoracentesis Being followed by cardiology, stress test as an outpatient. Psyche: ETOH abuse, no acute issues. upper body tremors are chronic. UTI completed 7 days of ceftriaxone. fen tolerating po electrolytes daily regular diet prophy scds monitor Visit type - Emergency Visit Emergency Visit: Yes ED Registration Date: 09/04/18 Care time: The patient presented to the Emergency Department on the above date and was hospitalized for further evaluation of their emergent condition. - New Patient This patient is new to me today: No - Critical Care Critical Care patient: Yes Total Critical Care Time (in minutes): 45 Critical Care Statement: The care of this patient involved high complexity decision making to prevent further life threatening deterioration of the patient 's condition and/or to evaluate & treat vital organ system(s) failure or risk of failure.
[2018-09-26] MEDS: LACTATED RINGERS SOLUTION 1,000 ML IV SCH ×2 (09:00→20:25)
[2018-09-26] MEDS ORDERED: PT OWN MED DRAWER 7, Y5N ONE ×2 (09:22→21:20)
[2018-09-26] MEDS: FOLIC ACID 1 MG TABLET (FP) PO SCH (09:23)
[2018-09-26] MEDS: POTASSIUM CHLORIDE TABS 10 MEQ TABLET.ER (FP) PO SCH (09:23)
[2018-09-26] MEDS: HEPARIN NA (PORCINE) 5,000 UNITS/ML 1ML VIAL SQ SCH ×2 (09:23→21:21)
[2018-09-26] MEDS: THIAMINE HCL 100 MG TABLET (FP) PO SCH (09:23)
[2018-09-26] MEDS: MAGNESIUM OXIDE 400 MG TABLET (FP) PO SCH (09:23)
[2018-09-26] MEDS: ATENOLOL 25 MG TABLET (FP) PO SCH (09:26)
--- NOTE | 2018-09-26 10:17 | PN ---
Progress Note, Physician History of Present Illness: The patient is a 73 year old male with a significant medical history of HTN, HLD , possible PAD, who was brought in by family for failure to thrive and SOB. The family reports that the patient drinks ETOH nightly, though pt denies drinking for the past month. Per son, pt was found in his home completely disheveled today with urine and stool on himself. They also report a significant weight loss recently. Pt endorses SOB with exertion. Denies CP. Denies SOB at rest. The patient denies headache and dizziness. The patient denies fever, chills, nausea, vomit, diarrhea and constipation. The patient denies dysuria, frequency , urgency and hematuria. - Current Medication List Current Medications: Active Medications Acetaminophen (Tylenol -) 650 mg PO Q6H PRN PRN Reason: PAIN LEVEL 4 - 6 Atenolol (Tenormin -) 25 mg PO DAILY [facility] Last Admin: 09/26/18 09:26 Dose: 25 mg Docusate Sodium (Colace -) 100 mg PO BID PRN PRN Reason: CONSTIPATION Folic Acid (Folic Acid -) 1 mg PO DAILY [facility] Last Admin: 09/26/18 09:23 Dose: 1 mg Heparin Sodium (Porcine) (Heparin -) 5,000 unit SQ BID [facility] Last Admin: 09/26/18 09:23 Dose: 5,000 unit Lactated Ringer's (Lactated Ringers Solution) 1,000 mls @ 75 mls/hr IV ASDIR [facility] Last Admin: 09/26/18 09:00 Dose: 75 mls/hr Magnesium Oxide (Mag-Ox -) 400 mg PO DAILY [facility] Last Admin: 09/26/18 09:23 Dose: 400 mg Mupirocin (Bactroban Ointment (For Decolonization) -) 1 applic NS BID [facility] Stop: 09/29/18 21:59 Last Admin: 09/25/18 21:23 Dose: 1 applic Ondansetron HCl (Zofran Injection) 4 mg IVPUSH Q6H PRN PRN Reason: NAUSEA AND/OR VOMITING Oxycodone HCl (Roxicodone -) 5 mg PO Q6H PRN PRN Reason: PAIN LEVEL 7 - 10 Potassium Chloride (K-Dur -) 10 meq PO DAILY [facility] Last Admin: 09/26/18 09:23 Dose: 10 meq Primidone (Mysoline -) 50 mg PO HS [facility] Last Admin: 09/25/18 21:20 Dose: 50 mg Senna (Senna -) 2 tab PO HS PRN PRN Reason: CONSTIPATION Thiamine HCl (Vitamin B1 -) 100 mg PO DAILY [facility] Last Admin: 09/26/18 09:23 Dose: 100 mg - Objective Vital Signs: Vital Signs Temperature 98.9 F 09/26/18 04:00 Pulse Rate 72 09/26/18 08:00 Respiratory Rate 20 09/26/18 08:00 Blood Pressure 93/53 L 09/26/18 08:00 O2 Sat by Pulse Oximetry (%) 96 09/26/18 09:00 Eyes: Yes: WNL, Conjunctiva Clear, EOM Intact HENT: Yes: WNL, Atraumatic, Normocephalic Neck: Yes: WNL, Supple, Trachea Midline Cardiovascular: Yes: WNL, Regular Rate and Rhythm, Murmur Respiratory: Yes: Diminished, Dullness, Other (chest tubes in place) Gastrointestinal: Yes: WNL, Normal Bowel Sounds Genitourinary: Yes: WNL Musculoskeletal: Yes: WNL Extremities: Yes: WNL Edema: No Integumentary: Yes: WNL Neurological: Yes: WNL, Alert, Oriented ...Motor Strength: WNL Psychiatric: Yes: WNL Labs: CBC, BMP 09/26/18 05:30 09/26/18 05:30 INR, PTT INR 1.13 (0.83-1.09) H 09/24/18 07:40 Problem List - Problems (1) Failure to thrive in adult Code(s): R62.7 - ADULT FAILURE TO THRIVE (2) Hypertension Code(s): I10 - ESSENTIAL (PRIMARY) HYPERTENSION (3) Lactic acidosis Code(s): E87.2 - ACIDOSIS (4) Pleural effusion Code(s): J90 - PLEURAL EFFUSION, NOT ELSEWHERE CLASSIFIED (5) Prophylactic measure Code(s): Z29.9 - ENCOUNTER FOR PROPHYLACTIC MEASURES, UNSPECIFIED (6) UTI (urinary tract infection) Code(s): N39.0 - URINARY TRACT INFECTION, SITE NOT SPECIFIED Assessment/Plan - Problems (1) Moderate aortic stenosis Assessment/Plan: ECHO: normal LVEF; abnormal diastolic compliance; normal wall thickness; mild MR , TR, AR.; moderate . Denies chest pain, syncope, PND/orthopnea, leg swelling. On atenolol. Repeat EKG (initial EKG had baseline artifact). Code(s): I35.0 - NONRHEUMATIC AORTIC (VALVE) STENOSIS (2) Failure to thrive in adult Assessment/Plan: F/u with therapeutic massage technician. Hypoalbuminemia. R/o malignancy. Code(s): R62.7 - ADULT FAILURE TO THRIVE (3) Hypertension Assessment/Plan: On atenolol; BP remains well-controlled. Code(s): I10 - ESSENTIAL (PRIMARY) HYPERTENSION (4) EtOH dependence Code(s): F10.20 - ALCOHOL DEPENDENCE, UNCOMPLICATED (5) S/P thoracentesis Assessment/Plan: 1,700 ml removed: exudate. Pigtail catheter placed; 30 ml fluid removed R/o malignancy: plans for PET scan in 4-6 weeks noted. Right chest tube; s/p VATS. Code(s): Z98.890 - OTHER SPECIFIED POSTPROCEDURAL STATES (6) [place] cardiac risk >20% in next 10 years Assessment/Plan: Pt denies hx of cardiac disease; denies chest pain. As discussed with pt and family, workup to r/o malignancy and aid respiratory status is presently of prime concern. Stress test can be planned as outpatient. Code(s): Z91.89 - OT PERSONAL RISK FACTORS, NOT ELSEWHERE CLASSIFIED (7) Hypoalbuminemia Code(s): E88.09 - OT DISORDERS OF PLASMA-PROTEIN METABOLISM, NEC Assessment/Plan CCU time spent: 35 minutes.
[2018-09-26] MEDS: MUPIROCIN 2% TOPICAL OINTMENT FOR DECOLONIZATION NS SCH ×2 (10:55→21:22)
[2018-09-26] MEDS: PRIMIDONE 50 MG TABLET PO SCH (21:22)
[2018-09-27 06:00] LABS: BASO % 0.5 % (0-2.0); EOS % 3.6 % (0-4.5); HEMATOCRIT 28.3 % (35.4-49); HEMOGLOBIN 9.9 GM/dL (11.7-16.9); LYMPH % 17.3 % (8-40); MCH 35.6 pg (25.7-33.7); MEAN CELL VOLUME 101.8 fl (80-96); MEAN PLT VOLUME 7.3 fl (7.5-11.1); MONO % 13.6 % (3.8-10.2); PLATELET COUNT 174 K/MM3 (134-434); RBC 2.78 M/mm3 (4.00-5.60); RDW 12.9 % (11.9-15.9); WHITE BLOOD COUNT 3.6 K/mm3 (4.0-10.0)
[2018-09-27 06:29] LABS: ALBUMIN 1.6 g/dl (3.4-5.0); ALK PHOS 62 U/L (45-117); ANION GAP 4 MMOL/L (8-16); BILIRUBIN,TOTAL 0.5 mg/dL (0.2-1); BLOOD UREA NITROGEN 6 mg/dL (7-18); CALCIUM 7.6 mg/dL (8.5-10.1); CHLORIDE 99 mmol/L (98-107); CO2 31 mmol/L (21-32); CREATININE 0.4 mg/dL (0.55-1.3); GLUCOSE,RANDOM 84 mg/dL (74-106); MAGNESIUM 2.1 mg/dL (1.8-2.4); POTASSIUM 3.6 mmol/L (3.5-5.1); SGOT/AST 17 U/L (15-37); SGPT/ALT 12 U/L (13-61); SODIUM 134 mmol/L (136-145); TOT PROT 4.5 g/dl (6.4-8.2)
[2018-09-27] MEDS ORDERED: PT OWN MED DRAWER 7, Y5N ONE ×3 (07:25→20:52)
[2018-09-27] MEDS: oxyCODONE HCL 5 MG TABLET PO PRN ×3 (07:27→23:47)
[2018-09-27] MEDS: ACETAMINOPHEN 325 MG TABLET (FP) PO PRN ×3 (07:28→21:28)
--- NOTE | 2018-09-27 08:32 | PN ---
Physical Exam: SUBJECTIVE: Patient seen and examined at the bedside. in icu, awaiting transfer OBJECTIVE: sleepy but arousable Vital Signs Period Temp Pulse Resp BP Sys/Lou Pulse Ox Last 24 Hr 97.7 F-99.1 F 58-73 15-20 94-114/39-60 95-99 GENERAL: The patient is sleepy, but arousable, vitals stable HEAD: Normal with no signs of trauma. EYES: PERRL, extraocular movements intact, sclera anicteric, conjunctiva clear. No ptosis. ENT: Ears normal, nares patent, oropharynx clear without exudates, moist mucous membranes. NECK: Trachea midline, full range of motion, supple. LUNGS: anteriorly sounds clear to auscultation, s/p VATS procedures. on 2 liters of nasal cannula. - 2 chest tubes HEART: Regular rate and rhythm ABDOMEN: Soft, nontender, nondistended, normoactive bowel sounds EXTREMITIES: no edema. + pulses on all extremities Laboratory Results - last 24 hr 09/27/18 09/27/18 05:30 05:30 WBC 3.6 L RBC 2.78 L Hgb 9.9 L Hct 28.3 L MCV 101.8 H MCH 35.6 H MCHC 35.0 RDW 12.9 Plt Count 174 MPV 7.3 L Absolute Neuts (auto) 2.3 Neutrophils % 65.0 Lymphocytes % 17.3 Monocytes % 13.6 H Eosinophils % 3.6 Basophils % 0.5 Nucleated RBC % 0 Sodium 134 L Potassium 3.6 Chloride 99 Carbon Dioxide 31 Anion Gap 4 L BUN 6 L Creatinine 0.4 L Creat Clearance w eGFR > 60 Random Glucose 84 Calcium 7.6 L Magnesium 2.1 Total Bilirubin 0.5 AST 17 ALT 12 L Alkaline Phosphatase 62 Total Protein 4.5 L Albumin 1.6 L Active Medications Generic Name Dose Route Start Last Admin Trade Name Freq PRN Reason Stop Dose Admin Acetaminophen 650 mg 09/24/18 16:46 09/27/18 07:28 Tylenol - PO 650 mg Q6H PRN Administration PAIN LEVEL 4 - 6 Atenolol 25 mg 09/25/18 10:00 09/26/18 09:26 Tenormin - PO 25 mg DAILY [facility] Administration Docusate Sodium 100 mg 09/24/18 16:46 Colace - PO BID PRN CONSTIPATION Folic Acid 1 mg 09/25/18 10:00 09/26/18 09:23 Folic Acid - PO 1 mg DAILY [facility] Administration Heparin Sodium (Porcine) 5,000 unit 09/25/18 08:00 09/26/18 21:21 Heparin - SQ 5,000 unit BID [facility] Administration Lactated Ringer's 1,000 mls @ 75 mls/hr 09/24/18 19:00 09/26/18 20:25 Lactated Ringers Solution IV Not Given ASDIR [facility] Magnesium Oxide 400 mg 09/25/18 10:00 09/26/18 09:23 Mag-Ox - PO 400 mg DAILY [facility] Administration Mupirocin 1 applic 09/24/18 22:00 09/26/18 21:22 Bactroban Ointment (For Decolonization) - NS 09/29/18 21:59 1 applic BID [facility] Administration Ondansetron HCl 4 mg 09/24/18 18:57 Zofran Injection IVPUSH Q6H PRN NAUSEA AND/OR VOMITING Oxycodone HCl 5 mg 09/26/18 08:28 09/27/18 07:27 Roxicodone - PO 5 mg Q6H PRN Administration PAIN LEVEL 7 - 10 Potassium Chloride 10 meq 09/25/18 10:00 09/26/18 09:23 K-Dur - PO 10 meq DAILY [facility] Administration Primidone 50 mg 09/24/18 22:00 09/26/18 21:22 Mysoline - PO 50 mg HS [facility] Administration Senna 2 tab 09/24/18 16:46 Senna - PO HS PRN CONSTIPATION Thiamine HCl 100 mg 09/25/18 10:00 09/26/18 09:23 Vitamin B1 - PO 100 mg DAILY [facility] Administration ASSESSMENT/PLAN: Patient is a 73 year old male with a significant past medical history of HTN, HLD, possible PAD, who was brought in by family for failure to thrive and SOB. Patient is reported to drink nightly, however he denies having hx of ETOH abuse. He was also found to have a bilateral pleural effusions, right > left. he is s/p thoracentesis with 1700 cc removal, no malignant cells seen on path report. He is s/p VATs procedure for right pneumothorax. Imaging: chest ct w/iv contrast 09/12/18: left pleural effusion signif.decreased from prior study. large right pleural eff mild decrease compared to prior study. 4 x 2 cm consolidations or mass posterior lower lobe unchanged. chest xray 09/25: chest xray with unchanged pneumothx chest xray 09/26: pending Pulm: VATS procedure POD 3 Right video assisted thoracoscopy with pleural biopsy, decortication, pleurx insertion Monitor chest tube output. Pleural biopsy and visceral pleural biopsy sent Pain management with oxycodone, incentive spirometer, chest xray daily Card: Rule out cardiac cause of right thoracentesis Being followed by cardiology, stress test as an outpatient. sinus roland on cardiac exercise specialist. Psyche: ETOH abuse, no acute issues. upper body tremors are chronic. UTI completed 7 days of ceftriaxone. fen tolerating po electrolytes daily regular diet prophy scds monitor Visit type - Emergency Visit Emergency Visit: Yes ED Registration Date: 09/04/18 Care time: The patient presented to the Emergency Department on the above date and was hospitalized for further evaluation of their emergent condition. - New Patient This patient is new to me today: No - Critical Care Critical Care patient: No - Discharge Referral Referred to [facility] Med P.C[facility] No
[2018-09-27] MEDS: MAGNESIUM OXIDE 400 MG TABLET (FP) PO SCH (09:12)
[2018-09-27] MEDS: POTASSIUM CHLORIDE TABS 10 MEQ TABLET.ER (FP) PO SCH (09:12)
[2018-09-27] MEDS: HEPARIN NA (PORCINE) 5,000 UNITS/ML 1ML VIAL SQ SCH ×2 (09:12→21:29)
[2018-09-27] MEDS: FOLIC ACID 1 MG TABLET (FP) PO SCH (09:12)
[2018-09-27] MEDS: THIAMINE HCL 100 MG TABLET (FP) PO SCH (09:13)
[2018-09-27] MEDS: MUPIROCIN 2% TOPICAL OINTMENT FOR DECOLONIZATION NS SCH ×2 (09:14→21:30)
[2018-09-27] MEDS: ATENOLOL 25 MG TABLET (FP) PO SCH (09:19)
--- NOTE | 2018-09-27 10:27 | PN ---
Progress Note, Physician History of Present Illness: The patient is a 73 year old male with a significant medical history of HTN, HLD , possible PAD, who was brought in by family for failure to thrive and SOB. The family reports that the patient drinks ETOH nightly, though pt denies drinking for the past month. Per son, pt was found in his home completely disheveled today with urine and stool on himself. They also report a significant weight loss recently. Pt endorses SOB with exertion. Denies CP. Denies SOB at rest. The patient denies headache and dizziness. The patient denies fever, chills, nausea, vomit, diarrhea and constipation. The patient denies dysuria, frequency , urgency and hematuria. - Current Medication List Current Medications: Active Medications Acetaminophen (Tylenol -) 650 mg PO Q6H PRN PRN Reason: PAIN LEVEL 4 - 6 Last Admin: 09/27/18 07:28 Dose: 650 mg Atenolol (Tenormin -) 25 mg PO DAILY [facility] Last Admin: 09/27/18 09:19 Dose: 25 mg Docusate Sodium (Colace -) 100 mg PO BID PRN PRN Reason: CONSTIPATION Folic Acid (Folic Acid -) 1 mg PO DAILY [facility] Last Admin: 09/27/18 09:12 Dose: 1 mg Heparin Sodium (Porcine) (Heparin -) 5,000 unit SQ BID [facility] Last Admin: 09/27/18 09:12 Dose: 5,000 unit Lactated Ringer's (Lactated Ringers Solution) 1,000 mls @ 75 mls/hr IV ASDIR [facility] Last Admin: 09/26/18 20:25 Dose: Not Given Magnesium Oxide (Mag-Ox -) 400 mg PO DAILY [facility] Last Admin: 09/27/18 09:12 Dose: 400 mg Mupirocin (Bactroban Ointment (For Decolonization) -) 1 applic NS BID [facility] Stop: 09/29/18 21:59 Last Admin: 09/27/18 09:14 Dose: 1 applic Ondansetron HCl (Zofran Injection) 4 mg IVPUSH Q6H PRN PRN Reason: NAUSEA AND/OR VOMITING Oxycodone HCl (Roxicodone -) 5 mg PO Q6H PRN PRN Reason: PAIN LEVEL 7 - 10 Last Admin: 09/27/18 07:27 Dose: 5 mg Potassium Chloride (K-Dur -) 10 meq PO DAILY [facility] Last Admin: 09/27/18 09:12 Dose: 10 meq Primidone (Mysoline -) 50 mg PO HS [facility] Last Admin: 09/26/18 21:22 Dose: 50 mg Senna (Senna -) 2 tab PO HS PRN PRN Reason: CONSTIPATION Thiamine HCl (Vitamin B1 -) 100 mg PO DAILY [facility] Last Admin: 09/27/18 09:13 Dose: 100 mg - Objective Vital Signs: Vital Signs Temperature 97.7 F 09/27/18 07:30 Pulse Rate 62 09/27/18 09:30 Respiratory Rate 18 09/27/18 09:30 Blood Pressure 111/57 L 09/27/18 09:30 O2 Sat by Pulse Oximetry (%) 99 09/27/18 08:26 Eyes: Yes: WNL, Conjunctiva Clear, EOM Intact HENT: Yes: WNL, Atraumatic, Normocephalic Neck: Yes: WNL, Supple, Trachea Midline Cardiovascular: Yes: Murmur, S1, S2 Respiratory: Yes: WNL, Regular, CTA Bilaterally Gastrointestinal: Yes: WNL, Normal Bowel Sounds Genitourinary: Yes: WNL Musculoskeletal: Yes: WNL Extremities: Yes: WNL Edema: No Integumentary: Yes: WNL Neurological: Yes: WNL, Alert, Oriented ...Motor Strength: WNL Psychiatric: Yes: WNL Labs: CBC, BMP 09/27/18 05:30 09/27/18 05:30 INR, PTT INR 1.13 (0.83-1.09) H 09/24/18 07:40 Problem List - Problems (1) Failure to thrive in adult Code(s): R62.7 - ADULT FAILURE TO THRIVE (2) Hypertension Code(s): I10 - ESSENTIAL (PRIMARY) HYPERTENSION (3) Lactic acidosis Code(s): E87.2 - ACIDOSIS (4) Pleural effusion Code(s): J90 - PLEURAL EFFUSION, NOT ELSEWHERE CLASSIFIED (5) Prophylactic measure Code(s): Z29.9 - ENCOUNTER FOR PROPHYLACTIC MEASURES, UNSPECIFIED (6) UTI (urinary tract infection) Code(s): N39.0 - URINARY TRACT INFECTION, SITE NOT SPECIFIED Assessment/Plan - Problems (1) Moderate aortic stenosis Assessment/Plan: ECHO: normal LVEF; abnormal diastolic compliance; normal wall thickness; mild MR , TR, AR.; moderate . Denies chest pain, syncope, PND/orthopnea, leg swelling. On atenolol. Repeat EKG (initial EKG had baseline artifact). Code(s): I35.0 - NONRHEUMATIC AORTIC (VALVE) STENOSIS (2) Failure to thrive in adult Assessment/Plan: F/u with custom stock maker. Hypoalbuminemia. R/o malignancy. Code(s): R62.7 - ADULT FAILURE TO THRIVE (3) Hypertension Assessment/Plan: On atenolol; BP remains well-controlled. Code(s): I10 - ESSENTIAL (PRIMARY) HYPERTENSION (4) EtOH dependence Code(s): F10.20 - ALCOHOL DEPENDENCE, UNCOMPLICATED (5) S/P thoracentesis Assessment/Plan: 1,700 ml removed: exudate. Pigtail catheter placed; 30 ml fluid removed R/o malignancy: plans for PET scan in 4-6 weeks noted. Right chest tube; s/p VATS. Code(s): Z98.890 - OTHER SPECIFIED POSTPROCEDURAL STATES (6) [place] cardiac risk >20% in next 10 years Assessment/Plan: Pt denies hx of cardiac disease; denies chest pain. As discussed with pt and family, workup to r/o malignancy and aid respiratory status is presently of prime concern. Stress test can be planned as outpatient. Code(s): Z91.89 - OT PERSONAL RISK FACTORS, NOT ELSEWHERE CLASSIFIED (7) Hypoalbuminemia Code(s): E88.09 - OT DISORDERS OF PLASMA-PROTEIN METABOLISM, NEC Assessment/Plan CCU time spent: 35 minutes.
--- NOTE | 2018-09-27 16:41 | PN ---
Progress Note (short form) - Note Progress Note: PULM/CCM POD #3 s/p R VATS w/ bx, decort, & Pleurx insert Pt Seen & Examined in the ICU. C & A, NAD, c/o mild discomfort @ surgical site, R CT & R Pleurx draining sero-sanguineous fluid, no leak, CXR shows complete resolution of PTX. Active Medications Acetaminophen (Tylenol -) 650 mg PO Q6H PRN PRN Reason: PAIN LEVEL 4 - 6 Last Admin: 09/27/18 16:06 Dose: 650 mg Atenolol (Tenormin -) 25 mg PO DAILY [facility] Last Admin: 09/27/18 09:19 Dose: 25 mg Docusate Sodium (Colace -) 100 mg PO BID PRN PRN Reason: CONSTIPATION Folic Acid (Folic Acid -) 1 mg PO DAILY [facility] Last Admin: 09/27/18 09:12 Dose: 1 mg Heparin Sodium (Porcine) (Heparin -) 5,000 unit SQ BID [facility] Last Admin: 09/27/18 09:12 Dose: 5,000 unit Lactated Ringer's (Lactated Ringers Solution) 1,000 mls @ 75 mls/hr IV ASDIR [facility] Last Admin: 09/26/18 20:25 Dose: Not Given Magnesium Oxide (Mag-Ox -) 400 mg PO DAILY [facility] Last Admin: 09/27/18 09:12 Dose: 400 mg Mupirocin (Bactroban Ointment (For Decolonization) -) 1 applic NS BID [facility] Stop: 09/29/18 21:59 Last Admin: 09/27/18 09:14 Dose: 1 applic Ondansetron HCl (Zofran Injection) 4 mg IVPUSH Q6H PRN PRN Reason: NAUSEA AND/OR VOMITING Oxycodone HCl (Roxicodone -) 5 mg PO Q6H PRN PRN Reason: PAIN LEVEL 7 - 10 Last Admin: 09/27/18 16:06 Dose: 5 mg Potassium Chloride (K-Dur -) 10 meq PO DAILY [facility] Last Admin: 09/27/18 09:12 Dose: 10 meq Primidone (Mysoline -) 50 mg PO HS [facility] Last Admin: 09/26/18 21:22 Dose: 50 mg Senna (Senna -) 2 tab PO HS PRN PRN Reason: CONSTIPATION Thiamine HCl (Vitamin B1 -) 100 mg PO DAILY [facility] Last Admin: 09/27/18 09:13 Dose: 100 mg Vital Signs Period Temp Pulse Resp BP Sys/Lou Pulse Ox Last 24 Hr 97.7 F-98 F 58-71 15-20 94-112/48-60 95-99 Intake & Output 09/24/18 09/25/18 09/26/18 09/27/18 23:59 23:59 23:59 23:59 Intake Total 1950 2477.5 3280 2670 Output Total 450 1395 3825 1210 Balance 1500 1082.5 -545 1460 Weight 86.409 kg 91.172 kg 86.409 kg GEN: Unkempt elderly man, cheerful, friendly, NAD HEENT: NCAT, PERRL, an-icteric, Dry MMM, poor dentition, strong halitoses PULM: CTAB, R CT & R Pleurx draining sero-sanguineous fluid, no leak CV: nml S1, S2, RR, unable to appreciate any G/M/R ABD: +BS, S/S N/T N/D X4Q EXT: + Pulses, chronic venous stasis changes & horrific pedal hygiene CBC, BMP 09/27/18 05:30 09/27/18 05:30 CXR 09/27: A single AP view of the chest reveal 2 right chest tubes, right pulmonary pleural changes but no sign of a pneumothorax. There are congestive changes. There is pleural fluid at the left base. The mediastinum is not widened. The bones and soft tissues are intact. Correlation recommended. Since the prior set to 05/07/2019 at 1105 hours bilateral pulmonary pleural changes have increased on the right and remain relatively stable on the left. The 2 right chest tubes are unchanged. ASSESS & PLAN: UTI Bilateral Pleural Effusions s/p R VATS w/ bx, decort, & Pleurx insert r/o Malignancy FTT Lactic Acidosis HTN Hyperlipidemia Trapped lung - chest tube --> LWS - Pleurx --> LWS - IS - f/u CXRs - Advance Diet - F/u w/ Onc - Removed CT once drainage ceases (Leave Pleurx in place) - BR - DVT ppx - OOB - Floor DGL, ACNP-BC [facility] ICU PULM/CCM [id number]
[2018-09-27] MEDS: LACTATED RINGERS SOLUTION 1,000 ML IV SCH (20:47)
[2018-09-27] MEDS: PRIMIDONE 50 MG TABLET PO SCH (21:27)
[2018-09-27] MEDS: DOCUSATE SODIUM 100 MG CAPSULE (FP) PO PRN (21:29)
--- NOTE | 2018-09-28 08:50 | PN ---
Physical Exam: SUBJECTIVE: Patient seen and examined at the bedside. chest tube to be removed today. denies any pain OBJECTIVE: Vital Signs Period Temp Pulse Resp BP Sys/Lou Pulse Ox Last 24 Hr 98 F-98.4 F 59-69 15-18 97-117/47-57 97-97 GENERAL: Awake and alert. HEAD: Normal with no signs of trauma. EYES: PERRL, extraocular movements intact, sclera anicteric, conjunctiva clear. No ptosis. ENT: Ears normal, nares patent, oropharynx clear without exudates, moist mucous membranes. NECK: Trachea midline, full range of motion, supple. LUNGS: anteriorly sounds clear to auscultation, s/p VATS procedures. on 2 liters of nasal cannula. pleurx cath and chest tube to 2 chest tubes. HEART: Regular rate and rhythm ABDOMEN: Soft, nontender, nondistended, normoactive bowel sounds EXTREMITIES: no edema. + pulses on all extremities Active Medications Generic Name Dose Route Start Last Admin Trade Name Freq PRN Reason Stop Dose Admin Acetaminophen 650 mg 09/24/18 16:46 09/27/18 21:28 Tylenol - PO 650 mg Q6H PRN Administration PAIN LEVEL 4 - 6 Atenolol 25 mg 09/25/18 10:00 09/27/18 09:19 Tenormin - PO 25 mg DAILY [facility] Administration Docusate Sodium 100 mg 09/24/18 16:46 09/27/18 21:29 Colace - PO 100 mg BID PRN Administration CONSTIPATION Folic Acid 1 mg 09/25/18 10:00 09/27/18 09:12 Folic Acid - PO 1 mg DAILY [facility] Administration Heparin Sodium (Porcine) 5,000 unit 09/25/18 08:00 09/27/18 21:29 Heparin - SQ 5,000 unit BID [facility] Administration Lactated Ringer's 1,000 mls @ 75 mls/hr 09/24/18 19:00 09/27/18 20:47 Lactated Ringers Solution IV 75 mls/hr ASDIR [facility] Administration Magnesium Oxide 400 mg 09/25/18 10:00 09/27/18 09:12 Mag-Ox - PO 400 mg DAILY [facility] Administration Mupirocin 1 applic 09/24/18 22:00 09/27/18 21:30 Bactroban Ointment (For Decolonization) - NS 09/29/18 21:59 1 applic BID [facility] Administration Ondansetron HCl 4 mg 09/24/18 18:57 Zofran Injection IVPUSH Q6H PRN NAUSEA AND/OR VOMITING Oxycodone HCl 5 mg 09/26/18 08:28 09/27/18 23:47 Roxicodone - PO 5 mg Q6H PRN Administration PAIN LEVEL 7 - 10 Potassium Chloride 10 meq 09/25/18 10:00 09/27/18 09:12 K-Dur - PO 10 meq DAILY [facility] Administration Primidone 50 mg 09/24/18 22:00 09/27/18 21:27 Mysoline - PO 50 mg HS [facility] Administration Senna 2 tab 09/24/18 16:46 09/27/18 21:29 Senna - PO 2 tab HS PRN Administration CONSTIPATION Thiamine HCl 100 mg 09/25/18 10:00 09/27/18 09:13 Vitamin B1 - PO 100 mg DAILY [facility] Administration ASSESSMENT/PLAN: Patient is a 73 year old male with a significant past medical history of HTN, HLD, possible PAD, who was brought in by family for failure to thrive and SOB. Patient is reported to drink nightly, however he denies having hx of ETOH abuse. He was also found to have a bilateral pleural effusions, right > left. he is s/p thoracentesis with 1700 cc removal, no malignant cells seen on path report. He is s/p VATs procedure for right pneumothorax. Imaging: chest ct w/iv contrast 09/12/18: left pleural effusion signif.decreased from prior study. large right pleural eff mild decrease compared to prior study. 4 x 2 cm consolidations or mass posterior lower lobe unchanged. chest xray 09/25: chest xray with unchanged pneumothx chest xray 09/28: no pneumothorax Pulm: VATS procedure POD 4 Right video assisted thoracoscopy with pleural biopsy, decortication, pleurx insertion Monitor chest tube output. Pleural biopsy and visceral pleural biopsy sent Pain management with oxycodone, incentive spirometer, chest xray daily Card: Rule out cardiac cause of right thoracentesis Being followed by cardiology, stress test as an outpatient. 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 Psyche: ETOH abuse, no acute issues. upper body tremors are chronic. UTI completed 7 days of ceftriaxone. fen tolerating po electrolytes daily regular diet prophy scds monitor Visit type - Emergency Visit Emergency Visit: Yes ED Registration Date: 09/04/18 Care time: The patient presented to the Emergency Department on the above date and was hospitalized for further evaluation of their emergent condition. - New Patient This patient is new to me today: No - Critical Care Critical Care patient: Yes Total Critical Care Time (in minutes): 45 Critical Care Statement: The care of this patient involved high complexity decision making to prevent further life threatening deterioration of the patient 's condition and/or to evaluate & treat vital organ system(s) failure or risk of failure.
[2018-09-28 08:54] LABS: BASO % 0.6 % (0-2.0); EOS % 2.9 % (0-4.5); HEMATOCRIT 30.1 % (35.4-49); HEMOGLOBIN 10.6 GM/dL (11.7-16.9); LYMPH % 15.5 % (8-40); MCH 36.2 pg (25.7-33.7); MCHC 35.1 g/dl (32.0-35.9); MEAN CELL VOLUME 103.2 fl (80-96); MEAN PLT VOLUME 7.2 fl (7.5-11.1); MONO % 12.3 % (3.8-10.2); NEUT % 68.7 % (42.8-82.8); PLATELET COUNT 196 K/MM3 (134-434); RBC 2.92 M/mm3 (4.00-5.60); RDW 12.9 % (11.9-15.9); WHITE BLOOD COUNT 3.7 K/mm3 (4.0-10.0)
[2018-09-28 09:29] LABS: ALBUMIN 1.7 g/dl (3.4-5.0); ALK PHOS 88 U/L (45-117); ANION GAP 6 MMOL/L (8-16); BILIRUBIN,TOTAL 0.4 mg/dL (0.2-1); BLOOD UREA NITROGEN 8 mg/dL (7-18); CALCIUM 7.8 mg/dL (8.5-10.1); CHLORIDE 99 mmol/L (98-107); CO2 31 mmol/L (21-32); CREATININE 0.4 mg/dL (0.55-1.3); GLUCOSE,RANDOM 90 mg/dL (74-106); POTASSIUM 3.8 mmol/L (3.5-5.1); SGOT/AST 29 U/L (15-37); SGPT/ALT 23 U/L (13-61); SODIUM 135 mmol/L (136-145); TOT PROT 4.9 g/dl (6.4-8.2)
[2018-09-28] MEDS: MUPIROCIN 2% TOPICAL OINTMENT FOR DECOLONIZATION NS SCH ×2 (10:08→22:07)
[2018-09-28] MEDS: HEPARIN NA (PORCINE) 5,000 UNITS/ML 1ML VIAL SQ SCH ×2 (10:08→22:06)
[2018-09-28] MEDS: FOLIC ACID 1 MG TABLET (FP) PO SCH (10:08)
[2018-09-28] MEDS: POTASSIUM CHLORIDE TABS 10 MEQ TABLET.ER (FP) PO SCH (10:09)
[2018-09-28] MEDS: THIAMINE HCL 100 MG TABLET (FP) PO SCH (10:09)
[2018-09-28] MEDS: MAGNESIUM OXIDE 400 MG TABLET (FP) PO SCH (10:09)
[2018-09-28] MEDS: ATENOLOL 25 MG TABLET (FP) PO SCH (10:10)
[2018-09-28] MEDS: ACETAMINOPHEN 325 MG TABLET (FP) PO PRN ×2 (10:12→23:27)
--- NOTE | 2018-09-28 10:43 | PN ---
Progress Note (short form) - Note Progress Note: POD 4, s/p R VATS with pleural biopsy, decortication, pleurx insertion for pleural effusion Pt seen and examined this morning. Reports he is feeling well overall. Has not been oob yet. Tolerating PO. Denies cp/sob, n/v/d, has some discomfort from PleurX and chest tube which are improved with pain meds. Vital Signs Temp 98.2 F 09/28/18 06:00 Pulse 75 09/28/18 08:00 Resp 20 09/28/18 08:00 BP 117/57 L 09/28/18 08:00 Pulse Ox 97 09/27/18 22:00 Intake & Output 09/27/18 09/27/18 09/28/18 11:59 23:59 11:59 Intake Total 1345 1575 1020 Output Total 1210 270 90 Balance 135 1305 930 Weight 190 lb 8 oz 199 lb 14.4 oz Intake: IV 525 835 900 Lactated Ringers Solution 525 825 900 1,000 ml @ 75 mls/hr IV ASDIR [facility] Rx#:[id number] Saline Lock 10 IVPB 100 Oral 820 640 120 Output: Chest Tube Drainage 110 70 90 Right Posterior Chest 100 60 90 Right anterior Chest 10 10 0 Urine 1100 200 Oscar 1100 Void 200 Other: Voiding Method Indwelling Catheter Urinal Indwelling Catheter # Unmeasured Voids Void 2 2 Bowel Movement No No No Weight Measurement Method [facility] CBC, BMP 09/28/18 08:05 09/28/18 08:05 Gen: awake, alert, nad, sitting up in bed Resp: unlabored on RA, poor inspiratory effort. Decreased breath sounds RLL. Mild wheezing RLL. Chest tube and pleurX intact dressing c/d/i. CV: rrr, + murmur (aortic regurgitation) Ext: soft, nt/nd A/P: 73 y/o M w/ PMHx HTN, HLD, possible PAD, admitted 09/04 after being brought in by family for failure to thrive and SOB, now POD 4, s/p R VATS with pleural biopsy, decortication, pleurX insertion for pleural effusion. Exam stable, labs/vitals stable. Biopsy results in EMR benig fibromembranous tissue with dense fibrosis, acute and chronic inflammatory infiltrate, and focal hemosiderin-laden macrophages. No malignancy identified. -Will remove chest tube this morning, PleurX to remain in place (possible capping tomorrow pending output) -Will repeat cxr after -Daily chest xrays above d/w Dr Oswald
--- NOTE | 2018-09-28 11:36 | PN ---
Teaching Attending Note Name of Resident: Irene Miramontes ATTENDING PHYSICIAN STATEMENT I saw and evaluated the patient. I reviewed the resident's note and discussed the case with the resident. I agree with the resident's findings and plan as documented. SUBJECTIVE: Patient seen and examined in the ICU. Awake and alert. Pain seems appropriately controlled/ No air leak noted CXR: CT in place / No PTX noted / right effusion Intake & Output 09/25/18 09/26/18 09/27/18 09/28/18 23:59 23:59 23:59 23:59 Intake Total 2477.5 3280 2920 1020 Output Total 1395 3825 1480 90 Balance 1082.5 -545 1440 930 Weight 190 lb 8 oz 201 lb 190 lb 8 oz 199 lb 14.4 oz Last Vital Signs Temp Pulse Resp BP Pulse Ox 97.9 F 66 18 102/51 L 96 09/28/18 10:00 09/28/18 10:00 09/28/18 10:00 09/28/18 10:00 09/28/18 10:00 Active Medications Acetaminophen (Tylenol -) 650 mg PO Q6H PRN PRN Reason: PAIN LEVEL 4 - 6 Last Admin: 09/28/18 10:12 Dose: 650 mg Atenolol (Tenormin -) 25 mg PO DAILY [facility] Last Admin: 09/28/18 10:10 Dose: 25 mg Docusate Sodium (Colace -) 100 mg PO BID PRN PRN Reason: CONSTIPATION Last Admin: 09/27/18 21:29 Dose: 100 mg Folic Acid (Folic Acid -) 1 mg PO DAILY [facility] Last Admin: 09/28/18 10:08 Dose: 1 mg Heparin Sodium (Porcine) (Heparin -) 5,000 unit SQ BID [facility] Last Admin: 09/28/18 10:08 Dose: 5,000 unit Lactated Ringer's (Lactated Ringers Solution) 1,000 mls @ 75 mls/hr IV ASDIR [facility] Last Admin: 09/27/18 20:47 Dose: 75 mls/hr Magnesium Oxide (Mag-Ox -) 400 mg PO DAILY [facility] Last Admin: 09/28/18 10:09 Dose: 400 mg Mupirocin (Bactroban Ointment (For Decolonization) -) 1 applic NS BID [facility] Stop: 09/29/18 21:59 Last Admin: 09/28/18 10:08 Dose: 1 applic Ondansetron HCl (Zofran Injection) 4 mg IVPUSH Q6H PRN PRN Reason: NAUSEA AND/OR VOMITING Oxycodone HCl (Roxicodone -) 5 mg PO Q6H PRN PRN Reason: PAIN LEVEL 7 - 10 Last Admin: 09/27/18 23:47 Dose: 5 mg Potassium Chloride (K-Dur -) 10 meq PO DAILY [facility] Last Admin: 09/28/18 10:09 Dose: 10 meq Primidone (Mysoline -) 50 mg PO HS [facility] Last Admin: 09/27/18 21:27 Dose: 50 mg Senna (Senna -) 2 tab PO HS PRN PRN Reason: CONSTIPATION Last Admin: 09/27/18 21:29 Dose: 2 tab Thiamine HCl (Vitamin B1 -) 100 mg PO DAILY [facility] Last Admin: 09/28/18 10:09 Dose: 100 mg Constitutional: Yes: Awake and alert, NAD Eyes: Yes: WNL HENT: Yes: WNL Neck: Yes: WNL Cardiovascular: Yes: Regular Rate and Rhythm, S1, S2 Respiratory: Yes: Diminished, Right chest tube x 2, No air leak Gastrointestinal: Yes: Normal Bowel Sounds, Soft Extremities: Yes: WNL Edema: No Labs: Laboratory Results - last 24 hr 09/28/18 09/28/18 08:05 08:05 WBC 3.7 L RBC 2.92 L Hgb 10.6 L Hct 30.1 L MCV 103.2 H MCH 36.2 H MCHC 35.1 RDW 12.9 Plt Count 196 MPV 7.2 L Absolute Neuts (auto) 2.5 Neutrophils % 68.7 Lymphocytes % 15.5 Monocytes % 12.3 H Eosinophils % 2.9 Basophils % 0.6 Nucleated RBC % 0 Sodium 135 L Potassium 3.8 Chloride 99 Carbon Dioxide 31 Anion Gap 6 L BUN 8 Creatinine 0.4 L Creat Clearance w eGFR > 60 Random Glucose 90 Calcium 7.8 L Phosphorus 3.0 Magnesium 2.0 Total Bilirubin 0.4 AST 29 ALT 23 Alkaline Phosphatase 88 Total Protein 4.9 L Albumin 1.7 L Assessment/Plan Problem List - Problems (1) UTI (urinary tract infection) Code(s): N39.0 - URINARY TRACT INFECTION, SITE NOT SPECIFIED (2) Lactic acidosis Code(s): E87.2 - ACIDOSIS (3) Pleural effusion Code(s): J90 - PLEURAL EFFUSION, NOT ELSEWHERE CLASSIFIED (4) Hypertension Code(s): I10 - ESSENTIAL (PRIMARY) HYPERTENSION (5) Failure to thrive in adult Code(s): R62.7 - ADULT FAILURE TO THRIVE Assessment/Plan UTI Bilateral Pleural Effusions s/p R Thoracentesis - Exudate r/o Malignancy Failure to Thrive Lactic Acidosis HTN Hyperlipidemia Trapped lung Floor - chest tube to suction: will likely have Chest tube removed by surgery - DVT prophylaxis - Encourage Incentive Spirometry - f/u chest x-rays - Floor Dr Zamora
[2018-09-28] MEDS: DOCUSATE SODIUM 100 MG CAPSULE (FP) PO PRN (12:36)
--- NOTE | 2018-09-28 13:34 | PN ---
Progress Note, Physician History of Present Illness: The patient is a 73 year old male with a significant medical history of HTN, HLD , possible PAD, who was brought in by family for failure to thrive and SOB. The family reports that the patient drinks ETOH nightly, though pt denies drinking for the past month. Per son, pt was found in his home completely disheveled today with urine and stool on himself. They also report a significant weight loss recently. Pt endorses SOB with exertion. Denies CP. Denies SOB at rest. The patient denies headache and dizziness. The patient denies fever, chills, nausea, vomit, diarrhea and constipation. The patient denies dysuria, frequency , urgency and hematuria. - Current Medication List Current Medications: Active Medications Acetaminophen (Tylenol -) 650 mg PO Q6H PRN PRN Reason: PAIN LEVEL 4 - 6 Last Admin: 09/28/18 10:12 Dose: 650 mg Atenolol (Tenormin -) 25 mg PO DAILY [facility] Last Admin: 09/28/18 10:10 Dose: 25 mg Docusate Sodium (Colace -) 100 mg PO BID PRN PRN Reason: CONSTIPATION Last Admin: 09/28/18 12:36 Dose: 100 mg Folic Acid (Folic Acid -) 1 mg PO DAILY [facility] Last Admin: 09/28/18 10:08 Dose: 1 mg Heparin Sodium (Porcine) (Heparin -) 5,000 unit SQ BID [facility] Last Admin: 09/28/18 10:08 Dose: 5,000 unit Lactated Ringer's (Lactated Ringers Solution) 1,000 mls @ 75 mls/hr IV ASDIR [facility] Last Admin: 09/27/18 20:47 Dose: 75 mls/hr Magnesium Oxide (Mag-Ox -) 400 mg PO DAILY [facility] Last Admin: 09/28/18 10:09 Dose: 400 mg Mupirocin (Bactroban Ointment (For Decolonization) -) 1 applic NS BID [facility] Stop: 09/29/18 21:59 Last Admin: 09/28/18 10:08 Dose: 1 applic Ondansetron HCl (Zofran Injection) 4 mg IVPUSH Q6H PRN PRN Reason: NAUSEA AND/OR VOMITING Oxycodone HCl (Roxicodone -) 5 mg PO Q6H PRN PRN Reason: PAIN LEVEL 7 - 10 Last Admin: 09/27/18 23:47 Dose: 5 mg Potassium Chloride (K-Dur -) 10 meq PO DAILY [facility] Last Admin: 09/28/18 10:09 Dose: 10 meq Primidone (Mysoline -) 50 mg PO HS [facility] Last Admin: 09/27/18 21:27 Dose: 50 mg Senna (Senna -) 2 tab PO HS PRN PRN Reason: CONSTIPATION Last Admin: 09/27/18 21:29 Dose: 2 tab Thiamine HCl (Vitamin B1 -) 100 mg PO DAILY [facility] Last Admin: 09/28/18 10:09 Dose: 100 mg - Objective Vital Signs: Vital Signs Temperature 97.9 F 09/28/18 10:00 Pulse Rate 67 09/28/18 12:00 Respiratory Rate 20 09/28/18 12:00 Blood Pressure 107/50 L 09/28/18 12:00 O2 Sat by Pulse Oximetry (%) 96 09/28/18 10:00 Eyes: Yes: WNL, Conjunctiva Clear, EOM Intact HENT: Yes: WNL, Atraumatic, Normocephalic Neck: Yes: WNL, Supple, Trachea Midline Cardiovascular: Yes: WNL, Regular Rate and Rhythm Respiratory: Yes: WNL, Regular, CTA Bilaterally Gastrointestinal: Yes: WNL, Normal Bowel Sounds Genitourinary: Yes: WNL Musculoskeletal: Yes: WNL Extremities: Yes: WNL Edema: No Integumentary: Yes: WNL Neurological: Yes: WNL, Alert, Oriented ...Motor Strength: WNL Psychiatric: Yes: WNL Labs: CBC, BMP 09/28/18 08:05 09/28/18 08:05 INR, PTT INR 1.13 (0.83-1.09) H 09/24/18 07:40 Problem List - Problems (1) Failure to thrive in adult Code(s): R62.7 - ADULT FAILURE TO THRIVE (2) Hypertension Code(s): I10 - ESSENTIAL (PRIMARY) HYPERTENSION (3) Lactic acidosis Code(s): E87.2 - ACIDOSIS (4) Pleural effusion Code(s): J90 - PLEURAL EFFUSION, NOT ELSEWHERE CLASSIFIED (5) Prophylactic measure Code(s): Z29.9 - ENCOUNTER FOR PROPHYLACTIC MEASURES, UNSPECIFIED (6) UTI (urinary tract infection) Code(s): N39.0 - URINARY TRACT INFECTION, SITE NOT SPECIFIED Assessment/Plan - Problems (1) Moderate aortic stenosis Assessment/Plan: ECHO: normal LVEF; abnormal diastolic compliance; normal wall thickness; mild MR , TR, AR.; moderate . Denies chest pain, syncope, PND/orthopnea, leg swelling. On atenolol. Repeat EKG (initial EKG had baseline artifact). Code(s): I35.0 - NONRHEUMATIC AORTIC (VALVE) STENOSIS (2) Failure to thrive in adult Assessment/Plan: F/u with escalator service mechanic. Hypoalbuminemia. R/o malignancy. Code(s): R62.7 - ADULT FAILURE TO THRIVE (3) Hypertension Assessment/Plan: On atenolol; BP remains well-controlled. Code(s): I10 - ESSENTIAL (PRIMARY) HYPERTENSION (4) EtOH dependence Code(s): F10.20 - ALCOHOL DEPENDENCE, UNCOMPLICATED (5) S/P thoracentesis Assessment/Plan: 1,700 ml removed: exudate. Pigtail catheter placed; 30 ml fluid removed R/o malignancy: plans for PET scan in 4-6 weeks noted. Right chest tube; s/p VATS. Code(s): Z98.890 - OTHER SPECIFIED POSTPROCEDURAL STATES (6) [place] cardiac risk >20% in next 10 years Assessment/Plan: Pt denies hx of cardiac disease; denies chest pain. As discussed with pt and family, workup to r/o malignancy and aid respiratory status is presently of prime concern. Stress test can be planned as outpatient. Code(s): Z91.89 - OT PERSONAL RISK FACTORS, NOT ELSEWHERE CLASSIFIED (7) Hypoalbuminemia Code(s): E88.09 - OT DISORDERS OF PLASMA-PROTEIN METABOLISM, NEC Assessment/Plan CCU time spent: 35 minutes.
--- NOTE | 2018-09-28 14:14 | PN ---
Physical Exam: SUBJECTIVE: Patient seen and examined this AM in ICU. No new complaints. No acute overnight events. Denies fevers, chills, chest pain, SOB, nausea, vomiting , diarrhea, constipation. OBJECTIVE: Vital Signs Period Temp Pulse Resp BP Sys/Lou Pulse Ox Last 24 Hr 97.9 F-98.4 F 59-75 15-20 97-117/47-57 96-97 GENERAL: A&Ox3, NAD HEAD: NCAT EYES: PERRL, EOMI ENT: Moist mucous membranes NECK: Supple CHEST: Right sided Chest tube placed with overlying dressing clean, dry and intact LUNGS: Diminished breath sounds at the bases, No wheezes, No crackles HEART: RRR, normal S1 and S2, 2/6 systolic murmur at the RUSB ABDOMEN: Soft, nontender, not distended, + bowel sounds, no guarding : Oscar Catheter inplace EXTREMITIES: No peripheral edema NEUROLOGICAL: Cranial nerves II-XII intact. Normal Speech. SKIN: Warm, dry. Laboratory Results - last 24 hr 09/28/18 09/28/18 08:05 08:05 WBC 3.7 L RBC 2.92 L Hgb 10.6 L Hct 30.1 L MCV 103.2 H MCH 36.2 H MCHC 35.1 RDW 12.9 Plt Count 196 MPV 7.2 L Absolute Neuts (auto) 2.5 Neutrophils % 68.7 Lymphocytes % 15.5 Monocytes % 12.3 H Eosinophils % 2.9 Basophils % 0.6 Nucleated RBC % 0 Sodium 135 L Potassium 3.8 Chloride 99 Carbon Dioxide 31 Anion Gap 6 L BUN 8 Creatinine 0.4 L Creat Clearance w eGFR > 60 Random Glucose 90 Calcium 7.8 L Phosphorus 3.0 Magnesium 2.0 Total Bilirubin 0.4 AST 29 ALT 23 Alkaline Phosphatase 88 Total Protein 4.9 L Albumin 1.7 L Microbiology 09/24/18 14:15 Tissue-Other AFB Smear Concentration - Preliminary 09/24/18 14:15 Tissue-Other Mycobacterial Culture - Preliminary 09/24/18 14:15 Bronchial Washings - Bilateral Lung Fluid AFB Smear Concentration - Preliminary 09/24/18 14:15 Bronchial Washings - Bilateral Lung Fluid Mycobacterial Culture - Preliminary 09/24/18 14:15 Tissue-Other Gram Stain - Final 09/24/18 14:15 Tissue-Other Tissue Culture - Final NO GROWTH OF AEROBIC ORGANISMS AFTER 48 HOURS INCUBATION 09/24/18 14:15 Tissue-Other Anaerobic Culture - Final NO ANAEROBES WERE ISOLATED 09/24/18 14:15 Bronchial Washings - Bilateral Lung Fluid Gram Stain - Final 09/24/18 14:15 Bronchial Washings - Bilateral Lung Fluid Bronchoalveolar Lavage Culture - Final NORMAL RESPIRATORY JOSE 09/24/18 14:15 Bronchial Washings - Bilateral Lung Fluid ROBERT Preparation - Preliminary 09/24/18 14:15 Bronchial Washings - Bilateral Lung Fluid Fungal Culture - Preliminary 09/24/18 14:15 Tissue-Other ROBERT Preparation - Preliminary 09/24/18 14:15 Tissue-Other Fungal Culture - Preliminary 09/15/18 12:20 Pleural Fluid AFB Smear Concentration - Final 09/15/18 12:20 Pleural Fluid Mycobacterial Culture - Preliminary 09/15/18 12:20 Pleural Fluid Gram Stain - Final 09/15/18 12:20 Pleural Fluid Body Fluid Culture - Final NO GROWTH OF AEROBIC ORGANISMS AFTER 48 HOURS INCUBATION 09/15/18 12:20 Pleural Fluid Anaerobic Culture - Final NO ANAEROBES WERE ISOLATED 09/15/18 12:20 Pleural Fluid ROBERT Preparation - Preliminary 09/15/18 12:20 Pleural Fluid Fungal Culture - Preliminary 09/07/18 12:55 Thoracic Fluid Gram Stain - Final 09/07/18 12:55 Thoracic Fluid Body Fluid Culture - Final NO GROWTH OF AEROBIC ORGANISMS AFTER 48 HOURS INCUBATION 09/07/18 12:55 Thoracic Fluid Anaerobic Culture - Final NO ANAEROBES WERE ISOLATED 09/07/18 12:55 Thoracic Fluid AFB Smear Concentration - Final 09/07/18 12:55 Thoracic Fluid Mycobacterial Culture - Preliminary 09/07/18 12:55 Thoracic Fluid ROBERT Preparation - Preliminary 09/07/18 12:55 Thoracic Fluid Fungal Culture - Preliminary 09/04/18 15:02 Urine - Urine Clean Catch Urine Culture - Final Escherichia Coli Active Medications Acetaminophen (Tylenol -) 650 mg PO Q6H PRN PRN Reason: PAIN LEVEL 4 - 6 Last Admin: 09/28/18 10:12 Dose: 650 mg Atenolol (Tenormin -) 25 mg PO DAILY [facility] Last Admin: 09/28/18 10:10 Dose: 25 mg Docusate Sodium (Colace -) 100 mg PO BID PRN PRN Reason: CONSTIPATION Last Admin: 09/28/18 12:36 Dose: 100 mg Folic Acid (Folic Acid -) 1 mg PO DAILY [facility] Last Admin: 09/28/18 10:08 Dose: 1 mg Heparin Sodium (Porcine) (Heparin -) 5,000 unit SQ BID [facility] Last Admin: 09/28/18 10:08 Dose: 5,000 unit Lactated Ringer's (Lactated Ringers Solution) 1,000 mls @ 75 mls/hr IV ASDIR [facility] Last Admin: 09/27/18 20:47 Dose: 75 mls/hr Magnesium Oxide (Mag-Ox -) 400 mg PO DAILY [facility] Last Admin: 09/28/18 10:09 Dose: 400 mg Mupirocin (Bactroban Ointment (For Decolonization) -) 1 applic NS BID [facility] Stop: 09/29/18 21:59 Last Admin: 09/28/18 10:08 Dose: 1 applic Ondansetron HCl (Zofran Injection) 4 mg IVPUSH Q6H PRN PRN Reason: NAUSEA AND/OR VOMITING Oxycodone HCl (Roxicodone -) 5 mg PO Q6H PRN PRN Reason: PAIN LEVEL 7 - 10 Last Admin: 09/27/18 23:47 Dose: 5 mg Potassium Chloride (K-Dur -) 10 meq PO DAILY [facility] Last Admin: 09/28/18 10:09 Dose: 10 meq Primidone (Mysoline -) 50 mg PO HS [facility] Last Admin: 09/27/18 21:27 Dose: 50 mg Senna (Senna -) 2 tab PO HS PRN PRN Reason: CONSTIPATION Last Admin: 09/27/18 21:29 Dose: 2 tab Thiamine HCl (Vitamin B1 -) 100 mg PO DAILY [facility] Last Admin: 09/28/18 10:09 Dose: 100 mg ASSESSMENT/PLAN: 73 y/o M with PMHx of HTN, HLD, possible PAD, EtOH Abuse (Last drink 1 month ago ), admitted for SOB and unintentional weight loss, found to have b/l Pleural Effusion and will be monitored in ICU s/p Right VAT procedure with Pleural biopsy. #Neuro Hx of EtOH Abuse, Essential Tremor -A&Ox3, NAD -Psych (Dr. Vigil) Consulted, Appreciate Rec's; Patient lacks functional capacity to make informed decisions at this time -Dr. Maria consulted, Appreciate rec's -Continue Thiamine, Folic Acid, Multivitamin, Primidone -Monitor CIWA for withdrawal #Cardio Hx of HTN, HLD, PAD -Continue home dose Atenolol -Dr. Flores consulted, Appreciate Rec's #Pulmonary S/P Right VAT procedure with Pleural biopsy POD #4 B/L Pleural Effusions s/p R Thoracentesis -Follow Microbiology, Bx -Pain control via PO Oxycodone -F/u CXR -Chest tube to be removed by Surgery this AM; Pleurx to remain -Incentive Spirometry -Cefazolin PeriOperatively #GI -Bowel Regimen via Senna, Docusate #Renal -Oscar Catheter placed in the OR -Dr. Leo consulted -Continue KDur 10mEq, Mag-Ox 400mg Daily -Monitor Urine Output #Heme Macrocytic Anemia -Likely due to EtOH Abuse -Continue Thiamine, Folic Acid -No active bleeding, Monitor CBC #Endo -No active issues, continue to monitor #ID Recent UTI Lactic Acidosis, Resolved -Completed course of Ceftriaxone -Remains AFebrile, Without Elevated WBC Count -Continue to monitor for signs of infection #FEN -No Standing Fluids -Lytes WNL -Clear Liquid diet #PPx -DVT: SCDs, Heparin Code Status: Full Code Dispo: Transfer to [facility]-Surg Visit type - Emergency Visit Emergency Visit: Yes ED Registration Date: 09/04/18 Care time: The patient presented to the Emergency Department on the above date and was hospitalized for further evaluation of their emergent condition. - New Patient This patient is new to me today: No - Critical Care Critical Care patient: Yes Total Critical Care Time (in minutes): 36 Critical Care Statement: The care of this patient involved high complexity decision making to prevent further life threatening deterioration of the patient 's condition and/or to evaluate & treat vital organ system(s) failure or risk of failure.
--- NOTE | 2018-09-28 15:22 | PROC ---
Procedure Note Procedure: Asked be Dr Oswald to remove chest tube. Patient resting comfortably. Chest tube removed with tip fully intact and pressure dressing applied. Pig tail catheter in good position and clean dry dressing applied. The patient tolerated the procedure well and vital signs remained stable throughout the procedure. post procedure CXR ordered. Will follow
[2018-09-28] MEDS ORDERED: PT OWN MED DRAWER 7, Y5N ONE ×2 (20:09→22:01)
[2018-09-28] MEDS: oxyCODONE HCL 5 MG TABLET PO PRN (20:10)
[2018-09-28] MEDS: PRIMIDONE 50 MG TABLET PO SCH (23:00)
[2018-09-29 06:27] LABS: BASO % 0.6 % (0-2.0); EOS % 3.6 % (0-4.5); HEMATOCRIT 28.4 % (35.4-49); HEMOGLOBIN 9.9 GM/dL (11.7-16.9); LYMPH % 23.1 % (8-40); MCH 35.2 pg (25.7-33.7); MCHC 34.8 g/dl (32.0-35.9); MEAN CELL VOLUME 101.2 fl (80-96); MEAN PLT VOLUME 7.4 fl (7.5-11.1); MONO % 12.3 % (3.8-10.2); NEUT % 60.4 % (42.8-82.8); PLATELET COUNT 201 K/MM3 (134-434); RDW 12.9 % (11.9-15.9); WHITE BLOOD COUNT 3.7 K/mm3 (4.0-10.0)
[2018-09-29 07:17] LABS: ALBUMIN 1.6 g/dl (3.4-5.0); ALK PHOS 103 U/L (45-117); ANION GAP 4 MMOL/L (8-16); BILIRUBIN,TOTAL 0.5 mg/dL (0.2-1); BLOOD UREA NITROGEN 7 mg/dL (7-18); CALCIUM 7.6 mg/dL (8.5-10.1); CHLORIDE 99 mmol/L (98-107); CO2 31 mmol/L (21-32); CREATININE 0.4 mg/dL (0.55-1.3); GLUCOSE,RANDOM 81 mg/dL (74-106); POTASSIUM 3.9 mmol/L (3.5-5.1); SGOT/AST 28 U/L (15-37); SGPT/ALT 21 U/L (13-61); SODIUM 135 mmol/L (136-145); TOT PROT 4.9 g/dl (6.4-8.2)
[2018-09-29] MEDS ORDERED: PT OWN MED DRAWER 7, Y5N ONE (07:46)
--- NOTE | 2018-09-29 08:01 | PN ---
Progress Note (short form) - Note Progress Note: surgery POD #5, s/p R VATS with pleural biopsy, decortication, pleurx insertion for pleural effusion. Pt seen and examined this morning. Reports states he continues to feel good with minimal pain. He is Tolerating his diet amd voiding. Pateint Denies cp/sob , n/v/d, has some discomfort from PleurX and chest tube which he's managing with Tylenol. Vital Signs Temp 98.6 F 09/29/18 02:00 Pulse 71 09/29/18 06:00 Resp 18 09/29/18 06:00 BP 110/55 L 09/29/18 06:00 Pulse Ox 97 09/28/18 22:00 Intake & Output 09/28/18 09/28/18 09/29/18 11:59 23:59 11:59 Intake Total 1020 1110 400 Output Total 90 80 300 Balance 930 1030 100 Weight 199 lb 14.4 oz Intake: IV 900 210 Lactated Ringers Solution 900 210 1,000 ml @ 75 mls/hr IV ASDIR [facility] Rx#:[id number] Oral 120 900 400 Output: Chest Tube Drainage 90 80 0 Right Posterior Chest 90 Right anterior Chest 0 80 0 Urine 300 Void 300 Other: Voiding Method Indwelling Catheter Urinal # Unmeasured Voids Void 2 1 Bowel Movement No No Weight Measurement Method Built in [facility] CBC, BMP 09/29/18 05:30 09/29/18 05:30 Gen: awake, alert, nad, sitting up in bed Resp: unlabored on RA, poor inspiratory effort. Decreased breath sounds RLL. Mild wheezing RLL. Chest tube site dressing saturated with SS discharge but no active d/c, dressing changed, and pleurX intact dressing c/d/i. Ext: soft, nt/nd Imaging: post chest tube removal CXR: little change from previous image, chest tube removed, pigtail catheter remains in place. Problem List - Problems (1) Pleural effusion Assessment/Plan: POD # 5 VATs, with Pigtail in place, patient doing well. -Pluerex catheter to remain in place -Daily CXR -OOB with PT and up to chair for meals -Encourage Pulmonary toilet/ daily IS Q hr -DVT/GI prophylaxis -D/c planning for rehab with plurex catheter- Surgery team will place cap upon d /c. -Follow up with Dr Oswald in 2 weeks time. Evaluation and plan discussed with Dr Oswald. Code(s): J90 - PLEURAL EFFUSION, NOT ELSEWHERE CLASSIFIED
--- NOTE | 2018-09-29 08:16 | PN ---
Physical Exam: SUBJECTIVE: Patient seen and examined this AM in ICU. Chest tube removed yesterday and dressing changed this AM by surgery team. Continues to have pain however improves with current regimen. No acute overnight events. OBJECTIVE: Vital Signs Period Temp Pulse Resp BP Sys/Lou Pulse Ox Last 24 Hr 97.9 F-99.9 F 63-74 17-20 90-122/37-59 96-97 GENERAL: A&Ox3, NAD HEAD: NCAT EYES: PERRL, EOMI ENT: Moist mucous membranes NECK: Supple LUNGS: Diminished breath sounds at the bases, No wheezes, No crackles HEART: RRR, normal S1 and S2, 2/6 systolic murmur at the RUSB ABDOMEN: Soft, nontender, not distended, + bowel sounds, no guarding EXTREMITIES: No peripheral edema NEUROLOGICAL: Cranial nerves II-XII intact. Normal Speech. Chronic Upper Extremity Tremor b/l SKIN: Warm, dry Laboratory Results - last 24 hr 09/28/18 09/28/18 09/29/18 08:05 08:05 05:30 WBC 3.7 L 3.7 L RBC 2.92 L 2.80 L Hgb 10.6 L 9.9 L Hct 30.1 L 28.4 L MCV 103.2 H 101.2 H MCH 36.2 H 35.2 H MCHC 35.1 34.8 RDW 12.9 12.9 Plt Count 196 201 MPV 7.2 L 7.4 L Absolute Neuts (auto) 2.5 2.3 Neutrophils % 68.7 60.4 Lymphocytes % 15.5 23.1 D Monocytes % 12.3 H 12.3 H Eosinophils % 2.9 3.6 Basophils % 0.6 0.6 Nucleated RBC % 0 0 Sodium 135 L Potassium 3.8 Chloride 99 Carbon Dioxide 31 Anion Gap 6 L BUN 8 Creatinine 0.4 L Creat Clearance w eGFR > 60 Random Glucose 90 Calcium 7.8 L Phosphorus 3.0 Magnesium 2.0 Total Bilirubin 0.4 AST 29 ALT 23 Alkaline Phosphatase 88 Total Protein 4.9 L Albumin 1.7 L 09/29/18 05:30 WBC RBC Hgb Hct MCV MCH MCHC RDW Plt Count MPV Absolute Neuts (auto) Neutrophils % Lymphocytes % Monocytes % Eosinophils % Basophils % Nucleated RBC % Sodium 135 L Potassium 3.9 Chloride 99 Carbon Dioxide 31 Anion Gap 4 L BUN 7 Creatinine 0.4 L Creat Clearance w eGFR > 60 Random Glucose 81 Calcium 7.6 L Phosphorus 3.0 Magnesium 2.0 Total Bilirubin 0.5 AST 28 ALT 21 Alkaline Phosphatase 103 Total Protein 4.9 L Albumin 1.6 L Microbiology 09/24/18 14:15 Tissue-Other AFB Smear Concentration - Preliminary 09/24/18 14:15 Tissue-Other Mycobacterial Culture - Preliminary 09/24/18 14:15 Bronchial Washings - Bilateral Lung Fluid AFB Smear Concentration - Preliminary 09/24/18 14:15 Bronchial Washings - Bilateral Lung Fluid Mycobacterial Culture - Preliminary 09/24/18 14:15 Tissue-Other Gram Stain - Final 09/24/18 14:15 Tissue-Other Tissue Culture - Final NO GROWTH OF AEROBIC ORGANISMS AFTER 48 HOURS INCUBATION 09/24/18 14:15 Tissue-Other Anaerobic Culture - Final NO ANAEROBES WERE ISOLATED 09/24/18 14:15 Bronchial Washings - Bilateral Lung Fluid Gram Stain - Final 09/24/18 14:15 Bronchial Washings - Bilateral Lung Fluid Bronchoalveolar Lavage Culture - Final NORMAL RESPIRATORY JOSE 09/24/18 14:15 Bronchial Washings - Bilateral Lung Fluid ROBERT Preparation - Preliminary 09/24/18 14:15 Bronchial Washings - Bilateral Lung Fluid Fungal Culture - Preliminary 09/24/18 14:15 Tissue-Other ROBERT Preparation - Preliminary 09/24/18 14:15 Tissue-Other Fungal Culture - Preliminary 09/15/18 12:20 Pleural Fluid AFB Smear Concentration - Final 09/15/18 12:20 Pleural Fluid Mycobacterial Culture - Preliminary 09/15/18 12:20 Pleural Fluid Gram Stain - Final 09/15/18 12:20 Pleural Fluid Body Fluid Culture - Final NO GROWTH OF AEROBIC ORGANISMS AFTER 48 HOURS INCUBATION 09/15/18 12:20 Pleural Fluid Anaerobic Culture - Final NO ANAEROBES WERE ISOLATED 09/15/18 12:20 Pleural Fluid ROBERT Preparation - Preliminary 09/15/18 12:20 Pleural Fluid Fungal Culture - Preliminary 09/07/18 12:55 Thoracic Fluid Gram Stain - Final 09/07/18 12:55 Thoracic Fluid Body Fluid Culture - Final NO GROWTH OF AEROBIC ORGANISMS AFTER 48 HOURS INCUBATION 09/07/18 12:55 Thoracic Fluid Anaerobic Culture - Final NO ANAEROBES WERE ISOLATED 09/07/18 12:55 Thoracic Fluid AFB Smear Concentration - Final 09/07/18 12:55 Thoracic Fluid Mycobacterial Culture - Preliminary 09/07/18 12:55 Thoracic Fluid ROBERT Preparation - Preliminary 09/07/18 12:55 Thoracic Fluid Fungal Culture - Preliminary 09/04/18 15:02 Urine - Urine Clean Catch Urine Culture - Final Escherichia Coli Active Medications Acetaminophen (Tylenol -) 650 mg PO Q6H PRN PRN Reason: PAIN LEVEL 4 - 6 Last Admin: 09/28/18 23:27 Dose: 650 mg Atenolol (Tenormin -) 25 mg PO DAILY [facility] Last Admin: 09/28/18 10:10 Dose: 25 mg Docusate Sodium (Colace -) 100 mg PO BID PRN PRN Reason: CONSTIPATION Last Admin: 09/28/18 12:36 Dose: 100 mg Folic Acid (Folic Acid -) 1 mg PO DAILY [facility] Last Admin: 09/28/18 10:08 Dose: 1 mg Heparin Sodium (Porcine) (Heparin -) 5,000 unit SQ BID [facility] Last Admin: 09/28/18 22:06 Dose: 5,000 unit Magnesium Oxide (Mag-Ox -) 400 mg PO DAILY [facility] Last Admin: 09/28/18 10:09 Dose: 400 mg Mupirocin (Bactroban Ointment (For Decolonization) -) 1 applic NS BID [facility] Stop: 09/29/18 21:59 Last Admin: 09/28/18 22:07 Dose: 1 applic Ondansetron HCl (Zofran Injection) 4 mg IVPUSH Q6H PRN PRN Reason: NAUSEA AND/OR VOMITING Oxycodone HCl (Roxicodone -) 5 mg PO Q6H PRN PRN Reason: PAIN LEVEL 7 - 10 Last Admin: 09/28/18 20:10 Dose: 5 mg Potassium Chloride (K-Dur -) 10 meq PO DAILY [facility] Last Admin: 09/28/18 10:09 Dose: 10 meq Primidone (Mysoline -) 50 mg PO HS [facility] Last Admin: 09/28/18 23:00 Dose: 50 mg Senna (Senna -) 2 tab PO HS PRN PRN Reason: CONSTIPATION Last Admin: 09/27/18 21:29 Dose: 2 tab Thiamine HCl (Vitamin B1 -) 100 mg PO DAILY [facility] Last Admin: 09/28/18 10:09 Dose: 100 mg ASSESSMENT/PLAN: 73 y/o M with PMHx of HTN, HLD, possible PAD, EtOH Abuse (Last drink 1 month ago ), admitted for SOB and unintentional weight loss, found to have b/l Pleural Effusion and will be monitored in ICU s/p Right VAT procedure with Pleural biopsy. #Neuro Hx of EtOH Abuse, Essential Tremor -A&Ox3, NAD -Psych (Dr. Vigil) Consulted, Appreciate Rec's; Patient lacks functional capacity to make informed decisions at this time -Dr. Maria consulted, Appreciate rec's -Continue Thiamine, Folic Acid, Multivitamin, Primidone -Monitor CIWA for withdrawal #Cardio Hx of HTN, HLD, PAD -Continue home dose Atenolol -Dr. Flores consulted, Appreciate Rec's #Pulmonary S/P Right VAT procedure with Pleural biopsy POD #5 B/L Pleural Effusions s/p R Thoracentesis -Follow Microbiology, Bx -Pain control via PO Oxycodone -F/u CXR -Pleurx intact, Dressing changed by surgery team -Incentive Spirometry #GI -Bowel Regimen via Senna, Docusate -Ondansetron PRN for Nausea #Renal -Dr. Leo consulted -Continue KDur 10mEq, Mag-Ox 400mg Daily -Monitor Urine Output #Heme Macrocytic Anemia -Likely due to EtOH Abuse -Continue Thiamine, Folic Acid -No active bleeding, Monitor CBC #Endo -No active issues, continue to monitor #ID Recent UTI Lactic Acidosis, Resolved -Completed course of Ceftriaxone -Remains AFebrile, Without Elevated WBC Count -Continue to monitor for signs of infection #FEN -No Standing Fluids -Lytes WNL -Regular diet #PPx -DVT: SCDs, Heparin Code Status: Full Code Dispo: Transfer to Med-Surg Visit type - Emergency Visit Emergency Visit: Yes ED Registration Date: 09/04/18 Care time: The patient presented to the Emergency Department on the above date and was hospitalized for further evaluation of their emergent condition. - New Patient This patient is new to me today: No - Critical Care Critical Care patient: Yes Total Critical Care Time (in minutes): 36 Critical Care Statement: The care of this patient involved high complexity decision making to prevent further life threatening deterioration of the patient 's condition and/or to evaluate & treat vital organ system(s) failure or risk of failure.
[2018-09-29] MEDS: oxyCODONE HCL 5 MG TABLET PO PRN ×2 (08:58→22:04)
[2018-09-29] MEDS: FOLIC ACID 1 MG TABLET (FP) PO SCH (09:07)
[2018-09-29] MEDS: MAGNESIUM OXIDE 400 MG TABLET (FP) PO SCH (09:07)
[2018-09-29] MEDS: THIAMINE HCL 100 MG TABLET (FP) PO SCH (09:07)
[2018-09-29] MEDS: MUPIROCIN 2% TOPICAL OINTMENT FOR DECOLONIZATION NS SCH ×2 (09:08→23:16)
[2018-09-29] MEDS: HEPARIN NA (PORCINE) 5,000 UNITS/ML 1ML VIAL SQ SCH ×2 (09:08→22:04)
[2018-09-29] MEDS: POTASSIUM CHLORIDE TABS 10 MEQ TABLET.ER (FP) PO SCH (09:09)
[2018-09-29] MEDS: ATENOLOL 25 MG TABLET (FP) PO SCH (09:13)
--- NOTE | 2018-09-29 11:28 | PN ---
Teaching Attending Note Name of Resident: Irene Miramontes ATTENDING PHYSICIAN STATEMENT I saw and evaluated the patient. I reviewed the resident's note and discussed the case with the resident. I agree with the resident's findings and plan as documented. SUBJECTIVE: Patient seen and examined in the ICU. Awake and alert. CT removed yesterday w/o incident. Overall feeling better. No air leak noted on PleureX CXR: Pleurex in place / No PTX noted / right effusion Intake & Output 09/26/18 09/27/18 09/28/18 09/29/18 23:59 23:59 23:59 23:59 Intake Total 3280 2920 2130 400 Output Total 3825 1480 170 300 Balance -545 1440 1960 100 Weight 201 lb 190 lb 8 oz 199 lb 14.4 oz 199 lb 3.2 oz Last Vital Signs Temp Pulse Resp BP Pulse Ox 97.7 F 77 18 113/61 94 L 09/29/18 10:00 09/29/18 10:00 09/29/18 09:00 09/29/18 10:00 09/29/18 10:00 Active Medications Acetaminophen (Tylenol -) 650 mg PO Q6H PRN PRN Reason: PAIN LEVEL 4 - 6 Last Admin: 09/28/18 23:27 Dose: 650 mg Atenolol (Tenormin -) 25 mg PO DAILY [facility] Last Admin: 09/29/18 09:13 Dose: 25 mg Docusate Sodium (Colace -) 100 mg PO BID PRN PRN Reason: CONSTIPATION Last Admin: 09/28/18 12:36 Dose: 100 mg Folic Acid (Folic Acid -) 1 mg PO DAILY [facility] Last Admin: 09/29/18 09:07 Dose: 1 mg Heparin Sodium (Porcine) (Heparin -) 5,000 unit SQ BID [facility] Last Admin: 09/29/18 09:08 Dose: 5,000 unit Magnesium Oxide (Mag-Ox -) 400 mg PO DAILY [facility] Last Admin: 09/29/18 09:07 Dose: 400 mg Mupirocin (Bactroban Ointment (For Decolonization) -) 1 applic NS BID [facility] Stop: 09/29/18 21:59 Last Admin: 09/29/18 09:08 Dose: 1 applic Ondansetron HCl (Zofran Injection) 4 mg IVPUSH Q6H PRN PRN Reason: NAUSEA AND/OR VOMITING Oxycodone HCl (Roxicodone -) 5 mg PO Q6H PRN PRN Reason: PAIN LEVEL 7 - 10 Last Admin: 09/29/18 08:58 Dose: 5 mg Potassium Chloride (K-Dur -) 10 meq PO DAILY [facility] Last Admin: 09/29/18 09:09 Dose: 10 meq Primidone (Mysoline -) 50 mg PO HS [facility] Last Admin: 09/28/18 23:00 Dose: 50 mg Senna (Senna -) 2 tab PO HS PRN PRN Reason: CONSTIPATION Last Admin: 09/27/18 21:29 Dose: 2 tab Thiamine HCl (Vitamin B1 -) 100 mg PO DAILY [facility] Last Admin: 09/29/18 09:07 Dose: 100 mg Constitutional: Yes: Awake and alert, NAD Eyes: Yes: WNL HENT: Yes: WNL Neck: Yes: WNL Cardiovascular: Yes: Regular Rate and Rhythm, S1, S2 Respiratory: Yes: Diminished, Right chest tube x 1, No air leak Gastrointestinal: Yes: Normal Bowel Sounds, Soft Extremities: Yes: WNL Edema: No Labs: Laboratory Results - last 24 hr 09/29/18 09/29/18 05:30 05:30 WBC 3.7 L RBC 2.80 L Hgb 9.9 L Hct 28.4 L MCV 101.2 H MCH 35.2 H MCHC 34.8 RDW 12.9 Plt Count 201 MPV 7.4 L Absolute Neuts (auto) 2.3 Neutrophils % 60.4 Lymphocytes % 23.1 D Monocytes % 12.3 H Eosinophils % 3.6 Basophils % 0.6 Nucleated RBC % 0 Sodium 135 L Potassium 3.9 Chloride 99 Carbon Dioxide 31 Anion Gap 4 L BUN 7 Creatinine 0.4 L Creat Clearance w eGFR > 60 Random Glucose 81 Calcium 7.6 L Phosphorus 3.0 Magnesium 2.0 Total Bilirubin 0.5 AST 28 ALT 21 Alkaline Phosphatase 103 Total Protein 4.9 L Albumin 1.6 L Assessment/Plan Problem List - Problems (1) UTI (urinary tract infection) Code(s): N39.0 - URINARY TRACT INFECTION, SITE NOT SPECIFIED (2) Lactic acidosis Code(s): E87.2 - ACIDOSIS (3) Pleural effusion Code(s): J90 - PLEURAL EFFUSION, NOT ELSEWHERE CLASSIFIED (4) Hypertension Code(s): I10 - ESSENTIAL (PRIMARY) HYPERTENSION (5) Failure to thrive in adult Code(s): R62.7 - ADULT FAILURE TO THRIVE Assessment/Plan UTI Bilateral Pleural Effusions s/p R Thoracentesis - Exudate r/o Malignancy Failure to Thrive Lactic Acidosis HTN Hyperlipidemia Trapped lung Floor - Monitor Pleurex drainage - DVT prophylaxis - Encourage Incentive Spirometry - f/u chest x-rays - Floor Dr Zamora
--- NOTE | 2018-09-29 12:43 | CONS ---
DATE OF CONSULTATION: DATE OF DICTATION: 09/29/2018 REASON FOR CONSULTATION: Inability to place Oscar. INDICATIONS: The patient is a 73-year-old male who is undergoing a VATS procedure in the OR, and a Oscar cannot be placed by the operative team, so I was called in intraoperatively for a consultation. At the end of the VATS procedure, the patient was placed back in supine position, and a 16-[place] Cou[place] Oscar was then placed without difficulty under sterile condition. [place]-tinged urine was retrieved, and the catheter was left to straight drainage. As per chart, I do not see any evidence of any prior urologic history. IMPRESSION: Urinary retention. PLAN: Keep Oscar in place until the patient is ambulatory and urine clear and then at that point catheter can be removed for a voiding trial. KAREN FIGUEREDO M.D. [id number]
[2018-09-29 14:18] VITALS: BMI 27.7
--- NOTE | 2018-09-29 14:43 | PATH ---
Surgical Pathology Report Patient Name: ESTER HOLLIDAY Med. Rec. #: [id number] /Age/Gender: 1945 (Age: 73) / M Account: [id number] Location: ICU [facility] Taken: 09/24/2018 Received: 09/24/2018 Reported: 09/29/2018 Physicians: Jarod Randhawa M.D. Specimen(s) Received A: PLEURAL BIOPSY B: VISCERAL PLEURAL BIOPSY Clinical History Pleural effusion Final Diagnosis A. PLEURAL, BIOPSY: BENIGN FIBROMEMBRANOUS TISSUE WITH PREDOMINANTLY CHRONIC AND FOCAL ACUTE INFLAMMATION, HISTIOCYTIC INFILTRATE, FOCAL HEMOSIDERIN DEPOSITION, HEMORRHAGE, FIBROSIS, AND REACTIVE CHANGES. B. VISCERAL PLEURA, BIOPSY: BENIGN FIBROMEMBRANOUS TISSUE WITH PREDOMINANTLY CHRONIC AND FOCAL ACUTE INFLAMMATION, HISTIOCYTIC INFILTRATE, FOCAL HEMOSIDERIN DEPOSITION, HEMORRHAGE, FIBROSIS, AND REACTIVE CHANGES. Comment: Immunohistochemical stains performed and interpreted at [facility] on block B for AE1/3 and MOC-31 were utilized to evaluate this case. See concurrent material [id number]. Electronically Signed Vlaeria Clark M.D. Gross Description A. Received in formalin labeled "pleural biopsy," is a 2.0 x 1.5 x 0.2 cm aggregate of multiple hernandez-maya portions of pleura. The largest portion is sectioned and the specimen is entirely submitted in one cassette. B. Received in formalin labeled "visceral pleura biopsy," is a 6.3 x 5.5 x 0.2 cm aggregate of hernandez-maya, irregular portions of pleura. Publication Distributor sections are submitted in 4 cassettes. __ DL/09/25/2018 saudi/09/24/2018
[2018-09-29] MEDS ORDERED: ONDANSETRON 4 MG/2 ML VIAL IVPUSH PRN (19:09)
[2018-09-29] MEDS ORDERED: DOCUSATE SODIUM 100 MG CAPSULE (FP) PO PRN (19:09)
[2018-09-29] MEDS ORDERED: ACETAMINOPHEN 325 MG TABLET (FP) PO PRN (19:09)
[2018-09-29] MEDS ORDERED: SENNOSIDES 8.6MG TABLET (FP) PO PRN (19:09)
--- NOTE | 2018-09-29 19:48 | PN ---
Progress Note, Physician History of Present Illness: pt remains stable, awaiting transfer to rehab facility. He can be stepped out of the ICU. - Current Medication List Current Medications: Active Medications Acetaminophen (Tylenol -) 650 mg PO Q6H PRN PRN Reason: PAIN LEVEL 4 - 6 Atenolol (Tenormin -) 25 mg PO DAILY [facility] Docusate Sodium (Colace -) 100 mg PO BID PRN PRN Reason: CONSTIPATION Folic Acid (Folic Acid -) 1 mg PO DAILY [facility] Heparin Sodium (Porcine) (Heparin -) 5,000 unit SQ BID [facility] Magnesium Oxide (Mag-Ox -) 400 mg PO DAILY [facility] Mupirocin (Bactroban Ointment (For Decolonization) -) 1 applic NS BID [facility] Stop: 10/04/18 21:59 Ondansetron HCl (Zofran Injection) 4 mg IVPUSH Q6H PRN PRN Reason: NAUSEA AND/OR VOMITING Oxycodone HCl (Roxicodone -) 5 mg PO Q6H PRN PRN Reason: PAIN LEVEL 7 - 10 Last Admin: 09/29/18 08:58 Dose: 5 mg Potassium Chloride (K-Dur -) 10 meq PO DAILY [facility] Primidone (Mysoline -) 50 mg PO HS [facility] Senna (Senna -) 2 tab PO HS PRN PRN Reason: CONSTIPATION Thiamine HCl (Vitamin B1 -) 100 mg PO DAILY [facility] - Objective Vital Signs: Vital Signs Temperature 97.6 F 09/29/18 16:00 Pulse Rate 76 09/29/18 16:00 Respiratory Rate 18 09/29/18 16:00 Blood Pressure 102/58 L 09/29/18 16:00 O2 Sat by Pulse Oximetry (%) 94 L 09/29/18 10:00 Constitutional: Yes: Well Nourished, No Distress, Calm Eyes: Yes: Conjunctiva Clear HENT: Yes: Atraumatic, Normocephalic Neck: Yes: Supple Cardiovascular: Yes: Regular Rate and Rhythm Respiratory: Yes: Regular, CTA Bilaterally Gastrointestinal: Yes: Normal Bowel Sounds, Soft ...Rectal Exam: Yes: Deferred Musculoskeletal: Yes: WNL Extremities: Yes: WNL Edema: No Neurological: Yes: Alert, Oriented Psychiatric: Yes: Alert, Oriented Labs: CBC, BMP 09/29/18 05:30 09/29/18 05:30 INR, PTT INR 1.13 (0.83-1.09) H 09/24/18 07:40 Problem List - Problems (1) Prophylactic measure Assessment/Plan: heparin SC BID OOB to chair Ambulate as tolerated senna and colace Code(s): Z29.9 - ENCOUNTER FOR PROPHYLACTIC MEASURES, UNSPECIFIED (2) Hypertension Assessment/Plan: cardiac diet atenolol 25mg daily Code(s): I10 - ESSENTIAL (PRIMARY) HYPERTENSION Impression/Plan Impression/Plan: moderate -pt need outpt cardiology follow for serial echo to monitor disease progression FTT -continue folic acid, thiamine DISPO: Full code transfer to [facility] when once authorization received Visit type - Emergency Visit Emergency Visit: Yes ED Registration Date: 09/04/18 Care time: The patient presented to the Emergency Department on the above date and was hospitalized for further evaluation of their emergent condition. - New Patient This patient is new to me today: No - Critical Care Critical Care patient: Yes Total Critical Care Time (in minutes): 30 Critical Care Statement: The care of this patient involved high complexity decision making to prevent further life threatening deterioration of the patient 's condition and/or to evaluate & treat vital organ system(s) failure or risk of failure. - Discharge Referral Referred to [facility] No
[2018-09-29] MEDS ORDERED: PRIMIDONE 50 MG TABLET PO SCH (22:00)
[2018-09-29] MEDS ORDERED: MAG HYDROX/AL HYDROX/SIMETH 30 ML UNIT-DOSE CUP PO ONE ×2 (23:34→23:41)
--- NOTE | 2018-09-30 04:35 | PN ---
Progress Note, Physician Chief Complaint: Pt A&Ox3; denies any pain; not short of breath. History of Present Illness: he patient is a 73 year old white male (natan Jonelle) with a significant medical history of HTN, HLD, ETHO abuse, diastolic CHF, possible PAD, who was brought in by family for failure to thrive and SOB. The family reports that the patient drinks ETOH to excess nightly, though pt denies drinking for the past month. Per son, pt was found in his home completely disheveled today with urine and stool on himself. They also report a significant weight loss recently. Pt endorses SOB with exertion. Denies CP. Denies SOB at rest. The patient denies headache and dizziness. The patient denies fever, chills, nausea, vomit, diarrhea and constipation. The patient denies dysuria, frequency , urgency and hematuria. Allergies: NKDA - Current Medication List Current Medications: Active Medications Acetaminophen (Tylenol -) 650 mg PO Q6H PRN PRN Reason: PAIN LEVEL 4 - 6 Atenolol (Tenormin -) 25 mg PO DAILY [facility] Docusate Sodium (Colace -) 100 mg PO BID PRN PRN Reason: CONSTIPATION Last Admin: 09/29/18 22:04 Dose: 100 mg Folic Acid (Folic Acid -) 1 mg PO DAILY [facility] Heparin Sodium (Porcine) (Heparin -) 5,000 unit SQ BID [facility] Last Admin: 09/29/18 22:04 Dose: 5,000 unit Magnesium Oxide (Mag-Ox -) 400 mg PO DAILY [facility] Mupirocin (Bactroban Ointment (For Decolonization) -) 1 applic NS BID [facility] Stop: 10/04/18 21:59 Last Admin: 09/29/18 23:16 Dose: Not Given Ondansetron HCl (Zofran Injection) 4 mg IVPUSH Q6H PRN PRN Reason: NAUSEA AND/OR VOMITING Oxycodone HCl (Roxicodone -) 5 mg PO Q6H PRN PRN Reason: PAIN LEVEL 7 - 10 Last Admin: 09/29/18 22:04 Dose: 5 mg Potassium Chloride (K-Dur -) 10 meq PO DAILY [facility] Primidone (Mysoline -) 50 mg PO HS [facility] Last Admin: 09/29/18 23:18 Dose: 50 mg Senna (Senna -) 2 tab PO HS PRN PRN Reason: CONSTIPATION Thiamine HCl (Vitamin B1 -) 100 mg PO DAILY [facility] - Objective Vital Signs: Vital Signs Temperature 97.8 F 09/30/18 02:00 Pulse Rate 73 09/30/18 02:00 Respiratory Rate 20 09/30/18 02:00 Blood Pressure 117/53 L 09/30/18 02:00 O2 Sat by Pulse Oximetry (%) 96 09/29/18 21:11 Constitutional: Yes: No Distress Eyes: Yes: WNL HENT: Yes: WNL Neck: Yes: WNL Cardiovascular: Yes: S1, S2 Respiratory: Yes: Regular, Other (chest tube removed; Pleurex) Gastrointestinal: Yes: Soft ...Rectal Exam: Yes: Deferred Genitourinary: No: Anuria Musculoskeletal: Yes: Muscle Weakness Extremities: Yes: Cool Edema: No Peripheral Pulses WNL: Yes Wound/Incision: Yes: Clean/Dry Psychiatric: Yes: WNL Labs: CBC, BMP 09/29/18 05:30 09/29/18 05:30 INR, PTT INR 1.13 (0.83-1.09) H 09/24/18 07:40 Abnormal Lab Results 09/29/18 09/29/18 05:30 05:30 WBC 3.7 L RBC 2.80 L Hgb 9.9 L Hct 28.4 L MCV 101.2 H MCH 35.2 H MPV 7.4 L Monocytes % 12.3 H Sodium 135 L Anion Gap 4 L Creatinine 0.4 L Calcium 7.6 L Total Protein 4.9 L Albumin 1.6 L - ....Imaging Chest X-ray: Image Reviewed (no significant change) Problem List - Problems (1) Moderate aortic stenosis Assessment/Plan: ECHO: normal LVEF; abnormal diastolic compliance; normal wall thickness; mild MR , TR, AR.; moderate . Denies chest pain, syncope, PND/orthopnea, leg swelling. On atenolol. EKG: NSR; no acute STT changes Code(s): I35.0 - NONRHEUMATIC AORTIC (VALVE) STENOSIS (2) Failure to thrive in adult Assessment/Plan: F/u with saddle stitcher. Hypoalbuminemia. R/o malignancy. Code(s): R62.7 - ADULT FAILURE TO THRIVE (3) Hypertension Assessment/Plan: On atenolol; BP remains well-controlled. Code(s): I10 - ESSENTIAL (PRIMARY) HYPERTENSION (4) EtOH dependence Code(s): F10.20 - ALCOHOL DEPENDENCE, UNCOMPLICATED (5) S/P thoracentesis Assessment/Plan: chest tube removed; f/u Pleurex drainage. Code(s): Z98.890 - OTHER SPECIFIED POSTPROCEDURAL STATES (6) [place] cardiac risk >20% in next 10 years Assessment/Plan: Pt denies hx of cardiac disease; denies chest pain. As discussed with pt and family, workup to r/o malignancy and aid respiratory status is presently of prime concern. Stress test can be planned as outpatient. Code(s): Z91.89 - OT PERSONAL RISK FACTORS, NOT ELSEWHERE CLASSIFIED (7) Hypoalbuminemia Code(s): E88.09 - OT DISORDERS OF PLASMA-PROTEIN METABOLISM, NEC Assessment/Plan CCU time spent examining pt, formulating plan: 35 minutes.
[2018-09-30 07:26] LABS: BASO % 0.7 % (0-2.0); EOS % 2.8 % (0-4.5); HEMATOCRIT 29.5 % (35.4-49); HEMOGLOBIN 10.3 GM/dL (11.7-16.9); LYMPH % 20.9 % (8-40); MCH 35.3 pg (25.7-33.7); MCHC 34.9 g/dl (32.0-35.9); MEAN CELL VOLUME 100.9 fl (80-96); MEAN PLT VOLUME 7.5 fl (7.5-11.1); MONO % 14.1 % (3.8-10.2); NEUT % 61.5 % (42.8-82.8); PLATELET COUNT 203 K/MM3 (134-434); RBC 2.93 M/mm3 (4.00-5.60); RDW 13.3 % (11.9-15.9)
[2018-09-30 07:55] LABS: ALBUMIN 1.7 g/dl (3.4-5.0); ALK PHOS 114 U/L (45-117); ANION GAP 5 MMOL/L (8-16); BILIRUBIN,TOTAL 0.8 mg/dL (0.2-1); BLOOD UREA NITROGEN 5 mg/dL (7-18); CALCIUM 7.9 mg/dL (8.5-10.1); CHLORIDE 99 mmol/L (98-107); CO2 29 mmol/L (21-32); CREATININE 0.3 mg/dL (0.55-1.3); GLUCOSE,RANDOM 89 mg/dL (74-106); MAGNESIUM 2.2 mg/dL (1.8-2.4); PHOSPHOROUS 3.3 mg/dL (2.5-4.9); SGOT/AST 27 U/L (15-37); SGPT/ALT 22 U/L (13-61); SODIUM 133 mmol/L (136-145)
[2018-09-30] MEDS ORDERED: FOLIC ACID 1 MG TABLET (FP) PO SCH (10:00)
[2018-09-30] MEDS ORDERED: THIAMINE HCL 100 MG TABLET (FP) PO SCH (10:00)
[2018-09-30] MEDS ORDERED: ATENOLOL 25 MG TABLET (FP) PO SCH (10:00)
[2018-09-30] MEDS ORDERED: MAGNESIUM OXIDE 400 MG TABLET (FP) PO SCH (10:00)
[2018-09-30] MEDS ORDERED: POTASSIUM CHLORIDE TABS 10 MEQ TABLET.ER (FP) PO SCH (10:00)
[2018-09-30 10:26] VITALS: BP 111/57; PULSE 83; TEMP 97.3
[2018-09-30] MEDS: HEPARIN NA (PORCINE) 5,000 UNITS/ML 1ML VIAL SQ SCH (10:30)
[2018-09-30] MEDS: MUPIROCIN 2% TOPICAL OINTMENT FOR DECOLONIZATION NS SCH (10:32)
--- NOTE | 2018-09-30 12:12 | PN ---
Progress Note, Physician History of Present Illness: The patient is a 73 year old male with a significant medical history of HTN, HLD , possible PAD, who was brought in by family for failure to thrive and SOB. The family reports that the patient drinks ETOH nightly, though pt denies drinking for the past month. Per son, pt was found in his home completely disheveled today with urine and stool on himself. They also report a significant weight loss recently. Pt endorses SOB with exertion. Denies CP. Denies SOB at rest. The patient denies headache and dizziness. The patient denies fever, chills, nausea, vomit, diarrhea and constipation. The patient denies dysuria, frequency , urgency and hematuria. - Current Medication List Current Medications: Active Medications Acetaminophen (Tylenol -) 650 mg PO Q6H PRN PRN Reason: PAIN LEVEL 4 - 6 Atenolol (Tenormin -) 25 mg PO DAILY [facility] Last Admin: 09/30/18 10:31 Dose: 25 mg Docusate Sodium (Colace -) 100 mg PO BID PRN PRN Reason: CONSTIPATION Last Admin: 09/29/18 22:04 Dose: 100 mg Folic Acid (Folic Acid -) 1 mg PO DAILY [facility] Last Admin: 09/30/18 10:31 Dose: 1 mg Heparin Sodium (Porcine) (Heparin -) 5,000 unit SQ BID [facility] Last Admin: 09/30/18 10:30 Dose: 5,000 unit Magnesium Oxide (Mag-Ox -) 400 mg PO DAILY [facility] Last Admin: 09/30/18 10:31 Dose: 400 mg Mupirocin (Bactroban Ointment (For Decolonization) -) 1 applic NS BID [facility] Stop: 10/04/18 21:59 Last Admin: 09/30/18 10:32 Dose: Not Given Ondansetron HCl (Zofran Injection) 4 mg IVPUSH Q6H PRN PRN Reason: NAUSEA AND/OR VOMITING Potassium Chloride (K-Dur -) 10 meq PO DAILY [facility] Last Admin: 09/30/18 10:30 Dose: 10 meq Primidone (Mysoline -) 50 mg PO HS [facility] Last Admin: 09/29/18 23:18 Dose: 50 mg Senna (Senna -) 2 tab PO HS PRN PRN Reason: CONSTIPATION Thiamine HCl (Vitamin B1 -) 100 mg PO DAILY [facility] Last Admin: 09/30/18 10:30 Dose: 100 mg - Objective Vital Signs: Vital Signs Temperature 97.3 F L 09/30/18 10:00 Pulse Rate 83 09/30/18 10:00 Respiratory Rate 20 09/30/18 10:00 Blood Pressure 111/57 L 09/30/18 10:00 O2 Sat by Pulse Oximetry (%) 96 09/29/18 21:11 Eyes: Yes: WNL, Conjunctiva Clear, EOM Intact HENT: Yes: WNL, Atraumatic, Normocephalic Neck: Yes: WNL, Supple, Trachea Midline Cardiovascular: Yes: WNL, Regular Rate and Rhythm, Murmur, S1, S2 Respiratory: Yes: WNL, Regular, CTA Bilaterally Gastrointestinal: Yes: WNL, Normal Bowel Sounds Genitourinary: Yes: WNL Musculoskeletal: Yes: WNL Extremities: Yes: WNL Edema: No Integumentary: Yes: WNL Neurological: Yes: WNL, Alert, Oriented ...Motor Strength: WNL Psychiatric: Yes: WNL Labs: CBC, BMP 09/30/18 06:00 09/30/18 06:00 INR, PTT INR 1.13 (0.83-1.09) H 09/24/18 07:40 Problem List - Problems (1) Failure to thrive in adult Code(s): R62.7 - ADULT FAILURE TO THRIVE (2) Hypertension Code(s): I10 - ESSENTIAL (PRIMARY) HYPERTENSION (3) Lactic acidosis Code(s): E87.2 - ACIDOSIS (4) Pleural effusion Code(s): J90 - PLEURAL EFFUSION, NOT ELSEWHERE CLASSIFIED (5) Prophylactic measure Code(s): Z29.9 - ENCOUNTER FOR PROPHYLACTIC MEASURES, UNSPECIFIED (6) UTI (urinary tract infection) Code(s): N39.0 - URINARY TRACT INFECTION, SITE NOT SPECIFIED Assessment/Plan Problems (1) Moderate aortic stenosis Assessment/Plan: ECHO: normal LVEF; abnormal diastolic compliance; normal wall thickness; mild MR , TR, AR.; moderate . Denies chest pain, syncope, PND/orthopnea, leg swelling. On atenolol. EKG: NSR; no acute STT changes Code(s): I35.0 - NONRHEUMATIC AORTIC (VALVE) STENOSIS (2) Failure to thrive in adult Assessment/Plan: F/u with senior bi architect. Hypoalbuminemia. R/o malignancy. Code(s): R62.7 - ADULT FAILURE TO THRIVE (3) Hypertension Assessment/Plan: On atenolol; BP remains well-controlled. Code(s): I10 - ESSENTIAL (PRIMARY) HYPERTENSION (4) EtOH dependence Code(s): F10.20 - ALCOHOL DEPENDENCE, UNCOMPLICATED (5) S/P thoracentesis Assessment/Plan: chest tube removed; f/u Pleurex drainage. Code(s): Z98.890 - OTHER SPECIFIED POSTPROCEDURAL STATES (6) [place] cardiac risk >20% in next 10 years Assessment/Plan: Pt denies hx of cardiac disease; denies chest pain. As discussed with pt and family, workup to r/o malignancy and aid respiratory status is presently of prime concern. Stress test can be planned as outpatient. Code(s): Z91.89 - OTH PERSONAL RISK FACTORS, NOT ELSEWHERE CLASSIFIED (7) Hypoalbuminemia Code(s): E88.09 - OTH DISORDERS OF PLASMA-PROTEIN METABOLISM, NEC
--- NOTE | 2018-09-30 14:32 | DS ---
Physical Examination Vital Signs: Vital Signs Temperature 97.3 F L 09/30/18 10:00 Pulse Rate 83 09/30/18 10:00 Respiratory Rate 20 09/30/18 10:00 Blood Pressure 111/57 L 09/30/18 10:00 O2 Sat by Pulse Oximetry (%) 95 09/30/18 09:00 Constitutional: Yes: Well Nourished, No Distress, Calm Eyes: Yes: Conjunctiva Clear, PERRL HENT: Yes: Atraumatic, Normocephalic Neck: Yes: Supple, Trachea Midline Cardiovascular: Yes: Regular Rate and Rhythm Respiratory: Yes: Regular, CTA Bilaterally, Other (right pleurex in place) Gastrointestinal: Yes: Normal Bowel Sounds, Soft, Abdomen, Obese ...Rectal Exam: Yes: Deferred Musculoskeletal: Yes: Muscle Weakness Extremities: Yes: WNL, Cool Edema: No Peripheral Pulses: Left Radial: 2+, Right Radial: 2+, Left Doralis Pedis: 1+, Right Dorsalis Pedis: 1+ Integumentary: Yes: Venous Stasis Changes Wound/Incision: Yes: Dressing Dry and Intact Neurological: Yes: Alert, Oriented ...Motor Strength: WNL Psychiatric: Yes: Alert, Oriented Labs: CBC, BMP 09/30/18 06:00 09/30/18 06:00 Discharge Summary Reason For Visit: PLEURAL EFFUSION/ LACTIC ACIDOSIS (1) UTI (urinary tract infection) Code(s): N39.0 - URINARY TRACT INFECTION, SITE NOT SPECIFIED (2) Lactic acidosis Code(s): E87.2 - ACIDOSIS (3) Pleural effusion Code(s): J90 - PLEURAL EFFUSION, NOT ELSEWHERE CLASSIFIED (4) Hypertension Code(s): I10 - ESSENTIAL (PRIMARY) HYPERTENSION (5) Failure to thrive in adult Code(s): R62.7 - ADULT FAILURE TO THRIVE Other Procedures: CXR 09/29/2018: Pleurex in the right pleural space is again noted. Hospital Course: 73 year old male with a significant medical history of HTN, HLD, possible PAD, who was brought in by family for failure to thrive and SOB. The family reports that the patient drinks ETOH nightly, though pt denies drinking for the past month. Per son, pt was found in his home completely disheveled today with urine and stool on himself. They also report a significant weight loss recently. pt seen at bedside in ED, pt at first was not in agreement to stay, went to see patient and states " I changed my mind, I will stay" pt denies fever, chest pain , abd pain, diarrhea, headache, dizziness, urinary frequency. ER course was notable for: (1)Lactic 2.7 (2)+UA (3)CT chest Bilateral pleural effusion R>L, small calcified plaques Hospital course s/p right thoracententis with 1700 cc removal on 09/07/2018. pleural fluid cytology, no malignant cells Seen by thoracic surgery: possible VATS procedure scheduled for 09/24/2018 to rule out malignancy (has loculated pleural fluid, pleural calcificaion and LLL consolidation) Right Pneumothorax Had Pigtail catheter placed 09/16 with pneumothorax Repeat CXR shows no change of pneumothorax, chest tube with sero sang apx 450- cc output Thoracic surgery following, he underwent VATS procedure (Right video assisted thoracoscopy with pleural biopsy, decortication, pleurx insertion) on 09/24/2018. Pleurex tube disconnected from chest tube and capped on 09/29 prior to discharge. Catheter can be drained as needed. pt with significant systolic murmur on exam: echo with normal LVEF; abnormal diastolic compliance; normal wall thickness; mild MR, TR, AR.; moderate . cardiology followed pt. NEURO: pt with UE tremors, Seen by neuro and started on priomodone 50mg @ hs. : patient had E.coli UTI treated with ceftriaxone x 7days Condition: Fair - Instructions Diet, Activity, Other Instructions: Discharge Instructions Dear ESTER HOLLIDAY, Post Operative Instructions Physical activity Resume your normal everyday activity as tolerated no heavy lifting or exercise until seen by your surgeon. You may walk unlimited amounts of and climb stairs. Wound care Keep incisions clean and dry. Diet There are no dietary restrictions. Eat healthy, high-fiber foods. Drink 6 to 8 glasses of liquid each day. This will assist in keeping your bowels are regular. Call Dr. Tellez for any of the following: Severe pain not relieved by medication Fever of 101 or higher Excessive bleeding or drainage on dressing Inability to urinate If you experience any chest pain or shortness of breath please seek emergency treatment immediately. Call the office to confirm a post operative appointment with Dr Hakami in 2 weeks time. Referrals: Jose Carlos Rowe [Primary Care Provider] - Disposition: LONG TERM FACILITY - Home Medications Comprehensive Discharge Medication List: Ambulatory Orders Atenolol [Tenormin] 25mg daily Tylenol 350mg Q6hrs colace 100mg BID folic acid 1mg daily Magnesium 400mg daily KCL ER 40meq daily Primidone 50mg qhs senna 2tabs at bedtime Thiamine 100mg daily Oxycodone HCl (Roxicodone -) 5 mg PO Q6H PRN This patient is new to me today: No Emergency Visit: Yes ED Registration Date: 09/04/18 Care time: The patient presented to the Emergency Department on the above date and was hospitalized for further evaluation of their emergent condition. Critical Care patient: No - Discharge Referral Referred to [facility] No Physician Referral: Sulaiman Loco MD ([facility])
== END 2018-09-30 13:34 | DRG 164 ==
LOC: JER 13:11 → JERBED 18:09 → J5S 19:37 → JSAMEDAYSX 09-24 10:46 → JICU 09-24 15:16 → J8W 09-29 20:33
PROVIDERS: ADMIT Internal Medicine; ATTEND Nurse Practitioner Family
PROC: 0W993ZX Drainage of Right Pleural Cavity, Percutaneous Approach, Diagnostic (ICD-10-PCS; 2018-09-07)
PROC: 0W9940Z Drainage of Right Pleural Cavity with Drainage Device, Percutaneous Endoscopic Approach (ICD-10-PCS; 2018-09-24)
PROC: 0BDN4ZX Extraction of Right Pleura, Percutaneous Endoscopic Approach, Diagnostic (ICD-10-PCS; principal; 2018-09-24 11:00)
DX: J90 Pleural effusion, not elsewhere classified (principal); N39.0 Urinary tract infection, site not specified; E87.2 Acidosis; J95.811 Postprocedural pneumothorax; I50.32 Chronic diastolic (congestive) heart failure; I11.0 Hypertensive heart disease with heart failure; I35.0 Nonrheumatic aortic (valve) stenosis; E87.6 Hypokalemia; F10.20 Alcohol dependence, uncomplicated; N40.1 Benign prostatic hyperplasia with lower urinary tract symptoms; R33.8 Other retention of urine; Z87.891 Personal history of nicotine dependence; R62.7 Adult failure to thrive; Z68.27 Body mass index [BMI] 27.0-27.9, adult; Z80.0 Family history of malignant neoplasm of digestive organs; E88.09 Other disorders of plasma-protein metabolism, not elsewhere classified; R25.1 Tremor, unspecified; R91.8 Other nonspecific abnormal finding of lung field; D53.9 Nutritional anemia, unspecified
CPT/HCPCS: 32557; 36415; 36600; 71045-TC-FY; 71250-TC; 71260-TC; 76942; 80048; 80053; 80061; 81003; 81015; 82042; 82150; 82803; 82945; 83605; 83615; 83721; 83735; 83880; 83986; 84100; 84157; 84439; 84443; 84478; 84484; 85025; 85610; 86850; 86900; 86901; 87070; 87075; 87086; 87102; 87116; 87186; 87205; 87206; 87210; 88108; 88305-TC; 88331-TC; 88341-TC; 90670; 90688; 93005; 93010; 93306-TC; 94010; 94640; 97116-GP; 97162-GP; 99285-25; C1729; G0008; G0009; J0131; J1644; J7030